=== PATIENT | female | born 1940 | race Caucasian/White ===

== ENCOUNTER 2016-06-13 22:43 | Inpatient (IN) | payer MEDICARE, OTHER ==
[~2016-06-13] VITALS: Ht 144.8 cm; Wt 87.6 kg
[~2016-06-13 22:43] MED LIST: ACET500T68 PO; ALPR1TAB2 PO; AMLO10TA2 PO; ASPI81TA2 PO; CARV6.252 PO; DOCU-27 PO; ESOM20CA PO; FLUT16SP NS; FURO20TA3 PO; LISI40TA PO; MONT10TA6 PO; MONT10TA9 PO; MULT-245 PO; ONDA4TAB10 PO; PANT40TA3 PO; QUET100T PO; QUET25TA5 PO; ROPI0.25 PO; SUCR1ORA2 PO; VALS40TA2 PO
[2016-06-14] VITALS (25 sets, daily range): BP systolic 99–166; BP diastolic 49–90
[2016-06-14] MEDS ORDERED: ACETAMINOPHEN 325 MG TABLET. PO PRN (00:45)
[2016-06-14] MEDS ORDERED: ONDANSETRON PF 4 MG/2 ML VIAL. IV PRN (00:45)
[2016-06-14] MEDS ORDERED: GABA800T2 PO (00:55)
[2016-06-14] MEDS ORDERED: SIMV40TA3 PO (00:55)
[2016-06-14] MEDS ORDERED: ACET-704 PO (00:55)
[2016-06-14 04:20] LABS: BASO % 0 % (0-3); EOS % 0 % (0-3); HEMATOCRIT 34.5 % (36.0-47.0); LYMPH # 0.7 x10^3/uL (1.0-4.8); LYMPH % 3 % (24-48); MEAN CORPUSCULAR HEMOGLOBIN 30 pg (25-35); MEAN CORPUSCULAR HGB CONC 32 g/dL (31-37); MEAN CORPUSCULAR VOLUME 94 fL (79-100); MONO % 1 % (0-9); NEUT % 96 % (31-73); PLATELET COUNT 232 x10^3/uL (140-400); RED BLOOD COUNT 3.67 x10^6/uL (3.50-5.40); RED CELL DISTRIBUTION WIDTH 16.7 % (11.5-14.5); WHITE BLOOD COUNT 22.7 x10^3/uL (4.0-11.0)
[2016-06-14 04:28] LABS: CALCIUM 8.3 mg/dL (8.5-10.1); CREATININE 2.6 mg/dL (0.6-1.0); GFR 17.9; POTASSIUM 4.8 mmol/L (3.5-5.1)
[2016-06-14 06:38] LABS: PLT ESTIMATE ADEQUATE (ADEQUATE)
--- NOTE | 2016-06-14 08:10 | PDOC ---
Infectious Disease Note Vital Sign Vital Signs Vital Signs Date Time Temp Pulse Resp B/P Pulse Ox O2 Delivery O2 Flow Rate FiO2 06/14/16 07:00 98.8 92 20 134/57 92 Nasal Cannula 5.0 98.8 Labs Lab Laboratory Tests Test 06/14/16 02:05 White Blood Count 22.7x10^3/uL (4.0-11.0) Red Blood Count 3.67x10^6/uL (3.50-5.40) Hemoglobin 11.0g/dL (12.0-15.5) Hematocrit 34.5% (36.0-47.0) Mean Corpuscular Volume 94fL (79-100) Mean Corpuscular Hemoglobin 30pg (25-35) Mean Corpuscular Hemoglobin Concent 32g/dL (31-37) Red Cell Distribution Width 16.7% (11.5-14.5) Platelet Count 232x10^3/uL (140-400) Neutrophils (%) (Auto) 96% (31-73) Lymphocytes (%) (Auto) 3% (24-48) Monocytes (%) (Auto) 1% (0-9) Eosinophils (%) (Auto) 0% (0-3) Basophils (%) (Auto) 0% (0-3) Neutrophils # (Auto) 21.7x10^3uL (1.8-7.7) Lymphocytes # (Auto) 0.7x10^3/uL (1.0-4.8) Monocytes # (Auto) 0.3x10^3/uL (0.0-1.1) Eosinophils # (Auto) 0.0x10^3/uL (0.0-0.7) Basophils # (Auto) 0.0x10^3/uL (0.0-0.2) Segmented Neutrophils % 82% (35-66) Band Neutrophils % 12% (0-9) Lymphocytes % 4% (24-48) Monocytes % 2% (0-10) Platelet Estimate Adequate (ADEQUATE) Sodium Level 141mmol/L (136-145) Potassium Level 4.8mmol/L (3.5-5.1) Chloride Level 104mmol/L (98-107) Carbon Dioxide Level 26mmol/L (21-32) Anion Gap 11 (6-14) Blood Urea Nitrogen 34mg/dL (7-20) Creatinine 2.6mg/dL (0.6-1.0) Estimated GFR (Cockcroft-Gault) 17.9 Glucose Level 125mg/dL (70-99) Calcium Level 8.3mg/dL (8.5-10.1) Troponin I Quantitative < 0.017ng/mL (0.000-0.055) Objective Assessment Encephalopathy Leukocytosis Renal insufficiency Aphasia HTN Obesity Plan Plan of Care cont shaji and mackenzie for now MRI head cxr u/a supportive care SOSA ZIMMERMAN MD June 14, 2016 08:10
--- NOTE | 2016-06-14 08:47 | PDOC1 ---
History and Physical Date of Admission Date of Admission DATE: 06/14/16 TIME: 08:46 Identification/Chief Complaint Chief Complaint confusion Problems: Source Source: Chart review, Patient History of Present Illness History of Present Illness patient transferred from [facility]. seen there in the ER for confusion, and was workedup for back pain. She reports no back pain, but was maybe moaning in confusion, and she reports no back pain now, but has some difficulty following commands, and has some confusion, Past Medical History Past Medical History not much history sent Cardiovascular: Other (CHF? Le edema) Pulmonary: COPD Musculoskeletal: low back pain Infectious disease: No pertinent hx Family History Family History: No Significant Social History ALCOHOL: occassional Drugs: None Current Medications Current Medications Current Medications Ceftriaxone Sodium/Sodium Chloride (Rocephin/Iv Sodium Chloride 0.9% 50ml) 50 ml @ 100 mls/hr Q24H IV ; Start 06/14/16 at 21:00 Azithromycin (Zithromax) 250 mg DAILY PO ; Start 06/14/16 at 09:00; Stop 06/18/16 at 08:59 Acetaminophen (Tylenol) 325 mg PRN Q4HRS PRN PO MILD PAIN / TEMP; Start at 00:45 Hydralazine HCl (Apresoline) 10 mg PRN Q4HRS PRN IVP ELEVATED BP, SEE COMMENTS ; Start 06/14/16 at 00:45 Ondansetron HCl (Zofran) 4 mg PRN Q6HRS PRN IV NAUSEA/VOMITING; Start 06/14/16 at 00:45 Active Scripts Active Reported Simvastatin 40 Mg Tablet 1 Tab PO QHS Tylenol With Codeine #3 Tablet (Acetaminophen/Codeine Phosphate) 1 Each Tablet 1 Tab PO PRN Q6HRS PRN Gabapentin 800 Mg Tablet 800 Mg PO HS Requip (Ropinirole Hcl) 0.25 Mg Tablet 0.25 Mg PO HS Carafate (Sucralfate) 1 Gm/10 Ml Oral.susp 10 Ml PO TID Quetiapine Fumarate 100 Mg Tablet 100 Mg PO TID Zofran Odt (Ondansetron) 4 Mg Tab.rapdis 4 Mg PO PRN Q4HRS PRN Acetaminophen 500 Mg Tablet 650 Mg PO PRN Q4HRS PRN Colace (Docusate Sodium) 100 Mg Capsule 1 Cap PO BID Fluticasone Propionate Nasal [place] (Fluticasone Propionate) 16 Gm [place].susp 2 [place] NS BID Montelukast Sodium Tablet (Montelukast Sodium) 10 Mg Tablet 10 Mg PO HS Protonix (Pantoprazole Sodium) 40 Mg Tablet.dr 40 Mg PO DAILY Furosemide 20 Mg Tablet 20 Mg PO DAILY Lisinopril 40 Mg Tablet 40 Mg PO DAILY Carvedilol 6.25 Mg Tablet 6.25 Mg PO BIDWMEALS Amlodipine Besylate 10 Mg Tablet 10 Mg PO DAILY Aspirin 81 Mg Tab.chew 81 Mg PO Multi Vitamin Daily (Multivitamin) 1 Each Tablet 1 Each PO Nexium Capsule (Esomeprazole Magnesium) 20 Mg Capsule.dr 20 Mg PO Diovan (Valsartan) 40 Mg Tablet 40 Mg PO Seroquel (Quetiapine Fumarate) 25 Mg Tablet 25 Mg PO Xanax (Alprazolam) 1 Mg Tablet 0.5 Mg PO TID Allergies Allergies: Coded Allergies: No Known Drug Allergies (Unverified , 11/04/15) ROS Review of System unable to complete, pt confused, slow to respond, some questions just get stares General: YES: Chills, Fatigue HEENT: YES: Heacaches Physical Exam General: Cooperative, mild distress, Other (not oriented 0/3) HEENT: Atraumatic, PERRLA Lungs: Other (diminished, w./ rales, no wheeze) Abdomen: Normal bowel sounds, Soft Rectal Exam: not examined Extremities: No cyanosis, Other (non pitting edema BLE) Neuro: Reflexes 2+, Other (slow speech) Psych/Mental Status: Other (seems confused) Vitals Vitals Vital Signs Date Time Temp Pulse Resp B/P Pulse Ox O2 Delivery O2 Flow Rate FiO2 06/14/16 07:00 98.8 92 20 134/57 92 Nasal Cannula 5.0 98.8 Labs Labs Laboratory Tests Test 06/14/16 02:05 06/14/16 08:00 White Blood Count 22.7x10^3/uL (4.0-11.0) Red Blood Count 3.67x10^6/uL (3.50-5.40) Hemoglobin 11.0g/dL (12.0-15.5) Hematocrit 34.5% (36.0-47.0) Mean Corpuscular Volume 94fL (79-100) Mean Corpuscular Hemoglobin 30pg (25-35) Mean Corpuscular Hemoglobin Concent 32g/dL (31-37) Red Cell Distribution Width 16.7% (11.5-14.5) Platelet Count 232x10^3/uL (140-400) Neutrophils (%) (Auto) 96% (31-73) Lymphocytes (%) (Auto) 3% (24-48) Monocytes (%) (Auto) 1% (0-9) Eosinophils (%) (Auto) 0% (0-3) Basophils (%) (Auto) 0% (0-3) Neutrophils # (Auto) 21.7x10^3uL (1.8-7.7) Lymphocytes # (Auto) 0.7x10^3/uL (1.0-4.8) Monocytes # (Auto) 0.3x10^3/uL (0.0-1.1) Eosinophils # (Auto) 0.0x10^3/uL (0.0-0.7) Basophils # (Auto) 0.0x10^3/uL (0.0-0.2) Segmented Neutrophils % 82% (35-66) Band Neutrophils % 12% (0-9) Lymphocytes % 4% (24-48) Monocytes % 2% (0-10) Platelet Estimate Adequate (ADEQUATE) Sodium Level 141mmol/L (136-145) Potassium Level 4.8mmol/L (3.5-5.1) Chloride Level 104mmol/L (98-107) Carbon Dioxide Level 26mmol/L (21-32) Anion Gap 11 (6-14) Blood Urea Nitrogen 34mg/dL (7-20) Creatinine 2.6mg/dL (0.6-1.0) Estimated GFR (Cockcroft-Gault) 17.9 Glucose Level 125mg/dL (70-99) Calcium Level 8.3mg/dL (8.5-10.1) Troponin I Quantitative < 0.017ng/mL (0.000-0.055) < 0.017ng/mL (0.000-0.055) Laboratory Tests Test 06/14/16 02:05 06/14/16 08:00 White Blood Count 22.7x10^3/uL (4.0-11.0) Red Blood Count 3.67x10^6/uL (3.50-5.40) Hemoglobin 11.0g/dL (12.0-15.5) Hematocrit 34.5% (36.0-47.0) Mean Corpuscular Volume 94fL (79-100) Mean Corpuscular Hemoglobin 30pg (25-35) Mean Corpuscular Hemoglobin Concent 32g/dL (31-37) Red Cell Distribution Width 16.7% (11.5-14.5) Platelet Count 232x10^3/uL (140-400) Neutrophils (%) (Auto) 96% (31-73) Lymphocytes (%) (Auto) 3% (24-48) Monocytes (%) (Auto) 1% (0-9) Eosinophils (%) (Auto) 0% (0-3) Basophils (%) (Auto) 0% (0-3) Neutrophils # (Auto) 21.7x10^3uL (1.8-7.7) Lymphocytes # (Auto) 0.7x10^3/uL (1.0-4.8) Monocytes # (Auto) 0.3x10^3/uL (0.0-1.1) Eosinophils # (Auto) 0.0x10^3/uL (0.0-0.7) Basophils # (Auto) 0.0x10^3/uL (0.0-0.2) Segmented Neutrophils % 82% (35-66) Band Neutrophils % 12% (0-9) Lymphocytes % 4% (24-48) Monocytes % 2% (0-10) Platelet Estimate Adequate (ADEQUATE) Sodium Level 141mmol/L (136-145) Potassium Level 4.8mmol/L (3.5-5.1) Chloride Level 104mmol/L (98-107) Carbon Dioxide Level 26mmol/L (21-32) Anion Gap 11 (6-14) Blood Urea Nitrogen 34mg/dL (7-20) Creatinine 2.6mg/dL (0.6-1.0) Estimated GFR (Cockcroft-Gault) 17.9 Glucose Level 125mg/dL (70-99) Calcium Level 8.3mg/dL (8.5-10.1) Troponin I Quantitative < 0.017ng/mL (0.000-0.055) < 0.017ng/mL (0.000-0.055) VTE Prophylaxis Ordered VTE Prophylaxis Devices: No VTE Pharmacological Prophylaxi: Yes Assessment/Plan Assessment/Plan Sepsis, check UA and CXR here, ] Encephalopathy, acute w/ asterixis, consult Neuro, MRI brain, w/u CVA, NPO until speech, PT and OT acute hypoxic resp failure COPD, dependent at baseline Weakness and debility Acute vasomotor nephropathy on CKD obesity, BMI 40 LE edema, check echo TAYLOR GORDON MD June 14, 2016 08:47
[2016-06-14] MEDS ORDERED: SALIVA STIMULANT AGENT 44ML SPRAY BOTTLE. PO PRN (09:00)
[2016-06-14] MEDS ORDERED: AZITHROMYCIN 250 MG TABLET. PO SCH (09:00)
--- NOTE | 2016-06-14 09:03 | RAD ---
Indication leukocytosis. Protocol study. A single view of the chest was obtained. No prior imaging is available of the chest. Heart size is at the upper limits of normal. There is no gross congestive heart failure. The arch of the aorta is tortuous and may be mildly aneurysmally dilated. There is volume loss at the lung bases right slightly greater than left compatible with scarring or atelectasis. Pneumonia at either lung base is not entirely excluded. Significant pleural fluid is not seen. There is no pneumothorax. IMPRESSION: Heart size at the upper limits of normal. Somewhat tortuous thoracic aorta. Moderate aneurysmal dilatation of the arch is not excluded. Volume loss at the lung bases right greater than left may reflect atelectasis or scar. Pneumonia is not excluded.:
[2016-06-14] MEDS ORDERED: BUDESONIDE 0.5 MG/2 ML NEBU. NEB ONE (09:30)
[2016-06-14] MEDS: AZITHROMYCIN 250 MG in IV NORMAL SALINE 250ML 250 ML IV SCH (09:37)
--- NOTE | 2016-06-14 10:35 | PDOC2 ---
CONSULT Date of Consult Date of Consult DATE: 06/14/16 TIME: 10:34 Reason for Consult Reason for Consult: BARB/ CKD III Referring Physician Referring Physician: Dr Wolff Source Source: Chart review, Patient History of Present Illness Reason for Visit: as dictated Past Medical History Cardiovascular: Other (CHF? Le edema) Pulmonary: COPD Musculoskeletal: low back pain Infectious disease: No pertinent hx Renal/: Chronic renal failure Past Surgical History Past Surgical History: Hysterectomy Family History Family History: No Significant Social History ALCOHOL: occassional Drugs: None Current Medications Current Medications Current Medications Ceftriaxone Sodium/Sodium Chloride (Rocephin/Iv Sodium Chloride 0.9% 50ml) 50 ml @ 100 mls/hr Q24H IV ; Start 06/14/16 at 21:00 Azithromycin (Zithromax) 250 mg DAILY PO ; Start 06/14/16 at 09:00; Stop 06/14/16 at 09:00; Status DC Acetaminophen (Tylenol) 325 mg PRN Q4HRS PRN PO MILD PAIN / TEMP; Start at 00:45 Hydralazine HCl (Apresoline) 10 mg PRN Q4HRS PRN IVP ELEVATED BP, SEE COMMENTS ; Start 06/14/16 at 00:45 Ondansetron HCl (Zofran) 4 mg PRN Q6HRS PRN IV NAUSEA/VOMITING; Start 06/14/16 at 00:45 Saliva Substitute 2 spray 2 spray PRN Q15MIN PRN PO DRY MOUTH Last administered on 06/14/16 09:37; Start 06/14/16 at 09:00 Azithromycin/ Sodium Chloride (Zithromax/Iv Sodium Chloride 0.9% 250ml) 250 ml @ 250 mls/hr Q24H IV Last administered on 06/14/16 09:37; Start 06/14/16 at 10: 00 Albuterol/ Ipratropium (Duoneb) 3 ml Q4HRS W/A NEB ; Start 06/14/16 at 10:00 Budesonide (Pulmicort) 0.5 mg RTBID NEB ; Start 06/14/16 at 20:00 Budesonide (Pulmicort) 0.5 mg 1X ONCE NEB ; Start 06/14/16 at 09:30; Stop at 09:31; Status DC Active Scripts Active Reported Simvastatin 40 Mg Tablet 1 Tab PO QHS Tylenol With Codeine #3 Tablet (Acetaminophen/Codeine Phosphate) 1 Each Tablet 1 Tab PO PRN Q6HRS PRN Gabapentin 800 Mg Tablet 800 Mg PO HS Requip (Ropinirole Hcl) 0.25 Mg Tablet 0.25 Mg PO HS Carafate (Sucralfate) 1 Gm/10 Ml Oral.susp 10 Ml PO TID Quetiapine Fumarate 100 Mg Tablet 100 Mg PO TID Zofran Odt (Ondansetron) 4 Mg Tab.rapdis 4 Mg PO PRN Q4HRS PRN Acetaminophen 500 Mg Tablet 650 Mg PO PRN Q4HRS PRN Colace (Docusate Sodium) 100 Mg Capsule 1 Cap PO BID Fluticasone Propionate Nasal [place] (Fluticasone Propionate) 16 Gm [place].susp 2 [place] NS BID Montelukast Sodium Tablet (Montelukast Sodium) 10 Mg Tablet 10 Mg PO HS Protonix (Pantoprazole Sodium) 40 Mg Tablet.dr 40 Mg PO DAILY Furosemide 20 Mg Tablet 20 Mg PO DAILY Lisinopril 40 Mg Tablet 40 Mg PO DAILY Carvedilol 6.25 Mg Tablet 6.25 Mg PO BIDWMEALS Amlodipine Besylate 10 Mg Tablet 10 Mg PO DAILY Aspirin 81 Mg Tab.chew 81 Mg PO Multi Vitamin Daily (Multivitamin) 1 Each Tablet 1 Each PO Nexium Capsule (Esomeprazole Magnesium) 20 Mg Capsule.dr 20 Mg PO Diovan (Valsartan) 40 Mg Tablet 40 Mg PO Seroquel (Quetiapine Fumarate) 25 Mg Tablet 25 Mg PO Xanax (Alprazolam) 1 Mg Tablet 0.5 Mg PO TID Allergies Allergies: Coded Allergies: No Known Drug Allergies (Unverified , 11/04/15) ROS Review of System unable to get from pt due to underlying encephalopathy Physical Exam Physical Exam General Appearance: Awake relatively Alert Oriented x ? , does not answer Qs, min verbalization In no obvious Distress Eyes: VIsion Unchanged Conjunctiva Normal EN: No EN Drainage Mucous Memb. dry Neck: no JVD no JVP Supple no Thyromegaly CVS: S1 S2 ? Murmur No Gallop No Rub tr Edema Resp: no Rales no Rhonchi no Acc. Muscle use GI: BS +ve NO Bruit Min Tender Non Distended : + CVA tenderness; no Suprapubic Tenderness SKIN: no Rashes Breast Exam deferred Mu.Sk: Adequate passive ROM no Muscle Atrophy does not follow commands Heme: Unable to palpate Obvious LAD no palp Splenomegaly NEURO: unable to assess since she does not follow commands; no asterixis Psych: ? Depressed no Active hallucination Vital Signs Vital Signs Date Time Temp Pulse Resp B/P Pulse Ox O2 Delivery O2 Flow Rate FiO2 06/14/16 10:00 97 18 107/57 92 Nasal Cannula 5.0 06/14/16 07:00 98.8 98.8 Assessment & Plan BARB - ? Pyelonephritis.UO is good for now. watch trend on IVF. Current FLuid and E-lyte status does not necessitate emergent need for Dialysis. Will re- evaluate for Dialysis in am. UA as ordered and will await US Anemia: cehck iron ? Vol depltion - will see if IVF helps with improving AMS also. HypoAlbuminemia - check Pre-Alb Labs Labs Laboratory Tests Test 06/14/16 02:05 06/14/16 08:00 White Blood Count 22.7x10^3/uL (4.0-11.0) Red Blood Count 3.67x10^6/uL (3.50-5.40) Hemoglobin 11.0g/dL (12.0-15.5) Hematocrit 34.5% (36.0-47.0) Mean Corpuscular Volume 94fL (79-100) Mean Corpuscular Hemoglobin 30pg (25-35) Mean Corpuscular Hemoglobin Concent 32g/dL (31-37) Red Cell Distribution Width 16.7% (11.5-14.5) Platelet Count 232x10^3/uL (140-400) Neutrophils (%) (Auto) 96% (31-73) Lymphocytes (%) (Auto) 3% (24-48) Monocytes (%) (Auto) 1% (0-9) Eosinophils (%) (Auto) 0% (0-3) Basophils (%) (Auto) 0% (0-3) Neutrophils # (Auto) 21.7x10^3uL (1.8-7.7) Lymphocytes # (Auto) 0.7x10^3/uL (1.0-4.8) Monocytes # (Auto) 0.3x10^3/uL (0.0-1.1) Eosinophils # (Auto) 0.0x10^3/uL (0.0-0.7) Basophils # (Auto) 0.0x10^3/uL (0.0-0.2) Segmented Neutrophils % 82% (35-66) Band Neutrophils % 12% (0-9) Lymphocytes % 4% (24-48) Monocytes % 2% (0-10) Platelet Estimate Adequate (ADEQUATE) Sodium Level 141mmol/L (136-145) Potassium Level 4.8mmol/L (3.5-5.1) Chloride Level 104mmol/L (98-107) Carbon Dioxide Level 26mmol/L (21-32) Anion Gap 11 (6-14) Blood Urea Nitrogen 34mg/dL (7-20) Creatinine 2.6mg/dL (0.6-1.0) Estimated GFR (Cockcroft-Gault) 17.9 Glucose Level 125mg/dL (70-99) Calcium Level 8.3mg/dL (8.5-10.1) Troponin I Quantitative < 0.017ng/mL (0.000-0.055) < 0.017ng/mL (0.000-0.055) Albumin 2.7g/dL (3.4-5.0) Laboratory Tests Test 06/14/16 02:05 06/14/16 08:00 White Blood Count 22.7x10^3/uL (4.0-11.0) Red Blood Count 3.67x10^6/uL (3.50-5.40) Hemoglobin 11.0g/dL (12.0-15.5) Hematocrit 34.5% (36.0-47.0) Mean Corpuscular Volume 94fL (79-100) Mean Corpuscular Hemoglobin 30pg (25-35) Mean Corpuscular Hemoglobin Concent 32g/dL (31-37) Red Cell Distribution Width 16.7% (11.5-14.5) Platelet Count 232x10^3/uL (140-400) Neutrophils (%) (Auto) 96% (31-73) Lymphocytes (%) (Auto) 3% (24-48) Monocytes (%) (Auto) 1% (0-9) Eosinophils (%) (Auto) 0% (0-3) Basophils (%) (Auto) 0% (0-3) Neutrophils # (Auto) 21.7x10^3uL (1.8-7.7) Lymphocytes # (Auto) 0.7x10^3/uL (1.0-4.8) Monocytes # (Auto) 0.3x10^3/uL (0.0-1.1) Eosinophils # (Auto) 0.0x10^3/uL (0.0-0.7) Basophils # (Auto) 0.0x10^3/uL (0.0-0.2) Segmented Neutrophils % 82% (35-66) Band Neutrophils % 12% (0-9) Lymphocytes % 4% (24-48) Monocytes % 2% (0-10) Platelet Estimate Adequate (ADEQUATE) Sodium Level 141mmol/L (136-145) Potassium Level 4.8mmol/L (3.5-5.1) Chloride Level 104mmol/L (98-107) Carbon Dioxide Level 26mmol/L (21-32) Anion Gap 11 (6-14) Blood Urea Nitrogen 34mg/dL (7-20) Creatinine 2.6mg/dL (0.6-1.0) Estimated GFR (Cockcroft-Gault) 17.9 Glucose Level 125mg/dL (70-99) Calcium Level 8.3mg/dL (8.5-10.1) Troponin I Quantitative < 0.017ng/mL (0.000-0.055) < 0.017ng/mL (0.000-0.055) Albumin 2.7g/dL (3.4-5.0) KOBI ZIMMERMAN MD June 14, 2016 10:35
[2016-06-14] MEDS ORDERED: MAGNESIUM SULFATE 2GM 50 ML IV PRN (10:45)
[2016-06-14 11:02] LABS: HCO3 ABG 24 mmol/L (21-28); PCO2 ABG 50 mmHg (35-46); PO2 ABG 62 mmHg (65-108); SAT O2 ABG 89 % (92-99)
--- NOTE | 2016-06-14 11:12 | PDOC2 ---
NEUROLOGY CONSULT Date of Admission Date of Admission DATE: 06/14/16 TIME: 10:58 Reason for Consult Reason for Consult: Altered mental status, abnormal head CT Referring Physician Referring Physician: Dr. Clinton PCP: Dr. Henry Source Source: Chart review, Patient History of Present Illness History of Present Illness The patient is a 75-year-old right-handed female who presented to the [facility] emergency department with altered mental status. Last known normal was 06/12/16 at 19:45 when she left a normal voicemail message for a friend. No one saw her yesterday and neighbors were concerned, they got in her house and found her unresponsive on her bed in respiratory distress. I discussed the case with Dr. Walton. CT of the head showed probable artifact in the temi and I recommended a brain MRI for this morning, with neurology consultation only if it were abnormal. The brain MRI was not ordered until this morning and the neurology consultation has been placed anyway. The patient has been found to have multiple medical problems including pneumonia. She denies any prior history of stroke, seizure, or head injury. She was complaining of back pain yesterday, but denies it presently. Past Medical History Cardiovascular: HTN Pulmonary: Asthma, COPD CENTRAL NERVOUS SYSTEM: Seizure (Listed in nursing history, but patient denies) GI: GERD, Other ( esophageal stricture) Psych: Anxiety, Depression Musculoskeletal: Other ( fractures) Renal/: Chronic renal insuff Past Surgical History Past Surgical History: Hysterectomy, Other ( esophageal stricture dilatations, right leg) Family History Family History: No pertinent hx Social History Social History Single, no tobacco or alcohol Current Medications Current Medications Current Medications Ceftriaxone Sodium/Sodium Chloride (Rocephin/Iv Sodium Chloride 0.9% 50ml) 50 ml @ 100 mls/hr Q24H IV ; Start 06/14/16 at 21:00 Azithromycin (Zithromax) 250 mg DAILY PO ; Start 06/14/16 at 09:00; Stop 06/14/16 at 09:00; Status DC Acetaminophen (Tylenol) 325 mg PRN Q4HRS PRN PO MILD PAIN / TEMP; Start at 00:45 Hydralazine HCl (Apresoline) 10 mg PRN Q4HRS PRN IVP ELEVATED BP, SEE COMMENTS ; Start 06/14/16 at 00:45 Ondansetron HCl (Zofran) 4 mg PRN Q6HRS PRN IV NAUSEA/VOMITING; Start 06/14/16 at 00:45 Saliva Substitute 2 spray 2 spray PRN Q15MIN PRN PO DRY MOUTH Last administered on 06/14/16 09:37; Start 06/14/16 at 09:00 Azithromycin/ Sodium Chloride (Zithromax/Iv Sodium Chloride 0.9% 250ml) 250 ml @ 250 mls/hr Q24H IV Last administered on 06/14/16 09:37; Start 06/14/16 at 10: 00 Albuterol/ Ipratropium (Duoneb) 3 ml Q4HRS W/A NEB ; Start 06/14/16 at 10:00 Budesonide (Pulmicort) 0.5 mg RTBID NEB ; Start 06/14/16 at 20:00 Budesonide 0.5 mg 0.5 mg 1X ONCE NEB ; Start 06/14/16 at 09:30; Stop 06/14/16 at 09:31; Status DC Magnesium Sulfate/ Dextrose 50 ml @ 25 mls/hr PRN DAILY PRN IV for Mag < 1.7 on am labs; Start 06/14/16 at 10:45 Sodium Chloride (Iv Sodium Chloride 0.9% 1000ml Bag) 1,000 ml @ 75 mls/hr [id number] IV ; Start 06/14/16 at 11:00 Active Scripts Active Reported Simvastatin 40 Mg Tablet 1 Tab PO QHS Tylenol With Codeine #3 Tablet (Acetaminophen/Codeine Phosphate) 1 Each Tablet 1 Tab PO PRN Q6HRS PRN Gabapentin 800 Mg Tablet 800 Mg PO HS Requip (Ropinirole Hcl) 0.25 Mg Tablet 0.25 Mg PO HS Carafate (Sucralfate) 1 Gm/10 Ml Oral.susp 10 Ml PO TID Quetiapine Fumarate 100 Mg Tablet 100 Mg PO TID Zofran Odt (Ondansetron) 4 Mg Tab.rapdis 4 Mg PO PRN Q4HRS PRN Acetaminophen 500 Mg Tablet 650 Mg PO PRN Q4HRS PRN Colace (Docusate Sodium) 100 Mg Capsule 1 Cap PO BID Fluticasone Propionate Nasal [place] (Fluticasone Propionate) 16 Gm [place].susp 2 [place] NS BID Montelukast Sodium Tablet (Montelukast Sodium) 10 Mg Tablet 10 Mg PO HS Protonix (Pantoprazole Sodium) 40 Mg Tablet.dr 40 Mg PO DAILY Furosemide 20 Mg Tablet 20 Mg PO DAILY Lisinopril 40 Mg Tablet 40 Mg PO DAILY Carvedilol 6.25 Mg Tablet 6.25 Mg PO BIDWMEALS Amlodipine Besylate 10 Mg Tablet 10 Mg PO DAILY Aspirin 81 Mg Tab.chew 81 Mg PO Multi Vitamin Daily (Multivitamin) 1 Each Tablet 1 Each PO Nexium Capsule (Esomeprazole Magnesium) 20 Mg Capsule.dr 20 Mg PO Diovan (Valsartan) 40 Mg Tablet 40 Mg PO Seroquel (Quetiapine Fumarate) 25 Mg Tablet 25 Mg PO Xanax (Alprazolam) 1 Mg Tablet 0.5 Mg PO TID Allergies Allergies: Coded Allergies: No Known Drug Allergies (Unverified , 11/04/15) ROS Review of System Negative for fevers, chills, weight loss, shortness of breath, chest pain, indigestion, hematochezia, melena, dysuria. Full 14-point review systems is negative. Physical Exam Physical Examination PHYSICAL EXAMINATION: Vital signs: see above. General appearance is normal and in no acute distress. HEENT: Normocephalic and nontraumatic. Eyes, nose, ears, and throat are unremarkable. Neck is supple. No lymphadenopathy. No bruits are heard over the carotid artery. No crepitus. NEUROLOGICAL EXAMINATION: Mental Status Examination: Alert. She knows that she is in a hospital but does not know its name, or the date. Answers questions and follows commends. Pupils are equal round and reactive to light and accommodation. Funduscopic exam: No papilledema. Extraocular movements are intact. Visual field exam shows no defect on the direct confrontation. No motor or sensory deficits on the facial exam. Uvula in the midline and the soft palate elevated symmetrically. No deviation of the tongue to any direction. Gross hearing is normal. Shoulder shrug normal. Muscle tone is normal. Muscle strength is 5. Deep tendon reflexes are 2+ all around. There are bilateral grasp reflexes. Plantar reflex is with flexion response bilaterally. Vfeqdg-hy-fizu test performance is accurate. Tandem walk test is accurate. Alternative movements are accurate. Romberg test is negative. Gait is normal. Sensory exam shows no deficits. No cerebellar signs are elicited. Vitals VITALS Vital Signs Date Time Temp Pulse Resp B/P Pulse Ox O2 Delivery O2 Flow Rate FiO2 06/14/16 10:00 97 18 107/57 92 Nasal Cannula 5.0 06/14/16 07:00 98.8 98.8 Labs Labs Laboratory Tests Test 06/14/16 02:05 06/14/16 08:00 White Blood Count 22.7x10^3/uL (4.0-11.0) Red Blood Count 3.67x10^6/uL (3.50-5.40) Hemoglobin 11.0g/dL (12.0-15.5) Hematocrit 34.5% (36.0-47.0) Mean Corpuscular Volume 94fL (79-100) Mean Corpuscular Hemoglobin 30pg (25-35) Mean Corpuscular Hemoglobin Concent 32g/dL (31-37) Red Cell Distribution Width 16.7% (11.5-14.5) Platelet Count 232x10^3/uL (140-400) Neutrophils (%) (Auto) 96% (31-73) Lymphocytes (%) (Auto) 3% (24-48) Monocytes (%) (Auto) 1% (0-9) Eosinophils (%) (Auto) 0% (0-3) Basophils (%) (Auto) 0% (0-3) Neutrophils # (Auto) 21.7x10^3uL (1.8-7.7) Lymphocytes # (Auto) 0.7x10^3/uL (1.0-4.8) Monocytes # (Auto) 0.3x10^3/uL (0.0-1.1) Eosinophils # (Auto) 0.0x10^3/uL (0.0-0.7) Basophils # (Auto) 0.0x10^3/uL (0.0-0.2) Segmented Neutrophils % 82% (35-66) Band Neutrophils % 12% (0-9) Lymphocytes % 4% (24-48) Monocytes % 2% (0-10) Platelet Estimate Adequate (ADEQUATE) Sodium Level 141mmol/L (136-145) Potassium Level 4.8mmol/L (3.5-5.1) Chloride Level 104mmol/L (98-107) Carbon Dioxide Level 26mmol/L (21-32) Anion Gap 11 (6-14) Blood Urea Nitrogen 34mg/dL (7-20) Creatinine 2.6mg/dL (0.6-1.0) Estimated GFR (Cockcroft-Gault) 17.9 Glucose Level 125mg/dL (70-99) Calcium Level 8.3mg/dL (8.5-10.1) Troponin I Quantitative < 0.017ng/mL (0.000-0.055) < 0.017ng/mL (0.000-0.055) Albumin 2.7g/dL (3.4-5.0) Laboratory Tests Test 06/14/16 02:05 06/14/16 08:00 White Blood Count 22.7x10^3/uL (4.0-11.0) Red Blood Count 3.67x10^6/uL (3.50-5.40) Hemoglobin 11.0g/dL (12.0-15.5) Hematocrit 34.5% (36.0-47.0) Mean Corpuscular Volume 94fL (79-100) Mean Corpuscular Hemoglobin 30pg (25-35) Mean Corpuscular Hemoglobin Concent 32g/dL (31-37) Red Cell Distribution Width 16.7% (11.5-14.5) Platelet Count 232x10^3/uL (140-400) Neutrophils (%) (Auto) 96% (31-73) Lymphocytes (%) (Auto) 3% (24-48) Monocytes (%) (Auto) 1% (0-9) Eosinophils (%) (Auto) 0% (0-3) Basophils (%) (Auto) 0% (0-3) Neutrophils # (Auto) 21.7x10^3uL (1.8-7.7) Lymphocytes # (Auto) 0.7x10^3/uL (1.0-4.8) Monocytes # (Auto) 0.3x10^3/uL (0.0-1.1) Eosinophils # (Auto) 0.0x10^3/uL (0.0-0.7) Basophils # (Auto) 0.0x10^3/uL (0.0-0.2) Segmented Neutrophils % 82% (35-66) Band Neutrophils % 12% (0-9) Lymphocytes % 4% (24-48) Monocytes % 2% (0-10) Platelet Estimate Adequate (ADEQUATE) Sodium Level 141mmol/L (136-145) Potassium Level 4.8mmol/L (3.5-5.1) Chloride Level 104mmol/L (98-107) Carbon Dioxide Level 26mmol/L (21-32) Anion Gap 11 (6-14) Blood Urea Nitrogen 34mg/dL (7-20) Creatinine 2.6mg/dL (0.6-1.0) Estimated GFR (Cockcroft-Gault) 17.9 Glucose Level 125mg/dL (70-99) Calcium Level 8.3mg/dL (8.5-10.1) Troponin I Quantitative < 0.017ng/mL (0.000-0.055) < 0.017ng/mL (0.000-0.055) Albumin 2.7g/dL (3.4-5.0) Images Images CT head yesterday at [facility]: FINDINGS No acute intracranial hemorrhage is identified. There is some motion degradation. There is again some ill-defined low-density of the supratentorial white matter in a bilateral distribution. Duval-white differentiation of the major vascular territories is grossly preserved. Low-density of the temi is otherwise difficult to characterize by this exam, could be artifactual. Mild 3rd and lateral ventriculomegaly is unchanged. Visualized paranasal sinuses and mastoid air cells are aerated.No acute calvarial abnormality is identified. IMPRESSION 1. No acute intracranial hemorrhage is identified. Mild ill-defined low-density of the temi is otherwise difficult characterize, possibly artifactual although more recent ischemia not excludable on this exam. If there is suspicion for evolving or acute ischemia, followup CT or MRI may be beneficial. Ill-defined low-density of the supratentorial white matter bilaterally is probably due to chronic microvascular ischemic disease Assessment/Plan Assessment/Plan Impression: Metabolic encephalopathy, with sepsis, renal failure on top of chronic kidney disease, pneumonia I find no evidence of a pontine stroke on bedside examination, and suspect the CT finding indeed is artifactual as the radiologist said. Questionable history of seizures Grasp reflexes could imply an underlying dementia Recommendations: Await brain MRI Further recommendations depending on results I will also consider EEG testing if her mental status does not improve with treatment of her multiple medical conditions. Thank you for letting me help with the patient's care. ABDELRAHMAN CAMPOS MD June 14, 2016 11:12
[2016-06-14 11:21] LABS: URIC ACID 8.3 mg/dL (2.6-6.0)
[2016-06-14] MEDS: IPRATRPIUM/ALBUTEROL 0.5/2.5MG 3 ML NEBU. NEB SCH ×4 (12:03→22:00)
--- NOTE | 2016-06-14 12:22 | CONS ---
DATE OF CONSULTATION: ATTENDING PHYSICIAN: Dr. Wolff. REASON FOR CONSULTATION: Encephalopathy. HISTORY OF PRESENT ILLNESS: The patient is a 75-year-old female, who was brought back from [facility], where she presented with confusion and some slurring of speech. She has been worked up for back pain. The patient is normally on home oxygen. I was unable to get any history from the patient as she was definitely disoriented to place and person. Arterial blood gas was obtained, showed a pH of 7.30, pCO2 of 50 and a pO2 of 62 on 5 liters nasal cannula. Her chest x-ray was reviewed. There was some volume loss at the right base consistent with atelectasis or scarring. Consultation requested further evaluation and management. PAST MEDICAL HISTORY: History of low back pain, history of possible COPD and history of chronic respiratory failure. PAST SURGICAL HISTORY: No recent surgeries. ALLERGIES: None. MEDICATIONS: All reviewed as listed in the MRAD. REVIEW OF SYSTEMS: Unable to obtain from the patient. SOCIAL HISTORY: History of tobacco use in the past, details of which are not available. PHYSICAL EXAMINATION: GENERAL: She is confused, but in no obvious respiratory distress. VITAL SIGNS: Blood pressure is 107 systolic, afebrile, pulse ox 95% on 5 liters. HEENT: Sclerae nonicteric. NECK: Supple. LUNGS: Diminished breath sounds. CARDIOVASCULAR: Regular rate and rhythm. ABDOMEN: Soft, obese. EXTREMITIES: With trace pitting edema. LABORATORY DATA: Reviewed. ABGs as discussed in my history of present illness. BUN 34, creatinine 2.6, albumin 2.7. White cell count 22.7, hemoglobin 11.0 and platelets are 232. IMPRESSION: 1. Acute hypercapnic respiratory failure, etiology is not so obvious. Could be related to recent stroke versus be effect of pain medications. This is acute respiratory acidosis as her bicarbonate is normal and may be related to narcotics/ benzo's. She will benefit from BiPAP. 2. Cannot exclude sepsis. She has leukocytosis. X-ray shows only minimal volume loss of the right lower lobe. She does have renal failure. Possibility of sepsis cannot be ruled out. 3. Acute renal failure. Renal is consulted. 4. Leukocytosis. 5. Possible cerebrovascular accident. RECOMMENDATIONS: 1. We will place the patient on BiPAP. 2. Follow up ABGs post-bipap. 3. Follow MRI of the head results. 4. Empiric antibiotics as initiated. 5. Follow white cell count. 6. Follow ABGs. 7. Nebulizer treatments. 8. Discussed with RN and RT. Critical care time 37 minutes. BRYNN GONZALES MD DR: DIMA/dali JOB#: [id number] / [id number] DEBBIE
--- NOTE | 2016-06-14 12:27 | RAD ---
PROCEDURE MRI brain without contrast. HISTORY Severe confusion and encephalopathy. TECHNIQUE Sagittal T1, axial T1, axial T2, axial FLAIR, axial T2 gradient, coronal T2, and diffusion imaging with ADC map were performed. COMPARISON CT head from 1 day earlier. FINDINGS There is symmetric prominence of the ventricles and sulci. A few scattered FLAIR hyperintensities in the supratentorial white matter are nonspecific but most suggestive of minimal small vessel ischemic disease. There is no acute intracranial hemorrhage or extra-axial fluid collection. There is no mass effect or midline shift. There is no restricted diffusion to suggest an acute infarct. 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 Cervicomedullary junction is unremarkable. Pituitary and suprasellar region are unremarkable. Intracranial flow voids are preserved. Orbital contents are unremarkable. Area of concern on the temi was likely artifactual on the prior CT, no restricted diffusion or signal abnormality at this site on today's exam. IMPRESSION 1. Negative for acute infarct. 2. Brain parenchymal volume loss and minimal probable small-vessel ischemic disease. Electronically signed by: Bay Mendoza MD (June 14, 2016 12:25:15)
--- NOTE | 2016-06-14 12:38 | RAD ---
Indication acute renal failure superimposed on chronic renal disease. Grayscale imaging targeted to the kidneys was performed. The right kidney measures 9.8 x 5.1 x 4.4 cm. No hydronephrosis or solid mass is seen. There is a 2.5 cm hypoechoic mass associated with the right kidney compatible with a cyst. The left kidney measures 9.2 x 4.8 x 4.3 cm. No hydronephrosis or mass is seen. The patient has a Castano catheter in the urinary bladder. The bladder, as result, is collapsed and poorly evaluated with ultrasound. IMPRESSION: Right renal cyst
[2016-06-14] MEDS: IV NORMAL SALINE 1000ML BAG 1,000 ML IV SCH (12:51)
[2016-06-14 13:39] LABS: BILIRUBIN,URINE NEGATIVE (NEG); GLUCOSE,URINE NEGATIVE (NEG); NITRITE,URINE NEGATIVE (NEG); PH,URINE 5.5; PROTEIN,URINE 30 mg/dL (NEG-TRACE); UROBILINOGEN,URINE 0.2 mg/dL (0.2 mg/dL)
[2016-06-14 13:50] LABS: BACTERIA,URINE 0 /HPF (0-FEW)
--- NOTE | 2016-06-14 14:15 | CARD ---
APPROVED REPORT EXAM: Two-dimensional and M-mode echocardiogram with Doppler and color Doppler. Other Information Quality : Fair Rhythm : NSR INDICATION Dyspnea Peripheral Edema 2D DIMENSIONS RVDd2.3 (2.9-3.5cm)Left Atrium(2D)2.7 (1.6-4.0cm) IVSd0.9 (0.7-1.1cm)Aortic Root(2D)2.6 (2.0-3.7cm) LVDd3.8 (3.9-5.9cm)LVOT Diameter2.2 (1.8-2.4cm) PWd0.9 (0.7-1.1cm)LVDs2.6 (2.5-4.0cm) FS (%) 31.1 %SV37.5 ml LVEF(%)59.6 (>50%) Aortic Valve AoV Peak Gm.175.3cm/sAoV VTI32.5cm AO Peak GR.12.3mmHgLVOT VTI 24.27cm AO Mean GR.7mmHg Mitral Valve MV E Izwexqey289.3cm/sMV E Peak Gr.6mmHg MV DECEL [id number] A Ssrwzkpv04.1cm/s MV E Mean Gr.3mmHgMV DGL88or E/A Ratio1.3MV A Cvtbtgfp782is MVA (PHT)3.67cm2 TDI Lateral E' P. V10.82cm/sMedial E' P. V11.04cm/s E/Lateral E'10.4E/Medial E'10.2 Tricuspid Valve TR P. Xlemruuo825oz/sRAP MOPDGAHH8omAk TR Peak Gr.08nqMrQSHK06mvWt LEFT VENTRICLE The left ventricle is normal size. There is normal left ventricular wall thickness. Left ventricle sy stolic function is normal. The Ejection Fraction is 55-60%. There is normal LV segmental wall motion. The left ventricular diastolic function and filling is normal for age. RIGHT VENTRICLE The right ventricle is normal size. The right ventricular systolic function is normal. ATRIA The left atrium size is normal. The right atrium size is normal. The interatrial septum is intact wit h no evidence for an atrial septal defect or patent foramen ovale as noted on 2-D or Doppler imaging. AORTIC VALVE The aortic valve is mildly calcified. Doppler and Color Flow revealed no significant aortic regurgita tion. There is no significant aortic valvular stenosis. MITRAL VALVE The mitral valve is normal in structure and function. There is no mitral valve stenosis. Doppler and Color Flow revealed trace mitral valve regurgitation. TRICUSPID VALVE The tricuspid valve is not well visualized. Doppler and Color Flow revealed trace to mild tricuspid r egurgitation. The PA pressure was estimated at 28 mmHg. There is no tricuspid valve stenosis. PULMONIC VALVE The pulmonic valve is not well visualized. Doppler and Color Flow revealed no pulmonic valvular regur gitation. There is no pulmonic valvular stenosis. GREAT VESSELS The aortic root is normal in size. Pulmonary veins not recorded. The IVC is normal in size and collap ses >50% with inspiration. PERICARDIAL EFFUSION There is no evidence of significant pericardial effusion. Critical Notification Critical Value: No <Conclusion> The left ventricle is normal size. Left ventricle systolic function is normal. The Ejection Fraction is 55-60%. There is no significant aortic valvular stenosis. Doppler and Color Flow revealed no significant aortic regurgitation. Doppler and Color Flow revealed trace mitral valve regurgitation. Doppler and Color Flow revealed trace to mild tricuspid regurgitation. The PA pressure was estimated at 28 mmHg.
[2016-06-14 15:00] LABS: ALBUMIN 2.8 g/dL (3.4-5.0); DIRECT BILIRUBIN 0.1 mg/dL (0.0-0.2); TOTAL BILIRUBIN 0.4 mg/dL (0.2-1.0); TOTAL PROTEIN 7.9 g/dL (6.4-8.2)
--- NOTE | 2016-06-14 15:05 | RAD ---
Bilateral lower extremity venous ultrasound, 06/14/2016: History: Bilateral leg edema Duplex evaluation of the deep veins in the lower extremities was performed including grayscale, color-flow and spectral Doppler analysis. The femoral and popliteal veins demonstrate normal compressibility and normal responses to distal augmentation maneuvers. Color imaging of those vessels shows no evidence of intraluminal clot. The visualized deep veins in both calves are patent. IMPRESSION: There is no sonographic evidence of deep vein thrombosis in either lower extremity.
[2016-06-14] MEDS ORDERED: PHEN-373 PO (15:07)
[2016-06-14] MEDS ORDERED: METO50TA2 PO (15:07)
[2016-06-14] MEDS ORDERED: PROAIR HFA8.5 GM INH (15:07)
[2016-06-14] MEDS ORDERED: AMLO5TAB4 PO (15:07)
[2016-06-14] MEDS ORDERED: SCOP1PAT TP (15:08)
[2016-06-14 15:33] LABS: HCO3 ABG 22 mmol/L (21-28); PCO2 ABG 39 mmHg (35-46); PH ABG 7.36 (7.35-7.45); PO2 ABG 59 mmHg (65-108); SAT O2 ABG 89 % (92-99)
[2016-06-14] MEDS: BUDESONIDE 0.5 MG/2 ML NEBU. NEB SCH (20:20)
--- NOTE | 2016-06-14 22:47 | CONS ---
DATE OF CONSULTATION: 06/14/2016 REQUESTING PHYSICIAN: Dr. Tenorio. REASON FOR CONSULTATION: Leukocytosis and encephalopathy. HISTORY OF PRESENT ILLNESS: This is a 75-year-old female with history of multiple medical problems and obesity who lives by herself at [place]. Evidently she was found down by a neighbor in her house. ____ evidently her riveter pneumatic came out and she did not open the door, hence the neighbors then went in and was found and called the ambulance. The patient was then transferred to the [facility] and then to here. The patient had undergone some workup at [facility]. The patient is awake. The patient's vitals are stable, but patient is not able to communicate properly. The patient had a CAT scan of the head done which showed there was no hemorrhage, but there was ill-defined density in the temi, it is not clear whether it was artifactual or old stroke. The patient also had a CT scan of the pelvis done which was unremarkable other than spondylolisthesis and old pelvic fracture. The patient had a blood work done, which showed white count to be high. Lactic acid was normal. Creatinine was 2.9. White count was 26,000. The patient is started on Rocephin and azithromycin and sent her here. I did not find any chest x-ray or UA. The patient is awake. The patient is able to communicate, but not able to provide any information. She was able to say she lives in [place] and her doctor is Carl, but she was not able to say when was last time she was seen by Dr. Hnery or what she is doing here or what happened, i.e., how long she is sick or what happened that brought her in here. She is not even able to provide any information to if she has any pain or any nausea, vomiting, diarrhea. PAST MEDICAL HISTORY: Positive for hypertension, gastroesophageal reflux disease, asthma, peptic ulcer disease, chronic renal insufficiency, hyperlipidemia, obesity. PAST SURGICAL HISTORY: The patient has had ankle fracture in the past, hysterectomy and esophageal dilatation done. SOCIAL HISTORY: Negative for smoking, alcohol, illicit drug use. The patient lives alone at [place] in her home. ALLERGIES: No known drug allergies. CURRENT MEDICATIONS: Reviewed. REVIEW OF SYSTEMS: As mentioned in HPI. According to nursing, there is no nausea, vomiting, diarrhea noted. CURRENT MEDICATIONS: Reviewed. The patient is started on Rocephin and azithromycin. PHYSICAL EXAMINATION: GENERAL: Awake female, not in distress. VITAL SIGNS: Stable with temperature 98.8, pulse 92, respirations 20, blood pressure 134/57. HEENT: Both pupils are round and reacting. No conjunctival lesion. No lesion in the mouth. NECK: Supple, no JVP, no lymphadenopathy. LUNGS: Clear. HEART: S1, S2 regular. ABDOMEN: Benign. EXTREMITIES: No edema, cyanosis. SKIN: Unremarkable. NEUROLOGIC: The patient does not completely follow the command, is able to answer very few questions and she keeps repeating things, is not able to really provide the information. Laboratory data and CT as I mentioned in the HPI. LABORATORY DATA: Here white count is 22,000 and creatinine is 2.6. Liver functions are normal. Her MRSA is negative. IMPRESSION: 1. Encephalopathy and with aphasia, may have been related to a new stroke. 2. Found down. 3. Leukocytosis, most likely reactive. 4. Renal insufficiency. 5. Hypertension. 6. Obesity. PLAN: Recommend I would continue Rocephin and azithromycin for the time being. We will get MRI of the head. Chest x-ray, UA, supportive care and PT, OT, and we will further scale down as there is no other evidence for infection. Thank you very much, Dr. Wolff for giving me the opportunity to participate in this patient's care. SOSA ZIMMERMAN MD DR: RUFINO/dali JOB#: [id number] / [id number] DEBBIE
--- NOTE | 2016-06-14 23:51 | CONS ---
DATE OF CONSULTATION: PRIMARY PHYSICIAN: Dr. Clinton/Dr. Wolff. REASON FOR CONSULTATION: Elevated creatinine. HISTORY OF PRESENT ILLNESS: This is a 75-year-old female who apparently did not respond to the front door yesterday and her neighbors went to check on her and found her in bed too weak and confused to get up and follow commands. She was taken to [facility] and then transferred here for further evaluation and management. Her baseline creatinine from previous runs about 1.4. She is not aware of CKD. She is a poor historian currently and is unable to verbalize much. She cannot even provide review of systems. In this setting, she was admitted to ICU bed 5 and we were asked to see her for a creatinine that is up to 2.6 currently. Urine output has been good, so far. Hemodynamically, she has done okay with only one episode of hypotension as documented. HOME MEDICATIONS: Do include Lasix was reviewed. FAMILY HISTORY: Unable to obtain from the patient as documented, has no significant history. SOCIAL HISTORY: Occasional alcohol use. Apparently lives at home by herself. Smoking history is unable to be obtained from the patient. Besides past medical history as documented in my chart is significant for seizure disorder in the past, coronary artery disease, hypertension, COPD, asthma, GERD, hysterectomy, "renal disease," presumed CKD stage III, right leg orthopedic surgery for fracture, depression, anxiety. KOBI ZIMMERMAN MD DR: TOÑA/dali JOB#: [id number] / [id number]
[2016-06-15] VITALS (12 sets, daily range): BP systolic 107–194; BP diastolic 42–99
[2016-06-15] MEDS: IV NORMAL SALINE 1000ML BAG 1,000 ML IV SCH ×2 (02:53→13:23)
[2016-06-15 03:05] LABS: BASO % 0 % (0-3); EOS % 0 % (0-3); HEMATOCRIT 30.6 % (36.0-47.0); HEMOGLOBIN 9.9 g/dL (12.0-15.5); LYMPH # 0.8 x10^3/uL (1.0-4.8); LYMPH % 4 % (24-48); MEAN CORPUSCULAR HEMOGLOBIN 30 pg (25-35); MEAN CORPUSCULAR HGB CONC 32 g/dL (31-37); MEAN CORPUSCULAR VOLUME 91 fL (79-100); MONO % 3 % (0-9); NEUT % 93 % (31-73); PLATELET COUNT 221 x10^3/uL (140-400); RED BLOOD COUNT 3.35 x10^6/uL (3.50-5.40); RED CELL DISTRIBUTION WIDTH 16.4 % (11.5-14.5); WHITE BLOOD COUNT 18.7 x10^3/uL (4.0-11.0)
[2016-06-15 03:21] LABS: ALBUMIN 2.7 g/dL (3.4-5.0); ALBUMIN/GLOBULIN RATIO 0.6 (1.0-1.7); CALCIUM 8.6 mg/dL (8.5-10.1); CREATININE 1.8 mg/dL (0.6-1.0); GFR 27.4; MAGNESIUM 2.1 mg/dL (1.8-2.4); PHOSPHORUS 2.5 mg/dL (2.6-4.7); TOTAL BILIRUBIN 0.3 mg/dL (0.2-1.0); TOTAL PROTEIN 7.6 g/dL (6.4-8.2)
[2016-06-15] MEDS: hydrALAZINE 20 MG/ML VIAL. IVP PRN ×2 (05:30→10:27)
[2016-06-15] MEDS ORDERED: HALOPERIDOL LACTATE 5 MG/ML VIAL. IVP ONE (06:15)
--- NOTE | 2016-06-15 06:57 | ACF ---
Admission Forms Criteria RESPIRATORY FAILURE [facility] Clinical Indications for Admission to Inpatient Care (Place 'X' for any and all applicable criteria): Hospital admission is needed for appropriate care of the patient because of acute respiratory failure or insufficiency as indicated by ANY ONE of the following(1)(2)(3)(4)(5)(6)(7)(8): [ ]I. Mechanical ventilation needed (acute invasive or noninvasive) [X]II. Severe ventilation deficit as indicated by ANY ONE of the following (9) [X]a) Respiratory acidosis (pH less than 7.32 and partial pressure of carbon dioxide greater than 40 mm Hg (5.3 kPa)) [ ]b) Partial pressure of carbon dioxide greater than 44 mm Hg (5.9 kPa ) (new) [ ]c) Airflow measurements less than 25% of predicted (eg, peak expiratory flow rate less than 100 L/minute) [ ]d) Forced vital capacity less than 15 mL/kg of ideal body weight, or 50% decrease in vital capacity from baseline [ ]III. Noncardiac pulmonary edema not resolving with rapid emergency treatment (8) [ ]IV. Severe respiratory distress as indicated by ANY ONE of the following: [ ]a) Severe tachypnea (respiratory rate greater than 30, greater than 45 for 6-month-old, greater than 60 for ) [ ]b) Severe hypoxemia (partial pressure of oxygen less than 50 mm Hg ( 6.7 kPa) on greater than 50% oxygen or partial pressure of oxygen to FIO2 ratio less than 200) [ ]c) Mental status deterioration from respiratory disease [ ]V. Airway obstruction or inadequate protection [A](10)(11) The original [employer] content created by [employer] has been revised. The portions of the content which have been revised are identified through the use of italic text or in bold, and [employer] has neither reviewed nor approved the modified material. All other unmodified content is copyright [employer]. Please see references footnoted in the original [employer] edition 2016 Admission Criteria Met?: Yes OSIEL FOSTER June 15, 2016 06:57
--- NOTE | 2016-06-15 07:51 | PDOC ---
Infectious Disease Note Subjective Subjective pt is awake, still not able to communicate properly ROS ROS no n/v/d/pain Vital Sign Vital Signs Vital Signs Date Time Temp Pulse Resp B/P (MAP) Pulse Ox O2 Delivery O2 Flow Rate FiO2 06/15/16 07:00 98.5 96 14 176/94 (121) 92 Nasal Cannula 2.0 98.5 Physical Exam PHYSICAL EXAM GENERAL: NAD, Alert HEENT: PERRL, OC/OP NECK: Supple, no JVD, no LN LUNGS: Clear HEART: S1S2, no gallop, no murmur ABD: Soft, NT, no organomegaly, no rebound EXT: No edema, no cyanosis NEPHROLOGY NURSE: Alert, not oriented, moves all extremities SKIN: No rash IV: ok Labs Lab Laboratory Tests Test 06/14/16 08:00 06/14/16 08:30 06/14/16 10:45 06/14/16 12:00 Uric Acid 8.3 mg/dL (2.6-6.0) Total Bilirubin 0.4 mg/dL (0.2-1.0) Direct Bilirubin 0.1 mg/dL (0.0-0.2) Aspartate Amino Transf (AST/SGOT) 33 U/L (15-37) Alanine Aminotransferase (ALT/SGPT) 21 U/L (14-59) Alkaline Phosphatase 84 U/L (46-116) Creatine Kinase 665 U/L (26-192) Troponin I Quantitative < 0.017 ng/mL (0.000-0.055) Total Protein 7.9 g/dL (6.4-8.2) Albumin 2.8 g/dL (3.4-5.0) Urine Random Sodium 72 mmol/L (Not Estab.) O2 Saturation 89 % (92-99) Arterial Blood pH 7.30 (7.35-7.45) Arterial Blood pCO2 at Patient Temp 50 mmHg (35-46) Arterial Blood pO2 at Patient Temp 62 mmHg (65-108) Arterial Blood HCO3 24 mmol/L (21-28) Arterial Blood Base Excess -3 mmol/L (-3-3) FiO2 5 lpm nc Urine Collection Type Unknown Urine Color Yellow Urine Clarity Clear Urine pH 5.5 Urine Specific [place] 1.015 Urine Protein 30 mg/dL (NEG-TRACE) Urine Glucose (UA) Negative mg/dL (NEG) Urine Ketones (Stick) Negative mg/dL (NEG) Urine Blood Small (NEG) Urine Nitrite Negative (NEG) Urine Bilirubin Negative (NEG) Urine Urobilinogen Dipstick 0.2 mg/dL (0.2 mg/dL) Urine Leukocyte Esterase Small (NEG) Urine RBC 6-10 /HPF (0-2) Urine WBC 5-10 /HPF (0-4) Urine Bacteria 0 /HPF (0-FEW) Urine Hyaline Casts Few /HPF Urine Granular Casts Occasional /HPF Urine Mucus Mod /LPF Test 06/14/16 15:30 06/15/16 02:40 O2 Saturation 89 % (92-99) Arterial Blood pH 7.36 (7.35-7.45) Arterial Blood pCO2 at Patient Temp 39 mmHg (35-46) Arterial Blood pO2 at Patient Temp 59 mmHg (65-108) Arterial Blood HCO3 22 mmol/L (21-28) Arterial Blood Base Excess -3 mmol/L (-3-3) FiO2 2 lpm nc White Blood Count 18.7 x10^3/uL (4.0-11.0) Red Blood Count 3.35 x10^6/uL (3.50-5.40) Hemoglobin 9.9 g/dL (12.0-15.5) Hematocrit 30.6 % (36.0-47.0) Mean Corpuscular Volume 91 fL (79-100) Mean Corpuscular Hemoglobin 30 pg (25-35) Mean Corpuscular Hemoglobin Concent 32 g/dL (31-37) Red Cell Distribution Width 16.4 % (11.5-14.5) Platelet Count 221 x10^3/uL (140-400) Neutrophils (%) (Auto) 93 % (31-73) Lymphocytes (%) (Auto) 4 % (24-48) Monocytes (%) (Auto) 3 % (0-9) Eosinophils (%) (Auto) 0 % (0-3) Basophils (%) (Auto) 0 % (0-3) Neutrophils # (Auto) 17.3 x10^3uL (1.8-7.7) Lymphocytes # (Auto) 0.8 x10^3/uL (1.0-4.8) Monocytes # (Auto) 0.6 x10^3/uL (0.0-1.1) Eosinophils # (Auto) 0.0 x10^3/uL (0.0-0.7) Basophils # (Auto) 0.0 x10^3/uL (0.0-0.2) Sodium Level 143 mmol/L (136-145) Potassium Level 4.0 mmol/L (3.5-5.1) Chloride Level 106 mmol/L (98-107) Carbon Dioxide Level 27 mmol/L (21-32) Anion Gap 10 (6-14) Blood Urea Nitrogen 43 mg/dL (7-20) Creatinine 1.8 mg/dL (0.6-1.0) Estimated GFR (Cockcroft-Gault) 27.4 BUN/Creatinine Ratio 24 (6-20) Glucose Level 157 mg/dL (70-99) Calcium Level 8.6 mg/dL (8.5-10.1) Phosphorus Level 2.5 mg/dL (2.6-4.7) Magnesium Level 2.1 mg/dL (1.8-2.4) Total Bilirubin 0.3 mg/dL (0.2-1.0) Aspartate Amino Transf (AST/SGOT) 20 U/L (15-37) Alanine Aminotransferase (ALT/SGPT) 20 U/L (14-59) Alkaline Phosphatase 80 U/L (46-116) Total Protein 7.6 g/dL (6.4-8.2) Albumin 2.7 g/dL (3.4-5.0) Albumin/Globulin Ratio 0.6 (1.0-1.7) Objective Assessment Encephalopathy Leukocytosis Renal insufficiency Aphasia HTN Obesity Plan Plan of Care cont rocephine and azithro supportive care SOSA ZIMMERMAN MD June 15, 2016 07:51
[2016-06-15] MEDS: BUDESONIDE 0.5 MG/2 ML NEBU. NEB SCH ×2 (07:55→21:08)
[2016-06-15] MEDS: IPRATRPIUM/ALBUTEROL 0.5/2.5MG 3 ML NEBU. NEB SCH ×5 (07:55→22:00)
[2016-06-15 08:35] LABS: HCO3 ABG 23 mmol/L (21-28); PCO2 ABG 34 mmHg (35-46); PH ABG 7.46 (7.35-7.45); PO2 ABG 67 mmHg (65-108); SAT O2 ABG 93 % (92-99)
[2016-06-15 08:39] LABS: FIO2 ABG 28
[2016-06-15] MEDS ORDERED: METOPROLOL TART IMMED RELEASE 25 MG TABLET. PO SCH (09:15)
[2016-06-15] MEDS ORDERED: ONDANSETRON ODT 4 MG TAB.RAPDIS. PO PRN (09:15)
[2016-06-15] MEDS ORDERED: ACETAMINOPHEN 500 MG TABLET PO PRN (09:15)
--- NOTE | 2016-06-15 09:19 | PDOC ---
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 Weakness and debility Acute vasomotor nephropathy on CKD obesity, BMI 40 htn History of Present Illness History of Present Illness confused, not able to sleep breathing better, but not following directions well Vitals Vitals Vital Signs Date Time Temp Pulse Resp B/P (MAP) Pulse Ox O2 Delivery O2 Flow Rate FiO2 06/15/16 08:00 102 16 171/84 (113) 95 Nasal Cannula 2.0 06/15/16 07:00 98.5 98.5 Physical Exam General: Cooperative, mild distress, Other (not oriented 0/3) Heart: Regular rate, No murmurs Lungs: Clear Abdomen: Normal bowel sounds, Soft Extremities: No cyanosis, Other (non pitting edema BLE) Skin: No rashes Labs LABS Laboratory Tests Test 06/14/16 10:45 06/14/16 12:00 06/14/16 15:30 06/15/16 02:40 O2 Saturation 89 % (92-99) 89 % (92-99) Arterial Blood pH 7.30 (7.35-7.45) 7.36 (7.35-7.45) Arterial Blood pCO2 at Patient Temp 50 mmHg (35-46) 39 mmHg (35-46) Arterial Blood pO2 at Patient Temp 62 mmHg (65-108) 59 mmHg (65-108) Arterial Blood HCO3 24 mmol/L (21-28) 22 mmol/L (21-28) Arterial Blood Base Excess -3 mmol/L (-3-3) -3 mmol/L (-3-3) FiO2 5 lpm nc 2 lpm nc Urine Collection Type Unknown Urine Color Yellow Urine Clarity Clear Urine pH 5.5 Urine Specific [place] 1.015 Urine Protein 30 mg/dL (NEG-TRACE) Urine Glucose (UA) Negative mg/dL (NEG) Urine Ketones (Stick) Negative mg/dL (NEG) Urine Blood Small (NEG) Urine Nitrite Negative (NEG) Urine Bilirubin Negative (NEG) Urine Urobilinogen Dipstick 0.2 mg/dL (0.2 mg/dL) Urine Leukocyte Esterase Small (NEG) Urine RBC 6-10 /HPF (0-2) Urine WBC 5-10 /HPF (0-4) Urine Bacteria 0 /HPF (0-FEW) Urine Hyaline Casts Few /HPF Urine Granular Casts Occasional /HPF Urine Mucus Mod /LPF White Blood Count 18.7 x10^3/uL (4.0-11.0) Red Blood Count 3.35 x10^6/uL (3.50-5.40) Hemoglobin 9.9 g/dL (12.0-15.5) Hematocrit 30.6 % (36.0-47.0) Mean Corpuscular Volume 91 fL (79-100) Mean Corpuscular Hemoglobin 30 pg (25-35) Mean Corpuscular Hemoglobin Concent 32 g/dL (31-37) Red Cell Distribution Width 16.4 % (11.5-14.5) Platelet Count 221 x10^3/uL (140-400) Neutrophils (%) (Auto) 93 % (31-73) Lymphocytes (%) (Auto) 4 % (24-48) Monocytes (%) (Auto) 3 % (0-9) Eosinophils (%) (Auto) 0 % (0-3) Basophils (%) (Auto) 0 % (0-3) Neutrophils # (Auto) 17.3 x10^3uL (1.8-7.7) Lymphocytes # (Auto) 0.8 x10^3/uL (1.0-4.8) Monocytes # (Auto) 0.6 x10^3/uL (0.0-1.1) Eosinophils # (Auto) 0.0 x10^3/uL (0.0-0.7) Basophils # (Auto) 0.0 x10^3/uL (0.0-0.2) Sodium Level 143 mmol/L (136-145) Potassium Level 4.0 mmol/L (3.5-5.1) Chloride Level 106 mmol/L (98-107) Carbon Dioxide Level 27 mmol/L (21-32) Anion Gap 10 (6-14) Blood Urea Nitrogen 43 mg/dL (7-20) Creatinine 1.8 mg/dL (0.6-1.0) Estimated GFR (Cockcroft-Gault) 27.4 BUN/Creatinine Ratio 24 (6-20) Glucose Level 157 mg/dL (70-99) Calcium Level 8.6 mg/dL (8.5-10.1) Phosphorus Level 2.5 mg/dL (2.6-4.7) Magnesium Level 2.1 mg/dL (1.8-2.4) Total Bilirubin 0.3 mg/dL (0.2-1.0) Aspartate Amino Transf (AST/SGOT) 20 U/L (15-37) Alanine Aminotransferase (ALT/SGPT) 20 U/L (14-59) Alkaline Phosphatase 80 U/L (46-116) Total Protein 7.6 g/dL (6.4-8.2) Albumin 2.7 g/dL (3.4-5.0) Albumin/Globulin Ratio 0.6 (1.0-1.7) Test 06/15/16 08:23 O2 Saturation 93 % (92-99) Arterial Blood pH 7.46 (7.35-7.45) Arterial Blood pCO2 at Patient Temp 34 mmHg (35-46) Arterial Blood pO2 at Patient Temp 67 mmHg (65-108) Arterial Blood HCO3 23 mmol/L (21-28) Arterial Blood Base Excess 0 mmol/L (-3-3) FiO2 28 Review of Systems Review of Systems confused, agitated appearing Assessment and Plan Assessmemt and Plan restart home meds, seroquel, hold Herman-i metoprolol for BP until renal fxn improved Problems: Comment Review of Relevant I have reviewed the following items darline (where applicable) has been applied. Labs Laboratory Tests Test 06/14/16 00:40 06/14/16 02:05 06/14/16 08:00 06/14/16 08:30 Nasal Screen MRSA (PCR) Negative (Negative) White Blood Count 22.7 x10^3/uL (4.0-11.0) Red Blood Count 3.67 x10^6/uL (3.50-5.40) Hemoglobin 11.0 g/dL (12.0-15.5) Hematocrit 34.5 % (36.0-47.0) Mean Corpuscular Volume 94 fL (79-100) Mean Corpuscular Hemoglobin 30 pg (25-35) Mean Corpuscular Hemoglobin Concent 32 g/dL (31-37) Red Cell Distribution Width 16.7 % (11.5-14.5) Platelet Count 232 x10^3/uL (140-400) Neutrophils (%) (Auto) 96 % (31-73) Lymphocytes (%) (Auto) 3 % (24-48) Monocytes (%) (Auto) 1 % (0-9) Eosinophils (%) (Auto) 0 % (0-3) Basophils (%) (Auto) 0 % (0-3) Neutrophils # (Auto) 21.7 x10^3uL (1.8-7.7) Lymphocytes # (Auto) 0.7 x10^3/uL (1.0-4.8) Monocytes # (Auto) 0.3 x10^3/uL (0.0-1.1) Eosinophils # (Auto) 0.0 x10^3/uL (0.0-0.7) Basophils # (Auto) 0.0 x10^3/uL (0.0-0.2) Segmented Neutrophils % 82 % (35-66) Band Neutrophils % 12 % (0-9) Lymphocytes % 4 % (24-48) Monocytes % 2 % (0-10) Platelet Estimate Adequate (ADEQUATE) Sodium Level 141 mmol/L (136-145) Potassium Level 4.8 mmol/L (3.5-5.1) Chloride Level 104 mmol/L (98-107) Carbon Dioxide Level 26 mmol/L (21-32) Anion Gap 11 (6-14) Blood Urea Nitrogen 34 mg/dL (7-20) Creatinine 2.6 mg/dL (0.6-1.0) Estimated GFR (Cockcroft-Gault) 17.9 Glucose Level 125 mg/dL (70-99) Calcium Level 8.3 mg/dL (8.5-10.1) Troponin I Quantitative < 0.017 ng/mL (0.000-0.055) < 0.017 ng/mL (0.000-0.055) Prealbumin 21 mg/dL (9-32) Uric Acid 8.3 mg/dL (2.6-6.0) Total Bilirubin 0.4 mg/dL (0.2-1.0) Direct Bilirubin 0.1 mg/dL (0.0-0.2) Aspartate Amino Transf (AST/SGOT) 33 U/L (15-37) Alanine Aminotransferase (ALT/SGPT) 21 U/L (14-59) Alkaline Phosphatase 84 U/L (46-116) Creatine Kinase 665 U/L (26-192) Total Protein 7.9 g/dL (6.4-8.2) Albumin 2.8 g/dL (3.4-5.0) Urine Random Sodium 72 mmol/L (Not Estab.) Test 06/14/16 10:45 06/14/16 12:00 06/14/16 15:30 06/15/16 02:40 O2 Saturation 89 % (92-99) 89 % (92-99) Arterial Blood pH 7.30 (7.35-7.45) 7.36 (7.35-7.45) Arterial Blood pCO2 at Patient Temp 50 mmHg (35-46) 39 mmHg (35-46) Arterial Blood pO2 at Patient Temp 62 mmHg (65-108) 59 mmHg (65-108) Arterial Blood HCO3 24 mmol/L (21-28) 22 mmol/L (21-28) Arterial Blood Base Excess -3 mmol/L (-3-3) -3 mmol/L (-3-3) FiO2 5 lpm nc 2 lpm nc Urine Collection Type Unknown Urine Color Yellow Urine Clarity Clear Urine pH 5.5 Urine Specific [place] 1.015 Urine Protein 30 mg/dL (NEG-TRACE) Urine Glucose (UA) Negative mg/dL (NEG) Urine Ketones (Stick) Negative mg/dL (NEG) Urine Blood Small (NEG) Urine Nitrite Negative (NEG) Urine Bilirubin Negative (NEG) Urine Urobilinogen Dipstick 0.2 mg/dL (0.2 mg/dL) Urine Leukocyte Esterase Small (NEG) Urine RBC 6-10 /HPF (0-2) Urine WBC 5-10 /HPF (0-4) Urine Bacteria 0 /HPF (0-FEW) Urine Hyaline Casts Few /HPF Urine Granular Casts Occasional /HPF Urine Mucus Mod /LPF White Blood Count 18.7 x10^3/uL (4.0-11.0) Red Blood Count 3.35 x10^6/uL (3.50-5.40) Hemoglobin 9.9 g/dL (12.0-15.5) Hematocrit 30.6 % (36.0-47.0) Mean Corpuscular Volume 91 fL (79-100) Mean Corpuscular Hemoglobin 30 pg (25-35) Mean Corpuscular Hemoglobin Concent 32 g/dL (31-37) Red Cell Distribution Width 16.4 % (11.5-14.5) Platelet Count 221 x10^3/uL (140-400) Neutrophils (%) (Auto) 93 % (31-73) Lymphocytes (%) (Auto) 4 % (24-48) Monocytes (%) (Auto) 3 % (0-9) Eosinophils (%) (Auto) 0 % (0-3) Basophils (%) (Auto) 0 % (0-3) Neutrophils # (Auto) 17.3 x10^3uL (1.8-7.7) Lymphocytes # (Auto) 0.8 x10^3/uL (1.0-4.8) Monocytes # (Auto) 0.6 x10^3/uL (0.0-1.1) Eosinophils # (Auto) 0.0 x10^3/uL (0.0-0.7) Basophils # (Auto) 0.0 x10^3/uL (0.0-0.2) Sodium Level 143 mmol/L (136-145) Potassium Level 4.0 mmol/L (3.5-5.1) Chloride Level 106 mmol/L (98-107) Carbon Dioxide Level 27 mmol/L (21-32) Anion Gap 10 (6-14) Blood Urea Nitrogen 43 mg/dL (7-20) Creatinine 1.8 mg/dL (0.6-1.0) Estimated GFR (Cockcroft-Gault) 27.4 BUN/Creatinine Ratio 24 (6-20) Glucose Level 157 mg/dL (70-99) Calcium Level 8.6 mg/dL (8.5-10.1) Phosphorus Level 2.5 mg/dL (2.6-4.7) Magnesium Level 2.1 mg/dL (1.8-2.4) Total Bilirubin 0.3 mg/dL (0.2-1.0) Aspartate Amino Transf (AST/SGOT) 20 U/L (15-37) Alanine Aminotransferase (ALT/SGPT) 20 U/L (14-59) Alkaline Phosphatase 80 U/L (46-116) Total Protein 7.6 g/dL (6.4-8.2) Albumin 2.7 g/dL (3.4-5.0) Albumin/Globulin Ratio 0.6 (1.0-1.7) Test 06/15/16 08:23 O2 Saturation 93 % (92-99) Arterial Blood pH 7.46 (7.35-7.45) Arterial Blood pCO2 at Patient Temp 34 mmHg (35-46) Arterial Blood pO2 at Patient Temp 67 mmHg (65-108) Arterial Blood HCO3 23 mmol/L (21-28) Arterial Blood Base Excess 0 mmol/L (-3-3) FiO2 28 Laboratory Tests Test 06/14/16 10:45 06/14/16 12:00 06/14/16 15:30 06/15/16 02:40 O2 Saturation 89 % (92-99) 89 % (92-99) Arterial Blood pH 7.30 (7.35-7.45) 7.36 (7.35-7.45) Arterial Blood pCO2 at Patient Temp 50 mmHg (35-46) 39 mmHg (35-46) Arterial Blood pO2 at Patient Temp 62 mmHg (65-108) 59 mmHg (65-108) Arterial Blood HCO3 24 mmol/L (21-28) 22 mmol/L (21-28) Arterial Blood Base Excess -3 mmol/L (-3-3) -3 mmol/L (-3-3) FiO2 5 lpm nc 2 lpm nc Urine Collection Type Unknown Urine Color Yellow Urine Clarity Clear Urine pH 5.5 Urine Specific [place] 1.015 Urine Protein 30 mg/dL (NEG-TRACE) Urine Glucose (UA) Negative mg/dL (NEG) Urine Ketones (Stick) Negative mg/dL (NEG) Urine Blood Small (NEG) Urine Nitrite Negative (NEG) Urine Bilirubin Negative (NEG) Urine Urobilinogen Dipstick 0.2 mg/dL (0.2 mg/dL) Urine Leukocyte Esterase Small (NEG) Urine RBC 6-10 /HPF (0-2) Urine WBC 5-10 /HPF (0-4) Urine Bacteria 0 /HPF (0-FEW) Urine Hyaline Casts Few /HPF Urine Granular Casts Occasional /HPF Urine Mucus Mod /LPF White Blood Count 18.7 x10^3/uL (4.0-11.0) Red Blood Count 3.35 x10^6/uL (3.50-5.40) Hemoglobin 9.9 g/dL (12.0-15.5) Hematocrit 30.6 % (36.0-47.0) Mean Corpuscular Volume 91 fL (79-100) Mean Corpuscular Hemoglobin 30 pg (25-35) Mean Corpuscular Hemoglobin Concent 32 g/dL (31-37) Red Cell Distribution Width 16.4 % (11.5-14.5) Platelet Count 221 x10^3/uL (140-400) Neutrophils (%) (Auto) 93 % (31-73) Lymphocytes (%) (Auto) 4 % (24-48) Monocytes (%) (Auto) 3 % (0-9) Eosinophils (%) (Auto) 0 % (0-3) Basophils (%) (Auto) 0 % (0-3) Neutrophils # (Auto) 17.3 x10^3uL (1.8-7.7) Lymphocytes # (Auto) 0.8 x10^3/uL (1.0-4.8) Monocytes # (Auto) 0.6 x10^3/uL (0.0-1.1) Eosinophils # (Auto) 0.0 x10^3/uL (0.0-0.7) Basophils # (Auto) 0.0 x10^3/uL (0.0-0.2) Sodium Level 143 mmol/L (136-145) Potassium Level 4.0 mmol/L (3.5-5.1) Chloride Level 106 mmol/L (98-107) Carbon Dioxide Level 27 mmol/L (21-32) Anion Gap 10 (6-14) Blood Urea Nitrogen 43 mg/dL (7-20) Creatinine 1.8 mg/dL (0.6-1.0) Estimated GFR (Cockcroft-Gault) 27.4 BUN/Creatinine Ratio 24 (6-20) Glucose Level 157 mg/dL (70-99) Calcium Level 8.6 mg/dL (8.5-10.1) Phosphorus Level 2.5 mg/dL (2.6-4.7) Magnesium Level 2.1 mg/dL (1.8-2.4) Total Bilirubin 0.3 mg/dL (0.2-1.0) Aspartate Amino Transf (AST/SGOT) 20 U/L (15-37) Alanine Aminotransferase (ALT/SGPT) 20 U/L (14-59) Alkaline Phosphatase 80 U/L (46-116) Total Protein 7.6 g/dL (6.4-8.2) Albumin 2.7 g/dL (3.4-5.0) Albumin/Globulin Ratio 0.6 (1.0-1.7) Test 06/15/16 08:23 O2 Saturation 93 % (92-99) Arterial Blood pH 7.46 (7.35-7.45) Arterial Blood pCO2 at Patient Temp 34 mmHg (35-46) Arterial Blood pO2 at Patient Temp 67 mmHg (65-108) Arterial Blood HCO3 23 mmol/L (21-28) Arterial Blood Base Excess 0 mmol/L (-3-3) FiO2 28 Medications Current Medications Ceftriaxone Sodium 1 gm/ Sodium Chloride 50 ml @ 100 mls/hr Q24H IV Last administered on 06/14/16 22:04; Start 06/14/16 at 21:00 Azithromycin (Zithromax) 250 mg DAILY PO ; Start 06/14/16 at 09:00; Stop 06/14/16 at 09:00; Status DC Acetaminophen (Tylenol) 325 mg PRN Q4HRS PRN PO MILD PAIN / TEMP; Start at 00:45 Hydralazine HCl (Apresoline) 10 mg PRN Q4HRS PRN IVP ELEVATED BP, SEE COMMENTS ; Start 06/14/16 at 00:45 Ondansetron HCl (Zofran) 4 mg PRN Q6HRS PRN IV NAUSEA/VOMITING; Start 06/14/16 at 00:45 Saliva Substitute (Biotene Moisturizing Mouth) 2 spray PRN Q15MIN PRN PO DRY MOUTH Last administered on 06/14/16 09:37; Start 06/14/16 at 09:00 Azithromycin 250 mg/Sodium Chloride 250 ml @ 250 mls/hr Q24H IV Last administered on 06/14/16 09:37; Start 06/14/16 at 10:00 Albuterol/ Ipratropium (Duoneb) 3 ml Q4HRS W/A NEB Last administered on 07:55; Start 06/14/16 at 10:00 Budesonide (Pulmicort) 0.5 mg RTBID NEB Last administered on 06/15/16 07:55; Start 06/14/16 at 20:00 Budesonide (Pulmicort) 0.5 mg 1X ONCE NEB Last administered on 5/3/17at 12:03 ; Start 06/14/16 at 09:30; Stop 06/14/16 at 09:31; Status DC Magnesium Sulfate/ Dextrose 50 ml @ 25 mls/hr PRN DAILY PRN IV for Mag < 1.7 on am labs; Start 06/14/16 at 10:45 Sodium Chloride 1,000 ml @ 75 mls/hr [id number] IV Last administered on 06/15/16t 02:53; Start 06/14/16 at 11:00 Haloperidol Lactate (Haldol) 2 mg 1X ONCE IVP Last administered on 06/15/16t 06 :15; Start 06/15/16 at 06:15; Stop 06/15/16 at 06:16; Status DC Lorazepam (Ativan) 0.5 mg PRN Q8HRS PRN IV ANXIETY; Start 06/15/16 at 06:15 Lorazepam (Ativan) 2 mg STK-MED ONCE .ROUTE ; Start 06/15/16 at 06:24; Stop at 06:52; Status DC Lorazepam (Ativan) 2 mg STK-MED ONCE .ROUTE ; Start 06/15/16 at 06:30; Stop at 08:07; Status DC Active Scripts Active Reported Transderm-Scop (Scopolamine) 1 Each Patch.td72 1 Patch TP Q3DAYS Norvasc (Amlodipine Besylate) 5 Mg Tablet 5 Mg PO DAILY Metoprolol Tartrate 50 Mg Tablet 50 Mg PO BID Proair Hfa Inhaler (Albuterol Sulfate) 8.5 Gm Hfa.aer.ad 2 Puff INH QID Phenazopyridine Hcl 200 Mg Tablet 1 Tab PO TID Simvastatin 40 Mg Tablet 1 Tab PO QHS Tylenol With Codeine #3 Tablet (Acetaminophen/Codeine Phosphate) 1 Each Tablet 1 Tab PO PRN Q6HRS PRN Gabapentin 800 Mg Tablet 800 Mg PO HS Carafate (Sucralfate) 1 Gm/10 Ml Oral.susp 10 Ml PO QIDACHS Quetiapine Fumarate 100 Mg Tablet 100 Mg PO TID Zofran Odt (Ondansetron) 4 Mg Tab.rapdis 4 Mg PO PRN Q4HRS PRN Acetaminophen 500 Mg Tablet 650 Mg PO PRN Q4HRS PRN Fluticasone Propionate Nasal [place] (Fluticasone Propionate) 16 Gm [place].susp 2 [place] NS BID Montelukast Sodium Tablet (Montelukast Sodium) 10 Mg Tablet 10 Mg PO HS Furosemide 20 Mg Tablet 40 Mg PO DAILY Multi Vitamin Daily (Multivitamin) 1 Each Tablet 1 Each PO Nexium Capsule (Esomeprazole Magnesium) 20 Mg Capsule.dr 40 Mg PO DAILY Diovan (Valsartan) 40 Mg Tablet 160 Mg PO DAILY Xanax (Alprazolam) 1 Mg Tablet 0.5 Mg PO TID Vitals/I & O Vital Sign - Last 24 Hours 06/14/16 06/14/16 06/14/16 06/14/16 10:00 11:00 12:00 12:00 Pulse 97 96 90 Resp 18 18 18 B/P (MAP) 107/57 (74) 161/61 (94) 166/71 (102) Pulse Ox 92 91 93 O2 Delivery Nasal Cannula Nasal Cannula Nasal Cannula Nasal Cannula O2 Flow Rate 5.0 5.0 5.0 5.0 06/14/16 06/14/16 06/14/16 06/14/16 12:17 13:00 13:11 13:15 Temp 99.2 99.2 Pulse 99 Resp 18 B/P (MAP) 163/69 (100) Pulse Ox 92 92 91 O2 Delivery Nasal Cannula Nasal Cannula Venturi Mask Nasal Cannula O2 Flow Rate 5.0 5.0 9.0 3.0 06/14/16 06/14/16 06/14/16 06/14/16 14:00 15:00 15:35 15:47 Temp 98.8 98.8 Pulse 94 94 Resp 18 18 B/P (MAP) 137/71 (93) 162/68 (99) Pulse Ox 92 90 90 89 O2 Delivery Nasal Cannula Nasal Cannula Nasal Cannula Nasal Cannula O2 Flow Rate 3.0 2.0 2.0 2.0 06/14/16 06/14/16 06/14/16 06/14/16 16:00 16:00 17:00 18:00 Pulse 90 94 90 Resp 15 15 20 B/P (MAP) 131/58 (82) 137/58 (84) 149/72 (97) Pulse Ox 90 90 90 O2 Delivery Nasal Cannula Nasal Cannula Nasal Cannula Nasal Cannula O2 Flow Rate 2.0 2.0 2.0 2.0 06/14/16 06/14/16 06/14/16 06/14/16 19:00 19:30 20:07 20:26 Temp 99.1 99.1 Pulse 84 83 Resp 19 18 B/P (MAP) 145/65 (91) 151/90 (110) Pulse Ox 91 93 92 O2 Delivery Nasal Cannula Nasal Cannula Nasal Cannula Nasal Cannula O2 Flow Rate 5.0 5.0 5.0 2.0 06/14/16 06/14/16 06/14/16 06/14/16 21:00 22:00 23:00 23:56 Pulse 92 95 95 Resp 14 13 25 B/P (MAP) 148/63 (91) 152/66 (94) 159/66 (97) Pulse Ox 91 93 93 O2 Delivery Nasal Cannula Nasal Cannula Nasal Cannula Nasal Cannula O2 Flow Rate 2.0 2.0 2.0 2.0 06/14/16 06/15/16 06/15/16 06/15/16 23:59 01:00 02:00 03:00 Temp 98.6 98.6 Pulse 96 99 93 94 Resp 25 22 17 15 B/P (MAP) 152/66 (94) 160/79 (106) 152/77 (102) 165/81 (109) Pulse Ox 90 93 91 91 O2 Delivery Nasal Cannula Nasal Cannula Nasal Cannula Nasal Cannula O2 Flow Rate 2.0 2.0 2.0 2.0 06/15/16 06/15/16 06/15/16 06/15/16 03:21 07:00 07:46 07:56 Temp 98.5 98.5 Pulse 96 Resp 14 B/P (MAP) 176/94 (121) Pulse Ox 92 96 O2 Delivery Nasal Cannula Nasal Cannula Nasal Cannula Nasal Cannula O2 Flow Rate 2.0 2.0 2.0 2.0 06/15/16 08:00 Pulse 102 Resp 16 B/P (MAP) 171/84 (113) Pulse Ox 95 O2 Delivery Nasal Cannula O2 Flow Rate 2.0 Intake and Output 06/14/16 06/14/16 06/15/16 14:59 22:59 06:59 Intake Total 250 ml 933 ml Output Total 520 ml 335 ml 325 ml Balance -270 ml 598 ml -325 ml TAYLOR GORDON MD June 15, 2016 09:18
--- NOTE | 2016-06-15 09:22 | PDOC ---
SUBJECTIVE ROS BARB appears more alert today and more verbal but still not fully oriented yet CVS: no Orthopnea, no CP RESP: no SOB, no PRINGLE GI: no Nausea, no Vomiting : no Dysuria, no Urgency OBJECTIVE Vital Signs Vital Signs Date Time Temp Pulse Resp B/P (MAP) Pulse Ox O2 Delivery O2 Flow Rate FiO2 06/15/16 09:00 108 16 194/99 (130) 95 Nasal Cannula 2.0 06/15/16 07:00 98.5 98.5 I & 0 Intake and Output 06/15/16 06:59 Intake Total 1183 ml Output Total 1180 ml Balance 3 ml Intake Oral 30 ml IV Total 1153 ml Output Urine Total 1180 ml PHYSICAL EXAM Physical Exam General Appearance: Awake, more Alert Oriented x ? , In no obvious Distress Eyes: VIsion Unchanged Conjunctiva Normal EN: No EN Drainage Mucous Memb. moist Neck: no JVD no JVP Supple no Thyromegaly CVS: S1 S2 ? Murmur No Gallop No Rub tr Edema Resp: no Rales no Rhonchi no Acc. Muscle use GI: BS +ve NO Bruit Min Tender Non Distended : + CVA tenderness; no Suprapubic Tenderness Assessment & Plan BARB - UO is good for now, responded to IVF. watch trend on ct IVF. Current FLuid and E-lyte status does not necessitate emergent need for Dialysis. Will re-evaluate for Dialysis in am. UA appears rel benign. ^ed Uric Acid suggests some Vol depeltion too Anemia: cehck iron ? Vol depltion - IVF helping for now HTN - d/w Dr mccoy OK to hold ARB for now. Hypoalbuminemia - no significant proteinuria noted; will check ratio for completion. Pre-Alb WNL COMMENT/RELEVANT DATA Meds Current Medications Medications (Trade) Dose Ordered Sig/Henry Start Time Stop Time Status Last Admin Dose Admin Acetaminophen (Tylenol) 650 mg PRN Q4HRS PRN 06/15/16 09:15 UNV Albuterol/ Ipratropium (Duoneb) 3 ml Q4HRS W/A 06/14/16 10:00 06/15/16 07:55 3 ML Alprazolam (Xanax) 0.5 mg TID 06/15/16 14:00 UNV Amlodipine Besylate (Norvasc) 5 mg DAILY 06/16/16 09:00 UNV Azithromycin (Zithromax) 250 mg DAILY 06/14/16 09:00 06/14/16 09:00 DC Azithromycin 250 mg/Sodium Chloride 250 ml @ 250 mls/hr Q24H 06/14/16 10:00 06/14/16 09:37 250 MLS/HR Budesonide (Pulmicort) 0.5 mg 1X ONCE 06/14/16 09:30 06/14/16 09:31 DC 06/14/16 12:03 0.5 MG Ceftriaxone Sodium 1 gm/ Sodium Chloride 50 ml @ 100 mls/hr Q24H 06/14/16 21:00 06/14/16 22:04 100 MLS/HR Fluticasone Propionate (Flonase) 2 spray BID 06/15/16 21:00 UNV Furosemide (Lasix) 40 mg DAILY 06/16/16 09:00 UNV Haloperidol Lactate (Haldol) 2 mg 1X ONCE 06/15/16 06:15 06/15/16 06:16 DC 06/15/16 06:15 2 MG Hydralazine HCl (Apresoline) 10 mg PRN Q4HRS PRN 06/14/16 00:45 Lorazepam (Ativan) 2 mg STK-MED ONCE 06/15/16 06:30 06/15/16 08:07 DC Magnesium Sulfate/ Dextrose 50 ml @ 25 mls/hr PRN DAILY PRN 06/14/16 10:45 Metoprolol Tartrate (Lopressor) 25 mg BID 06/15/16 09:15 UNV Montelukast Sodium (Singulair) 10 mg HS 06/15/16 21:00 UNV Non-Formulary Medication 800 mg HS 06/15/16 21:00 UNV Ondansetron HCl (Zofran Odt) 4 mg PRN Q4HRS PRN 06/15/16 09:15 UNV Ondansetron HCl (Zofran) 4 mg PRN Q6HRS PRN 06/14/16 00:45 Phenazopyridine HCl (Pyridium) 200 mg TID 06/15/16 14:00 UNV Quetiapine Fumarate (SEROquel) 100 mg TID 06/15/16 14:00 UNV Saliva Substitute (Biotene Moisturizing Mouth) 2 spray PRN Q15MIN PRN 06/14/16 09:00 06/14/16 09:37 2 SPRAY Scopolamine (Transderm-Scop) 1 patch Q3DAYS 06/18/16 09:00 UNV Sodium Chloride 1,000 ml @ 75 mls/hr [id number] 06/14/16 11:00 06/15/16 02:53 75 MLS/HR Sucralfate (Carafate) 1 gm QIDACHS 06/15/16 11:30 UNV Lab Laboratory Tests Test 06/14/16 10:45 06/14/16 12:00 06/14/16 15:30 06/15/16 02:40 O2 Saturation 89 % (92-99) 89 % (92-99) Arterial Blood pH 7.30 (7.35-7.45) 7.36 (7.35-7.45) Arterial Blood pCO2 at Patient Temp 50 mmHg (35-46) 39 mmHg (35-46) Arterial Blood pO2 at Patient Temp 62 mmHg (65-108) 59 mmHg (65-108) Arterial Blood HCO3 24 mmol/L (21-28) 22 mmol/L (21-28) Arterial Blood Base Excess -3 mmol/L (-3-3) -3 mmol/L (-3-3) FiO2 5 lpm nc 2 lpm nc Urine Collection Type Unknown Urine Color Yellow Urine Clarity Clear Urine pH 5.5 Urine Specific [place] 1.015 Urine Protein 30 mg/dL (NEG-TRACE) Urine Glucose (UA) Negative mg/dL (NEG) Urine Ketones (Stick) Negative mg/dL (NEG) Urine Blood Small (NEG) Urine Nitrite Negative (NEG) Urine Bilirubin Negative (NEG) Urine Urobilinogen Dipstick 0.2 mg/dL (0.2 mg/dL) Urine Leukocyte Esterase Small (NEG) Urine RBC 6-10 /HPF (0-2) Urine WBC 5-10 /HPF (0-4) Urine Bacteria 0 /HPF (0-FEW) Urine Hyaline Casts Few /HPF Urine Granular Casts Occasional /HPF Urine Mucus Mod /LPF White Blood Count 18.7 x10^3/uL (4.0-11.0) Red Blood Count 3.35 x10^6/uL (3.50-5.40) Hemoglobin 9.9 g/dL (12.0-15.5) Hematocrit 30.6 % (36.0-47.0) Mean Corpuscular Volume 91 fL (79-100) Mean Corpuscular Hemoglobin 30 pg (25-35) Mean Corpuscular Hemoglobin Concent 32 g/dL (31-37) Red Cell Distribution Width 16.4 % (11.5-14.5) Platelet Count 221 x10^3/uL (140-400) Neutrophils (%) (Auto) 93 % (31-73) Lymphocytes (%) (Auto) 4 % (24-48) Monocytes (%) (Auto) 3 % (0-9) Eosinophils (%) (Auto) 0 % (0-3) Basophils (%) (Auto) 0 % (0-3) Neutrophils # (Auto) 17.3 x10^3uL (1.8-7.7) Lymphocytes # (Auto) 0.8 x10^3/uL (1.0-4.8) Monocytes # (Auto) 0.6 x10^3/uL (0.0-1.1) Eosinophils # (Auto) 0.0 x10^3/uL (0.0-0.7) Basophils # (Auto) 0.0 x10^3/uL (0.0-0.2) Sodium Level 143 mmol/L (136-145) Potassium Level 4.0 mmol/L (3.5-5.1) Chloride Level 106 mmol/L (98-107) Carbon Dioxide Level 27 mmol/L (21-32) Anion Gap 10 (6-14) Blood Urea Nitrogen 43 mg/dL (7-20) Creatinine 1.8 mg/dL (0.6-1.0) Estimated GFR (Cockcroft-Gault) 27.4 BUN/Creatinine Ratio 24 (6-20) Glucose Level 157 mg/dL (70-99) Calcium Level 8.6 mg/dL (8.5-10.1) Phosphorus Level 2.5 mg/dL (2.6-4.7) Magnesium Level 2.1 mg/dL (1.8-2.4) Total Bilirubin 0.3 mg/dL (0.2-1.0) Aspartate Amino Transf (AST/SGOT) 20 U/L (15-37) Alanine Aminotransferase (ALT/SGPT) 20 U/L (14-59) Alkaline Phosphatase 80 U/L (46-116) Total Protein 7.6 g/dL (6.4-8.2) Albumin 2.7 g/dL (3.4-5.0) Albumin/Globulin Ratio 0.6 (1.0-1.7) Test 06/15/16 08:23 O2 Saturation 93 % (92-99) Arterial Blood pH 7.46 (7.35-7.45) Arterial Blood pCO2 at Patient Temp 34 mmHg (35-46) Arterial Blood pO2 at Patient Temp 67 mmHg (65-108) Arterial Blood HCO3 23 mmol/L (21-28) Arterial Blood Base Excess 0 mmol/L (-3-3) FiO2 28 Other The right kidney measures 9.8 x 5.1 x 4.4 cm. No hydronephrosis or solid mass is seen. There is a 2.5 cm hypoechoic mass associated with the right kidney compatible with a cyst. The left kidney measures 9.2 x 4.8 x 4.3 cm. No hydronephrosis or mass is seen. The patient has a Castano catheter in the urinary bladder. The bladder, as result, is collapsed and poorly evaluated with ultrasound. IMPRESSION: Right renal cyst KOBI ZIMMERMAN MD June 15, 2016 09:22
[2016-06-15] MEDS: SCOPOLAMINE 1.5MG PATCH. TD SCH (10:30)
[2016-06-15] MEDS: FUROSEMIDE 20 MG TABLET PO SCH (10:32)
[2016-06-15] MEDS: QUEtiapine 100 MG TABLET. PO SCH ×3 (10:32→20:56)
[2016-06-15] MEDS: amLODIPine BESYLATE 5 MG TABLET PO SCH (10:32)
[2016-06-15] MEDS: METOPROLOL TART IMMED RELEASE 50 MG TABLET. PO SCH ×2 (10:33→20:56)
[2016-06-15] MEDS: ALPRAZolam 1 MG TABLET PO SCH ×3 (10:33→20:56)
[2016-06-15] MEDS: SUCRALFATE 1 GM/10 ML ORAL.SUSP. PO SCH ×3 (10:34→20:56)
[2016-06-15] MEDS: AZITHROMYCIN 250 MG in IV NORMAL SALINE 250ML 250 ML IV SCH (10:34)
[2016-06-15] MEDS ORDERED: VANCOMYCIN 1 GM in IV NORMAL SALINE 250ML 250 ML IV ONE (10:45)
[2016-06-15] MEDS: PANTOPRAZOLE 40 MG TABLET.DR. PO SCH (10:46)
[2016-06-15] MEDS: FLUTICASONE 50MCG/NASAL SPRAY 16GM BOTTLE. NS SCH ×2 (10:46→20:55)
[2016-06-15] MEDS: PHENAZOPYRIDINE 200 MG TABLET. PO SCH ×3 (10:46→20:56)
--- NOTE | 2016-06-15 11:48 | PDOC ---
PULMONARY PROGRESS NOTES Subjective MS slowly improving Vitals Vital Signs Date Time Temp Pulse Resp B/P (MAP) Pulse Ox O2 Delivery O2 Flow Rate FiO2 06/15/16 11:36 96 Nasal Cannula 2.0 06/15/16 11:00 100 16 133/88 (103) 06/15/16 07:00 98.5 98.5 General: Alert, No acute distress Lungs: Clear Cardiovascular: S1 Abdomen: Soft Neuro Exam: Alert Extremities: No Edema Skin: Warm Labs Laboratory Tests Test 06/14/16 00:40 06/14/16 02:05 06/14/16 08:00 06/14/16 08:30 Nasal Screen MRSA (PCR) Negative (Negative) White Blood Count 22.7 x10^3/uL (4.0-11.0) Red Blood Count 3.67 x10^6/uL (3.50-5.40) Hemoglobin 11.0 g/dL (12.0-15.5) Hematocrit 34.5 % (36.0-47.0) Mean Corpuscular Volume 94 fL (79-100) Mean Corpuscular Hemoglobin 30 pg (25-35) Mean Corpuscular Hemoglobin Concent 32 g/dL (31-37) Red Cell Distribution Width 16.7 % (11.5-14.5) Platelet Count 232 x10^3/uL (140-400) Neutrophils (%) (Auto) 96 % (31-73) Lymphocytes (%) (Auto) 3 % (24-48) Monocytes (%) (Auto) 1 % (0-9) Eosinophils (%) (Auto) 0 % (0-3) Basophils (%) (Auto) 0 % (0-3) Neutrophils # (Auto) 21.7 x10^3uL (1.8-7.7) Lymphocytes # (Auto) 0.7 x10^3/uL (1.0-4.8) Monocytes # (Auto) 0.3 x10^3/uL (0.0-1.1) Eosinophils # (Auto) 0.0 x10^3/uL (0.0-0.7) Basophils # (Auto) 0.0 x10^3/uL (0.0-0.2) Segmented Neutrophils % 82 % (35-66) Band Neutrophils % 12 % (0-9) Lymphocytes % 4 % (24-48) Monocytes % 2 % (0-10) Platelet Estimate Adequate (ADEQUATE) Sodium Level 141 mmol/L (136-145) Potassium Level 4.8 mmol/L (3.5-5.1) Chloride Level 104 mmol/L (98-107) Carbon Dioxide Level 26 mmol/L (21-32) Anion Gap 11 (6-14) Blood Urea Nitrogen 34 mg/dL (7-20) Creatinine 2.6 mg/dL (0.6-1.0) Estimated GFR (Cockcroft-Gault) 17.9 Glucose Level 125 mg/dL (70-99) Calcium Level 8.3 mg/dL (8.5-10.1) Troponin I Quantitative < 0.017 ng/mL (0.000-0.055) < 0.017 ng/mL (0.000-0.055) Prealbumin 21 mg/dL (9-32) Uric Acid 8.3 mg/dL (2.6-6.0) Total Bilirubin 0.4 mg/dL (0.2-1.0) Direct Bilirubin 0.1 mg/dL (0.0-0.2) Aspartate Amino Transf (AST/SGOT) 33 U/L (15-37) Alanine Aminotransferase (ALT/SGPT) 21 U/L (14-59) Alkaline Phosphatase 84 U/L (46-116) Creatine Kinase 665 U/L (26-192) Total Protein 7.9 g/dL (6.4-8.2) Albumin 2.8 g/dL (3.4-5.0) Urine Random Sodium 72 mmol/L (Not Estab.) Test 06/14/16 10:45 06/14/16 12:00 06/14/16 15:30 06/15/16 02:40 O2 Saturation 89 % (92-99) 89 % (92-99) Arterial Blood pH 7.30 (7.35-7.45) 7.36 (7.35-7.45) Arterial Blood pCO2 at Patient Temp 50 mmHg (35-46) 39 mmHg (35-46) Arterial Blood pO2 at Patient Temp 62 mmHg (65-108) 59 mmHg (65-108) Arterial Blood HCO3 24 mmol/L (21-28) 22 mmol/L (21-28) Arterial Blood Base Excess -3 mmol/L (-3-3) -3 mmol/L (-3-3) FiO2 5 lpm nc 2 lpm nc Urine Collection Type Unknown Urine Color Yellow Urine Clarity Clear Urine pH 5.5 Urine Specific [place] 1.015 Urine Protein 30 mg/dL (NEG-TRACE) Urine Glucose (UA) Negative mg/dL (NEG) Urine Ketones (Stick) Negative mg/dL (NEG) Urine Blood Small (NEG) Urine Nitrite Negative (NEG) Urine Bilirubin Negative (NEG) Urine Urobilinogen Dipstick 0.2 mg/dL (0.2 mg/dL) Urine Leukocyte Esterase Small (NEG) Urine RBC 6-10 /HPF (0-2) Urine WBC 5-10 /HPF (0-4) Urine Bacteria 0 /HPF (0-FEW) Urine Hyaline Casts Few /HPF Urine Granular Casts Occasional /HPF Urine Mucus Mod /LPF White Blood Count 18.7 x10^3/uL (4.0-11.0) Red Blood Count 3.35 x10^6/uL (3.50-5.40) Hemoglobin 9.9 g/dL (12.0-15.5) Hematocrit 30.6 % (36.0-47.0) Mean Corpuscular Volume 91 fL (79-100) Mean Corpuscular Hemoglobin 30 pg (25-35) Mean Corpuscular Hemoglobin Concent 32 g/dL (31-37) Red Cell Distribution Width 16.4 % (11.5-14.5) Platelet Count 221 x10^3/uL (140-400) Neutrophils (%) (Auto) 93 % (31-73) Lymphocytes (%) (Auto) 4 % (24-48) Monocytes (%) (Auto) 3 % (0-9) Eosinophils (%) (Auto) 0 % (0-3) Basophils (%) (Auto) 0 % (0-3) Neutrophils # (Auto) 17.3 x10^3uL (1.8-7.7) Lymphocytes # (Auto) 0.8 x10^3/uL (1.0-4.8) Monocytes # (Auto) 0.6 x10^3/uL (0.0-1.1) Eosinophils # (Auto) 0.0 x10^3/uL (0.0-0.7) Basophils # (Auto) 0.0 x10^3/uL (0.0-0.2) Sodium Level 143 mmol/L (136-145) Potassium Level 4.0 mmol/L (3.5-5.1) Chloride Level 106 mmol/L (98-107) Carbon Dioxide Level 27 mmol/L (21-32) Anion Gap 10 (6-14) Blood Urea Nitrogen 43 mg/dL (7-20) Creatinine 1.8 mg/dL (0.6-1.0) Estimated GFR (Cockcroft-Gault) 27.4 BUN/Creatinine Ratio 24 (6-20) Glucose Level 157 mg/dL (70-99) Calcium Level 8.6 mg/dL (8.5-10.1) Phosphorus Level 2.5 mg/dL (2.6-4.7) Magnesium Level 2.1 mg/dL (1.8-2.4) Total Bilirubin 0.3 mg/dL (0.2-1.0) Aspartate Amino Transf (AST/SGOT) 20 U/L (15-37) Alanine Aminotransferase (ALT/SGPT) 20 U/L (14-59) Alkaline Phosphatase 80 U/L (46-116) Total Protein 7.6 g/dL (6.4-8.2) Albumin 2.7 g/dL (3.4-5.0) Albumin/Globulin Ratio 0.6 (1.0-1.7) Test 06/15/16 08:23 O2 Saturation 93 % (92-99) Arterial Blood pH 7.46 (7.35-7.45) Arterial Blood pCO2 at Patient Temp 34 mmHg (35-46) Arterial Blood pO2 at Patient Temp 67 mmHg (65-108) Arterial Blood HCO3 23 mmol/L (21-28) Arterial Blood Base Excess 0 mmol/L (-3-3) FiO2 28 Laboratory Tests Test 06/14/16 12:00 06/14/16 15:30 06/15/16 02:40 06/15/16 08:23 Urine Collection Type Unknown Urine Color Yellow Urine Clarity Clear Urine pH 5.5 Urine Specific [place] 1.015 Urine Protein 30 mg/dL (NEG-TRACE) Urine Glucose (UA) Negative mg/dL (NEG) Urine Ketones (Stick) Negative mg/dL (NEG) Urine Blood Small (NEG) Urine Nitrite Negative (NEG) Urine Bilirubin Negative (NEG) Urine Urobilinogen Dipstick 0.2 mg/dL (0.2 mg/dL) Urine Leukocyte Esterase Small (NEG) Urine RBC 6-10 /HPF (0-2) Urine WBC 5-10 /HPF (0-4) Urine Bacteria 0 /HPF (0-FEW) Urine Hyaline Casts Few /HPF Urine Granular Casts Occasional /HPF Urine Mucus Mod /LPF O2 Saturation 89 % (92-99) 93 % (92-99) Arterial Blood pH 7.36 (7.35-7.45) 7.46 (7.35-7.45) Arterial Blood pCO2 at Patient Temp 39 mmHg (35-46) 34 mmHg (35-46) Arterial Blood pO2 at Patient Temp 59 mmHg (65-108) 67 mmHg (65-108) Arterial Blood HCO3 22 mmol/L (21-28) 23 mmol/L (21-28) Arterial Blood Base Excess -3 mmol/L (-3-3) 0 mmol/L (-3-3) FiO2 2 lpm nc 28 White Blood Count 18.7 x10^3/uL (4.0-11.0) Red Blood Count 3.35 x10^6/uL (3.50-5.40) Hemoglobin 9.9 g/dL (12.0-15.5) Hematocrit 30.6 % (36.0-47.0) Mean Corpuscular Volume 91 fL (79-100) Mean Corpuscular Hemoglobin 30 pg (25-35) Mean Corpuscular Hemoglobin Concent 32 g/dL (31-37) Red Cell Distribution Width 16.4 % (11.5-14.5) Platelet Count 221 x10^3/uL (140-400) Neutrophils (%) (Auto) 93 % (31-73) Lymphocytes (%) (Auto) 4 % (24-48) Monocytes (%) (Auto) 3 % (0-9) Eosinophils (%) (Auto) 0 % (0-3) Basophils (%) (Auto) 0 % (0-3) Neutrophils # (Auto) 17.3 x10^3uL (1.8-7.7) Lymphocytes # (Auto) 0.8 x10^3/uL (1.0-4.8) Monocytes # (Auto) 0.6 x10^3/uL (0.0-1.1) Eosinophils # (Auto) 0.0 x10^3/uL (0.0-0.7) Basophils # (Auto) 0.0 x10^3/uL (0.0-0.2) Sodium Level 143 mmol/L (136-145) Potassium Level 4.0 mmol/L (3.5-5.1) Chloride Level 106 mmol/L (98-107) Carbon Dioxide Level 27 mmol/L (21-32) Anion Gap 10 (6-14) Blood Urea Nitrogen 43 mg/dL (7-20) Creatinine 1.8 mg/dL (0.6-1.0) Estimated GFR (Cockcroft-Gault) 27.4 BUN/Creatinine Ratio 24 (6-20) Glucose Level 157 mg/dL (70-99) Calcium Level 8.6 mg/dL (8.5-10.1) Phosphorus Level 2.5 mg/dL (2.6-4.7) Magnesium Level 2.1 mg/dL (1.8-2.4) Total Bilirubin 0.3 mg/dL (0.2-1.0) Aspartate Amino Transf (AST/SGOT) 20 U/L (15-37) Alanine Aminotransferase (ALT/SGPT) 20 U/L (14-59) Alkaline Phosphatase 80 U/L (46-116) Total Protein 7.6 g/dL (6.4-8.2) Albumin 2.7 g/dL (3.4-5.0) Albumin/Globulin Ratio 0.6 (1.0-1.7) Medications Active Scripts Medications Dose Route/Sig Max Daily Dose Days Date Category Transderm-Scop (Scopolamine) 1 Each Patch.td72 1 Patch TP Q3DAYS 06/14/16 Reported Norvasc (Amlodipine Besylate) 5 Mg Tablet 5 Mg PO DAILY 06/14/16 Reported Metoprolol Tartrate 50 Mg Tablet 50 Mg PO BID 06/14/16 Reported Proair Hfa Inhaler (Albuterol Sulfate) 8.5 Gm Hfa.aer.ad 2 Puff INH QID 06/14/16 Reported Phenazopyridine Hcl 200 Mg Tablet 1 Tab PO TID 06/14/16 Reported Simvastatin 40 Mg Tablet 1 Tab PO QHS 06/14/16 Reported Tylenol With Codeine #3 Tablet (Acetaminophen/Codeine Phosphate) 1 Each Tablet 1 Tab PO PRN Q6HRS PRN 06/14/16 Reported Gabapentin 800 Mg Tablet 800 Mg PO HS 06/14/16 Reported Carafate (Sucralfate) 1 Gm/10 Ml Oral.susp 10 Ml PO QIDACHS 11/04/15 Reported Quetiapine Fumarate 100 Mg Tablet 100 Mg PO TID 11/04/15 Reported Zofran Odt (Ondansetron) 4 Mg Tab.rapdis 4 Mg PO PRN Q4HRS PRN 11/04/15 Reported Acetaminophen 500 Mg Tablet 650 Mg PO PRN Q4HRS PRN 11/04/15 Reported Fluticasone Propionate Nasal [place] (Fluticasone Propionate) 16 Gm [place].susp 2 [place] NS BID 11/04/15 Reported Montelukast Sodium Tablet (Montelukast Sodium) 10 Mg Tablet 10 Mg PO HS 11/04/15 Reported Furosemide 20 Mg Tablet 40 Mg PO DAILY 11/04/15 Reported Multi Vitamin Daily (Multivitamin) 1 Each Tablet 1 Each PO 05/27/13 Reported Nexium Capsule (Esomeprazole Magnesium) 20 Mg Capsule.dr 40 Mg PO DAILY 05/27/13 Reported Diovan (Valsartan) 40 Mg Tablet 160 Mg PO DAILY 05/27/13 Reported Xanax (Alprazolam) 1 Mg Tablet 0.5 Mg PO TID 05/27/13 Reported Impression . 1. Acute hypercapnic respiratory failure due to toxic encephalopathy(narcotic/ benzo) and possible sepsis 2. Cannot exclude sepsis. She has leukocytosis. X-ray shows only minimal volume loss of the right lower lobe. 3. Acute renal failure. Renal is consulted. 4. Leukocytosis. 5. No cerebrovascular accident. Plan . 1. Refused BiPAP./ ABG compensated now 2. nasal canula. 3. Follow neuro rec 4. Empiric antibiotics as initiated. 5. Follow white cell count. 6. Follow ABGs as needed 7. Nebulizer treatments. 8. Discussed with RN and RT. BRYNN GONZALES MD June 15, 2016 11:48
[2016-06-15] MEDS: ALBUTEROL SULFATE 2.5 MG/3 ML NEBU. NEB SCH ×3 (12:00→20:00)
[2016-06-15] MEDS ORDERED: NON FORMULARY ITEM (Albuterol Sulfate (Proair Hfa Inhaler) 2 PUFF) INH SCH (13:00)
--- NOTE | 2016-06-15 14:57 | PDOC ---
PROGRESS NOTES Assessment Metabolic encephalopathy, with sepsis, renal failure on top of chronic kidney disease, pneumonia No evidence of a pontine stroke on bedside examination or MRI. History of possible seizures, was seeing Dr. Gonzalez Grasp reflexes could imply an underlying dementia Neighbor and DPOA/cousin state patient frequently overmedicates herself with sedatives, narcotics, and wine, sleeps a lot Plan EEG Obtain records from Dr. Gonzalez Treat medical diseases Subjective feels like she has to urinate, repeatedly told she has Cast[place] in Objective Vital Signs Date Time Temp Pulse Resp B/P (MAP) Pulse Ox O2 Delivery O2 Flow Rate FiO2 06/15/16 11:36 96 Nasal Cannula 2.0 06/15/16 11:00 100 16 133/88 (103) 06/15/16 07:00 98.5 98.5 Intake and Output 06/15/16 07:00 Intake Total 1183 ml Output Total 1165 ml Balance 18 ml Intake Oral 30 ml IV Total 1153 ml Output Urine Total 1165 ml PHYSICAL EXAM Alert. Oriented only to person. PERRL. EOMI. CN: no focal findings. Muscle tone: normal. Muscle strength: 4/5 DTR: 1+, bilateral grasp reflexes Plantar reflex: flexor Gait: not examined in bed. Sensory exam: no abnormal findings. No cerebellar signs elicited. Review of Relevant I have reviewed the following items darline (where applicable) has been applied. Labs Laboratory Tests Test 06/14/16 00:40 06/14/16 02:05 06/14/16 08:00 06/14/16 08:30 Nasal Screen MRSA (PCR) Negative (Negative) White Blood Count 22.7 x10^3/uL (4.0-11.0) Red Blood Count 3.67 x10^6/uL (3.50-5.40) Hemoglobin 11.0 g/dL (12.0-15.5) Hematocrit 34.5 % (36.0-47.0) Mean Corpuscular Volume 94 fL (79-100) Mean Corpuscular Hemoglobin 30 pg (25-35) Mean Corpuscular Hemoglobin Concent 32 g/dL (31-37) Red Cell Distribution Width 16.7 % (11.5-14.5) Platelet Count 232 x10^3/uL (140-400) Neutrophils (%) (Auto) 96 % (31-73) Lymphocytes (%) (Auto) 3 % (24-48) Monocytes (%) (Auto) 1 % (0-9) Eosinophils (%) (Auto) 0 % (0-3) Basophils (%) (Auto) 0 % (0-3) Neutrophils # (Auto) 21.7 x10^3uL (1.8-7.7) Lymphocytes # (Auto) 0.7 x10^3/uL (1.0-4.8) Monocytes # (Auto) 0.3 x10^3/uL (0.0-1.1) Eosinophils # (Auto) 0.0 x10^3/uL (0.0-0.7) Basophils # (Auto) 0.0 x10^3/uL (0.0-0.2) Segmented Neutrophils % 82 % (35-66) Band Neutrophils % 12 % (0-9) Lymphocytes % 4 % (24-48) Monocytes % 2 % (0-10) Platelet Estimate Adequate (ADEQUATE) Sodium Level 141 mmol/L (136-145) Potassium Level 4.8 mmol/L (3.5-5.1) Chloride Level 104 mmol/L (98-107) Carbon Dioxide Level 26 mmol/L (21-32) Anion Gap 11 (6-14) Blood Urea Nitrogen 34 mg/dL (7-20) Creatinine 2.6 mg/dL (0.6-1.0) Estimated GFR (Cockcroft-Gault) 17.9 Glucose Level 125 mg/dL (70-99) Calcium Level 8.3 mg/dL (8.5-10.1) Troponin I Quantitative < 0.017 ng/mL (0.000-0.055) < 0.017 ng/mL (0.000-0.055) Prealbumin 21 mg/dL (9-32) Uric Acid 8.3 mg/dL (2.6-6.0) Total Bilirubin 0.4 mg/dL (0.2-1.0) Direct Bilirubin 0.1 mg/dL (0.0-0.2) Aspartate Amino Transf (AST/SGOT) 33 U/L (15-37) Alanine Aminotransferase (ALT/SGPT) 21 U/L (14-59) Alkaline Phosphatase 84 U/L (46-116) Creatine Kinase 665 U/L (26-192) Total Protein 7.9 g/dL (6.4-8.2) Albumin 2.8 g/dL (3.4-5.0) Urine Random Sodium 72 mmol/L (Not Estab.) Test 06/14/16 10:45 06/14/16 12:00 06/14/16 15:30 06/15/16 02:40 O2 Saturation 89 % (92-99) 89 % (92-99) Arterial Blood pH 7.30 (7.35-7.45) 7.36 (7.35-7.45) Arterial Blood pCO2 at Patient Temp 50 mmHg (35-46) 39 mmHg (35-46) Arterial Blood pO2 at Patient Temp 62 mmHg (65-108) 59 mmHg (65-108) Arterial Blood HCO3 24 mmol/L (21-28) 22 mmol/L (21-28) Arterial Blood Base Excess -3 mmol/L (-3-3) -3 mmol/L (-3-3) FiO2 5 lpm nc 2 lpm nc Urine Collection Type Unknown Urine Color Yellow Urine Clarity Clear Urine pH 5.5 Urine Specific Mcclure 1.015 Urine Protein 30 mg/dL (NEG-TRACE) Urine Glucose (UA) Negative mg/dL (NEG) Urine Ketones (Stick) Negative mg/dL (NEG) Urine Blood Small (NEG) Urine Nitrite Negative (NEG) Urine Bilirubin Negative (NEG) Urine Urobilinogen Dipstick 0.2 mg/dL (0.2 mg/dL) Urine Leukocyte Esterase Small (NEG) Urine RBC 6-10 /HPF (0-2) Urine WBC 5-10 /HPF (0-4) Urine Bacteria 0 /HPF (0-FEW) Urine Hyaline Casts Few /HPF Urine Granular Casts Occasional /HPF Urine Mucus Mod /LPF White Blood Count 18.7 x10^3/uL (4.0-11.0) Red Blood Count 3.35 x10^6/uL (3.50-5.40) Hemoglobin 9.9 g/dL (12.0-15.5) Hematocrit 30.6 % (36.0-47.0) Mean Corpuscular Volume 91 fL (79-100) Mean Corpuscular Hemoglobin 30 pg (25-35) Mean Corpuscular Hemoglobin Concent 32 g/dL (31-37) Red Cell Distribution Width 16.4 % (11.5-14.5) Platelet Count 221 x10^3/uL (140-400) Neutrophils (%) (Auto) 93 % (31-73) Lymphocytes (%) (Auto) 4 % (24-48) Monocytes (%) (Auto) 3 % (0-9) Eosinophils (%) (Auto) 0 % (0-3) Basophils (%) (Auto) 0 % (0-3) Neutrophils # (Auto) 17.3 x10^3uL (1.8-7.7) Lymphocytes # (Auto) 0.8 x10^3/uL (1.0-4.8) Monocytes # (Auto) 0.6 x10^3/uL (0.0-1.1) Eosinophils # (Auto) 0.0 x10^3/uL (0.0-0.7) Basophils # (Auto) 0.0 x10^3/uL (0.0-0.2) Sodium Level 143 mmol/L (136-145) Potassium Level 4.0 mmol/L (3.5-5.1) Chloride Level 106 mmol/L (98-107) Carbon Dioxide Level 27 mmol/L (21-32) Anion Gap 10 (6-14) Blood Urea Nitrogen 43 mg/dL (7-20) Creatinine 1.8 mg/dL (0.6-1.0) Estimated GFR (Cockcroft-Gault) 27.4 BUN/Creatinine Ratio 24 (6-20) Glucose Level 157 mg/dL (70-99) Calcium Level 8.6 mg/dL (8.5-10.1) Phosphorus Level 2.5 mg/dL (2.6-4.7) Magnesium Level 2.1 mg/dL (1.8-2.4) Total Bilirubin 0.3 mg/dL (0.2-1.0) Aspartate Amino Transf (AST/SGOT) 20 U/L (15-37) Alanine Aminotransferase (ALT/SGPT) 20 U/L (14-59) Alkaline Phosphatase 80 U/L (46-116) Total Protein 7.6 g/dL (6.4-8.2) Albumin 2.7 g/dL (3.4-5.0) Albumin/Globulin Ratio 0.6 (1.0-1.7) Test 06/15/16 08:23 O2 Saturation 93 % (92-99) Arterial Blood pH 7.46 (7.35-7.45) Arterial Blood pCO2 at Patient Temp 34 mmHg (35-46) Arterial Blood pO2 at Patient Temp 67 mmHg (65-108) Arterial Blood HCO3 23 mmol/L (21-28) Arterial Blood Base Excess 0 mmol/L (-3-3) FiO2 28 Laboratory Tests Test 06/14/16 15:30 06/15/16 02:40 06/15/16 08:23 O2 Saturation 89 % (92-99) 93 % (92-99) Arterial Blood pH 7.36 (7.35-7.45) 7.46 (7.35-7.45) Arterial Blood pCO2 at Patient Temp 39 mmHg (35-46) 34 mmHg (35-46) Arterial Blood pO2 at Patient Temp 59 mmHg (65-108) 67 mmHg (65-108) Arterial Blood HCO3 22 mmol/L (21-28) 23 mmol/L (21-28) Arterial Blood Base Excess -3 mmol/L (-3-3) 0 mmol/L (-3-3) FiO2 2 lpm nc 28 White Blood Count 18.7 x10^3/uL (4.0-11.0) Red Blood Count 3.35 x10^6/uL (3.50-5.40) Hemoglobin 9.9 g/dL (12.0-15.5) Hematocrit 30.6 % (36.0-47.0) Mean Corpuscular Volume 91 fL (79-100) Mean Corpuscular Hemoglobin 30 pg (25-35) Mean Corpuscular Hemoglobin Concent 32 g/dL (31-37) Red Cell Distribution Width 16.4 % (11.5-14.5) Platelet Count 221 x10^3/uL (140-400) Neutrophils (%) (Auto) 93 % (31-73) Lymphocytes (%) (Auto) 4 % (24-48) Monocytes (%) (Auto) 3 % (0-9) Eosinophils (%) (Auto) 0 % (0-3) Basophils (%) (Auto) 0 % (0-3) Neutrophils # (Auto) 17.3 x10^3uL (1.8-7.7) Lymphocytes # (Auto) 0.8 x10^3/uL (1.0-4.8) Monocytes # (Auto) 0.6 x10^3/uL (0.0-1.1) Eosinophils # (Auto) 0.0 x10^3/uL (0.0-0.7) Basophils # (Auto) 0.0 x10^3/uL (0.0-0.2) Sodium Level 143 mmol/L (136-145) Potassium Level 4.0 mmol/L (3.5-5.1) Chloride Level 106 mmol/L (98-107) Carbon Dioxide Level 27 mmol/L (21-32) Anion Gap 10 (6-14) Blood Urea Nitrogen 43 mg/dL (7-20) Creatinine 1.8 mg/dL (0.6-1.0) Estimated GFR (Cockcroft-Gault) 27.4 BUN/Creatinine Ratio 24 (6-20) Glucose Level 157 mg/dL (70-99) Calcium Level 8.6 mg/dL (8.5-10.1) Phosphorus Level 2.5 mg/dL (2.6-4.7) Magnesium Level 2.1 mg/dL (1.8-2.4) Total Bilirubin 0.3 mg/dL (0.2-1.0) Aspartate Amino Transf (AST/SGOT) 20 U/L (15-37) Alanine Aminotransferase (ALT/SGPT) 20 U/L (14-59) Alkaline Phosphatase 80 U/L (46-116) Total Protein 7.6 g/dL (6.4-8.2) Albumin 2.7 g/dL (3.4-5.0) Albumin/Globulin Ratio 0.6 (1.0-1.7) Microbiology 06/14/16 Urine Culture - Preliminary, Resulted 06/14/16 Urine Culture Result 1 (RAKAN) - Preliminary, Resulted Medications Current Medications Ceftriaxone Sodium 1 gm/ Sodium Chloride 50 ml @ 100 mls/hr Q24H IV Last administered on 06/14/16t 22:04; Start 06/14/16 at 21:00 Azithromycin (Zithromax) 250 mg DAILY PO ; Start 06/14/16 at 09:00; Stop 06/14/16 at 09:00; Status DC Acetaminophen (Tylenol) 325 mg PRN Q4HRS PRN PO MILD PAIN / TEMP; Start at 00:45 Hydralazine HCl (Apresoline) 10 mg PRN Q4HRS PRN IVP ELEVATED BP, SEE COMMENTS Last administered on 06/15/16 05:30; Start 06/14/16 at 00:45 Ondansetron HCl (Zofran) 4 mg PRN Q6HRS PRN IV NAUSEA/VOMITING; Start 06/14/16 at 00:45 Saliva Substitute (Biotene Moisturizing Mouth) 2 spray PRN Q15MIN PRN PO DRY MOUTH Last administered on 06/14/16 09:37; Start 06/14/16 at 09:00 Azithromycin 250 mg/Sodium Chloride 250 ml @ 250 mls/hr Q24H IV Last administered on 06/15/16 10:34; Start 06/14/16 at 10:00 Albuterol/ Ipratropium (Duoneb) 3 ml Q4HRS W/A NEB Last administered on 11:34; Start 06/14/16 at 10:00 Budesonide (Pulmicort) 0.5 mg RTBID NEB Last administered on 06/15/16 07:55; Start 06/14/16 at 20:00 Budesonide (Pulmicort) 0.5 mg 1X ONCE NEB Last administered on 06/14/16 12:03 ; Start 06/14/16 at 09:30; Stop 06/14/16 at 09:31; Status DC Magnesium Sulfate/ Dextrose 50 ml @ 25 mls/hr PRN DAILY PRN IV for Mag < 1.7 on am labs; Start 06/14/16 at 10:45 Sodium Chloride 1,000 ml @ 75 mls/hr [id number] IV Last administered on 06/15/16 13:23; Start 06/14/16 at 11:00 Haloperidol Lactate (Haldol) 2 mg 1X ONCE IVP Last administered on 06/15/16 06 :15; Start 06/15/16 at 06:15; Stop 06/15/16 at 06:16; Status DC Lorazepam (Ativan) 0.5 mg PRN Q8HRS PRN IV ANXIETY Last administered on 14:51; Start 06/15/16 at 06:15 Lorazepam (Ativan) 2 mg STK-MED ONCE .ROUTE ; Start 06/15/16 at 06:24; Stop at 06:52; Status DC Lorazepam (Ativan) 2 mg STK-MED ONCE .ROUTE ; Start 06/15/16 at 06:30; Stop at 08:07; Status DC Acetaminophen (Tylenol) 650 mg PRN Q4HRS PRN PO PAIN; Start 06/15/16 at 09:15 Alprazolam (Xanax) 0.5 mg TID PO Last administered on 06/15/16 14:50; Start 06/15/16 at 10:00 Amlodipine Besylate (Norvasc) 5 mg DAILY PO Last administered on 06/15/16 10:32 ; Start 06/15/16 at 10:00 Fluticasone Propionate (Flonase) 1 spray BID NS Last administered on 06/15/16 10:46; Start 06/15/16 at 10:00 Furosemide (Lasix) 40 mg DAILY PO Last administered on 06/15/16 10:32; Start at 10:00 Metoprolol Tartrate (Lopressor) 50 mg BID PO Last administered on 06/15/16 10: 33; Start 06/15/16 at 10:00 Montelukast Sodium (Singulair) 10 mg HS PO ; Start 06/15/16 at 21:00 Ondansetron HCl (Zofran Odt) 4 mg PRN Q4HRS PRN PO NAUSEA/VOMITING; Start at 09:15 Phenazopyridine HCl (Pyridium) 200 mg TID PO Last administered on 06/15/16 14: 51; Start 06/15/16 at 10:00 Quetiapine Fumarate (SEROquel) 100 mg TID PO Last administered on 06/15/16 14: 51; Start 06/15/16 at 10:00 Scopolamine (Transderm-Scop) 1 patch Q3DAYS TD Last administered on 06/15/16 10 :30; Start 06/15/16 at 11:00 Sucralfate (Carafate) 1 gm QIDACHS PO Last administered on 06/15/16 14:51; Start 06/15/16 at 11:30 Non-Formulary Medication 2 puff QID INH ; Start 06/15/16 at 13:00; Stop 06/15/16 at 13:00; Status DC Pantoprazole Sodium (Protonix) 40 mg DAILYAC PO Last administered on 06/15/16 10:46; Start 06/15/16 at 11:30 Gabapentin (Neurontin) 800 mg QHS PO ; Start 06/15/16 at 21:00 Metoprolol Tartrate (Lopressor) 25 mg BID PO ; Start 06/15/16 at 09:15; Stop 06/15 at 12:33; Status DC Albuterol Sulfate (Ventolin Neb Soln) 2.5 mg RTQID NEB ; Start 06/15/16 at 12:00 Vancomycin HCl 1 gm/Sodium Chloride 250 ml @ 250 mls/hr 1X ONCE IV Last administered on 06/15/16 10:45; Start 06/15/16 at 10:45; Stop 06/15/16 at 11:44; Status DC Active Scripts Active Reported Transderm-Scop (Scopolamine) 1 Each Patch.td72 1 Patch TP Q3DAYS Norvasc (Amlodipine Besylate) 5 Mg Tablet 5 Mg PO DAILY Metoprolol Tartrate 50 Mg Tablet 50 Mg PO BID Proair Hfa Inhaler (Albuterol Sulfate) 8.5 Gm Hfa.aer.ad 2 Puff INH QID Phenazopyridine Hcl 200 Mg Tablet 1 Tab PO TID Simvastatin 40 Mg Tablet 1 Tab PO QHS Tylenol With Codeine #3 Tablet (Acetaminophen/Codeine Phosphate) 1 Each Tablet 1 Tab PO PRN Q6HRS PRN Gabapentin 800 Mg Tablet 800 Mg PO HS Carafate (Sucralfate) 1 Gm/10 Ml Oral.susp 10 Ml PO QIDACHS Quetiapine Fumarate 100 Mg Tablet 100 Mg PO TID Zofran Odt (Ondansetron) 4 Mg Tab.rapdis 4 Mg PO PRN Q4HRS PRN Acetaminophen 500 Mg Tablet 650 Mg PO PRN Q4HRS PRN Fluticasone Propionate Nasal [place] (Fluticasone Propionate) 16 Gm [place].susp 2 [place] NS BID Montelukast Sodium Tablet (Montelukast Sodium) 10 Mg Tablet 10 Mg PO HS Furosemide 20 Mg Tablet 40 Mg PO DAILY Multi Vitamin Daily (Multivitamin) 1 Each Tablet 1 Each PO Nexium Capsule (Esomeprazole Magnesium) 20 Mg Capsule.dr 40 Mg PO DAILY Diovan (Valsartan) 40 Mg Tablet 160 Mg PO DAILY Xanax (Alprazolam) 1 Mg Tablet 0.5 Mg PO TID Vitals/I & O Vital Sign - Last 24 Hours 06/14/16 06/14/16 06/14/16 06/14/16 15:00 15:35 15:47 16:00 Temp 98.8 98.8 Pulse 94 Resp 18 B/P (MAP) 162/68 (99) Pulse Ox 90 90 89 O2 Delivery Nasal Cannula Nasal Cannula Nasal Cannula Nasal Cannula O2 Flow Rate 2.0 2.0 2.0 2.0 06/14/16 06/14/16 06/14/16 06/14/16 16:00 17:00 18:00 19:00 Temp 99.1 99.1 Pulse 90 94 90 84 Resp 15 15 20 19 B/P (MAP) 131/58 (82) 137/58 (84) 149/72 (97) 145/65 (91) Pulse Ox 90 90 90 91 O2 Delivery Nasal Cannula Nasal Cannula Nasal Cannula Nasal Cannula O2 Flow Rate 2.0 2.0 2.0 5.0 06/14/16 06/14/16 06/14/16 06/14/16 19:30 20:07 20:26 21:00 Pulse 83 92 Resp 18 14 B/P (MAP) 151/90 (110) 148/63 (91) Pulse Ox 93 92 91 O2 Delivery Nasal Cannula Nasal Cannula Nasal Cannula Nasal Cannula O2 Flow Rate 5.0 5.0 2.0 2.0 06/14/16 06/14/16 06/14/16 06/14/16 22:00 23:00 23:56 23:59 Temp 98.6 98.6 Pulse 95 95 96 Resp 13 25 25 B/P (MAP) 152/66 (94) 159/66 (97) 152/66 (94) Pulse Ox 93 93 90 O2 Delivery Nasal Cannula Nasal Cannula Nasal Cannula Nasal Cannula O2 Flow Rate 2.0 2.0 2.0 2.0 06/15/16 06/15/16 06/15/16 06/15/16 01:00 02:00 03:00 03:21 Pulse 99 93 94 Resp 22 17 15 B/P (MAP) 160/79 (106) 152/77 (102) 165/81 (109) Pulse Ox 93 91 91 O2 Delivery Nasal Cannula Nasal Cannula Nasal Cannula Nasal Cannula O2 Flow Rate 2.0 2.0 2.0 2.0 06/15/16 06/15/16 06/15/16 06/15/16 05:30 07:00 07:46 07:56 Temp 98.5 98.5 Pulse 94 96 Resp 14 B/P (MAP) 176/94 (121) Pulse Ox 92 96 O2 Delivery Nasal Cannula Nasal Cannula Nasal Cannula O2 Flow Rate 2.0 2.0 2.0 06/15/16 06/15/16 06/15/16 06/15/16 08:00 09:00 10:00 10:27 Pulse 102 108 103 108 Resp 16 16 16 B/P (MAP) 171/84 (113) 194/99 (130) 190/91 (124) 194/99 Pulse Ox 95 95 95 O2 Delivery Nasal Cannula Nasal Cannula Nasal Cannula O2 Flow Rate 2.0 2.0 2.0 06/15/16 06/15/16 06/15/16 06/15/16 10:32 10:33 11:00 11:36 Pulse 108 108 100 Resp 16 B/P (MAP) 194/99 194/99 133/88 (103) Pulse Ox 93 96 O2 Delivery Nasal Cannula Nasal Cannula O2 Flow Rate 2.0 2.0 Intake and Output 06/14/16 06/14/16 06/15/16 15:00 23:00 07:00 Intake Total 250 ml 933 ml Output Total 445 ml 385 ml 335 ml Balance -195 ml 548 ml -335 ml Images Brain MRI: FINDINGS There is symmetric prominence of the ventricles and sulci. A few scattered FLAIR hyperintensities in the supratentorial white matter are nonspecific but most suggestive of minimal small vessel ischemic disease. There is no acute intracranial hemorrhage or extra-axial fluid collection. There is no mass effect or midline shift. There is no restricted diffusion to suggest an acute infarct. 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 Cervicomedullary junction is unremarkable. Pituitary and suprasellar region are unremarkable. Intracranial flow voids are preserved. Orbital contents are unremarkable. Area of concern on the temi was likely artifactual on the prior CT, no restricted diffusion or signal abnormality at this site on today's exam. IMPRESSION 1. Negative for acute infarct. 2. Brain parenchymal volume loss and minimal probable small-vessel ischemic disease. ABDELRAHMAN CAMPOS MD June 15, 2016 14:57
[2016-06-15] MEDS: MONTELUKAST SODIUM 10 MG TABLET. PO SCH (20:56)
[2016-06-15] MEDS: GABAPENTIN 400 MG CAPSULE. PO SCH (20:56)
[2016-06-16 03:10] VITALS: BP 107/42
[2016-06-16 04:09] LABS: ALBUMIN 2.3 g/dL (3.4-5.0); CALCIUM 7.8 mg/dL (8.5-10.1); CREATININE 1.5 mg/dL (0.6-1.0); GFR 33.8; PHOSPHORUS 2.7 mg/dL (2.6-4.7); POTASSIUM 3.4 mmol/L (3.5-5.1)
[2016-06-16 04:34] VITALS: BP 101/58
[2016-06-16] MEDS: IPRATRPIUM/ALBUTEROL 0.5/2.5MG 3 ML NEBU. NEB SCH ×5 (06:00→20:24)
[2016-06-16] MEDS: IV NORMAL SALINE 1000ML BAG 1,000 ML IV SCH (06:15)
[2016-06-16] MEDS: ALBUTEROL SULFATE 2.5 MG/3 ML NEBU. NEB SCH ×4 (06:57→20:21)
[2016-06-16] MEDS: BUDESONIDE 0.5 MG/2 ML NEBU. NEB SCH ×2 (06:57→20:21)
[2016-06-16 07:10] VITALS: BP 146/56
[2016-06-16] MEDS: PANTOPRAZOLE 40 MG TABLET.DR. PO SCH (07:30)
[2016-06-16] MEDS: SUCRALFATE 1 GM/10 ML ORAL.SUSP. PO SCH ×4 (08:34→20:03)
[2016-06-16] MEDS: QUEtiapine 100 MG TABLET. PO SCH ×3 (08:45→20:04)
[2016-06-16] MEDS: PHENAZOPYRIDINE 200 MG TABLET. PO SCH ×3 (08:45→20:03)
[2016-06-16] MEDS: ALPRAZolam 1 MG TABLET PO SCH ×3 (08:45→20:05)
[2016-06-16] MEDS: METOPROLOL TART IMMED RELEASE 50 MG TABLET. PO SCH ×2 (08:47→20:04)
[2016-06-16] MEDS: FUROSEMIDE 20 MG TABLET PO SCH (08:47)
[2016-06-16] MEDS: amLODIPine BESYLATE 5 MG TABLET PO SCH (08:48)
--- NOTE | 2016-06-16 09:48 | PDOC ---
Infectious Disease Note Subjective Subjective pt is awake, still not able to communicate properly ROS ROS GEN: Denies fevers, chills, sweats HEENT: Denies blurred vision, sore throat CV: Denies chest pain RESP: Denies shortness of air, cough GI: Denies n/v/d NEURO: Denies confusion, dizziness MSK: Denies weakness, joint pain/swelling Vital Sign Vital Signs Vital Signs Date Time Temp Pulse Resp B/P (MAP) Pulse Ox O2 Delivery O2 Flow Rate FiO2 06/16/16 08:48 69 146/56 06/16/16 07:10 97.7 16 91 Nasal Cannula 2.0 97.7 Physical Exam PHYSICAL EXAM GENERAL: NAD, Alert HEENT: PERRL, OC/OP NECK: Supple, no JVD, no LN LUNGS: Clear HEART: S1S2, no gallop, no murmur ABD: Soft, NT, no organomegaly, no rebound EXT: No edema, no cyanosis [employer] ANALYST: Alert, oriented x 3, no focal neurologic deficit SKIN: No rash IV: ok Labs Lab Laboratory Tests Test 06/16/16 02:45 Sodium Level 146 mmol/L (136-145) Potassium Level 3.4 mmol/L (3.5-5.1) Chloride Level 110 mmol/L (98-107) Carbon Dioxide Level 28 mmol/L (21-32) Anion Gap 8 (6-14) Blood Urea Nitrogen 39 mg/dL (7-20) Creatinine 1.5 mg/dL (0.6-1.0) Estimated GFR (Cockcroft-Gault) 33.8 Glucose Level 103 mg/dL (70-99) Calcium Level 7.8 mg/dL (8.5-10.1) Phosphorus Level 2.7 mg/dL (2.6-4.7) Magnesium Level 1.7 mg/dL (1.8-2.4) Albumin 2.3 g/dL (3.4-5.0) Objective Assessment Encephalopathy Leukocytosis Renal insufficiency Aphasia HTN Obesity BC 1/2 G + cocci at [place] Plan Plan of Care cont rocephine and azithro , vanc x 1 supportive care d/w lab, id still pending SOSA ZIMMERMAN MD June 16, 2016 09:48
--- NOTE | 2016-06-16 10:52 | PDOC ---
SUBJECTIVE ROS Yanci and elyte ABN unable to stay awake enough to answer Qs - but more verbal today OBJECTIVE Vital Signs Vital Signs Date Time Temp Pulse Resp B/P (MAP) Pulse Ox O2 Delivery O2 Flow Rate FiO2 06/16/16 08:48 69 146/56 06/16/16 07:10 97.7 16 91 Nasal Cannula 2.0 97.7 I & 0 Intake and Output 06/16/16 07:00 Intake Total 2070 ml Output Total 2325 ml Balance -255 ml Intake Oral 610 ml IV Total 1460 ml Output Urine Total 2325 ml PHYSICAL EXAM Physical Exam General Appearance: Awake, more Alert Oriented x ? , In no obvious Distress Eyes: VIsion Unchanged Conjunctiva Normal EN: No EN Drainage Mucous Memb. dryish today Neck: no JVD no JVP Supple no Thyromegaly CVS: S1 S2 ? Murmur No Gallop No Rub tr Edema Resp: no Rales no Rhonchi no Acc. Muscle use GI: BS +ve NO Bruit Min Tender Non Distended : + CVA tenderness; no Suprapubic Tenderness Assessment & Plan YANCI - UO is good for now, creat is trending down Anemia: cehcking iron ? Vol depltion - IVF helping for now HTN - watch off of PO BP meds, IV BP meds prn Hypoalbuminemia - no significant proteinuria noted; PPN for now ^Na -PPN Low K -replace as ordered - PPN, hold lasix COMMENT/RELEVANT DATA Meds Current Medications Medications (Trade) Dose Ordered Sig/Henry Start Time Stop Time Status Last Admin Dose Admin Acetaminophen (Tylenol) 650 mg PRN Q4HRS PRN 06/15/16 09:15 Albuterol Sulfate (Ventolin Neb Soln) 2.5 mg RTQID 06/15/16 12:00 06/16/16 06:57 2.5 MG Albuterol/ Ipratropium (Duoneb) 3 ml Q4HRS W/A 06/14/16 10:00 06/15/16 21:06 3 ML Alprazolam (Xanax) 0.5 mg TID 06/15/16 10:00 06/16/16 08:45 0.5 MG Amlodipine Besylate (Norvasc) 5 mg DAILY 06/15/16 10:00 06/16/16 08:48 5 MG Azithromycin (Zithromax) 250 mg DAILY 06/14/16 09:00 06/14/16 09:00 DC Azithromycin 250 mg/Sodium Chloride 250 ml @ 250 mls/hr Q24H 06/14/16 10:00 06/15/16 10:34 250 MLS/HR Budesonide (Pulmicort) 0.5 mg 1X ONCE 06/14/16 09:30 06/14/16 09:31 DC 06/14/16 12:03 0.5 MG Ceftriaxone Sodium 1 gm/ Sodium Chloride 50 ml @ 100 mls/hr Q24H 06/14/16 21:00 06/15/16 20:55 100 MLS/HR Fluticasone Propionate (Flonase) 1 spray BID 06/15/16 10:00 06/15/16 20:55 1 SPRAY Furosemide (Lasix) 40 mg DAILY 06/15/16 10:00 06/16/16 08:47 40 MG Gabapentin (Neurontin) 800 mg QHS 06/15/16 21:00 06/15/16 20:56 800 MG Haloperidol Lactate (Haldol) 2 mg 1X ONCE 06/15/16 06:15 06/15/16 06:16 DC 06/15/16 06:15 2 MG Hydralazine HCl (Apresoline) 10 mg PRN Q4HRS PRN 06/14/16 00:45 06/15/16 05:30 10 MG Lorazepam (Ativan) 2 mg STK-MED ONCE 06/15/16 06:30 06/15/16 08:07 DC Magnesium Sulfate/ Dextrose 50 ml @ 25 mls/hr PRN DAILY PRN 06/14/16 10:45 Metoprolol Tartrate (Lopressor) 25 mg BID 06/15/16 09:15 06/15/16 12:33 DC Montelukast Sodium (Singulair) 10 mg HS 06/15/16 21:00 06/15/16 20:56 10 MG Non-Formulary Medication 2 puff QID 06/15/16 13:00 06/15/16 13:00 DC Ondansetron HCl (Zofran Odt) 4 mg PRN Q4HRS PRN 06/15/16 09:15 Ondansetron HCl (Zofran) 4 mg PRN Q6HRS PRN 06/14/16 00:45 Pantoprazole Sodium (Protonix) 40 mg DAILYAC 06/15/16 11:30 06/16/16 07:30 40 MG Phenazopyridine HCl (Pyridium) 200 mg TID 06/15/16 10:00 06/16/16 08:45 200 MG Quetiapine Fumarate (SEROquel) 100 mg TID 06/15/16 10:00 06/16/16 08:45 100 MG Saliva Substitute (Biotene Moisturizing Mouth) 2 spray PRN Q15MIN PRN 06/14/16 09:00 06/14/16 09:37 2 SPRAY Scopolamine (Transderm-Scop) 1 patch Q3DAYS 06/15/16 11:00 06/15/16 10:30 1 PATCH Sodium Chloride 1,000 ml @ 75 mls/hr [id number] 06/14/16 11:00 06/16/16 06:15 75 MLS/HR Sucralfate (Carafate) 1 gm QIDACHS 06/15/16 11:30 06/16/16 08:34 1 GM Vancomycin HCl 1 gm/Sodium Chloride 250 ml @ 250 mls/hr 1X ONCE 06/15/16 10:45 06/15/16 11:44 DC 06/15/16 10:45 250 MLS/HR Lab Laboratory Tests Test 06/16/16 02:45 Sodium Level 146 mmol/L (136-145) Potassium Level 3.4 mmol/L (3.5-5.1) Chloride Level 110 mmol/L (98-107) Carbon Dioxide Level 28 mmol/L (21-32) Anion Gap 8 (6-14) Blood Urea Nitrogen 39 mg/dL (7-20) Creatinine 1.5 mg/dL (0.6-1.0) Estimated GFR (Cockcroft-Gault) 33.8 Glucose Level 103 mg/dL (70-99) Calcium Level 7.8 mg/dL (8.5-10.1) Phosphorus Level 2.7 mg/dL (2.6-4.7) Magnesium Level 1.7 mg/dL (1.8-2.4) Albumin 2.3 g/dL (3.4-5.0) KOBI ZIMMERMAN MD June 16, 2016 10:52
[2016-06-16] MEDS ORDERED: POTASSIUM CHLORIDE 20MEQ 50 ML IV SCH (11:00)
[2016-06-16] MEDS ORDERED: MAGNESIUM SULFATE 1GM 100 ML IV ONE (11:00)
[2016-06-16 11:14] LABS: % SAT IRON 18 % (15-34); IRON,SERUM 42 ug/dL (50-170)
--- NOTE | 2016-06-16 11:30 | PDOC ---
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 Vitals Vitals Vital Signs Date Time Temp Pulse Resp B/P (MAP) Pulse Ox O2 Delivery O2 Flow Rate FiO2 06/16/16 08:48 69 146/56 06/16/16 07:10 97.7 16 91 Nasal Cannula 2.0 97.7 Physical Exam General: Cooperative, mild distress, Other (not oriented 0/3) Heart: Regular rate, No murmurs Lungs: Clear Abdomen: Normal bowel sounds, Soft Extremities: No cyanosis, Other (non pitting edema BLE) Skin: No rashes Labs LABS Laboratory Tests Test 06/16/16 02:45 Reticulocyte Count (auto) 1.2 % (0.5-2.5) Sodium Level 146 mmol/L (136-145) Potassium Level 3.4 mmol/L (3.5-5.1) Chloride Level 110 mmol/L (98-107) Carbon Dioxide Level 28 mmol/L (21-32) Anion Gap 8 (6-14) Blood Urea Nitrogen 39 mg/dL (7-20) Creatinine 1.5 mg/dL (0.6-1.0) Estimated GFR (Cockcroft-Gault) 33.8 Glucose Level 103 mg/dL (70-99) Calcium Level 7.8 mg/dL (8.5-10.1) Phosphorus Level 2.7 mg/dL (2.6-4.7) Magnesium Level 1.7 mg/dL (1.8-2.4) Iron Level 42 ug/dL (50-170) Total Iron Binding Capacity 228 ug/dL (250-450) Iron Saturation 18 % (15-34) Albumin 2.3 g/dL (3.4-5.0) Review of Systems Review of Systems confused Comment Review of Relevant I have reviewed the following items darline (where applicable) has been applied. Labs Laboratory Tests Test 06/14/16 12:00 06/14/16 15:30 06/15/16 02:40 06/15/16 08:23 Urine Collection Type Unknown Urine Color Yellow Urine Clarity Clear Urine pH 5.5 Urine Specific [place] 1.015 Urine Protein 30 mg/dL (NEG-TRACE) Urine Glucose (UA) Negative mg/dL (NEG) Urine Ketones (Stick) Negative mg/dL (NEG) Urine Blood Small (NEG) Urine Nitrite Negative (NEG) Urine Bilirubin Negative (NEG) Urine Urobilinogen Dipstick 0.2 mg/dL (0.2 mg/dL) Urine Leukocyte Esterase Small (NEG) Urine RBC 6-10 /HPF (0-2) Urine WBC 5-10 /HPF (0-4) Urine Bacteria 0 /HPF (0-FEW) Urine Hyaline Casts Few /HPF Urine Granular Casts Occasional /HPF Urine Mucus Mod /LPF O2 Saturation 89 % (92-99) 93 % (92-99) Arterial Blood pH 7.36 (7.35-7.45) 7.46 (7.35-7.45) Arterial Blood pCO2 at Patient Temp 39 mmHg (35-46) 34 mmHg (35-46) Arterial Blood pO2 at Patient Temp 59 mmHg (65-108) 67 mmHg (65-108) Arterial Blood HCO3 22 mmol/L (21-28) 23 mmol/L (21-28) Arterial Blood Base Excess -3 mmol/L (-3-3) 0 mmol/L (-3-3) FiO2 2 lpm nc 28 White Blood Count 18.7 x10^3/uL (4.0-11.0) Red Blood Count 3.35 x10^6/uL (3.50-5.40) Hemoglobin 9.9 g/dL (12.0-15.5) Hematocrit 30.6 % (36.0-47.0) Mean Corpuscular Volume 91 fL (79-100) Mean Corpuscular Hemoglobin 30 pg (25-35) Mean Corpuscular Hemoglobin Concent 32 g/dL (31-37) Red Cell Distribution Width 16.4 % (11.5-14.5) Platelet Count 221 x10^3/uL (140-400) Neutrophils (%) (Auto) 93 % (31-73) Lymphocytes (%) (Auto) 4 % (24-48) Monocytes (%) (Auto) 3 % (0-9) Eosinophils (%) (Auto) 0 % (0-3) Basophils (%) (Auto) 0 % (0-3) Neutrophils # (Auto) 17.3 x10^3uL (1.8-7.7) Lymphocytes # (Auto) 0.8 x10^3/uL (1.0-4.8) Monocytes # (Auto) 0.6 x10^3/uL (0.0-1.1) Eosinophils # (Auto) 0.0 x10^3/uL (0.0-0.7) Basophils # (Auto) 0.0 x10^3/uL (0.0-0.2) Sodium Level 143 mmol/L (136-145) Potassium Level 4.0 mmol/L (3.5-5.1) Chloride Level 106 mmol/L (98-107) Carbon Dioxide Level 27 mmol/L (21-32) Anion Gap 10 (6-14) Blood Urea Nitrogen 43 mg/dL (7-20) Creatinine 1.8 mg/dL (0.6-1.0) Estimated GFR (Cockcroft-Gault) 27.4 BUN/Creatinine Ratio 24 (6-20) Glucose Level 157 mg/dL (70-99) Calcium Level 8.6 mg/dL (8.5-10.1) Phosphorus Level 2.5 mg/dL (2.6-4.7) Magnesium Level 2.1 mg/dL (1.8-2.4) Total Bilirubin 0.3 mg/dL (0.2-1.0) Aspartate Amino Transf (AST/SGOT) 20 U/L (15-37) Alanine Aminotransferase (ALT/SGPT) 20 U/L (14-59) Alkaline Phosphatase 80 U/L (46-116) Total Protein 7.6 g/dL (6.4-8.2) Albumin 2.7 g/dL (3.4-5.0) Albumin/Globulin Ratio 0.6 (1.0-1.7) Test 06/16/16 02:45 Reticulocyte Count (auto) 1.2 % (0.5-2.5) Sodium Level 146 mmol/L (136-145) Potassium Level 3.4 mmol/L (3.5-5.1) Chloride Level 110 mmol/L (98-107) Carbon Dioxide Level 28 mmol/L (21-32) Anion Gap 8 (6-14) Blood Urea Nitrogen 39 mg/dL (7-20) Creatinine 1.5 mg/dL (0.6-1.0) Estimated GFR (Cockcroft-Gault) 33.8 Glucose Level 103 mg/dL (70-99) Calcium Level 7.8 mg/dL (8.5-10.1) Phosphorus Level 2.7 mg/dL (2.6-4.7) Magnesium Level 1.7 mg/dL (1.8-2.4) Iron Level 42 ug/dL (50-170) Total Iron Binding Capacity 228 ug/dL (250-450) Iron Saturation 18 % (15-34) Albumin 2.3 g/dL (3.4-5.0) Laboratory Tests Test 06/16/16 02:45 Reticulocyte Count (auto) 1.2 % (0.5-2.5) Sodium Level 146 mmol/L (136-145) Potassium Level 3.4 mmol/L (3.5-5.1) Chloride Level 110 mmol/L (98-107) Carbon Dioxide Level 28 mmol/L (21-32) Anion Gap 8 (6-14) Blood Urea Nitrogen 39 mg/dL (7-20) Creatinine 1.5 mg/dL (0.6-1.0) Estimated GFR (Cockcroft-Gault) 33.8 Glucose Level 103 mg/dL (70-99) Calcium Level 7.8 mg/dL (8.5-10.1) Phosphorus Level 2.7 mg/dL (2.6-4.7) Magnesium Level 1.7 mg/dL (1.8-2.4) Iron Level 42 ug/dL (50-170) Total Iron Binding Capacity 228 ug/dL (250-450) Iron Saturation 18 % (15-34) Albumin 2.3 g/dL (3.4-5.0) Microbiology 06/14/16 Urine Culture - Preliminary, Resulted 06/14/16 Urine Culture Result 1 (RAKAN) - Preliminary, Resulted Medications Current Medications Ceftriaxone Sodium 1 gm/ Sodium Chloride 50 ml @ 100 mls/hr Q24H IV Last administered on 06/15/16 20:55; Start 06/14/16 at 21:00 Azithromycin (Zithromax) 250 mg DAILY PO ; Start 06/14/16 at 09:00; Stop 06/14/16 at 09:00; Status DC Acetaminophen (Tylenol) 325 mg PRN Q4HRS PRN PO MILD PAIN / TEMP; Start at 00:45 Hydralazine HCl (Apresoline) 10 mg PRN Q4HRS PRN IVP ELEVATED BP, SEE COMMENTS Last administered on 06/15/16 05:30; Start 06/14/16 at 00:45 Ondansetron HCl (Zofran) 4 mg PRN Q6HRS PRN IV NAUSEA/VOMITING; Start 06/14/16 at 00:45 Saliva Substitute (Biotene Moisturizing Mouth) 2 spray PRN Q15MIN PRN PO DRY MOUTH Last administered on 06/14/16 09:37; Start 06/14/16 at 09:00 Azithromycin 250 mg/Sodium Chloride 250 ml @ 250 mls/hr Q24H IV Last administered on 06/15/16 10:34; Start 06/14/16 at 10:00 Albuterol/ Ipratropium (Duoneb) 3 ml Q4HRS W/A NEB Last administered on 21:06; Start 06/14/16 at 10:00 Budesonide (Pulmicort) 0.5 mg RTBID NEB Last administered on 06/16/16 06:57; Start 06/14/16 at 20:00 Budesonide (Pulmicort) 0.5 mg 1X ONCE NEB Last administered on 06/14/16 12:03 ; Start 06/14/16 at 09:30; Stop 06/14/16 at 09:31; Status DC Magnesium Sulfate/ Dextrose 50 ml @ 25 mls/hr PRN DAILY PRN IV for Mag < 1.7 on am labs; Start 06/14/16 at 10:45 Sodium Chloride 1,000 ml @ 75 mls/hr [id number] IV Last administered on 06/16/16 06:15; Start 06/14/16 at 11:00; Stop 06/16/16 at 10:48; Status DC Haloperidol Lactate (Haldol) 2 mg 1X ONCE IVP Last administered on 06/15/16 06 :15; Start 06/15/16 at 06:15; Stop 06/15/16 at 06:16; Status DC Lorazepam (Ativan) 0.5 mg PRN Q8HRS PRN IV ANXIETY Last administered on 01:50; Start 06/15/16 at 06:15 Lorazepam (Ativan) 2 mg STK-MED ONCE .ROUTE ; Start 06/15/16 at 06:24; Stop at 06:52; Status DC Lorazepam (Ativan) 2 mg STK-MED ONCE .ROUTE ; Start 06/15/16 at 06:30; Stop at 08:07; Status DC Acetaminophen (Tylenol) 650 mg PRN Q4HRS PRN PO PAIN; Start 06/15/16 at 09:15 Alprazolam (Xanax) 0.5 mg TID PO Last administered on 06/16/16 08:45; Start 06/15/16 at 10:00 Amlodipine Besylate (Norvasc) 5 mg DAILY PO Last administered on 06/16/16 08:48 ; Start 06/15/16 at 10:00 Fluticasone Propionate (Flonase) 1 spray BID NS Last administered on 06/15/16 20:55; Start 06/15/16 at 10:00 Furosemide (Lasix) 40 mg DAILY PO Last administered on 06/16/16 08:47; Start at 10:00; Stop 06/16/16 at 10:48; Status DC Metoprolol Tartrate (Lopressor) 50 mg BID PO Last administered on 06/16/16 08: 47; Start 06/15/16 at 10:00 Montelukast Sodium (Singulair) 10 mg HS PO Last administered on 06/15/16 20:56 ; Start 06/15/16 at 21:00 Ondansetron HCl (Zofran Odt) 4 mg PRN Q4HRS PRN PO NAUSEA/VOMITING; Start at 09:15 Phenazopyridine HCl (Pyridium) 200 mg TID PO Last administered on 06/16/16 08: 45; Start 06/15/16 at 10:00 Quetiapine Fumarate (SEROquel) 100 mg TID PO Last administered on 06/16/16 08: 45; Start 06/15/16 at 10:00 Scopolamine (Transderm-Scop) 1 patch Q3DAYS TD Last administered on 06/15/16 10 :30; Start 06/15/16 at 11:00 Sucralfate (Carafate) 1 gm QIDACHS PO Last administered on 06/16/16 08:34; Start 06/15/16 at 11:30 Non-Formulary Medication 2 puff QID INH ; Start 06/15/16 at 13:00; Stop 06/15/16 at 13:00; Status DC Pantoprazole Sodium (Protonix) 40 mg DAILYAC PO Last administered on 06/16/16 07:30; Start 06/15/16 at 11:30 Gabapentin (Neurontin) 800 mg QHS PO Last administered on 06/15/16 20:56; Start 06/15/16 at 21:00 Metoprolol Tartrate (Lopressor) 25 mg BID PO ; Start 06/15/16 at 09:15; Stop 06/15 at 12:33; Status DC Albuterol Sulfate (Ventolin Neb Soln) 2.5 mg RTQID NEB Last administered on 06/16 06:57; Start 06/15/16 at 12:00 Vancomycin HCl 1 gm/Sodium Chloride 250 ml @ 250 mls/hr 1X ONCE IV Last administered on 06/15/16 10:45; Start 06/15/16 at 10:45; Stop 06/15/16 at 11:44; Status DC Magnesium Sulfate/ Dextrose 100 ml @ 100 mls/hr 1X ONCE IV ; Start 06/16/16 at 11:00; Stop 06/16/16 at 11:59 Potassium Chloride 50 ml @ 50 mls/hr Q1H IV ; Start 06/16/16 at 11:00; Stop at 14:59; Status UNV Potassium Chloride 100 ml @ 100 mls/hr Q1H IV ; Start 06/16/16 at 11:30; Stop at 15:29 Active Scripts Active Reported Transderm-Scop (Scopolamine) 1 Each Patch.td72 1 Patch TP Q3DAYS Norvasc (Amlodipine Besylate) 5 Mg Tablet 5 Mg PO DAILY Metoprolol Tartrate 50 Mg Tablet 50 Mg PO BID Proair Hfa Inhaler (Albuterol Sulfate) 8.5 Gm Hfa.aer.ad 2 Puff INH QID Phenazopyridine Hcl 200 Mg Tablet 1 Tab PO TID Simvastatin 40 Mg Tablet 1 Tab PO QHS Tylenol With Codeine #3 Tablet (Acetaminophen/Codeine Phosphate) 1 Each Tablet 1 Tab PO PRN Q6HRS PRN Gabapentin 800 Mg Tablet 800 Mg PO HS Carafate (Sucralfate) 1 Gm/10 Ml Oral.susp 10 Ml PO QIDACHS Quetiapine Fumarate 100 Mg Tablet 100 Mg PO TID Zofran Odt (Ondansetron) 4 Mg Tab.rapdis 4 Mg PO PRN Q4HRS PRN Acetaminophen 500 Mg Tablet 650 Mg PO PRN Q4HRS PRN Fluticasone Propionate Nasal [place] (Fluticasone Propionate) 16 Gm [place].susp 2 [place] NS BID Montelukast Sodium Tablet (Montelukast Sodium) 10 Mg Tablet 10 Mg PO HS Furosemide 20 Mg Tablet 40 Mg PO DAILY Multi Vitamin Daily (Multivitamin) 1 Each Tablet 1 Each PO Nexium Capsule (Esomeprazole Magnesium) 20 Mg Capsule.dr 40 Mg PO DAILY Diovan (Valsartan) 40 Mg Tablet 160 Mg PO DAILY Xanax (Alprazolam) 1 Mg Tablet 0.5 Mg PO TID Vitals/I & O Vital Sign - Last 24 Hours 06/15/16 06/15/16 06/15/16 06/15/16 11:36 15:00 15:22 18:37 Temp 98.8 97.9 98.8 97.9 Pulse 68 84 Resp 16 15 B/P (MAP) 128/64 (85) 154/79 (104) Pulse Ox 96 95 97 94 O2 Delivery Nasal Cannula Nasal Cannula Nasal Cannula Nasal Cannula O2 Flow Rate 2.0 2.0 2.0 2.0 06/15/16 06/15/16 06/15/16 06/15/16 19:10 20:00 20:56 21:09 Temp 98.6 98.6 Pulse 87 87 Resp 20 B/P (MAP) 146/65 (92) 146/65 Pulse Ox 92 O2 Delivery Nasal Cannula Nasal Cannula Nasal Cannula O2 Flow Rate 2.0 2.0 2.0 06/15/16 06/16/16 06/16/16 06/16/16 23:10 03:10 04:34 06:57 Temp 97.7 97.7 97.7 97.7 Pulse 73 73 Resp 20 20 B/P (MAP) 107/42 (63) 107/42 (63) 101/58 (72) Pulse Ox 93 93 89 O2 Delivery Nasal Cannula Nasal Cannula Nasal Cannula O2 Flow Rate 2.0 2.0 2.0 06/16/16 06/16/16 06/16/16 07:10 08:47 08:48 Temp 97.7 97.7 Pulse 69 69 69 Resp 16 B/P (MAP) 146/56 (86) 146/69 146/56 Pulse Ox 91 O2 Delivery Nasal Cannula O2 Flow Rate 2.0 Intake and Output 06/15/16 06/15/16 06/16/16 15:00 23:00 07:00 Intake Total 890 ml 1080 ml 100 ml Output Total 1275 ml 350 ml 700 ml Balance -385 ml 730 ml -600 ml DIANA ESPAÑA MD June 16, 2016 11:30
--- NOTE | 2016-06-16 12:28 | PDOC ---
PROGRESS NOTES Assessment Metabolic encephalopathy, with sepsis, renal failure on top of chronic kidney disease, pneumonia No evidence of a pontine stroke on bedside examination or MRI. History of possible seizures, was seeing Dr. Gonzalez Grasp reflexes could imply an underlying dementia Neighbor and DPOA/cousin state patient frequently overmedicates herself with sedatives, narcotics, and wine, sleeps a lot Plan Await EEG Recheck on records from Dr. Gonzalez Treat medical diseases Subjective no complaints Objective Vital Signs Date Time Temp Pulse Resp B/P (MAP) Pulse Ox O2 Delivery O2 Flow Rate FiO2 06/16/16 08:48 69 146/56 06/16/16 07:10 97.7 16 91 Nasal Cannula 2.0 97.7 Intake and Output 06/16/16 07:00 Intake Total 2070 ml Output Total 2325 ml Balance -255 ml Intake Oral 610 ml IV Total 1460 ml Output Urine Total 2325 ml PHYSICAL EXAM Sleepy. Oriented only to person. PERRL. EOMI. CN: no focal findings. Muscle tone: normal. Muscle strength: 4/5 DTR: 1+, bilateral grasp reflexes Plantar reflex: flexor Gait: not examined in bed. Sensory exam: no abnormal findings. No cerebellar signs elicited. Review of Relevant I have reviewed the following items darline (where applicable) has been applied. Labs Laboratory Tests Test 06/14/16 15:30 06/15/16 02:40 06/15/16 08:23 06/16/16 02:45 O2 Saturation 89 % (92-99) 93 % (92-99) Arterial Blood pH 7.36 (7.35-7.45) 7.46 (7.35-7.45) Arterial Blood pCO2 at Patient Temp 39 mmHg (35-46) 34 mmHg (35-46) Arterial Blood pO2 at Patient Temp 59 mmHg (65-108) 67 mmHg (65-108) Arterial Blood HCO3 22 mmol/L (21-28) 23 mmol/L (21-28) Arterial Blood Base Excess -3 mmol/L (-3-3) 0 mmol/L (-3-3) FiO2 2 lpm nc 28 White Blood Count 18.7 x10^3/uL (4.0-11.0) Red Blood Count 3.35 x10^6/uL (3.50-5.40) Hemoglobin 9.9 g/dL (12.0-15.5) Hematocrit 30.6 % (36.0-47.0) Mean Corpuscular Volume 91 fL (79-100) Mean Corpuscular Hemoglobin 30 pg (25-35) Mean Corpuscular Hemoglobin Concent 32 g/dL (31-37) Red Cell Distribution Width 16.4 % (11.5-14.5) Platelet Count 221 x10^3/uL (140-400) Neutrophils (%) (Auto) 93 % (31-73) Lymphocytes (%) (Auto) 4 % (24-48) Monocytes (%) (Auto) 3 % (0-9) Eosinophils (%) (Auto) 0 % (0-3) Basophils (%) (Auto) 0 % (0-3) Neutrophils # (Auto) 17.3 x10^3uL (1.8-7.7) Lymphocytes # (Auto) 0.8 x10^3/uL (1.0-4.8) Monocytes # (Auto) 0.6 x10^3/uL (0.0-1.1) Eosinophils # (Auto) 0.0 x10^3/uL (0.0-0.7) Basophils # (Auto) 0.0 x10^3/uL (0.0-0.2) Sodium Level 143 mmol/L (136-145) 146 mmol/L (136-145) Potassium Level 4.0 mmol/L (3.5-5.1) 3.4 mmol/L (3.5-5.1) Chloride Level 106 mmol/L (98-107) 110 mmol/L (98-107) Carbon Dioxide Level 27 mmol/L (21-32) 28 mmol/L (21-32) Anion Gap 10 (6-14) 8 (6-14) Blood Urea Nitrogen 43 mg/dL (7-20) 39 mg/dL (7-20) Creatinine 1.8 mg/dL (0.6-1.0) 1.5 mg/dL (0.6-1.0) Estimated GFR (Cockcroft-Gault) 27.4 33.8 BUN/Creatinine Ratio 24 (6-20) Glucose Level 157 mg/dL (70-99) 103 mg/dL (70-99) Calcium Level 8.6 mg/dL (8.5-10.1) 7.8 mg/dL (8.5-10.1) Phosphorus Level 2.5 mg/dL (2.6-4.7) 2.7 mg/dL (2.6-4.7) Magnesium Level 2.1 mg/dL (1.8-2.4) 1.7 mg/dL (1.8-2.4) Total Bilirubin 0.3 mg/dL (0.2-1.0) Aspartate Amino Transf (AST/SGOT) 20 U/L (15-37) Alanine Aminotransferase (ALT/SGPT) 20 U/L (14-59) Alkaline Phosphatase 80 U/L (46-116) Total Protein 7.6 g/dL (6.4-8.2) Albumin 2.7 g/dL (3.4-5.0) 2.3 g/dL (3.4-5.0) Albumin/Globulin Ratio 0.6 (1.0-1.7) Reticulocyte Count (auto) 1.2 % (0.5-2.5) Iron Level 42 ug/dL (50-170) Total Iron Binding Capacity 228 ug/dL (250-450) Iron Saturation 18 % (15-34) Ferritin 50 ng/mL (8-252) Laboratory Tests Test 06/16/16 02:45 Reticulocyte Count (auto) 1.2 % (0.5-2.5) Sodium Level 146 mmol/L (136-145) Potassium Level 3.4 mmol/L (3.5-5.1) Chloride Level 110 mmol/L (98-107) Carbon Dioxide Level 28 mmol/L (21-32) Anion Gap 8 (6-14) Blood Urea Nitrogen 39 mg/dL (7-20) Creatinine 1.5 mg/dL (0.6-1.0) Estimated GFR (Cockcroft-Gault) 33.8 Glucose Level 103 mg/dL (70-99) Calcium Level 7.8 mg/dL (8.5-10.1) Phosphorus Level 2.7 mg/dL (2.6-4.7) Magnesium Level 1.7 mg/dL (1.8-2.4) Iron Level 42 ug/dL (50-170) Total Iron Binding Capacity 228 ug/dL (250-450) Iron Saturation 18 % (15-34) Ferritin 50 ng/mL (8-252) Albumin 2.3 g/dL (3.4-5.0) Microbiology 06/14/16 Urine Culture - Preliminary, Resulted 06/14/16 Urine Culture Result 1 (RAKAN) - Preliminary, Resulted Medications Current Medications Ceftriaxone Sodium 1 gm/ Sodium Chloride 50 ml @ 100 mls/hr Q24H IV Last administered on 06/15/16 20:55; Start 06/14/16 at 21:00 Azithromycin (Zithromax) 250 mg DAILY PO ; Start 06/14/16 at 09:00; Stop 06/14/16 at 09:00; Status DC Acetaminophen (Tylenol) 325 mg PRN Q4HRS PRN PO MILD PAIN / TEMP; Start at 00:45 Hydralazine HCl (Apresoline) 10 mg PRN Q4HRS PRN IVP ELEVATED BP, SEE COMMENTS Last administered on 06/15/16 05:30; Start 06/14/16 at 00:45 Ondansetron HCl (Zofran) 4 mg PRN Q6HRS PRN IV NAUSEA/VOMITING; Start 06/14/16 at 00:45 Saliva Substitute (Biotene Moisturizing Mouth) 2 spray PRN Q15MIN PRN PO DRY MOUTH Last administered on 06/14/16 09:37; Start 06/14/16 at 09:00 Azithromycin 250 mg/Sodium Chloride 250 ml @ 250 mls/hr Q24H IV Last administered on 06/15/16 10:34; Start 06/14/16 at 10:00 Albuterol/ Ipratropium (Duoneb) 3 ml Q4HRS W/A NEB Last administered on 21:06; Start 06/14/16 at 10:00 Budesonide (Pulmicort) 0.5 mg RTBID NEB Last administered on 06/16/16 06:57; Start 06/14/16 at 20:00 Budesonide (Pulmicort) 0.5 mg 1X ONCE NEB Last administered on 06/14/16 12:03 ; Start 06/14/16 at 09:30; Stop 06/14/16 at 09:31; Status DC Magnesium Sulfate/ Dextrose 50 ml @ 25 mls/hr PRN DAILY PRN IV for Mag < 1.7 on am labs; Start 06/14/16 at 10:45 Sodium Chloride 1,000 ml @ 75 mls/hr [id number] IV Last administered on 06/16/16 06:15; Start 06/14/16 at 11:00; Stop 06/16/16 at 10:48; Status DC Haloperidol Lactate (Haldol) 2 mg 1X ONCE IVP Last administered on 06/15/16 06 :15; Start 06/15/16 at 06:15; Stop 06/15/16 at 06:16; Status DC Lorazepam (Ativan) 0.5 mg PRN Q8HRS PRN IV ANXIETY Last administered on 01:50; Start 06/15/16 at 06:15 Lorazepam (Ativan) 2 mg STK-MED ONCE .ROUTE ; Start 06/15/16 at 06:24; Stop at 06:52; Status DC Lorazepam (Ativan) 2 mg STK-MED ONCE .ROUTE ; Start 06/15/16 at 06:30; Stop at 08:07; Status DC Acetaminophen (Tylenol) 650 mg PRN Q4HRS PRN PO PAIN; Start 06/15/16 at 09:15 Alprazolam (Xanax) 0.5 mg TID PO Last administered on 06/16/16 08:45; Start 06/15/16 at 10:00 Amlodipine Besylate (Norvasc) 5 mg DAILY PO Last administered on 06/16/16 08:48 ; Start 06/15/16 at 10:00 Fluticasone Propionate (Flonase) 1 spray BID NS Last administered on 06/15/16 20:55; Start 06/15/16 at 10:00 Furosemide (Lasix) 40 mg DAILY PO Last administered on 06/16/16 08:47; Start at 10:00; Stop 06/16/16 at 10:48; Status DC Metoprolol Tartrate (Lopressor) 50 mg BID PO Last administered on 06/16/16 08: 47; Start 06/15/16 at 10:00 Montelukast Sodium (Singulair) 10 mg HS PO Last administered on 06/15/16 20:56 ; Start 06/15/16 at 21:00 Ondansetron HCl (Zofran Odt) 4 mg PRN Q4HRS PRN PO NAUSEA/VOMITING; Start at 09:15 Phenazopyridine HCl (Pyridium) 200 mg TID PO Last administered on 06/16/16 08: 45; Start 06/15/16 at 10:00 Quetiapine Fumarate (SEROquel) 100 mg TID PO Last administered on 06/16/16 08: 45; Start 06/15/16 at 10:00 Scopolamine (Transderm-Scop) 1 patch Q3DAYS TD Last administered on 06/15/16 10 :30; Start 06/15/16 at 11:00 Sucralfate (Carafate) 1 gm QIDACHS PO Last administered on 06/16/16 08:34; Start 06/15/16 at 11:30 Non-Formulary Medication 2 puff QID INH ; Start 06/15/16 at 13:00; Stop 06/15/16 at 13:00; Status DC Pantoprazole Sodium (Protonix) 40 mg DAILYAC PO Last administered on 06/16/16 07:30; Start 06/15/16 at 11:30 Gabapentin (Neurontin) 800 mg QHS PO Last administered on 06/15/16 20:56; Start 06/15/16 at 21:00 Metoprolol Tartrate (Lopressor) 25 mg BID PO ; Start 06/15/16 at 09:15; Stop 06/15 at 12:33; Status DC Albuterol Sulfate (Ventolin Neb Soln) 2.5 mg RTQID NEB Last administered on 06/16 06:57; Start 06/15/16 at 12:00 Vancomycin HCl 1 gm/Sodium Chloride 250 ml @ 250 mls/hr 1X ONCE IV Last administered on 06/15/16 10:45; Start 06/15/16 at 10:45; Stop 06/15/16 at 11:44; Status DC Amino Acids/ Glycerin/ Electrolytes 1,000 ml @ 80 mls/hr [id number] IV ; Start 06/16/16 at 11:00 Magnesium Sulfate/ Dextrose 100 ml @ 100 mls/hr 1X ONCE IV ; Start 06/16/16 at 11:00; Stop 06/16/16 at 11:59; Status DC Potassium Chloride 50 ml @ 50 mls/hr Q1H IV ; Start 06/16/16 at 11:00; Stop at 14:59; Status UNV Potassium Chloride 100 ml @ 100 mls/hr Q1H IV ; Start 06/16/16 at 11:30; Stop at 15:29 Active Scripts Active Reported Transderm-Scop (Scopolamine) 1 Each Patch.td72 1 Patch TP Q3DAYS Norvasc (Amlodipine Besylate) 5 Mg Tablet 5 Mg PO DAILY Metoprolol Tartrate 50 Mg Tablet 50 Mg PO BID Proair Hfa Inhaler (Albuterol Sulfate) 8.5 Gm Hfa.aer.ad 2 Puff INH QID Phenazopyridine Hcl 200 Mg Tablet 1 Tab PO TID Simvastatin 40 Mg Tablet 1 Tab PO QHS Tylenol With Codeine #3 Tablet (Acetaminophen/Codeine Phosphate) 1 Each Tablet 1 Tab PO PRN Q6HRS PRN Gabapentin 800 Mg Tablet 800 Mg PO HS Carafate (Sucralfate) 1 Gm/10 Ml Oral.susp 10 Ml PO QIDACHS Quetiapine Fumarate 100 Mg Tablet 100 Mg PO TID Zofran Odt (Ondansetron) 4 Mg Tab.rapdis 4 Mg PO PRN Q4HRS PRN Acetaminophen 500 Mg Tablet 650 Mg PO PRN Q4HRS PRN Fluticasone Propionate Nasal [place] (Fluticasone Propionate) 16 Gm [place].susp 2 [place] NS BID Montelukast Sodium Tablet (Montelukast Sodium) 10 Mg Tablet 10 Mg PO HS Furosemide 20 Mg Tablet 40 Mg PO DAILY Multi Vitamin Daily (Multivitamin) 1 Each Tablet 1 Each PO Nexium Capsule (Esomeprazole Magnesium) 20 Mg Capsule.dr 40 Mg PO DAILY Diovan (Valsartan) 40 Mg Tablet 160 Mg PO DAILY Xanax (Alprazolam) 1 Mg Tablet 0.5 Mg PO TID Vitals/I & O Vital Sign - Last 24 Hours 06/15/16 06/15/16 06/15/16 06/15/16 15:00 15:22 18:37 19:10 Temp 98.8 97.9 98.6 98.8 97.9 98.6 Pulse 68 84 87 Resp 16 15 20 B/P (MAP) 128/64 (85) 154/79 (104) 146/65 (92) Pulse Ox 95 97 94 92 O2 Delivery Nasal Cannula Nasal Cannula Nasal Cannula Nasal Cannula O2 Flow Rate 2.0 2.0 2.0 2.0 06/15/16 06/15/16 06/15/16 06/15/16 20:00 20:56 21:09 23:10 Temp 97.7 97.7 Pulse 87 73 Resp 20 B/P (MAP) 146/65 107/42 (63) Pulse Ox 93 O2 Delivery Nasal Cannula Nasal Cannula Nasal Cannula O2 Flow Rate 2.0 2.0 2.0 06/16/16 06/16/16 06/16/16 06/16/16 03:10 04:34 06:57 07:10 Temp 97.7 97.7 97.7 97.7 Pulse 73 69 Resp 20 16 B/P (MAP) 107/42 (63) 101/58 (72) 146/56 (86) Pulse Ox 93 89 91 O2 Delivery Nasal Cannula Nasal Cannula Nasal Cannula O2 Flow Rate 2.0 2.0 2.0 06/16/16 06/16/16 08:47 08:48 Pulse 69 69 B/P (MAP) 146/69 146/56 Intake and Output 06/15/16 06/15/16 06/16/16 15:00 23:00 07:00 Intake Total 890 ml 1080 ml 100 ml Output Total 1275 ml 350 ml 700 ml Balance -385 ml 730 ml -600 ml ABDELRAHMAN CAMPOS MD June 16, 2016 12:28
[2016-06-16] MEDS: AMINO AC 3%/ELECTROLYTE/GLYCER 1,000 ML IV SCH ×2 (12:35→23:30)
[2016-06-16] MEDS: POTASSIUM CHLORIDE 10MEQ 100 ML IV SCH ×4 (13:30→20:03)
--- NOTE | 2016-06-16 14:04 | PDOC ---
PULMONARY PROGRESS NOTES Subjective MS slowly improving, answered most of my Qs. sob, cough, better, no cough Vitals Vital Signs Date Time Temp Pulse Resp B/P (MAP) Pulse Ox O2 Delivery O2 Flow Rate FiO2 06/16/16 08:48 69 146/56 06/16/16 07:10 97.7 16 91 Nasal Cannula 2.0 97.7 General: Alert, No acute distress Lungs: Clear Cardiovascular: S1 Abdomen: Soft Neuro Exam: Alert Extremities: No Edema Skin: Warm Labs Laboratory Tests Test 06/14/16 15:30 06/15/16 02:40 06/15/16 08:23 06/16/16 02:45 O2 Saturation 89 % (92-99) 93 % (92-99) Arterial Blood pH 7.36 (7.35-7.45) 7.46 (7.35-7.45) Arterial Blood pCO2 at Patient Temp 39 mmHg (35-46) 34 mmHg (35-46) Arterial Blood pO2 at Patient Temp 59 mmHg (65-108) 67 mmHg (65-108) Arterial Blood HCO3 22 mmol/L (21-28) 23 mmol/L (21-28) Arterial Blood Base Excess -3 mmol/L (-3-3) 0 mmol/L (-3-3) FiO2 2 lpm nc 28 White Blood Count 18.7 x10^3/uL (4.0-11.0) Red Blood Count 3.35 x10^6/uL (3.50-5.40) Hemoglobin 9.9 g/dL (12.0-15.5) Hematocrit 30.6 % (36.0-47.0) Mean Corpuscular Volume 91 fL (79-100) Mean Corpuscular Hemoglobin 30 pg (25-35) Mean Corpuscular Hemoglobin Concent 32 g/dL (31-37) Red Cell Distribution Width 16.4 % (11.5-14.5) Platelet Count 221 x10^3/uL (140-400) Neutrophils (%) (Auto) 93 % (31-73) Lymphocytes (%) (Auto) 4 % (24-48) Monocytes (%) (Auto) 3 % (0-9) Eosinophils (%) (Auto) 0 % (0-3) Basophils (%) (Auto) 0 % (0-3) Neutrophils # (Auto) 17.3 x10^3uL (1.8-7.7) Lymphocytes # (Auto) 0.8 x10^3/uL (1.0-4.8) Monocytes # (Auto) 0.6 x10^3/uL (0.0-1.1) Eosinophils # (Auto) 0.0 x10^3/uL (0.0-0.7) Basophils # (Auto) 0.0 x10^3/uL (0.0-0.2) Sodium Level 143 mmol/L (136-145) 146 mmol/L (136-145) Potassium Level 4.0 mmol/L (3.5-5.1) 3.4 mmol/L (3.5-5.1) Chloride Level 106 mmol/L (98-107) 110 mmol/L (98-107) Carbon Dioxide Level 27 mmol/L (21-32) 28 mmol/L (21-32) Anion Gap 10 (6-14) 8 (6-14) Blood Urea Nitrogen 43 mg/dL (7-20) 39 mg/dL (7-20) Creatinine 1.8 mg/dL (0.6-1.0) 1.5 mg/dL (0.6-1.0) Estimated GFR (Cockcroft-Gault) 27.4 33.8 BUN/Creatinine Ratio 24 (6-20) Glucose Level 157 mg/dL (70-99) 103 mg/dL (70-99) Calcium Level 8.6 mg/dL (8.5-10.1) 7.8 mg/dL (8.5-10.1) Phosphorus Level 2.5 mg/dL (2.6-4.7) 2.7 mg/dL (2.6-4.7) Magnesium Level 2.1 mg/dL (1.8-2.4) 1.7 mg/dL (1.8-2.4) Total Bilirubin 0.3 mg/dL (0.2-1.0) Aspartate Amino Transf (AST/SGOT) 20 U/L (15-37) Alanine Aminotransferase (ALT/SGPT) 20 U/L (14-59) Alkaline Phosphatase 80 U/L (46-116) Total Protein 7.6 g/dL (6.4-8.2) Albumin 2.7 g/dL (3.4-5.0) 2.3 g/dL (3.4-5.0) Albumin/Globulin Ratio 0.6 (1.0-1.7) Reticulocyte Count (auto) 1.2 % (0.5-2.5) Iron Level 42 ug/dL (50-170) Total Iron Binding Capacity 228 ug/dL (250-450) Iron Saturation 18 % (15-34) Ferritin 50 ng/mL (8-252) Laboratory Tests Test 06/16/16 02:45 Reticulocyte Count (auto) 1.2 % (0.5-2.5) Sodium Level 146 mmol/L (136-145) Potassium Level 3.4 mmol/L (3.5-5.1) Chloride Level 110 mmol/L (98-107) Carbon Dioxide Level 28 mmol/L (21-32) Anion Gap 8 (6-14) Blood Urea Nitrogen 39 mg/dL (7-20) Creatinine 1.5 mg/dL (0.6-1.0) Estimated GFR (Cockcroft-Gault) 33.8 Glucose Level 103 mg/dL (70-99) Calcium Level 7.8 mg/dL (8.5-10.1) Phosphorus Level 2.7 mg/dL (2.6-4.7) Magnesium Level 1.7 mg/dL (1.8-2.4) Iron Level 42 ug/dL (50-170) Total Iron Binding Capacity 228 ug/dL (250-450) Iron Saturation 18 % (15-34) Ferritin 50 ng/mL (8-252) Albumin 2.3 g/dL (3.4-5.0) Medications Active Scripts Medications Dose Route/Sig Max Daily Dose Days Date Category Transderm-Scop (Scopolamine) 1 Each Patch.td72 1 Patch TP Q3DAYS 06/14/16 Reported Norvasc (Amlodipine Besylate) 5 Mg Tablet 5 Mg PO DAILY 06/14/16 Reported Metoprolol Tartrate 50 Mg Tablet 50 Mg PO BID 06/14/16 Reported Proair Hfa Inhaler (Albuterol Sulfate) 8.5 Gm Hfa.aer.ad 2 Puff INH QID 06/14/16 Reported Phenazopyridine Hcl 200 Mg Tablet 1 Tab PO TID 06/14/16 Reported Simvastatin 40 Mg Tablet 1 Tab PO QHS 06/14/16 Reported Tylenol With Codeine #3 Tablet (Acetaminophen/Codeine Phosphate) 1 Each Tablet 1 Tab PO PRN Q6HRS PRN 06/14/16 Reported Gabapentin 800 Mg Tablet 800 Mg PO HS 06/14/16 Reported Carafate (Sucralfate) 1 Gm/10 Ml Oral.susp 10 Ml PO QIDACHS 11/04/15 Reported Quetiapine Fumarate 100 Mg Tablet 100 Mg PO TID 11/04/15 Reported Zofran Odt (Ondansetron) 4 Mg Tab.rapdis 4 Mg PO PRN Q4HRS PRN 11/04/15 Reported Acetaminophen 500 Mg Tablet 650 Mg PO PRN Q4HRS PRN 11/04/15 Reported Fluticasone Propionate Nasal [place] (Fluticasone Propionate) 16 Gm [place].susp 2 [place] NS BID 11/04/15 Reported Montelukast Sodium Tablet (Montelukast Sodium) 10 Mg Tablet 10 Mg PO HS 11/04/15 Reported Furosemide 20 Mg Tablet 40 Mg PO DAILY 11/04/15 Reported Multi Vitamin Daily (Multivitamin) 1 Each Tablet 1 Each PO 05/27/13 Reported Nexium Capsule (Esomeprazole Magnesium) 20 Mg Capsule.dr 40 Mg PO DAILY 05/27/13 Reported Diovan (Valsartan) 40 Mg Tablet 160 Mg PO DAILY 05/27/13 Reported Xanax (Alprazolam) 1 Mg Tablet 0.5 Mg PO TID 05/27/13 Reported Impression . 1. Acute hypercapnic respiratory failure due to toxic encephalopathy(narcotic/ benzo) and possible sepsis 2. Cannot exclude sepsis. She has leukocytosis. X-ray shows only minimal volume loss of the right lower lobe. 3. Acute renal failure. Renal is consulted. 4. Leukocytosis. 5. No cerebrovascular accident. Plan . 1. Refused BiPAP./ ABG compensated now, avoid oversedation 2. nasal canula. 3. Follow neuro rec 4. Empiric antibiotics 5. Follow white cell count. 6. Follow ABGs as needed 7. Nebulizer treatments. 8. Discussed with RN and RT. HONG GARCIA MD June 16, 2016 14:04
[2016-06-16 14:50] VITALS: BP 117/56
[2016-06-16] MEDS: AZITHROMYCIN 250 MG in IV NORMAL SALINE 250ML 250 ML IV SCH (17:00)
[2016-06-16] MEDS: FLUTICASONE 50MCG/NASAL SPRAY 16GM BOTTLE. NS SCH ×2 (18:11→20:05)
[2016-06-16 19:05] VITALS: BP 129/68
[2016-06-16] MEDS: GABAPENTIN 400 MG CAPSULE. PO SCH (20:04)
[2016-06-16] MEDS: MONTELUKAST SODIUM 10 MG TABLET. PO SCH (20:05)
[2016-06-16 23:10] VITALS: BP 135/53
[2016-06-17 03:10] VITALS: BP 125/39
[2016-06-17 05:47] LABS: ALBUMIN 2.5 g/dL (3.4-5.0); CALCIUM 8.7 mg/dL (8.5-10.1); CREATININE 1.5 mg/dL (0.6-1.0); GFR 33.8; POTASSIUM 4.2 mmol/L (3.5-5.1)
[2016-06-17] MEDS: IPRATRPIUM/ALBUTEROL 0.5/2.5MG 3 ML NEBU. NEB SCH ×5 (06:00→19:13)
[2016-06-17 07:00] VITALS: BP 146/69
[2016-06-17] MEDS: SUCRALFATE 1 GM/10 ML ORAL.SUSP. PO SCH ×4 (07:30→21:17)
[2016-06-17] MEDS: ALPRAZolam 1 MG TABLET PO SCH ×3 (09:00→21:13)
[2016-06-17] MEDS: QUEtiapine 100 MG TABLET. PO SCH ×3 (09:00→21:17)
[2016-06-17] MEDS: BUDESONIDE 0.5 MG/2 ML NEBU. NEB SCH ×2 (09:13→19:13)
[2016-06-17] MEDS: ALBUTEROL SULFATE 2.5 MG/3 ML NEBU. NEB SCH ×2 (09:13→12:07)
[2016-06-17 09:20] LABS: BASO # 0.1 x10^3/uL (0.0-0.2); BASO % 1 % (0-3); EOS % 4 % (0-3); HEMATOCRIT 29.1 % (36.0-47.0); HEMOGLOBIN 9.8 g/dL (12.0-15.5); LYMPH # 3.5 x10^3/uL (1.0-4.8); LYMPH % 34 % (24-48); MEAN CORPUSCULAR HEMOGLOBIN 31 pg (25-35); MEAN CORPUSCULAR HGB CONC 34 g/dL (31-37); MEAN CORPUSCULAR VOLUME 91 fL (79-100); MONO % 6 % (0-9); NEUT % 55 % (31-73); PLATELET COUNT 248 x10^3/uL (140-400); RED CELL DISTRIBUTION WIDTH 16.4 % (11.5-14.5); WHITE BLOOD COUNT 10.2 x10^3/uL (4.0-11.0)
[2016-06-17] MEDS: PHENAZOPYRIDINE 200 MG TABLET. PO SCH ×3 (09:33→21:13)
[2016-06-17] MEDS: PANTOPRAZOLE 40 MG TABLET.DR. PO SCH (09:34)
[2016-06-17] MEDS: amLODIPine BESYLATE 5 MG TABLET PO SCH (09:35)
[2016-06-17] MEDS: METOPROLOL TART IMMED RELEASE 50 MG TABLET. PO SCH ×2 (09:35→21:13)
[2016-06-17] MEDS: FLUTICASONE 50MCG/NASAL SPRAY 16GM BOTTLE. NS SCH ×2 (09:37→21:00)
[2016-06-17] MEDS: AZITHROMYCIN 250 MG in IV NORMAL SALINE 250ML 250 ML IV SCH (10:20)
--- NOTE | 2016-06-17 10:46 | PDOC ---
PULMONARY PROGRESS NOTES Subjective alert, wants to go home, sob is better, no cough, has back pain, Vitals Vital Signs Date Time Temp Pulse Resp B/P (MAP) Pulse Ox O2 Delivery O2 Flow Rate FiO2 06/17/16 09:46 Nasal Cannula 2.0 06/17/16 09:35 105 146/69 06/17/16 09:18 93 06/17/16 07:00 98.1 18 98.1 ROS: No Nausea, No Chest Pain, No Abdominal Pain General: Alert, No acute distress HEENT: Other (nc at perr) Lungs: Clear Cardiovascular: S1, S2 Abdomen: Soft, Non-tender Neuro Exam: Alert Extremities: No Edema Skin: Warm Labs Laboratory Tests Test 06/16/16 02:45 06/17/16 04:43 Reticulocyte Count (auto) 1.2 % (0.5-2.5) Sodium Level 146 mmol/L (136-145) 144 mmol/L (136-145) Potassium Level 3.4 mmol/L (3.5-5.1) 4.2 mmol/L (3.5-5.1) Chloride Level 110 mmol/L (98-107) 108 mmol/L (98-107) Carbon Dioxide Level 28 mmol/L (21-32) 29 mmol/L (21-32) Anion Gap 8 (6-14) 7 (6-14) Blood Urea Nitrogen 39 mg/dL (7-20) 41 mg/dL (7-20) Creatinine 1.5 mg/dL (0.6-1.0) 1.5 mg/dL (0.6-1.0) Estimated GFR (Cockcroft-Gault) 33.8 33.8 Glucose Level 103 mg/dL (70-99) 93 mg/dL (70-99) Calcium Level 7.8 mg/dL (8.5-10.1) 8.7 mg/dL (8.5-10.1) Phosphorus Level 2.7 mg/dL (2.6-4.7) 3.0 mg/dL (2.6-4.7) Magnesium Level 1.7 mg/dL (1.8-2.4) 2.1 mg/dL (1.8-2.4) Iron Level 42 ug/dL (50-170) Total Iron Binding Capacity 228 ug/dL (250-450) Iron Saturation 18 % (15-34) Ferritin 50 ng/mL (8-252) Albumin 2.3 g/dL (3.4-5.0) 2.5 g/dL (3.4-5.0) White Blood Count 10.2 x10^3/uL (4.0-11.0) Red Blood Count 3.20 x10^6/uL (3.50-5.40) Hemoglobin 9.8 g/dL (12.0-15.5) Hematocrit 29.1 % (36.0-47.0) Mean Corpuscular Volume 91 fL (79-100) Mean Corpuscular Hemoglobin 31 pg (25-35) Mean Corpuscular Hemoglobin Concent 34 g/dL (31-37) Red Cell Distribution Width 16.4 % (11.5-14.5) Platelet Count 248 x10^3/uL (140-400) Neutrophils (%) (Auto) 55 % (31-73) Lymphocytes (%) (Auto) 34 % (24-48) Monocytes (%) (Auto) 6 % (0-9) Eosinophils (%) (Auto) 4 % (0-3) Basophils (%) (Auto) 1 % (0-3) Neutrophils # (Auto) 5.6 x10^3uL (1.8-7.7) Lymphocytes # (Auto) 3.5 x10^3/uL (1.0-4.8) Monocytes # (Auto) 0.6 x10^3/uL (0.0-1.1) Eosinophils # (Auto) 0.4 x10^3/uL (0.0-0.7) Basophils # (Auto) 0.1 x10^3/uL (0.0-0.2) Laboratory Tests Test 06/17/16 04:43 White Blood Count 10.2 x10^3/uL (4.0-11.0) Red Blood Count 3.20 x10^6/uL (3.50-5.40) Hemoglobin 9.8 g/dL (12.0-15.5) Hematocrit 29.1 % (36.0-47.0) Mean Corpuscular Volume 91 fL (79-100) Mean Corpuscular Hemoglobin 31 pg (25-35) Mean Corpuscular Hemoglobin Concent 34 g/dL (31-37) Red Cell Distribution Width 16.4 % (11.5-14.5) Platelet Count 248 x10^3/uL (140-400) Neutrophils (%) (Auto) 55 % (31-73) Lymphocytes (%) (Auto) 34 % (24-48) Monocytes (%) (Auto) 6 % (0-9) Eosinophils (%) (Auto) 4 % (0-3) Basophils (%) (Auto) 1 % (0-3) Neutrophils # (Auto) 5.6 x10^3uL (1.8-7.7) Lymphocytes # (Auto) 3.5 x10^3/uL (1.0-4.8) Monocytes # (Auto) 0.6 x10^3/uL (0.0-1.1) Eosinophils # (Auto) 0.4 x10^3/uL (0.0-0.7) Basophils # (Auto) 0.1 x10^3/uL (0.0-0.2) Sodium Level 144 mmol/L (136-145) Potassium Level 4.2 mmol/L (3.5-5.1) Chloride Level 108 mmol/L (98-107) Carbon Dioxide Level 29 mmol/L (21-32) Anion Gap 7 (6-14) Blood Urea Nitrogen 41 mg/dL (7-20) Creatinine 1.5 mg/dL (0.6-1.0) Estimated GFR (Cockcroft-Gault) 33.8 Glucose Level 93 mg/dL (70-99) Calcium Level 8.7 mg/dL (8.5-10.1) Phosphorus Level 3.0 mg/dL (2.6-4.7) Magnesium Level 2.1 mg/dL (1.8-2.4) Albumin 2.5 g/dL (3.4-5.0) Medications Active Scripts Medications Dose Route/Sig Max Daily Dose Days Date Category Transderm-Scop (Scopolamine) 1 Each Patch.td72 1 Patch TP Q3DAYS 06/14/16 Reported Norvasc (Amlodipine Besylate) 5 Mg Tablet 5 Mg PO DAILY 06/14/16 Reported Metoprolol Tartrate 50 Mg Tablet 50 Mg PO BID 06/14/16 Reported Proair Hfa Inhaler (Albuterol Sulfate) 8.5 Gm Hfa.aer.ad 2 Puff INH QID 06/14/16 Reported Phenazopyridine Hcl 200 Mg Tablet 1 Tab PO TID 06/14/16 Reported Simvastatin 40 Mg Tablet 1 Tab PO QHS 06/14/16 Reported Tylenol With Codeine #3 Tablet (Acetaminophen/Codeine Phosphate) 1 Each Tablet 1 Tab PO PRN Q6HRS PRN 06/14/16 Reported Gabapentin 800 Mg Tablet 800 Mg PO HS 06/14/16 Reported Carafate (Sucralfate) 1 Gm/10 Ml Oral.susp 10 Ml PO QIDACHS 11/04/15 Reported Quetiapine Fumarate 100 Mg Tablet 100 Mg PO TID 11/04/15 Reported Zofran Odt (Ondansetron) 4 Mg Tab.rapdis 4 Mg PO PRN Q4HRS PRN 11/04/15 Reported Acetaminophen 500 Mg Tablet 650 Mg PO PRN Q4HRS PRN 11/04/15 Reported Fluticasone Propionate Nasal [place] (Fluticasone Propionate) 16 Gm [place].susp 2 [place] NS BID 11/04/15 Reported Montelukast Sodium Tablet (Montelukast Sodium) 10 Mg Tablet 10 Mg PO HS 11/04/15 Reported Furosemide 20 Mg Tablet 40 Mg PO DAILY 11/04/15 Reported Multi Vitamin Daily (Multivitamin) 1 Each Tablet 1 Each PO 05/27/13 Reported Nexium Capsule (Esomeprazole Magnesium) 20 Mg Capsule.dr 40 Mg PO DAILY 05/27/13 Reported Diovan (Valsartan) 40 Mg Tablet 160 Mg PO DAILY 05/27/13 Reported Xanax (Alprazolam) 1 Mg Tablet 0.5 Mg PO TID 05/27/13 Reported Comments cxr reviewed, Impression . 1. Acute hypercapnic respiratory failure due to toxic encephalopathy(narcotic/ benzo) and possible sepsis 2. Cannot exclude sepsis. She has leukocytosis. X-ray shows only minimal volume loss of the right lower lobe. 3. Acute renal failure. Renal is consulted. 4. Leukocytosis, resolved. 5. No cerebrovascular accident. Plan . 1. alert now 2. titrate fio2 to keep sat 90% 3. Follow neuro rec 4. Empiric antibiotics 5. Follow white cell count, nl now. 6. increase activity, pt ot 7. Nebulizer treatments. 8. Discussed with pt HONG Tracy MD June 17, 2016 10:45
--- NOTE | 2016-06-17 10:55 | PDOC ---
Infectious Disease Note Subjective Subjective More communicative Denies pain ROS ROS GEN: Denies fevers, chills, sweats CV: Denies chest pain RESP: Denies shortness of air, cough GI: Denies n/v/d Vital Sign Vital Signs Vital Signs Date Time Temp Pulse Resp B/P (MAP) Pulse Ox O2 Delivery O2 Flow Rate FiO2 06/17/16 09:46 Nasal Cannula 2.0 06/17/16 09:35 105 146/69 06/17/16 09:18 93 06/17/16 07:00 98.1 18 98.1 Physical Exam PHYSICAL EXAM GENERAL: Propped up in bed, NAD HEENT: PERRL, OC/OP dry NECK: Supple, no JVD, no LN LUNGS: Clear HEART: S1S2, no gallop, no murmur ABD: Soft, NT, BS present : Castano EXT: No edema, no cyanosis LEAD QA ANALYST: Alert, oriented x 3, no focal neurologic deficit SKIN: No rash REJ. ok Labs Lab Laboratory Tests Test 06/17/16 04:43 White Blood Count 10.2 x10^3/uL (4.0-11.0) Red Blood Count 3.20 x10^6/uL (3.50-5.40) Hemoglobin 9.8 g/dL (12.0-15.5) Hematocrit 29.1 % (36.0-47.0) Mean Corpuscular Volume 91 fL (79-100) Mean Corpuscular Hemoglobin 31 pg (25-35) Mean Corpuscular Hemoglobin Concent 34 g/dL (31-37) Red Cell Distribution Width 16.4 % (11.5-14.5) Platelet Count 248 x10^3/uL (140-400) Neutrophils (%) (Auto) 55 % (31-73) Lymphocytes (%) (Auto) 34 % (24-48) Monocytes (%) (Auto) 6 % (0-9) Eosinophils (%) (Auto) 4 % (0-3) Basophils (%) (Auto) 1 % (0-3) Neutrophils # (Auto) 5.6 x10^3uL (1.8-7.7) Lymphocytes # (Auto) 3.5 x10^3/uL (1.0-4.8) Monocytes # (Auto) 0.6 x10^3/uL (0.0-1.1) Eosinophils # (Auto) 0.4 x10^3/uL (0.0-0.7) Basophils # (Auto) 0.1 x10^3/uL (0.0-0.2) Sodium Level 144 mmol/L (136-145) Potassium Level 4.2 mmol/L (3.5-5.1) Chloride Level 108 mmol/L (98-107) Carbon Dioxide Level 29 mmol/L (21-32) Anion Gap 7 (6-14) Blood Urea Nitrogen 41 mg/dL (7-20) Creatinine 1.5 mg/dL (0.6-1.0) Estimated GFR (Cockcroft-Gault) 33.8 Glucose Level 93 mg/dL (70-99) Calcium Level 8.7 mg/dL (8.5-10.1) Phosphorus Level 3.0 mg/dL (2.6-4.7) Magnesium Level 2.1 mg/dL (1.8-2.4) Albumin 2.5 g/dL (3.4-5.0) Objective Assessment GPC in clusters (1 bottle) present on transfer from [facility], 06/13 ? contamination RLL volume loss, ? pneumonia on cxr 06/14 Encephalopathy Leukocytosis Renal insufficiency Aphasia HTN Obesity Klebsiella pneumonia in urine ([facility]). UA unremarkable for infection Plan Plan of Care cont Rocephin and azithromycin taper soon One time dose [facility] [place], 06/15 Await GPC ID - clinically better supportive care Attending Co-Sign Attending Co-Sign The patient was seen and interviewed as well as examined at the bedside. The chart was reviewed. The case was discussed. Agree with the plan of care. BRAYAN STONER APRN June 17, 2016 10:55 BOY MONK MD June 17, 2016 13:10
--- NOTE | 2016-06-17 11:01 | PDOC ---
SUBJECTIVE ROS BARB/ CKD III asking abou5t when she can go home CVS: no Orthopnea, no CP RESP: no SOB, no PRINGLE GI: no Nausea, no Vomiting : no Dysuria, no Urgency OBJECTIVE Vital Signs Vital Signs Date Time Temp Pulse Resp B/P (MAP) Pulse Ox O2 Delivery O2 Flow Rate FiO2 06/17/16 09:46 Nasal Cannula 2.0 06/17/16 09:35 105 146/69 06/17/16 09:18 93 06/17/16 07:00 98.1 18 98.1 I & 0 Intake and Output 06/17/16 07:00 Intake Total 150 ml Output Total 2475 ml Balance -2325 ml Intake Oral 150 ml Output Urine Total 2475 ml # Bowel Movements 1 PHYSICAL EXAM Physical Exam General Appearance: Awake, more Alert Oriented x 1-2 , In no obvious Distress Eyes: VIsion Unchanged Conjunctiva Normal EN: No EN Drainage Mucous Memb. moist Neck: no JVD no JVP Supple no Thyromegaly CVS: S1 S2 ? Murmur No Gallop No Rub tr Edema Resp: no Rales no Rhonchi no Acc. Muscle use GI: BS +ve NO Bruit Min Tender Non Distended - obewse : no CVA tenderness; no Suprapubic Tenderness Assessment & Plan BARB - UO is good for now, creat is trending down - wathc off of IVF/PPN ? CKD IIi - This may be her new nearterm baseline Anemia: IV iron as ordered ? Vol depltion - IVF helping for now HTN - watch off of PO BP meds, IV BP meds prn Hypoalbuminemia - encourage PO intake. Low K -replaced COMMENT/RELEVANT DATA Meds Current Medications Medications (Trade) Dose Ordered Sig/Henry Start Time Stop Time Status Last Admin Dose Admin Acetaminophen (Tylenol) 650 mg PRN Q4HRS PRN 06/15/16 09:15 Albuterol Sulfate (Ventolin Neb Soln) 2.5 mg RTQID 06/15/16 12:00 06/17/16 09:13 2.5 MG Albuterol/ Ipratropium (Duoneb) 3 ml Q4HRS W/A 06/14/16 10:00 06/15/16 21:06 3 ML Alprazolam (Xanax) 0.5 mg TID 06/15/16 10:00 06/16/16 20:05 0.5 MG Amino Acids/ Glycerin/ Electrolytes 1,000 ml @ 80 mls/hr [id number] 06/16/16 11:00 06/16/16 12:35 80 MLS/HR Amlodipine Besylate (Norvasc) 5 mg DAILY 06/15/16 10:00 06/17/16 09:35 5 MG Azithromycin (Zithromax) 250 mg DAILY 06/14/16 09:00 06/14/16 09:00 DC Azithromycin 250 mg/Sodium Chloride 250 ml @ 250 mls/hr Q24H 06/14/16 10:00 06/17/16 10:20 250 MLS/HR Budesonide (Pulmicort) 0.5 mg 1X ONCE 06/14/16 09:30 06/14/16 09:31 DC 06/14/16 12:03 0.5 MG Ceftriaxone Sodium 1 gm/ Sodium Chloride 50 ml @ 100 mls/hr Q24H 06/14/16 21:00 06/16/16 22:02 100 MLS/HR Fluticasone Propionate (Flonase) 1 spray BID 06/15/16 10:00 06/17/16 09:37 1 SPRAY Furosemide (Lasix) 40 mg DAILY 06/15/16 10:00 06/16/16 10:48 DC 06/16/16 08:47 40 MG Gabapentin (Neurontin) 800 mg QHS 06/15/16 21:00 06/16/16 20:04 800 MG Haloperidol Lactate (Haldol) 2 mg 1X ONCE 06/15/16 06:15 06/15/16 06:16 DC 06/15/16 06:15 2 MG Hydralazine HCl (Apresoline) 10 mg PRN Q4HRS PRN 06/14/16 00:45 06/15/16 05:30 10 MG Lorazepam (Ativan) 2 mg STK-MED ONCE 06/15/16 06:30 06/15/16 08:07 DC Magnesium Sulfate/ Dextrose 100 ml @ 100 mls/hr 1X ONCE 06/16/16 11:00 06/16/16 11:59 DC 06/16/16 12:36 100 MLS/HR Metoprolol Tartrate (Lopressor) 25 mg BID 06/15/16 09:15 06/15/16 12:33 DC Montelukast Sodium (Singulair) 10 mg HS 06/15/16 21:00 06/16/16 20:05 10 MG Non-Formulary Medication 2 puff QID 06/15/16 13:00 06/15/16 13:00 DC Ondansetron HCl (Zofran Odt) 4 mg PRN Q4HRS PRN 06/15/16 09:15 Ondansetron HCl (Zofran) 4 mg PRN Q6HRS PRN 06/14/16 00:45 Pantoprazole Sodium (Protonix) 40 mg DAILYAC 06/15/16 11:30 06/17/16 09:34 40 MG Phenazopyridine HCl (Pyridium) 200 mg TID 06/15/16 10:00 06/17/16 09:33 200 MG Potassium Chloride 100 ml @ 100 mls/hr Q1H 06/16/16 11:30 06/16/16 15:29 DC 06/16/16 20:03 100 MLS/HR Quetiapine Fumarate (SEROquel) 100 mg TID 06/15/16 10:00 06/16/16 20:04 100 MG Saliva Substitute (Biotene Moisturizing Mouth) 2 spray PRN Q15MIN PRN 06/14/16 09:00 06/14/16 09:37 2 SPRAY Scopolamine (Transderm-Scop) 1 patch Q3DAYS 06/15/16 11:00 06/15/16 10:30 1 PATCH Sodium Chloride 1,000 ml @ 75 mls/hr [id number] 06/14/16 11:00 06/16/16 10:48 DC 06/16/16 06:15 75 MLS/HR Sucralfate (Carafate) 1 gm QIDACHS 06/15/16 11:30 06/16/16 20:03 1 GM Vancomycin HCl 1 gm/Sodium Chloride 250 ml @ 250 mls/hr 1X ONCE 06/15/16 10:45 06/15/16 11:44 DC 06/15/16 10:45 250 MLS/HR Lab Laboratory Tests Test 06/17/16 04:43 White Blood Count 10.2 x10^3/uL (4.0-11.0) Red Blood Count 3.20 x10^6/uL (3.50-5.40) Hemoglobin 9.8 g/dL (12.0-15.5) Hematocrit 29.1 % (36.0-47.0) Mean Corpuscular Volume 91 fL (79-100) Mean Corpuscular Hemoglobin 31 pg (25-35) Mean Corpuscular Hemoglobin Concent 34 g/dL (31-37) Red Cell Distribution Width 16.4 % (11.5-14.5) Platelet Count 248 x10^3/uL (140-400) Neutrophils (%) (Auto) 55 % (31-73) Lymphocytes (%) (Auto) 34 % (24-48) Monocytes (%) (Auto) 6 % (0-9) Eosinophils (%) (Auto) 4 % (0-3) Basophils (%) (Auto) 1 % (0-3) Neutrophils # (Auto) 5.6 x10^3uL (1.8-7.7) Lymphocytes # (Auto) 3.5 x10^3/uL (1.0-4.8) Monocytes # (Auto) 0.6 x10^3/uL (0.0-1.1) Eosinophils # (Auto) 0.4 x10^3/uL (0.0-0.7) Basophils # (Auto) 0.1 x10^3/uL (0.0-0.2) Sodium Level 144 mmol/L (136-145) Potassium Level 4.2 mmol/L (3.5-5.1) Chloride Level 108 mmol/L (98-107) Carbon Dioxide Level 29 mmol/L (21-32) Anion Gap 7 (6-14) Blood Urea Nitrogen 41 mg/dL (7-20) Creatinine 1.5 mg/dL (0.6-1.0) Estimated GFR (Cockcroft-Gault) 33.8 Glucose Level 93 mg/dL (70-99) Calcium Level 8.7 mg/dL (8.5-10.1) Phosphorus Level 3.0 mg/dL (2.6-4.7) Magnesium Level 2.1 mg/dL (1.8-2.4) Albumin 2.5 g/dL (3.4-5.0) KOBI ZIMMERMAN MD June 17, 2016 11:01
[2016-06-17 11:02] VITALS: BP 127/38
--- NOTE | 2016-06-17 11:15 | PDOC ---
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 On dysphagia diet EEG done sunday \COnfused but not in distress Resident of [place] NO evidence of CVA on work up CRea down to 1,.5 from 1.8 NA creeping up 146 - minimal PO - BETTER TODAY SUNDAY K 3,1 - minimal PO PLAn: Await EEG\ Cont dysphagia 1 diet Cont procalamine [place] upon dc COde status? dw RN Vitals Vitals Vital Signs Date Time Temp Pulse Resp B/P (MAP) Pulse Ox O2 Delivery O2 Flow Rate FiO2 06/17/16 11:02 97.7 67 17 127/38 (67) 91 Nasal Cannula 2.5 97.7 Physical Exam General: Cooperative, mild distress, Other (not oriented 0/3) Heart: Regular rate, No murmurs Lungs: Clear Abdomen: Normal bowel sounds, Soft Extremities: No cyanosis, Other (non pitting edema BLE) Skin: No rashes Labs LABS Laboratory Tests Test 06/17/16 04:43 White Blood Count 10.2 x10^3/uL (4.0-11.0) Red Blood Count 3.20 x10^6/uL (3.50-5.40) Hemoglobin 9.8 g/dL (12.0-15.5) Hematocrit 29.1 % (36.0-47.0) Mean Corpuscular Volume 91 fL (79-100) Mean Corpuscular Hemoglobin 31 pg (25-35) Mean Corpuscular Hemoglobin Concent 34 g/dL (31-37) Red Cell Distribution Width 16.4 % (11.5-14.5) Platelet Count 248 x10^3/uL (140-400) Neutrophils (%) (Auto) 55 % (31-73) Lymphocytes (%) (Auto) 34 % (24-48) Monocytes (%) (Auto) 6 % (0-9) Eosinophils (%) (Auto) 4 % (0-3) Basophils (%) (Auto) 1 % (0-3) Neutrophils # (Auto) 5.6 x10^3uL (1.8-7.7) Lymphocytes # (Auto) 3.5 x10^3/uL (1.0-4.8) Monocytes # (Auto) 0.6 x10^3/uL (0.0-1.1) Eosinophils # (Auto) 0.4 x10^3/uL (0.0-0.7) Basophils # (Auto) 0.1 x10^3/uL (0.0-0.2) Sodium Level 144 mmol/L (136-145) Potassium Level 4.2 mmol/L (3.5-5.1) Chloride Level 108 mmol/L (98-107) Carbon Dioxide Level 29 mmol/L (21-32) Anion Gap 7 (6-14) Blood Urea Nitrogen 41 mg/dL (7-20) Creatinine 1.5 mg/dL (0.6-1.0) Estimated GFR (Cockcroft-Gault) 33.8 Glucose Level 93 mg/dL (70-99) Calcium Level 8.7 mg/dL (8.5-10.1) Phosphorus Level 3.0 mg/dL (2.6-4.7) Magnesium Level 2.1 mg/dL (1.8-2.4) Albumin 2.5 g/dL (3.4-5.0) Review of Systems Review of Systems has dementia Comment Review of Relevant I have reviewed the following items darline (where applicable) has been applied. Labs Laboratory Tests Test 06/16/16 02:45 06/17/16 04:43 Reticulocyte Count (auto) 1.2 % (0.5-2.5) Sodium Level 146 mmol/L (136-145) 144 mmol/L (136-145) Potassium Level 3.4 mmol/L (3.5-5.1) 4.2 mmol/L (3.5-5.1) Chloride Level 110 mmol/L (98-107) 108 mmol/L (98-107) Carbon Dioxide Level 28 mmol/L (21-32) 29 mmol/L (21-32) Anion Gap 8 (6-14) 7 (6-14) Blood Urea Nitrogen 39 mg/dL (7-20) 41 mg/dL (7-20) Creatinine 1.5 mg/dL (0.6-1.0) 1.5 mg/dL (0.6-1.0) Estimated GFR (Cockcroft-Gault) 33.8 33.8 Glucose Level 103 mg/dL (70-99) 93 mg/dL (70-99) Calcium Level 7.8 mg/dL (8.5-10.1) 8.7 mg/dL (8.5-10.1) Phosphorus Level 2.7 mg/dL (2.6-4.7) 3.0 mg/dL (2.6-4.7) Magnesium Level 1.7 mg/dL (1.8-2.4) 2.1 mg/dL (1.8-2.4) Iron Level 42 ug/dL (50-170) Total Iron Binding Capacity 228 ug/dL (250-450) Iron Saturation 18 % (15-34) Ferritin 50 ng/mL (8-252) Albumin 2.3 g/dL (3.4-5.0) 2.5 g/dL (3.4-5.0) White Blood Count 10.2 x10^3/uL (4.0-11.0) Red Blood Count 3.20 x10^6/uL (3.50-5.40) Hemoglobin 9.8 g/dL (12.0-15.5) Hematocrit 29.1 % (36.0-47.0) Mean Corpuscular Volume 91 fL (79-100) Mean Corpuscular Hemoglobin 31 pg (25-35) Mean Corpuscular Hemoglobin Concent 34 g/dL (31-37) Red Cell Distribution Width 16.4 % (11.5-14.5) Platelet Count 248 x10^3/uL (140-400) Neutrophils (%) (Auto) 55 % (31-73) Lymphocytes (%) (Auto) 34 % (24-48) Monocytes (%) (Auto) 6 % (0-9) Eosinophils (%) (Auto) 4 % (0-3) Basophils (%) (Auto) 1 % (0-3) Neutrophils # (Auto) 5.6 x10^3uL (1.8-7.7) Lymphocytes # (Auto) 3.5 x10^3/uL (1.0-4.8) Monocytes # (Auto) 0.6 x10^3/uL (0.0-1.1) Eosinophils # (Auto) 0.4 x10^3/uL (0.0-0.7) Basophils # (Auto) 0.1 x10^3/uL (0.0-0.2) Laboratory Tests Test 06/17/16 04:43 White Blood Count 10.2 x10^3/uL (4.0-11.0) Red Blood Count 3.20 x10^6/uL (3.50-5.40) Hemoglobin 9.8 g/dL (12.0-15.5) Hematocrit 29.1 % (36.0-47.0) Mean Corpuscular Volume 91 fL (79-100) Mean Corpuscular Hemoglobin 31 pg (25-35) Mean Corpuscular Hemoglobin Concent 34 g/dL (31-37) Red Cell Distribution Width 16.4 % (11.5-14.5) Platelet Count 248 x10^3/uL (140-400) Neutrophils (%) (Auto) 55 % (31-73) Lymphocytes (%) (Auto) 34 % (24-48) Monocytes (%) (Auto) 6 % (0-9) Eosinophils (%) (Auto) 4 % (0-3) Basophils (%) (Auto) 1 % (0-3) Neutrophils # (Auto) 5.6 x10^3uL (1.8-7.7) Lymphocytes # (Auto) 3.5 x10^3/uL (1.0-4.8) Monocytes # (Auto) 0.6 x10^3/uL (0.0-1.1) Eosinophils # (Auto) 0.4 x10^3/uL (0.0-0.7) Basophils # (Auto) 0.1 x10^3/uL (0.0-0.2) Sodium Level 144 mmol/L (136-145) Potassium Level 4.2 mmol/L (3.5-5.1) Chloride Level 108 mmol/L (98-107) Carbon Dioxide Level 29 mmol/L (21-32) Anion Gap 7 (6-14) Blood Urea Nitrogen 41 mg/dL (7-20) Creatinine 1.5 mg/dL (0.6-1.0) Estimated GFR (Cockcroft-Gault) 33.8 Glucose Level 93 mg/dL (70-99) Calcium Level 8.7 mg/dL (8.5-10.1) Phosphorus Level 3.0 mg/dL (2.6-4.7) Magnesium Level 2.1 mg/dL (1.8-2.4) Albumin 2.5 g/dL (3.4-5.0) Microbiology 06/14/16 Urine Culture - Final, Complete 06/14/16 Urine Culture Result 1 (RAKAN) - Final, Complete Medications Current Medications Ceftriaxone Sodium 1 gm/ Sodium Chloride 50 ml @ 100 mls/hr Q24H IV Last administered on 06/16/16 22:02; Start 06/14/16 at 21:00 Azithromycin (Zithromax) 250 mg DAILY PO ; Start 06/14/16 at 09:00; Stop 06/14/16 at 09:00; Status DC Acetaminophen (Tylenol) 325 mg PRN Q4HRS PRN PO MILD PAIN / TEMP; Start at 00:45 Hydralazine HCl (Apresoline) 10 mg PRN Q4HRS PRN IVP ELEVATED BP, SEE COMMENTS Last administered on 06/15/16 05:30; Start 06/14/16 at 00:45 Ondansetron HCl (Zofran) 4 mg PRN Q6HRS PRN IV NAUSEA/VOMITING; Start 06/14/16 at 00:45 Saliva Substitute (Biotene Moisturizing Mouth) 2 spray PRN Q15MIN PRN PO DRY MOUTH Last administered on 06/14/16 09:37; Start 06/14/16 at 09:00 Azithromycin 250 mg/Sodium Chloride 250 ml @ 250 mls/hr Q24H IV Last administered on 06/17/16 10:20; Start 06/14/16 at 10:00 Albuterol/ Ipratropium (Duoneb) 3 ml Q4HRS W/A NEB Last administered on 21:06; Start 06/14/16 at 10:00 Budesonide (Pulmicort) 0.5 mg RTBID NEB Last administered on 06/17/16 09:13; Start 06/14/16 at 20:00 Budesonide (Pulmicort) 0.5 mg 1X ONCE NEB Last administered on 06/14/16 12:03 ; Start 06/14/16 at 09:30; Stop 06/14/16 at 09:31; Status DC Magnesium Sulfate/ Dextrose 50 ml @ 25 mls/hr PRN DAILY PRN IV for Mag < 1.7 on am labs; Start 06/14/16 at 10:45 Sodium Chloride 1,000 ml @ 75 mls/hr [id number] IV Last administered on 06/16/16 06:15; Start 06/14/16 at 11:00; Stop 06/16/16 at 10:48; Status DC Haloperidol Lactate (Haldol) 2 mg 1X ONCE IVP Last administered on 06/15/16 06 :15; Start 06/15/16 at 06:15; Stop 06/15/16 at 06:16; Status DC Lorazepam (Ativan) 0.5 mg PRN Q8HRS PRN IV ANXIETY Last administered on 01:50; Start 06/15/16 at 06:15 Lorazepam (Ativan) 2 mg STK-MED ONCE .ROUTE ; Start 06/15/16 at 06:24; Stop at 06:52; Status DC Lorazepam (Ativan) 2 mg STK-MED ONCE .ROUTE ; Start 06/15/16 at 06:30; Stop at 08:07; Status DC Acetaminophen (Tylenol) 650 mg PRN Q4HRS PRN PO PAIN; Start 06/15/16 at 09:15 Alprazolam (Xanax) 0.5 mg TID PO Last administered on 06/16/16 20:05; Start 06/15/16 at 10:00 Amlodipine Besylate (Norvasc) 5 mg DAILY PO Last administered on 06/17/16 09:35 ; Start 06/15/16 at 10:00 Fluticasone Propionate (Flonase) 1 spray BID NS Last administered on 06/17/16 09:37; Start 06/15/16 at 10:00 Furosemide (Lasix) 40 mg DAILY PO Last administered on 06/16/16 08:47; Start at 10:00; Stop 06/16/16 at 10:48; Status DC Metoprolol Tartrate (Lopressor) 50 mg BID PO Last administered on 06/17/16 09: 35; Start 06/15/16 at 10:00 Montelukast Sodium (Singulair) 10 mg HS PO Last administered on 06/16/16 20:05 ; Start 06/15/16 at 21:00 Ondansetron HCl (Zofran Odt) 4 mg PRN Q4HRS PRN PO NAUSEA/VOMITING; Start at 09:15 Phenazopyridine HCl (Pyridium) 200 mg TID PO Last administered on 06/17/16 09: 33; Start 06/15/16 at 10:00 Quetiapine Fumarate (SEROquel) 100 mg TID PO Last administered on 06/16/16 20: 04; Start 06/15/16 at 10:00 Scopolamine (Transderm-Scop) 1 patch Q3DAYS TD Last administered on 06/15/16 10 :30; Start 06/15/16 at 11:00 Sucralfate (Carafate) 1 gm QIDACHS PO Last administered on 06/16/16 20:03; Start 06/15/16 at 11:30 Non-Formulary Medication 2 puff QID INH ; Start 06/15/16 at 13:00; Stop 06/15/16 at 13:00; Status DC Pantoprazole Sodium (Protonix) 40 mg DAILYAC PO Last administered on 06/17/16 09:34; Start 06/15/16 at 11:30 Gabapentin (Neurontin) 800 mg QHS PO Last administered on 06/16/16 20:04; Start 06/15/16 at 21:00 Metoprolol Tartrate (Lopressor) 25 mg BID PO ; Start 06/15/16 at 09:15; Stop 06/15 at 12:33; Status DC Albuterol Sulfate (Ventolin Neb Soln) 2.5 mg RTQID NEB Last administered on 06/17 09:13; Start 06/15/16 at 12:00 Vancomycin HCl 1 gm/Sodium Chloride 250 ml @ 250 mls/hr 1X ONCE IV Last administered on 06/15/16 10:45; Start 06/15/16 at 10:45; Stop 06/15/16 at 11:44; Status DC Amino Acids/ Glycerin/ Electrolytes 1,000 ml @ 80 mls/hr [id number] IV Last administered on 06/16/16 12:35; Start 06/16/16 at 11:00; Stop 06/17/16 at 11:02; Status DC Magnesium Sulfate/ Dextrose 100 ml @ 100 mls/hr 1X ONCE IV Last administered on 06/16/16 12:36; Start 06/16/16 at 11:00; Stop 06/16/16 at 11:59; Status DC Potassium Chloride 50 ml @ 50 mls/hr Q1H IV ; Start 06/16/16 at 11:00; Stop at 14:59; Status UNV Potassium Chloride 100 ml @ 100 mls/hr Q1H IV Last administered on 06/16/16 20 :03; Start 06/16/16 at 11:30; Stop 06/16/16 at 15:29; Status DC Iron Sucrose 200 mg/Sodium Chloride 110 ml @ 55 mls/hr 3X/WEEK IV ; Start at 12:00; Stop 06/26/16 at 10:59 Active Scripts Active Reported Transderm-Scop (Scopolamine) 1 Each Patch.td72 1 Patch TP Q3DAYS Norvasc (Amlodipine Besylate) 5 Mg Tablet 5 Mg PO DAILY Metoprolol Tartrate 50 Mg Tablet 50 Mg PO BID Proair Hfa Inhaler (Albuterol Sulfate) 8.5 Gm Hfa.aer.ad 2 Puff INH QID Phenazopyridine Hcl 200 Mg Tablet 1 Tab PO TID Simvastatin 40 Mg Tablet 1 Tab PO QHS Tylenol With Codeine #3 Tablet (Acetaminophen/Codeine Phosphate) 1 Each Tablet 1 Tab PO PRN Q6HRS PRN Gabapentin 800 Mg Tablet 800 Mg PO HS Carafate (Sucralfate) 1 Gm/10 Ml Oral.susp 10 Ml PO QIDACHS Quetiapine Fumarate 100 Mg Tablet 100 Mg PO TID Zofran Odt (Ondansetron) 4 Mg Tab.rapdis 4 Mg PO PRN Q4HRS PRN Acetaminophen 500 Mg Tablet 650 Mg PO PRN Q4HRS PRN Fluticasone Propionate Nasal [place] (Fluticasone Propionate) 16 Gm [place].susp 2 [place] NS BID Montelukast Sodium Tablet (Montelukast Sodium) 10 Mg Tablet 10 Mg PO HS Furosemide 20 Mg Tablet 40 Mg PO DAILY Multi Vitamin Daily (Multivitamin) 1 Each Tablet 1 Each PO Nexium Capsule (Esomeprazole Magnesium) 20 Mg Capsule.dr 40 Mg PO DAILY Diovan (Valsartan) 40 Mg Tablet 160 Mg PO DAILY Xanax (Alprazolam) 1 Mg Tablet 0.5 Mg PO TID Vitals/I & O Vital Sign - Last 24 Hours 06/16/16 06/16/16 06/16/16 06/16/16 14:50 15:45 19:05 20:00 Temp 97.7 97.9 97.7 97.9 Pulse 73 75 Resp 16 20 B/P (MAP) 117/56 (76) 129/68 (88) Pulse Ox 91 94 O2 Delivery Nasal Cannula Nasal Cannula Nasal Cannula Nasal Cannula O2 Flow Rate 2.0 2.0 2.0 2.0 06/16/16 06/16/16 06/16/16 06/17/16 20:04 20:09 23:10 03:10 Temp 97.9 98.1 97.9 98.1 Pulse 73 67 71 Resp 16 18 B/P (MAP) 117/56 135/53 (80) 125/39 (67) Pulse Ox 90 91 90 O2 Delivery Nasal Cannula Nasal Cannula Nasal Cannula O2 Flow Rate 2.0 2.0 2.0 06/17/16 06/17/16 06/17/16 06/17/16 07:00 09:17 09:18 09:35 Temp 98.1 98.1 Pulse 105 105 Resp 18 B/P (MAP) 146/69 (94) 146/69 Pulse Ox 91 93 93 O2 Delivery Nasal Cannula Nasal Cannula Nasal Cannula O2 Flow Rate 2.0 2.0 2.0 06/17/16 06/17/16 06/17/16 09:35 09:46 11:02 Temp 97.7 97.7 Pulse 105 67 Resp 17 B/P (MAP) 146/69 127/38 (67) Pulse Ox 91 O2 Delivery Nasal Cannula Nasal Cannula O2 Flow Rate 2.0 2.5 Intake and Output 06/16/16 06/16/16 06/17/16 15:00 23:00 07:00 Intake Total 150 ml Output Total 1500 ml 975 ml Balance -1500 ml -825 ml DIANA ESPAÑA MD June 17, 2016 11:15
--- NOTE | 2016-06-17 11:46 | PDOC ---
PROGRESS NOTES Assessment Metabolic encephalopathy, with sepsis, renal failure on top of chronic kidney disease, pneumonia No evidence of a pontine stroke on bedside examination or MRI. History of possible seizures, was seeing Dr. Gonzalez--no records received from his office. EEG shows metabolic encephalopathy, no seizure activity Grasp reflexes could imply an underlying dementia Neighbor and DPOA/cousin state patient frequently overmedicates herself with sedatives, narcotics, and wine, sleeps a lot Plan Treat medical diseases Objective Vital Signs Date Time Temp Pulse Resp B/P (MAP) Pulse Ox O2 Delivery O2 Flow Rate FiO2 06/17/16 11:02 97.7 67 17 127/38 (67) 91 Nasal Cannula 2.5 97.7 Intake and Output 06/17/16 06:59 Intake Total 150 ml Output Total 2475 ml Balance -2325 ml Intake Oral 150 ml Output Urine Total 2475 ml # Bowel Movements 1 PHYSICAL EXAM Sleepy. Oriented to person, month, year, "hospital." PERRL. EOMI. CN: no focal findings. Muscle tone: normal. Muscle strength: 4/5 DTR: 1+, bilateral grasp reflexes Plantar reflex: flexor Gait: not examined in bed. Sensory exam: no abnormal findings. No cerebellar signs elicited. Review of Relevant I have reviewed the following items darline (where applicable) has been applied. Labs Laboratory Tests Test 06/16/16 02:45 06/17/16 04:43 Reticulocyte Count (auto) 1.2 % (0.5-2.5) Sodium Level 146 mmol/L (136-145) 144 mmol/L (136-145) Potassium Level 3.4 mmol/L (3.5-5.1) 4.2 mmol/L (3.5-5.1) Chloride Level 110 mmol/L (98-107) 108 mmol/L (98-107) Carbon Dioxide Level 28 mmol/L (21-32) 29 mmol/L (21-32) Anion Gap 8 (6-14) 7 (6-14) Blood Urea Nitrogen 39 mg/dL (7-20) 41 mg/dL (7-20) Creatinine 1.5 mg/dL (0.6-1.0) 1.5 mg/dL (0.6-1.0) Estimated GFR (Cockcroft-Gault) 33.8 33.8 Glucose Level 103 mg/dL (70-99) 93 mg/dL (70-99) Calcium Level 7.8 mg/dL (8.5-10.1) 8.7 mg/dL (8.5-10.1) Phosphorus Level 2.7 mg/dL (2.6-4.7) 3.0 mg/dL (2.6-4.7) Magnesium Level 1.7 mg/dL (1.8-2.4) 2.1 mg/dL (1.8-2.4) Iron Level 42 ug/dL (50-170) Total Iron Binding Capacity 228 ug/dL (250-450) Iron Saturation 18 % (15-34) Ferritin 50 ng/mL (8-252) Albumin 2.3 g/dL (3.4-5.0) 2.5 g/dL (3.4-5.0) White Blood Count 10.2 x10^3/uL (4.0-11.0) Red Blood Count 3.20 x10^6/uL (3.50-5.40) Hemoglobin 9.8 g/dL (12.0-15.5) Hematocrit 29.1 % (36.0-47.0) Mean Corpuscular Volume 91 fL (79-100) Mean Corpuscular Hemoglobin 31 pg (25-35) Mean Corpuscular Hemoglobin Concent 34 g/dL (31-37) Red Cell Distribution Width 16.4 % (11.5-14.5) Platelet Count 248 x10^3/uL (140-400) Neutrophils (%) (Auto) 55 % (31-73) Lymphocytes (%) (Auto) 34 % (24-48) Monocytes (%) (Auto) 6 % (0-9) Eosinophils (%) (Auto) 4 % (0-3) Basophils (%) (Auto) 1 % (0-3) Neutrophils # (Auto) 5.6 x10^3uL (1.8-7.7) Lymphocytes # (Auto) 3.5 x10^3/uL (1.0-4.8) Monocytes # (Auto) 0.6 x10^3/uL (0.0-1.1) Eosinophils # (Auto) 0.4 x10^3/uL (0.0-0.7) Basophils # (Auto) 0.1 x10^3/uL (0.0-0.2) Laboratory Tests Test 06/17/16 04:43 White Blood Count 10.2 x10^3/uL (4.0-11.0) Red Blood Count 3.20 x10^6/uL (3.50-5.40) Hemoglobin 9.8 g/dL (12.0-15.5) Hematocrit 29.1 % (36.0-47.0) Mean Corpuscular Volume 91 fL (79-100) Mean Corpuscular Hemoglobin 31 pg (25-35) Mean Corpuscular Hemoglobin Concent 34 g/dL (31-37) Red Cell Distribution Width 16.4 % (11.5-14.5) Platelet Count 248 x10^3/uL (140-400) Neutrophils (%) (Auto) 55 % (31-73) Lymphocytes (%) (Auto) 34 % (24-48) Monocytes (%) (Auto) 6 % (0-9) Eosinophils (%) (Auto) 4 % (0-3) Basophils (%) (Auto) 1 % (0-3) Neutrophils # (Auto) 5.6 x10^3uL (1.8-7.7) Lymphocytes # (Auto) 3.5 x10^3/uL (1.0-4.8) Monocytes # (Auto) 0.6 x10^3/uL (0.0-1.1) Eosinophils # (Auto) 0.4 x10^3/uL (0.0-0.7) Basophils # (Auto) 0.1 x10^3/uL (0.0-0.2) Sodium Level 144 mmol/L (136-145) Potassium Level 4.2 mmol/L (3.5-5.1) Chloride Level 108 mmol/L (98-107) Carbon Dioxide Level 29 mmol/L (21-32) Anion Gap 7 (6-14) Blood Urea Nitrogen 41 mg/dL (7-20) Creatinine 1.5 mg/dL (0.6-1.0) Estimated GFR (Cockcroft-Gault) 33.8 Glucose Level 93 mg/dL (70-99) Calcium Level 8.7 mg/dL (8.5-10.1) Phosphorus Level 3.0 mg/dL (2.6-4.7) Magnesium Level 2.1 mg/dL (1.8-2.4) Albumin 2.5 g/dL (3.4-5.0) Microbiology 06/14/16 Urine Culture - Final, Complete 06/14/16 Urine Culture Result 1 (RAKAN) - Final, Complete Medications Current Medications Ceftriaxone Sodium 1 gm/ Sodium Chloride 50 ml @ 100 mls/hr Q24H IV Last administered on 06/16/16 22:02; Start 06/14/16 at 21:00 Azithromycin (Zithromax) 250 mg DAILY PO ; Start 06/14/16 at 09:00; Stop 06/14/16 at 09:00; Status DC Acetaminophen (Tylenol) 325 mg PRN Q4HRS PRN PO MILD PAIN / TEMP; Start at 00:45 Hydralazine HCl (Apresoline) 10 mg PRN Q4HRS PRN IVP ELEVATED BP, SEE COMMENTS Last administered on 06/15/16 05:30; Start 06/14/16 at 00:45 Ondansetron HCl (Zofran) 4 mg PRN Q6HRS PRN IV NAUSEA/VOMITING; Start 06/14/16 at 00:45 Saliva Substitute (Biotene Moisturizing Mouth) 2 spray PRN Q15MIN PRN PO DRY MOUTH Last administered on 06/14/16 09:37; Start 06/14/16 at 09:00 Azithromycin 250 mg/Sodium Chloride 250 ml @ 250 mls/hr Q24H IV Last administered on 06/17/16 10:20; Start 06/14/16 at 10:00 Albuterol/ Ipratropium (Duoneb) 3 ml Q4HRS W/A NEB Last administered on 21:06; Start 06/14/16 at 10:00 Budesonide (Pulmicort) 0.5 mg RTBID NEB Last administered on 06/17/16 09:13; Start 06/14/16 at 20:00 Budesonide (Pulmicort) 0.5 mg 1X ONCE NEB Last administered on 06/14/16 12:03 ; Start 06/14/16 at 09:30; Stop 06/14/16 at 09:31; Status DC Magnesium Sulfate/ Dextrose 50 ml @ 25 mls/hr PRN DAILY PRN IV for Mag < 1.7 on am labs; Start 06/14/16 at 10:45 Sodium Chloride 1,000 ml @ 75 mls/hr [id number] IV Last administered on 06/16/16 06:15; Start 06/14/16 at 11:00; Stop 06/16/16 at 10:48; Status DC Haloperidol Lactate (Haldol) 2 mg 1X ONCE IVP Last administered on 06/15/16 06 :15; Start 06/15/16 at 06:15; Stop 06/15/16 at 06:16; Status DC Lorazepam (Ativan) 0.5 mg PRN Q8HRS PRN IV ANXIETY Last administered on 01:50; Start 06/15/16 at 06:15 Lorazepam (Ativan) 2 mg STK-MED ONCE .ROUTE ; Start 06/15/16 at 06:24; Stop at 06:52; Status DC Lorazepam (Ativan) 2 mg STK-MED ONCE .ROUTE ; Start 06/15/16 at 06:30; Stop at 08:07; Status DC Acetaminophen (Tylenol) 650 mg PRN Q4HRS PRN PO PAIN; Start 06/15/16 at 09:15 Alprazolam (Xanax) 0.5 mg TID PO Last administered on 06/16/16 20:05; Start 06/15/16 at 10:00 Amlodipine Besylate (Norvasc) 5 mg DAILY PO Last administered on 06/17/16 09:35 ; Start 06/15/16 at 10:00 Fluticasone Propionate (Flonase) 1 spray BID NS Last administered on 06/17/16 09:37; Start 06/15/16 at 10:00 Furosemide (Lasix) 40 mg DAILY PO Last administered on 06/16/16 08:47; Start at 10:00; Stop 06/16/16 at 10:48; Status DC Metoprolol Tartrate (Lopressor) 50 mg BID PO Last administered on 06/17/16 09: 35; Start 06/15/16 at 10:00 Montelukast Sodium (Singulair) 10 mg HS PO Last administered on 06/16/16 20:05 ; Start 06/15/16 at 21:00 Ondansetron HCl (Zofran Odt) 4 mg PRN Q4HRS PRN PO NAUSEA/VOMITING; Start at 09:15 Phenazopyridine HCl (Pyridium) 200 mg TID PO Last administered on 06/17/16 09: 33; Start 06/15/16 at 10:00 Quetiapine Fumarate (SEROquel) 100 mg TID PO Last administered on 06/16/16 20: 04; Start 06/15/16 at 10:00 Scopolamine (Transderm-Scop) 1 patch Q3DAYS TD Last administered on 06/15/16 10 :30; Start 06/15/16 at 11:00 Sucralfate (Carafate) 1 gm QIDACHS PO Last administered on 06/16/16 20:03; Start 06/15/16 at 11:30 Non-Formulary Medication 2 puff QID INH ; Start 06/15/16 at 13:00; Stop 06/15/16 at 13:00; Status DC Pantoprazole Sodium (Protonix) 40 mg DAILYAC PO Last administered on 06/17/16 09:34; Start 06/15/16 at 11:30 Gabapentin (Neurontin) 800 mg QHS PO Last administered on 06/16/16 20:04; Start 06/15/16 at 21:00 Metoprolol Tartrate (Lopressor) 25 mg BID PO ; Start 06/15/16 at 09:15; Stop 06/15 at 12:33; Status DC Albuterol Sulfate (Ventolin Neb Soln) 2.5 mg RTQID NEB Last administered on 06/17 09:13; Start 06/15/16 at 12:00 Vancomycin HCl 1 gm/Sodium Chloride 250 ml @ 250 mls/hr 1X ONCE IV Last administered on 06/15/16 10:45; Start 06/15/16 at 10:45; Stop 06/15/16 at 11:44; Status DC Amino Acids/ Glycerin/ Electrolytes 1,000 ml @ 80 mls/hr [id number] IV Last administered on 06/16/16 12:35; Start 06/16/16 at 11:00; Stop 06/17/16 at 11:02; Status DC Magnesium Sulfate/ Dextrose 100 ml @ 100 mls/hr 1X ONCE IV Last administered on 06/16/16 12:36; Start 06/16/16 at 11:00; Stop 06/16/16 at 11:59; Status DC Potassium Chloride 50 ml @ 50 mls/hr Q1H IV ; Start 06/16/16 at 11:00; Stop at 14:59; Status UNV Potassium Chloride 100 ml @ 100 mls/hr Q1H IV Last administered on 06/16/16 20 :03; Start 06/16/16 at 11:30; Stop 06/16/16 at 15:29; Status DC Iron Sucrose 200 mg/Sodium Chloride 110 ml @ 55 mls/hr 3X/WEEK IV ; Start at 12:00; Stop 06/26/16 at 10:59 Active Scripts Active Reported Transderm-Scop (Scopolamine) 1 Each Patch.td72 1 Patch TP Q3DAYS Norvasc (Amlodipine Besylate) 5 Mg Tablet 5 Mg PO DAILY Metoprolol Tartrate 50 Mg Tablet 50 Mg PO BID Proair Hfa Inhaler (Albuterol Sulfate) 8.5 Gm Hfa.aer.ad 2 Puff INH QID Phenazopyridine Hcl 200 Mg Tablet 1 Tab PO TID Simvastatin 40 Mg Tablet 1 Tab PO QHS Tylenol With Codeine #3 Tablet (Acetaminophen/Codeine Phosphate) 1 Each Tablet 1 Tab PO PRN Q6HRS PRN Gabapentin 800 Mg Tablet 800 Mg PO HS Carafate (Sucralfate) 1 Gm/10 Ml Oral.susp 10 Ml PO QIDACHS Quetiapine Fumarate 100 Mg Tablet 100 Mg PO TID Zofran Odt (Ondansetron) 4 Mg Tab.rapdis 4 Mg PO PRN Q4HRS PRN Acetaminophen 500 Mg Tablet 650 Mg PO PRN Q4HRS PRN Fluticasone Propionate Nasal [place] (Fluticasone Propionate) 16 Gm [place].susp 2 [place] NS BID Montelukast Sodium Tablet (Montelukast Sodium) 10 Mg Tablet 10 Mg PO HS Furosemide 20 Mg Tablet 40 Mg PO DAILY Multi Vitamin Daily (Multivitamin) 1 Each Tablet 1 Each PO Nexium Capsule (Esomeprazole Magnesium) 20 Mg Capsule.dr 40 Mg PO DAILY Diovan (Valsartan) 40 Mg Tablet 160 Mg PO DAILY Xanax (Alprazolam) 1 Mg Tablet 0.5 Mg PO TID Vitals/I & O Vital Sign - Last 24 Hours 06/16/16 06/16/16 06/16/16 06/16/16 14:50 15:45 19:05 20:00 Temp 97.7 97.9 97.7 97.9 Pulse 73 75 Resp 16 20 B/P (MAP) 117/56 (76) 129/68 (88) Pulse Ox 91 94 O2 Delivery Nasal Cannula Nasal Cannula Nasal Cannula Nasal Cannula O2 Flow Rate 2.0 2.0 2.0 2.0 06/16/16 06/16/16 06/16/16 06/17/16 20:04 20:09 23:10 03:10 Temp 97.9 98.1 97.9 98.1 Pulse 73 67 71 Resp 16 18 B/P (MAP) 117/56 135/53 (80) 125/39 (67) Pulse Ox 90 91 90 O2 Delivery Nasal Cannula Nasal Cannula Nasal Cannula O2 Flow Rate 2.0 2.0 2.0 06/17/16 06/17/16 06/17/16 06/17/16 07:00 09:17 09:18 09:35 Temp 98.1 98.1 Pulse 105 105 Resp 18 B/P (MAP) 146/69 (94) 146/69 Pulse Ox 91 93 93 O2 Delivery Nasal Cannula Nasal Cannula Nasal Cannula O2 Flow Rate 2.0 2.0 2.0 06/17/16 06/17/16 06/17/16 09:35 09:46 11:02 Temp 97.7 97.7 Pulse 105 67 Resp 17 B/P (MAP) 146/69 127/38 (67) Pulse Ox 91 O2 Delivery Nasal Cannula Nasal Cannula O2 Flow Rate 2.0 2.5 Intake and Output 06/16/16 06/16/16 06/17/16 14:59 22:59 06:59 Intake Total 150 ml Output Total 1500 ml 975 ml Balance -1500 ml -825 ml Images EEG: mild background slowing consistent with metabolic encephalopathy, no epileptic activity ABDELRAHMAN CAMPOS MD June 17, 2016 11:46
[2016-06-17] MEDS: IRON SUCROSE COMPLEX 200 MG in IV NORMAL SALINE 100ML 100 ML IV SCH (11:55)
[2016-06-17] MEDS ORDERED: ALBUTEROL SULFATE 2.5 MG/3 ML NEBU. NEB PRN (14:45)
[2016-06-17 15:00] VITALS: BP 111/47
[2016-06-17 19:15] VITALS: BP 147/72
[2016-06-17] MEDS: MONTELUKAST SODIUM 10 MG TABLET. PO SCH (21:13)
[2016-06-17] MEDS: GABAPENTIN 400 MG CAPSULE. PO SCH (21:13)
[2016-06-17 23:54] VITALS: BP 132/62
[2016-06-18 03:35] VITALS: BP 121/59
[2016-06-18 05:47] LABS: ALBUMIN 2.5 g/dL (3.4-5.0); CALCIUM 9.3 mg/dL (8.5-10.1); CREATININE 1.4 mg/dL (0.6-1.0); GFR 36.6; PHOSPHORUS 4.7 mg/dL (2.6-4.7)
[2016-06-18 07:00] VITALS: BP 119/87
[2016-06-18] MEDS: SUCRALFATE 1 GM/10 ML ORAL.SUSP. PO SCH ×4 (07:30→20:24)
[2016-06-18] MEDS: IPRATRPIUM/ALBUTEROL 0.5/2.5MG 3 ML NEBU. NEB SCH ×5 (07:55→22:43)
[2016-06-18] MEDS: BUDESONIDE 0.5 MG/2 ML NEBU. NEB SCH ×2 (07:55→18:06)
[2016-06-18] MEDS: ALPRAZolam 1 MG TABLET PO SCH ×3 (09:00→20:27)
[2016-06-18] MEDS: SCOPOLAMINE 1.5MG PATCH. TD SCH (09:08)
[2016-06-18] MEDS: FLUTICASONE 50MCG/NASAL SPRAY 16GM BOTTLE. NS SCH ×2 (09:10→20:24)
[2016-06-18] MEDS: PHENAZOPYRIDINE 200 MG TABLET. PO SCH ×3 (09:10→20:24)
[2016-06-18] MEDS: QUEtiapine 100 MG TABLET. PO SCH ×3 (09:11→20:27)
[2016-06-18] MEDS: PANTOPRAZOLE 40 MG TABLET.DR. PO SCH (09:11)
[2016-06-18] MEDS: METOPROLOL TART IMMED RELEASE 50 MG TABLET. PO SCH ×2 (09:12→20:27)
[2016-06-18] MEDS: amLODIPine BESYLATE 5 MG TABLET PO SCH (09:13)
--- NOTE | 2016-06-18 09:19 | PDOC ---
Infectious Disease Note Subjective Subjective Wants to go home but too weak to walk c/o right toe pain, 5th. stub in against a chair prior to admission ROS ROS GEN: Denies fevers, chills, sweats CV: Denies chest pain RESP: Denies shortness of air, cough GI: Denies n/v/d NEURO: Denies confusion, dizziness MSK: Denies swelling Vital Sign Vital Signs Vital Signs Date Time Temp Pulse Resp B/P (MAP) Pulse Ox O2 Delivery O2 Flow Rate FiO2 06/18/16 09:13 55 119/87 06/18/16 07:59 93 Nasal Cannula 2.0 06/18/16 07:00 97.7 20 97.7 Physical Exam PHYSICAL EXAM GENERAL: Propped up in bed, NAD HEENT: PERRL, OC/OP dry NECK: Supple, no JVD, no LN LUNGS: Clear HEART: S1S2, no gallop, no murmur ABD: Soft, NT, BS present : Castano-orange colored urine EXT: No edema, no cyanosis. right 5th toe slightly red, no swelling. scratch darline lateral foot-fading SCULLION CHIEF: Alert, oriented x 3, no focal neurologic deficit SKIN: No rash REJ. ok Labs Lab Laboratory Tests Test 06/18/16 04:05 Sodium Level 142 mmol/L (136-145) Potassium Level 4.0 mmol/L (3.5-5.1) Chloride Level 107 mmol/L (98-107) Carbon Dioxide Level 29 mmol/L (21-32) Anion Gap 6 (6-14) Blood Urea Nitrogen 35 mg/dL (7-20) Creatinine 1.4 mg/dL (0.6-1.0) Estimated GFR (Cockcroft-Gault) 36.6 Glucose Level 110 mg/dL (70-99) Calcium Level 9.3 mg/dL (8.5-10.1) Phosphorus Level 4.7 mg/dL (2.6-4.7) Magnesium Level 1.8 mg/dL (1.8-2.4) Albumin 2.5 g/dL (3.4-5.0) Objective Assessment GPC in clusters (1 bottle) present on transfer from [facility], 06/13. ID still pending RLL volume loss, ? pneumonia on cxr 06/14 Encephalopathy, improving Leukocytosis Renal insufficiency Aphasia HTN Obesity Klebsiella pneumonia in urine ([facility]). UA unremarkable for infection. repeat UC neg, 5 Plan Plan of Care cont Rocephin to po soon and d/c azithromycin One time dose vanc, 06/15 Await GPC ID - clinically better supportive care Attending Co-Sign Attending Co-Sign The patient was seen and interviewed as well as examined at the bedside. The chart was reviewed. The case was discussed. Agree with the plan of care. BRAYAN STONER APRN June 18, 2016 09:19 BOY MONK MD June 18, 2016 14:22
[2016-06-18] MEDS: AZITHROMYCIN 250 MG in IV NORMAL SALINE 250ML 250 ML IV SCH (10:00)
--- NOTE | 2016-06-18 10:40 | PDOC ---
PULMONARY PROGRESS NOTES Subjective sob is better, no cough, has back pain, Vitals Vital Signs Date Time Temp Pulse Resp B/P (MAP) Pulse Ox O2 Delivery O2 Flow Rate FiO2 06/18/16 09:13 55 119/87 06/18/16 07:59 93 Nasal Cannula 2.0 06/18/16 07:00 97.7 20 97.7 ROS: No Nausea, No Chest Pain, No Abdominal Pain General: Alert, No acute distress HEENT: Other Lungs: Clear Cardiovascular: S1, S2 Abdomen: Soft, Non-tender Neuro Exam: Alert Extremities: No Edema Skin: Warm Labs Laboratory Tests Test 06/17/16 04:43 06/18/16 04:05 White Blood Count 10.2 x10^3/uL (4.0-11.0) Red Blood Count 3.20 x10^6/uL (3.50-5.40) Hemoglobin 9.8 g/dL (12.0-15.5) Hematocrit 29.1 % (36.0-47.0) Mean Corpuscular Volume 91 fL (79-100) Mean Corpuscular Hemoglobin 31 pg (25-35) Mean Corpuscular Hemoglobin Concent 34 g/dL (31-37) Red Cell Distribution Width 16.4 % (11.5-14.5) Platelet Count 248 x10^3/uL (140-400) Neutrophils (%) (Auto) 55 % (31-73) Lymphocytes (%) (Auto) 34 % (24-48) Monocytes (%) (Auto) 6 % (0-9) Eosinophils (%) (Auto) 4 % (0-3) Basophils (%) (Auto) 1 % (0-3) Neutrophils # (Auto) 5.6 x10^3uL (1.8-7.7) Lymphocytes # (Auto) 3.5 x10^3/uL (1.0-4.8) Monocytes # (Auto) 0.6 x10^3/uL (0.0-1.1) Eosinophils # (Auto) 0.4 x10^3/uL (0.0-0.7) Basophils # (Auto) 0.1 x10^3/uL (0.0-0.2) Sodium Level 144 mmol/L (136-145) 142 mmol/L (136-145) Potassium Level 4.2 mmol/L (3.5-5.1) 4.0 mmol/L (3.5-5.1) Chloride Level 108 mmol/L (98-107) 107 mmol/L (98-107) Carbon Dioxide Level 29 mmol/L (21-32) 29 mmol/L (21-32) Anion Gap 7 (6-14) 6 (6-14) Blood Urea Nitrogen 41 mg/dL (7-20) 35 mg/dL (7-20) Creatinine 1.5 mg/dL (0.6-1.0) 1.4 mg/dL (0.6-1.0) Estimated GFR (Cockcroft-Gault) 33.8 36.6 Glucose Level 93 mg/dL (70-99) 110 mg/dL (70-99) Calcium Level 8.7 mg/dL (8.5-10.1) 9.3 mg/dL (8.5-10.1) Phosphorus Level 3.0 mg/dL (2.6-4.7) 4.7 mg/dL (2.6-4.7) Magnesium Level 2.1 mg/dL (1.8-2.4) 1.8 mg/dL (1.8-2.4) Albumin 2.5 g/dL (3.4-5.0) 2.5 g/dL (3.4-5.0) Laboratory Tests Test 06/18/16 04:05 Sodium Level 142 mmol/L (136-145) Potassium Level 4.0 mmol/L (3.5-5.1) Chloride Level 107 mmol/L (98-107) Carbon Dioxide Level 29 mmol/L (21-32) Anion Gap 6 (6-14) Blood Urea Nitrogen 35 mg/dL (7-20) Creatinine 1.4 mg/dL (0.6-1.0) Estimated GFR (Cockcroft-Gault) 36.6 Glucose Level 110 mg/dL (70-99) Calcium Level 9.3 mg/dL (8.5-10.1) Phosphorus Level 4.7 mg/dL (2.6-4.7) Magnesium Level 1.8 mg/dL (1.8-2.4) Albumin 2.5 g/dL (3.4-5.0) Medications Active Scripts Medications Dose Route/Sig Max Daily Dose Days Date Category Transderm-Scop (Scopolamine) 1 Each Patch.td72 1 Patch TP Q3DAYS 06/14/16 Reported Norvasc (Amlodipine Besylate) 5 Mg Tablet 5 Mg PO DAILY 06/14/16 Reported Metoprolol Tartrate 50 Mg Tablet 50 Mg PO BID 06/14/16 Reported Proair Hfa Inhaler (Albuterol Sulfate) 8.5 Gm Hfa.aer.ad 2 Puff INH QID 06/14/16 Reported Phenazopyridine Hcl 200 Mg Tablet 1 Tab PO TID 06/14/16 Reported Simvastatin 40 Mg Tablet 1 Tab PO QHS 06/14/16 Reported Tylenol With Codeine #3 Tablet (Acetaminophen/Codeine Phosphate) 1 Each Tablet 1 Tab PO PRN Q6HRS PRN 06/14/16 Reported Gabapentin 800 Mg Tablet 800 Mg PO HS 06/14/16 Reported Carafate (Sucralfate) 1 Gm/10 Ml Oral.susp 10 Ml PO QIDACHS 11/04/15 Reported Quetiapine Fumarate 100 Mg Tablet 100 Mg PO TID 11/04/15 Reported Zofran Odt (Ondansetron) 4 Mg Tab.rapdis 4 Mg PO PRN Q4HRS PRN 11/04/15 Reported Acetaminophen 500 Mg Tablet 650 Mg PO PRN Q4HRS PRN 11/04/15 Reported Fluticasone Propionate Nasal [place] (Fluticasone Propionate) 16 Gm [place].susp 2 [place] NS BID 11/04/15 Reported Montelukast Sodium Tablet (Montelukast Sodium) 10 Mg Tablet 10 Mg PO HS 11/04/15 Reported Furosemide 20 Mg Tablet 40 Mg PO DAILY 11/04/15 Reported Multi Vitamin Daily (Multivitamin) 1 Each Tablet 1 Each PO 05/27/13 Reported Nexium Capsule (Esomeprazole Magnesium) 20 Mg Capsule.dr 40 Mg PO DAILY 05/27/13 Reported Diovan (Valsartan) 40 Mg Tablet 160 Mg PO DAILY 05/27/13 Reported Xanax (Alprazolam) 1 Mg Tablet 0.5 Mg PO TID 05/27/13 Reported Comments cxr reviewed, Impression . 1. Acute hypercapnic respiratory failure due to toxic encephalopathy(narcotic/ benzo) and possible sepsis 2. ? sepsis. She has leukocytosis. X-ray shows only minimal volume loss of the right lower lobe. 3. Acute renal failure. Renal is consulted. 4. Leukocytosis, resolved. 5. No cerebrovascular accident. Plan . 1. elevate hob 2. titrate fio2 to keep sat 90% 3. Follow neuro rec 4. Empiric antibiotics 5. Follow white cell count, nl now. 6. increase activity, pt ot 7. Nebulizer treatments. 8. Discussed with pt HONG Tracy MD June 18, 2016 10:40
[2016-06-18 11:00] VITALS: BP 126/55
--- NOTE | 2016-06-18 13:31 | PDOC ---
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 Weakness and debility Acute vasomotor nephropathy on CKD obesity, BMI 40 htn HYpernatremai sec to poor PO HYpokalemia, mild History of Present Illness History of Present Illness TRansferred out of ICU Sunday Was oriented to self only earlier, now oriented to place [place] resident On dysphagia 1 diet and nectar thick CONFUSED TODAY SUNDAY NO code status on file EEG done sunday NO evidence of CVA on work up Looking at old records, was here oct for dysphagia probs too SUNDAY ENTRY: CRea down to 1,.5 from 1.8 NA creeping up 146 - minimal PO - BETTER TODAY SUNDAY K 3,1 - minimal PO PLAn: Await EEG\ Cont dysphagia 1 diet Cont procalamine T[place] oaks upon dc COde status? WILL INVOLVE PALLIATIVE FOR CODE STATUS AND GOALS OF CARE dw RN Vitals Vitals Vital Signs Date Time Temp Pulse Resp B/P (MAP) Pulse Ox O2 Delivery O2 Flow Rate FiO2 06/18/16 12:03 Nasal Cannula 2.0 06/18/16 11:00 97.9 75 20 126/55 (78) 90 97.9 Physical Exam General: Cooperative, mild distress, Other (not oriented 0/3) Heart: Regular rate, No murmurs Lungs: Clear Abdomen: Normal bowel sounds, Soft Extremities: No cyanosis, Other (non pitting edema BLE) Skin: No rashes Labs LABS Laboratory Tests Test 06/18/16 04:05 Sodium Level 142 mmol/L (136-145) Potassium Level 4.0 mmol/L (3.5-5.1) Chloride Level 107 mmol/L (98-107) Carbon Dioxide Level 29 mmol/L (21-32) Anion Gap 6 (6-14) Blood Urea Nitrogen 35 mg/dL (7-20) Creatinine 1.4 mg/dL (0.6-1.0) Estimated GFR (Cockcroft-Gault) 36.6 Glucose Level 110 mg/dL (70-99) Calcium Level 9.3 mg/dL (8.5-10.1) Phosphorus Level 4.7 mg/dL (2.6-4.7) Magnesium Level 1.8 mg/dL (1.8-2.4) Albumin 2.5 g/dL (3.4-5.0) Review of Systems Review of Systems cant obtain - confused Comment Review of Relevant I have reviewed the following items darline (where applicable) has been applied. Labs Laboratory Tests Test 06/17/16 04:43 06/18/16 04:05 White Blood Count 10.2 x10^3/uL (4.0-11.0) Red Blood Count 3.20 x10^6/uL (3.50-5.40) Hemoglobin 9.8 g/dL (12.0-15.5) Hematocrit 29.1 % (36.0-47.0) Mean Corpuscular Volume 91 fL (79-100) Mean Corpuscular Hemoglobin 31 pg (25-35) Mean Corpuscular Hemoglobin Concent 34 g/dL (31-37) Red Cell Distribution Width 16.4 % (11.5-14.5) Platelet Count 248 x10^3/uL (140-400) Neutrophils (%) (Auto) 55 % (31-73) Lymphocytes (%) (Auto) 34 % (24-48) Monocytes (%) (Auto) 6 % (0-9) Eosinophils (%) (Auto) 4 % (0-3) Basophils (%) (Auto) 1 % (0-3) Neutrophils # (Auto) 5.6 x10^3uL (1.8-7.7) Lymphocytes # (Auto) 3.5 x10^3/uL (1.0-4.8) Monocytes # (Auto) 0.6 x10^3/uL (0.0-1.1) Eosinophils # (Auto) 0.4 x10^3/uL (0.0-0.7) Basophils # (Auto) 0.1 x10^3/uL (0.0-0.2) Sodium Level 144 mmol/L (136-145) 142 mmol/L (136-145) Potassium Level 4.2 mmol/L (3.5-5.1) 4.0 mmol/L (3.5-5.1) Chloride Level 108 mmol/L (98-107) 107 mmol/L (98-107) Carbon Dioxide Level 29 mmol/L (21-32) 29 mmol/L (21-32) Anion Gap 7 (6-14) 6 (6-14) Blood Urea Nitrogen 41 mg/dL (7-20) 35 mg/dL (7-20) Creatinine 1.5 mg/dL (0.6-1.0) 1.4 mg/dL (0.6-1.0) Estimated GFR (Cockcroft-Gault) 33.8 36.6 Glucose Level 93 mg/dL (70-99) 110 mg/dL (70-99) Calcium Level 8.7 mg/dL (8.5-10.1) 9.3 mg/dL (8.5-10.1) Phosphorus Level 3.0 mg/dL (2.6-4.7) 4.7 mg/dL (2.6-4.7) Magnesium Level 2.1 mg/dL (1.8-2.4) 1.8 mg/dL (1.8-2.4) Albumin 2.5 g/dL (3.4-5.0) 2.5 g/dL (3.4-5.0) Laboratory Tests Test 06/18/16 04:05 Sodium Level 142 mmol/L (136-145) Potassium Level 4.0 mmol/L (3.5-5.1) Chloride Level 107 mmol/L (98-107) Carbon Dioxide Level 29 mmol/L (21-32) Anion Gap 6 (6-14) Blood Urea Nitrogen 35 mg/dL (7-20) Creatinine 1.4 mg/dL (0.6-1.0) Estimated GFR (Cockcroft-Gault) 36.6 Glucose Level 110 mg/dL (70-99) Calcium Level 9.3 mg/dL (8.5-10.1) Phosphorus Level 4.7 mg/dL (2.6-4.7) Magnesium Level 1.8 mg/dL (1.8-2.4) Albumin 2.5 g/dL (3.4-5.0) Microbiology 06/14/16 Urine Culture - Final, Complete 06/14/16 Urine Culture Result 1 (RAKAN) - Final, Complete Medications Current Medications Ceftriaxone Sodium 1 gm/ Sodium Chloride 50 ml @ 100 mls/hr Q24H IV Last administered on 06/17/16t 21:12; Start 06/14/16 at 21:00 Azithromycin (Zithromax) 250 mg DAILY PO ; Start 06/14/16 at 09:00; Stop 06/14/16 at 09:00; Status DC Acetaminophen (Tylenol) 325 mg PRN Q4HRS PRN PO MILD PAIN / TEMP; Start at 00:45 Hydralazine HCl (Apresoline) 10 mg PRN Q4HRS PRN IVP ELEVATED BP, SEE COMMENTS Last administered on 06/15/16 05:30; Start 06/14/16 at 00:45 Ondansetron HCl (Zofran) 4 mg PRN Q6HRS PRN IV NAUSEA/VOMITING; Start 06/14/16 at 00:45 Saliva Substitute (Biotene Moisturizing Mouth) 2 spray PRN Q15MIN PRN PO DRY MOUTH Last administered on 06/14/16 09:37; Start 06/14/16 at 09:00 Azithromycin 250 mg/Sodium Chloride 250 ml @ 250 mls/hr Q24H IV Last administered on 06/18/16 10:00; Start 06/14/16 at 10:00 Albuterol/ Ipratropium (Duoneb) 3 ml Q4HRS W/A NEB Last administered on 12:01; Start 06/14/16 at 10:00 Budesonide (Pulmicort) 0.5 mg RTBID NEB Last administered on 06/18/16 07:55; Start 06/14/16 at 20:00 Budesonide (Pulmicort) 0.5 mg 1X ONCE NEB Last administered on 06/14/16 12:03 ; Start 06/14/16 at 09:30; Stop 06/14/16 at 09:31; Status DC Magnesium Sulfate/ Dextrose 50 ml @ 25 mls/hr PRN DAILY PRN IV for Mag < 1.7 on am labs; Start 06/14/16 at 10:45 Sodium Chloride 1,000 ml @ 75 mls/hr [id number] IV Last administered on 06/16/16 06:15; Start 06/14/16 at 11:00; Stop 06/16/16 at 10:48; Status DC Haloperidol Lactate (Haldol) 2 mg 1X ONCE IVP Last administered on 06/15/16 06 :15; Start 06/15/16 at 06:15; Stop 06/15/16 at 06:16; Status DC Lorazepam (Ativan) 0.5 mg PRN Q8HRS PRN IV ANXIETY Last administered on 01:50; Start 06/15/16 at 06:15 Lorazepam (Ativan) 2 mg STK-MED ONCE .ROUTE ; Start 06/15/16 at 06:24; Stop at 06:52; Status DC Lorazepam (Ativan) 2 mg STK-MED ONCE .ROUTE ; Start 06/15/16 at 06:30; Stop at 08:07; Status DC Acetaminophen (Tylenol) 650 mg PRN Q4HRS PRN PO PAIN; Start 06/15/16 at 09:15 Alprazolam (Xanax) 0.5 mg TID PO Last administered on 06/17/16 21:13; Start 06/15/16 at 10:00 Amlodipine Besylate (Norvasc) 5 mg DAILY PO Last administered on 06/18/16 09:13 ; Start 06/15/16 at 10:00 Fluticasone Propionate (Flonase) 1 spray BID NS Last administered on 06/18/16 09:10; Start 06/15/16 at 10:00 Furosemide (Lasix) 40 mg DAILY PO Last administered on 06/16/16 08:47; Start at 10:00; Stop 06/16/16 at 10:48; Status DC Metoprolol Tartrate (Lopressor) 50 mg BID PO Last administered on 06/18/16 09: 12; Start 06/15/16 at 10:00 Montelukast Sodium (Singulair) 10 mg HS PO Last administered on 06/17/16 21:13 ; Start 06/15/16 at 21:00 Ondansetron HCl (Zofran Odt) 4 mg PRN Q4HRS PRN PO NAUSEA/VOMITING; Start at 09:15 Phenazopyridine HCl (Pyridium) 200 mg TID PO Last administered on 06/18/16 09: 10; Start 06/15/16 at 10:00 Quetiapine Fumarate (SEROquel) 100 mg TID PO Last administered on 06/18/16 09: 11; Start 06/15/16 at 10:00 Scopolamine (Transderm-Scop) 1 patch Q3DAYS TD Last administered on 06/18/16 09 :08; Start 06/15/16 at 11:00 Sucralfate (Carafate) 1 gm QIDACHS PO Last administered on 06/17/16 21:17; Start 06/15/16 at 11:30 Non-Formulary Medication 2 puff QID INH ; Start 06/15/16 at 13:00; Stop 06/15/16 at 13:00; Status DC Pantoprazole Sodium (Protonix) 40 mg DAILYAC PO Last administered on 06/18/16 09:11; Start 06/15/16 at 11:30 Gabapentin (Neurontin) 800 mg QHS PO Last administered on 06/17/16 21:13; Start 06/15/16 at 21:00 Metoprolol Tartrate (Lopressor) 25 mg BID PO ; Start 06/15/16 at 09:15; Stop 06/15 at 12:33; Status DC Albuterol Sulfate (Ventolin Neb Soln) 2.5 mg RTQID NEB Last administered on 06/17 12:07; Start 06/15/16 at 12:00; Stop 06/17/16 at 14:30; Status DC Vancomycin HCl 1 gm/Sodium Chloride 250 ml @ 250 mls/hr 1X ONCE IV Last administered on 06/15/16 10:45; Start 06/15/16 at 10:45; Stop 06/15/16 at 11:44; Status DC Amino Acids/ Glycerin/ Electrolytes 1,000 ml @ 80 mls/hr [id number] IV Last administered on 06/16/16 12:35; Start 06/16/16 at 11:00; Stop 06/17/16 at 11:02; Status DC Magnesium Sulfate/ Dextrose 100 ml @ 100 mls/hr 1X ONCE IV Last administered on 06/16/16 12:36; Start 06/16/16 at 11:00; Stop 06/16/16 at 11:59; Status DC Potassium Chloride 50 ml @ 50 mls/hr Q1H IV ; Start 06/16/16 at 11:00; Stop at 14:59; Status UNV Potassium Chloride 100 ml @ 100 mls/hr Q1H IV Last administered on 06/16/16 20 :03; Start 06/16/16 at 11:30; Stop 06/16/16 at 15:29; Status DC Iron Sucrose 200 mg/Sodium Chloride 110 ml @ 55 mls/hr 3X/WEEK IV Last administered on 06/17/16t 11:55; Start 06/17/16 at 12:00; Stop 06/26/16 at 10:59 Albuterol Sulfate (Ventolin Neb Soln) 2.5 mg PRN QID PRN NEB SHORTNESS OF BREATH; Start 06/17/16 at 14:45 Active Scripts Active Reported Transderm-Scop (Scopolamine) 1 Each Patch.td72 1 Patch TP Q3DAYS Norvasc (Amlodipine Besylate) 5 Mg Tablet 5 Mg PO DAILY Metoprolol Tartrate 50 Mg Tablet 50 Mg PO BID Proair Hfa Inhaler (Albuterol Sulfate) 8.5 Gm Hfa.aer.ad 2 Puff INH QID Phenazopyridine Hcl 200 Mg Tablet 1 Tab PO TID Simvastatin 40 Mg Tablet 1 Tab PO QHS Tylenol With Codeine #3 Tablet (Acetaminophen/Codeine Phosphate) 1 Each Tablet 1 Tab PO PRN Q6HRS PRN Gabapentin 800 Mg Tablet 800 Mg PO HS Carafate (Sucralfate) 1 Gm/10 Ml Oral.susp 10 Ml PO QIDACHS Quetiapine Fumarate 100 Mg Tablet 100 Mg PO TID Zofran Odt (Ondansetron) 4 Mg Tab.rapdis 4 Mg PO PRN Q4HRS PRN Acetaminophen 500 Mg Tablet 650 Mg PO PRN Q4HRS PRN Fluticasone Propionate Nasal [place] (Fluticasone Propionate) 16 Gm [place].susp 2 [place] NS BID Montelukast Sodium Tablet (Montelukast Sodium) 10 Mg Tablet 10 Mg PO HS Furosemide 20 Mg Tablet 40 Mg PO DAILY Multi Vitamin Daily (Multivitamin) 1 Each Tablet 1 Each PO Nexium Capsule (Esomeprazole Magnesium) 20 Mg Capsule.dr 40 Mg PO DAILY Diovan (Valsartan) 40 Mg Tablet 160 Mg PO DAILY Xanax (Alprazolam) 1 Mg Tablet 0.5 Mg PO TID Vitals/I & O Vital Sign - Last 24 Hours 06/17/16 06/17/16 06/17/16 06/17/16 15:00 19:14 19:15 19:15 Temp 98.1 97.9 98.1 97.9 Pulse 68 69 Resp 17 B/P (MAP) 111/47 (68) 147/72 (97) Pulse Ox 93 93 93 93 O2 Delivery Nasal Cannula Nasal Cannula Nasal Cannula Nasal Cannula O2 Flow Rate 2.5 2.0 2.0 2.5 06/17/16 06/17/16 06/17/16 06/18/16 20:00 21:13 23:54 03:35 Temp 98.6 97.7 98.6 97.7 Pulse 69 75 71 Resp 16 16 B/P (MAP) 147/72 132/62 (85) 121/59 (79) Pulse Ox 92 92 O2 Delivery Nasal Cannula Nasal Cannula Nasal Cannula O2 Flow Rate 2.0 2.5 2.5 06/18/16 06/18/16 06/18/16 06/18/16 07:00 07:59 07:59 08:00 Temp 97.7 97.7 Pulse 55 Resp 20 B/P (MAP) 119/87 (98) Pulse Ox 94 93 93 O2 Delivery Nasal Cannula Nasal Cannula Nasal Cannula Nasal Cannula O2 Flow Rate 2.5 2.0 2.0 2.0 06/18/16 06/18/16 06/18/16 06/18/16 09:12 09:13 11:00 12:03 Temp 97.9 97.9 Pulse 55 55 75 Resp 20 B/P (MAP) 119/87 119/87 126/55 (78) Pulse Ox 90 O2 Delivery Nasal Cannula Nasal Cannula O2 Flow Rate 2.5 2.0 Intake and Output 06/17/16 06/17/16 06/18/16 15:00 23:00 07:00 Intake Total 380 ml 480 ml Output Total 1752 ml 1525 ml Balance -1372 ml -1045 ml DIANA ESPAÑA MD June 18, 2016 13:31
[2016-06-18 15:00] VITALS: BP 133/55
--- NOTE | 2016-06-18 16:01 | PDOC ---
PROGRESS NOTES Assessment Metabolic encephalopathy, with sepsis, renal failure on top of chronic kidney disease, pneumonia. Much better. No evidence of a pontine stroke on bedside examination or MRI. History of possible seizures, was seeing Dr. Gonzalez--no records received from his office. EEG shows metabolic encephalopathy, no seizure activity Grasp reflexes could imply an underlying dementia Neighbor and DPOA/cousin state patient frequently overmedicates herself with sedatives, narcotics, and wine, sleeps a lot Plan Continue to treat medical diseases Additional labs Subjective She feels better, but complains of leg pain Objective Vital Signs Date Time Temp Pulse Resp B/P (MAP) Pulse Ox O2 Delivery O2 Flow Rate FiO2 06/18/16 15:47 Nasal Cannula 2.0 06/18/16 15:00 97.9 73 20 133/55 (81) 92 97.9 Intake and Output 06/18/16 07:00 Intake Total 860 ml Output Total 3277 ml Balance -2417 ml Intake Oral 860 ml Output Urine Total 3275 ml Stool Total 2 ml PHYSICAL EXAM Sleepy. Oriented to person, date, location PERRL. EOMI. CN: no focal findings. Muscle tone: normal. Muscle strength: 4/5 DTR: 1+, bilateral grasp reflexes Plantar reflex: flexor Gait: not examined in bed. Sensory exam: no abnormal findings. No cerebellar signs elicited. Review of Relevant I have reviewed the following items darline (where applicable) has been applied. Labs Laboratory Tests Test 06/17/16 04:43 06/18/16 04:05 White Blood Count 10.2 x10^3/uL (4.0-11.0) Red Blood Count 3.20 x10^6/uL (3.50-5.40) Hemoglobin 9.8 g/dL (12.0-15.5) Hematocrit 29.1 % (36.0-47.0) Mean Corpuscular Volume 91 fL (79-100) Mean Corpuscular Hemoglobin 31 pg (25-35) Mean Corpuscular Hemoglobin Concent 34 g/dL (31-37) Red Cell Distribution Width 16.4 % (11.5-14.5) Platelet Count 248 x10^3/uL (140-400) Neutrophils (%) (Auto) 55 % (31-73) Lymphocytes (%) (Auto) 34 % (24-48) Monocytes (%) (Auto) 6 % (0-9) Eosinophils (%) (Auto) 4 % (0-3) Basophils (%) (Auto) 1 % (0-3) Neutrophils # (Auto) 5.6 x10^3uL (1.8-7.7) Lymphocytes # (Auto) 3.5 x10^3/uL (1.0-4.8) Monocytes # (Auto) 0.6 x10^3/uL (0.0-1.1) Eosinophils # (Auto) 0.4 x10^3/uL (0.0-0.7) Basophils # (Auto) 0.1 x10^3/uL (0.0-0.2) Sodium Level 144 mmol/L (136-145) 142 mmol/L (136-145) Potassium Level 4.2 mmol/L (3.5-5.1) 4.0 mmol/L (3.5-5.1) Chloride Level 108 mmol/L (98-107) 107 mmol/L (98-107) Carbon Dioxide Level 29 mmol/L (21-32) 29 mmol/L (21-32) Anion Gap 7 (6-14) 6 (6-14) Blood Urea Nitrogen 41 mg/dL (7-20) 35 mg/dL (7-20) Creatinine 1.5 mg/dL (0.6-1.0) 1.4 mg/dL (0.6-1.0) Estimated GFR (Cockcroft-Gault) 33.8 36.6 Glucose Level 93 mg/dL (70-99) 110 mg/dL (70-99) Calcium Level 8.7 mg/dL (8.5-10.1) 9.3 mg/dL (8.5-10.1) Phosphorus Level 3.0 mg/dL (2.6-4.7) 4.7 mg/dL (2.6-4.7) Magnesium Level 2.1 mg/dL (1.8-2.4) 1.8 mg/dL (1.8-2.4) Albumin 2.5 g/dL (3.4-5.0) 2.5 g/dL (3.4-5.0) Laboratory Tests Test 06/18/16 04:05 Sodium Level 142 mmol/L (136-145) Potassium Level 4.0 mmol/L (3.5-5.1) Chloride Level 107 mmol/L (98-107) Carbon Dioxide Level 29 mmol/L (21-32) Anion Gap 6 (6-14) Blood Urea Nitrogen 35 mg/dL (7-20) Creatinine 1.4 mg/dL (0.6-1.0) Estimated GFR (Cockcroft-Gault) 36.6 Glucose Level 110 mg/dL (70-99) Calcium Level 9.3 mg/dL (8.5-10.1) Phosphorus Level 4.7 mg/dL (2.6-4.7) Magnesium Level 1.8 mg/dL (1.8-2.4) Albumin 2.5 g/dL (3.4-5.0) Microbiology 06/14/16 Urine Culture - Final, Complete 06/14/16 Urine Culture Result 1 (RAKAN) - Final, Complete Medications Current Medications Ceftriaxone Sodium 1 gm/ Sodium Chloride 50 ml @ 100 mls/hr Q24H IV Last administered on 06/17/16 21:12; Start 06/14/16 at 21:00 Azithromycin (Zithromax) 250 mg DAILY PO ; Start 06/14/16 at 09:00; Stop 06/14/16 at 09:00; Status DC Acetaminophen (Tylenol) 325 mg PRN Q4HRS PRN PO MILD PAIN / TEMP; Start at 00:45 Hydralazine HCl (Apresoline) 10 mg PRN Q4HRS PRN IVP ELEVATED BP, SEE COMMENTS Last administered on 06/15/16 05:30; Start 06/14/16 at 00:45 Ondansetron HCl (Zofran) 4 mg PRN Q6HRS PRN IV NAUSEA/VOMITING; Start 06/14/16 at 00:45 Saliva Substitute (Biotene Moisturizing Mouth) 2 spray PRN Q15MIN PRN PO DRY MOUTH Last administered on 06/14/16 09:37; Start 06/14/16 at 09:00 Azithromycin 250 mg/Sodium Chloride 250 ml @ 250 mls/hr Q24H IV Last administered on 06/18/16 10:00; Start 06/14/16 at 10:00; Stop 06/18/16 at 14:22; Status DC Albuterol/ Ipratropium (Duoneb) 3 ml Q4HRS W/A NEB Last administered on 14:00; Start 06/14/16 at 10:00 Budesonide (Pulmicort) 0.5 mg RTBID NEB Last administered on 06/18/16 07:55; Start 06/14/16 at 20:00 Budesonide (Pulmicort) 0.5 mg 1X ONCE NEB Last administered on 06/14/16 12:03 ; Start 06/14/16 at 09:30; Stop 06/14/16 at 09:31; Status DC Magnesium Sulfate/ Dextrose 50 ml @ 25 mls/hr PRN DAILY PRN IV for Mag < 1.7 on am labs; Start 06/14/16 at 10:45 Sodium Chloride 1,000 ml @ 75 mls/hr [id number] IV Last administered on 06/16/16 06:15; Start 06/14/16 at 11:00; Stop 06/16/16 at 10:48; Status DC Haloperidol Lactate (Haldol) 2 mg 1X ONCE IVP Last administered on 06/15/16 06 :15; Start 06/15/16 at 06:15; Stop 06/15/16 at 06:16; Status DC Lorazepam (Ativan) 0.5 mg PRN Q8HRS PRN IV ANXIETY Last administered on 01:50; Start 06/15/16 at 06:15 Lorazepam (Ativan) 2 mg STK-MED ONCE .ROUTE ; Start 06/15/16 at 06:24; Stop at 06:52; Status DC Lorazepam (Ativan) 2 mg STK-MED ONCE .ROUTE ; Start 06/15/16 at 06:30; Stop at 08:07; Status DC Acetaminophen (Tylenol) 650 mg PRN Q4HRS PRN PO PAIN; Start 06/15/16 at 09:15 Alprazolam (Xanax) 0.5 mg TID PO Last administered on 06/17/16 21:13; Start 06/15/16 at 10:00 Amlodipine Besylate (Norvasc) 5 mg DAILY PO Last administered on 06/18/16 09:13 ; Start 06/15/16 at 10:00 Fluticasone Propionate (Flonase) 1 spray BID NS Last administered on 06/18/16 09:10; Start 06/15/16 at 10:00 Furosemide (Lasix) 40 mg DAILY PO Last administered on 06/16/16 08:47; Start at 10:00; Stop 06/16/16 at 10:48; Status DC Metoprolol Tartrate (Lopressor) 50 mg BID PO Last administered on 06/18/16 09: 12; Start 06/15/16 at 10:00 Montelukast Sodium (Singulair) 10 mg HS PO Last administered on 06/17/16 21:13 ; Start 06/15/16 at 21:00 Ondansetron HCl (Zofran Odt) 4 mg PRN Q4HRS PRN PO NAUSEA/VOMITING; Start at 09:15 Phenazopyridine HCl (Pyridium) 200 mg TID PO Last administered on 06/18/16 09: 10; Start 06/15/16 at 10:00 Quetiapine Fumarate (SEROquel) 100 mg TID PO Last administered on 06/18/16 09: 11; Start 06/15/16 at 10:00 Scopolamine (Transderm-Scop) 1 patch Q3DAYS TD Last administered on 06/18/16 09 :08; Start 06/15/16 at 11:00 Sucralfate (Carafate) 1 gm QIDACHS PO Last administered on 06/17/16 21:17; Start 06/15/16 at 11:30 Non-Formulary Medication 2 puff QID INH ; Start 06/15/16 at 13:00; Stop 06/15/16 at 13:00; Status DC Pantoprazole Sodium (Protonix) 40 mg DAILYAC PO Last administered on 06/18/16 09:11; Start 06/15/16 at 11:30 Gabapentin (Neurontin) 800 mg QHS PO Last administered on 06/17/16 21:13; Start 06/15/16 at 21:00 Metoprolol Tartrate (Lopressor) 25 mg BID PO ; Start 06/15/16 at 09:15; Stop 06/15 at 12:33; Status DC Albuterol Sulfate (Ventolin Neb Soln) 2.5 mg RTQID NEB Last administered on 06/17 12:07; Start 06/15/16 at 12:00; Stop 06/17/16 at 14:30; Status DC Vancomycin HCl 1 gm/Sodium Chloride 250 ml @ 250 mls/hr 1X ONCE IV Last administered on 06/15/16 10:45; Start 06/15/16 at 10:45; Stop 06/15/16 at 11:44; Status DC Amino Acids/ Glycerin/ Electrolytes 1,000 ml @ 80 mls/hr [id number] IV Last administered on 06/16/16 12:35; Start 06/16/16 at 11:00; Stop 06/17/16 at 11:02; Status DC Magnesium Sulfate/ Dextrose 100 ml @ 100 mls/hr 1X ONCE IV Last administered on 06/16/16 12:36; Start 06/16/16 at 11:00; Stop 06/16/16 at 11:59; Status DC Potassium Chloride 50 ml @ 50 mls/hr Q1H IV ; Start 06/16/16 at 11:00; Stop at 14:59; Status UNV Potassium Chloride 100 ml @ 100 mls/hr Q1H IV Last administered on 06/16/16 20 :03; Start 06/16/16 at 11:30; Stop 06/16/16 at 15:29; Status DC Iron Sucrose 200 mg/Sodium Chloride 110 ml @ 55 mls/hr 3X/WEEK IV Last administered on 06/17/16 11:55; Start 06/17/16 at 12:00; Stop 06/26/16 at 10:59 Albuterol Sulfate (Ventolin Neb Soln) 2.5 mg PRN QID PRN NEB SHORTNESS OF BREATH; Start 06/17/16 at 14:45 Active Scripts Active Reported Transderm-Scop (Scopolamine) 1 Each Patch.td72 1 Patch TP Q3DAYS Norvasc (Amlodipine Besylate) 5 Mg Tablet 5 Mg PO DAILY Metoprolol Tartrate 50 Mg Tablet 50 Mg PO BID Proair Hfa Inhaler (Albuterol Sulfate) 8.5 Gm Hfa.aer.ad 2 Puff INH QID Phenazopyridine Hcl 200 Mg Tablet 1 Tab PO TID Simvastatin 40 Mg Tablet 1 Tab PO QHS Tylenol With Codeine #3 Tablet (Acetaminophen/Codeine Phosphate) 1 Each Tablet 1 Tab PO PRN Q6HRS PRN Gabapentin 800 Mg Tablet 800 Mg PO HS Carafate (Sucralfate) 1 Gm/10 Ml Oral.susp 10 Ml PO QIDACHS Quetiapine Fumarate 100 Mg Tablet 100 Mg PO TID Zofran Odt (Ondansetron) 4 Mg Tab.rapdis 4 Mg PO PRN Q4HRS PRN Acetaminophen 500 Mg Tablet 650 Mg PO PRN Q4HRS PRN Fluticasone Propionate Nasal [place] (Fluticasone Propionate) 16 Gm [place].susp 2 [place] NS BID Montelukast Sodium Tablet (Montelukast Sodium) 10 Mg Tablet 10 Mg PO HS Furosemide 20 Mg Tablet 40 Mg PO DAILY Multi Vitamin Daily (Multivitamin) 1 Each Tablet 1 Each PO Nexium Capsule (Esomeprazole Magnesium) 20 Mg Capsule.dr 40 Mg PO DAILY Diovan (Valsartan) 40 Mg Tablet 160 Mg PO DAILY Xanax (Alprazolam) 1 Mg Tablet 0.5 Mg PO TID Vitals/I & O Vital Sign - Last 24 Hours 06/17/16 06/17/16 06/17/16 06/17/16 19:14 19:15 19:15 20:00 Temp 97.9 97.9 Pulse 69 Resp 17 B/P (MAP) 147/72 (97) Pulse Ox 93 93 93 O2 Delivery Nasal Cannula Nasal Cannula Nasal Cannula Nasal Cannula O2 Flow Rate 2.0 2.0 2.5 2.0 06/17/16 06/17/16 06/18/16 06/18/16 21:13 23:54 03:35 07:00 Temp 98.6 97.7 97.7 98.6 97.7 97.7 Pulse 69 75 71 55 Resp 16 16 20 B/P (MAP) 147/72 132/62 (85) 121/59 (79) 119/87 (98) Pulse Ox 92 92 94 O2 Delivery Nasal Cannula Nasal Cannula Nasal Cannula O2 Flow Rate 2.5 2.5 2.5 06/18/16 06/18/16 06/18/16 06/18/16 07:59 07:59 08:00 09:12 Pulse 55 B/P (MAP) 119/87 Pulse Ox 93 93 O2 Delivery Nasal Cannula Nasal Cannula Nasal Cannula O2 Flow Rate 2.0 2.0 2.0 06/18/16 06/18/16 06/18/16 06/18/16 09:13 11:00 12:03 15:00 Temp 97.9 97.9 97.9 97.9 Pulse 55 75 73 Resp 20 20 B/P (MAP) 119/87 126/55 (78) 133/55 (81) Pulse Ox 90 92 O2 Delivery Nasal Cannula Nasal Cannula Nasal Cannula O2 Flow Rate 2.5 2.0 2.5 06/18/16 15:47 O2 Delivery Nasal Cannula O2 Flow Rate 2.0 Intake and Output 06/17/16 06/17/16 06/18/16 15:00 23:00 07:00 Intake Total 380 ml 480 ml Output Total 1752 ml 1525 ml Balance -1372 ml -1045 ml ABDELRAHMAN CAMPOS MD June 18, 2016 16:01
[2016-06-18 19:53] VITALS: BP 122/53
[2016-06-18] MEDS: GABAPENTIN 400 MG CAPSULE. PO SCH (20:25)
[2016-06-18] MEDS: MONTELUKAST SODIUM 10 MG TABLET. PO SCH (20:27)
--- NOTE | 2016-06-18 23:56 | PDOC ---
Provider Note Provider Note RENAL F/U : AGNES S : Doing fair O : VSS Afebrile. Neck : Supple Lungs : Non labored. CVS : RRR Abd : Bengin appearance with no obvious distention Ext : No edema/trace Slightly confused. No distress. Labs reviewed. ARF : Better. Cr 1.5 HTN w CKD CKD II HYPERNATREMIA Sugars high Other labs better. CPM. CLEM ALARCON MD June 18, 2016 23:56
[2016-06-19 03:13] VITALS: BP 113/53
[2016-06-19 05:40] LABS: ALBUMIN 2.5 g/dL (3.4-5.0); CALCIUM 9.1 mg/dL (8.5-10.1); CREATININE 1.4 mg/dL (0.6-1.0); GFR 36.6; POTASSIUM 4.2 mmol/L (3.5-5.1)
[2016-06-19] MEDS: IPRATRPIUM/ALBUTEROL 0.5/2.5MG 3 ML NEBU. NEB SCH ×5 (05:54→19:13)
[2016-06-19 07:23] VITALS: BP 120/44
[2016-06-19] MEDS: BUDESONIDE 0.5 MG/2 ML NEBU. NEB SCH ×2 (08:09→19:13)
--- NOTE | 2016-06-19 08:55 | PDOC ---
Infectious Disease Note Subjective Subjective Wants to go home but too weak to walk c/o right toe pain, 5th. stub in against a chair prior to admission ROS ROS GEN: Denies fevers, chills, sweats HEENT: Denies blurred vision, sore throat CV: Denies chest pain RESP: Denies shortness of air, cough GI: Denies n/v/d NEURO: Denies confusion, dizziness MSK: Denies weakness, joint pain/swelling Vital Sign Vital Signs Vital Signs Date Time Temp Pulse Resp B/P (MAP) Pulse Ox O2 Delivery O2 Flow Rate FiO2 06/19/16 08:10 93 Nasal Cannula 2.0 06/19/16 07:23 97.9 69 18 120/44 (69) 97.9 Physical Exam PHYSICAL EXAM GENERAL: Propped up in chair, NAD, eating HEENT: PERRL, OC/OP dry NECK: Supple, no JVD, no LN LUNGS: Clear HEART: S1S2, no gallop, no murmur ABD: Soft, NT, BS present : Castano-orange colored urine EXT: No edema, no cyanosis. right 5th toe improved, no swelling. scratch darline lateral foot- healed [employer]: Alert, oriented, no focal neurologic deficit SKIN: No rash REJ. ok Labs Lab Laboratory Tests Test 06/19/16 04:20 Erythrocyte Sedimentation Rate 68 (0-25) Sodium Level 143 mmol/L (136-145) Potassium Level 4.2 mmol/L (3.5-5.1) Chloride Level 105 mmol/L (98-107) Carbon Dioxide Level 32 mmol/L (21-32) Anion Gap 6 (6-14) Blood Urea Nitrogen 33 mg/dL (7-20) Creatinine 1.4 mg/dL (0.6-1.0) Estimated GFR (Cockcroft-Gault) 36.6 Glucose Level 118 mg/dL (70-99) Calcium Level 9.1 mg/dL (8.5-10.1) Phosphorus Level 5.0 mg/dL (2.6-4.7) Magnesium Level 2.0 mg/dL (1.8-2.4) Albumin 2.5 g/dL (3.4-5.0) Thyroid Stimulating Hormone (TSH) 1.621 uIU/mL (0.358-3.74) Objective Assessment GPC in clusters (1 bottle) present on transfer from [facility], 06/13 ? contamination improving without therapy RLL volume loss, ? pneumonia on cxr 06/14 better Encephalopathy - better Leukocytosis Renal insufficiency Aphasia HTN Obesity Klebsiella pneumonia in urine ([facility]). UA unremarkable for infection Plan Plan of Care Discont Rocephin today Change to Cefpodoxime for 5 days One time dose vanc, 06/15 Ok to transfer BOY MONK MD June 19, 2016 08:55
[2016-06-19] MEDS: SUCRALFATE 1 GM/10 ML ORAL.SUSP. PO SCH ×4 (09:00→20:46)
[2016-06-19] MEDS: QUEtiapine 100 MG TABLET. PO SCH ×4 (09:00→20:47)
[2016-06-19] MEDS: PHENAZOPYRIDINE 200 MG TABLET. PO SCH ×3 (09:01→20:47)
[2016-06-19] MEDS: FLUTICASONE 50MCG/NASAL SPRAY 16GM BOTTLE. NS SCH ×2 (09:01→20:46)
[2016-06-19] MEDS: PANTOPRAZOLE 40 MG TABLET.DR. PO SCH (09:01)
[2016-06-19] MEDS: ALPRAZolam 1 MG TABLET PO SCH (09:02)
[2016-06-19] MEDS: METOPROLOL TART IMMED RELEASE 50 MG TABLET. PO SCH ×2 (09:02→20:48)
[2016-06-19] MEDS: amLODIPine BESYLATE 5 MG TABLET PO SCH (09:02)
[2016-06-19] MEDS: CEFPODOXIME PROXETIL 100 MG TABLET. PO SCH ×2 (09:06→20:47)
[2016-06-19] MEDS: IRON SUCROSE COMPLEX 200 MG in IV NORMAL SALINE 100ML 100 ML IV SCH (09:06)
--- NOTE | 2016-06-19 09:31 | PDOC ---
PULMONARY PROGRESS NOTES Subjective sob is better, no cough, has back pain, Vitals Vital Signs Date Time Temp Pulse Resp B/P (MAP) Pulse Ox O2 Delivery O2 Flow Rate FiO2 06/19/16 09:02 69 120/44 06/19/16 08:10 93 Nasal Cannula 2.0 06/19/16 07:23 97.9 18 97.9 ROS: No Nausea, No Chest Pain, No Abdominal Pain General: Alert, No acute distress HEENT: Other Lungs: Clear Cardiovascular: S1, S2 Abdomen: Soft, Non-tender Neuro Exam: Alert Extremities: No Edema Skin: Warm Labs Laboratory Tests Test 06/18/16 04:05 06/19/16 04:20 Sodium Level 142 mmol/L (136-145) 143 mmol/L (136-145) Potassium Level 4.0 mmol/L (3.5-5.1) 4.2 mmol/L (3.5-5.1) Chloride Level 107 mmol/L (98-107) 105 mmol/L (98-107) Carbon Dioxide Level 29 mmol/L (21-32) 32 mmol/L (21-32) Anion Gap 6 (6-14) 6 (6-14) Blood Urea Nitrogen 35 mg/dL (7-20) 33 mg/dL (7-20) Creatinine 1.4 mg/dL (0.6-1.0) 1.4 mg/dL (0.6-1.0) Estimated GFR (Cockcroft-Gault) 36.6 36.6 Glucose Level 110 mg/dL (70-99) 118 mg/dL (70-99) Calcium Level 9.3 mg/dL (8.5-10.1) 9.1 mg/dL (8.5-10.1) Phosphorus Level 4.7 mg/dL (2.6-4.7) 5.0 mg/dL (2.6-4.7) Magnesium Level 1.8 mg/dL (1.8-2.4) 2.0 mg/dL (1.8-2.4) Albumin 2.5 g/dL (3.4-5.0) 2.5 g/dL (3.4-5.0) Erythrocyte Sedimentation Rate 68 (0-25) Thyroid Stimulating Hormone (TSH) 1.621 uIU/mL (0.358-3.74) Laboratory Tests Test 06/19/16 04:20 Erythrocyte Sedimentation Rate 68 (0-25) Sodium Level 143 mmol/L (136-145) Potassium Level 4.2 mmol/L (3.5-5.1) Chloride Level 105 mmol/L (98-107) Carbon Dioxide Level 32 mmol/L (21-32) Anion Gap 6 (6-14) Blood Urea Nitrogen 33 mg/dL (7-20) Creatinine 1.4 mg/dL (0.6-1.0) Estimated GFR (Cockcroft-Gault) 36.6 Glucose Level 118 mg/dL (70-99) Calcium Level 9.1 mg/dL (8.5-10.1) Phosphorus Level 5.0 mg/dL (2.6-4.7) Magnesium Level 2.0 mg/dL (1.8-2.4) Albumin 2.5 g/dL (3.4-5.0) Thyroid Stimulating Hormone (TSH) 1.621 uIU/mL (0.358-3.74) Medications Active Scripts Medications Dose Route/Sig Max Daily Dose Days Date Category Transderm-Scop (Scopolamine) 1 Each Patch.td72 1 Patch TP Q3DAYS 06/14/16 Reported Norvasc (Amlodipine Besylate) 5 Mg Tablet 5 Mg PO DAILY 06/14/16 Reported Metoprolol Tartrate 50 Mg Tablet 50 Mg PO BID 06/14/16 Reported Proair Hfa Inhaler (Albuterol Sulfate) 8.5 Gm Hfa.aer.ad 2 Puff INH QID 06/14/16 Reported Phenazopyridine Hcl 200 Mg Tablet 1 Tab PO TID 06/14/16 Reported Simvastatin 40 Mg Tablet 1 Tab PO QHS 06/14/16 Reported Tylenol With Codeine #3 Tablet (Acetaminophen/Codeine Phosphate) 1 Each Tablet 1 Tab PO PRN Q6HRS PRN 06/14/16 Reported Gabapentin 800 Mg Tablet 800 Mg PO HS 06/14/16 Reported Carafate (Sucralfate) 1 Gm/10 Ml Oral.susp 10 Ml PO QIDACHS 11/04/15 Reported Quetiapine Fumarate 100 Mg Tablet 100 Mg PO TID 11/04/15 Reported Zofran Odt (Ondansetron) 4 Mg Tab.rapdis 4 Mg PO PRN Q4HRS PRN 11/04/15 Reported Acetaminophen 500 Mg Tablet 650 Mg PO PRN Q4HRS PRN 11/04/15 Reported Fluticasone Propionate Nasal [place] (Fluticasone Propionate) 16 Gm [place].susp 2 [place] NS BID 11/04/15 Reported Montelukast Sodium Tablet (Montelukast Sodium) 10 Mg Tablet 10 Mg PO HS 11/04/15 Reported Furosemide 20 Mg Tablet 40 Mg PO DAILY 11/04/15 Reported Multi Vitamin Daily (Multivitamin) 1 Each Tablet 1 Each PO 05/27/13 Reported Nexium Capsule (Esomeprazole Magnesium) 20 Mg Capsule.dr 40 Mg PO DAILY 05/27/13 Reported Diovan (Valsartan) 40 Mg Tablet 160 Mg PO DAILY 05/27/13 Reported Xanax (Alprazolam) 1 Mg Tablet 0.5 Mg PO TID 05/27/13 Reported Comments cxr reviewed, Impression . 1. Acute hypercapnic respiratory failure due to toxic encephalopathy(narcotic/ benzo) and possible sepsis 2. ? sepsis. She has leukocytosis. X-ray shows only minimal volume loss of the right lower lobe. wbc normalized 3. Acute renal failure. improved. 4. Leukocytosis, resolved. 5. No cerebrovascular accident. Plan . 1. elevate hob 2. titrate fio2 to keep sat 90% 3. Follow neuro rec 4. Empiric antibiotics 5. Follow white cell count, nl now. 6. increase activity, pt ot 7. Nebulizer treatments. 8. Discussed with pt payal faulkner with dc home BRYNN GONZALES MD June 19, 2016 09:31
[2016-06-19 09:51] LABS: FOLATE 11.07 ng/ml (3.2-20.0)
--- NOTE | 2016-06-19 10:53 | EEG ---
DATE OF SERVICE: ADDENDUM ____ include hyperventilation and intermittent photic stimulation. INTERPRETATION: The waking background consists of 6-7 Hz, 50-100 microvolt activity, symmetrically distributed over parietooccipital regions and reactive to eye opening. Hyperventilation and intermittent photic stimulation are noncontributory, as the patient is unable cooperate with hyperventilation. Stage I sleep is achieved. IMPRESSION: This electroencephalogram with the patient awake and asleep is abnormal because of a mild, diffuse disturbance of cerebral activity consistent with any of a variety of toxic and metabolic encephalopathies. There is no focal, paroxysmal, or epileptiform activity. Thank you for letting us help with the patient's care. ABDELRAHMAN CAMPOS MD DR: Kassie JOB#: [id number] / [id number]
[2016-06-19 10:55] VITALS: BP 95/51
--- NOTE | 2016-06-19 11:27 | PDOC ---
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 She was oriented to person, place, and time. Nurse reported pt's IV line has come out - discussed possibility of PICC replacement Pt has no acute complaints Vitals Vitals Vital Signs Date Time Temp Pulse Resp B/P (MAP) Pulse Ox O2 Delivery O2 Flow Rate FiO2 06/19/16 10:55 97.9 68 18 95/51 (66) 91 Nasal Cannula 2.5 97.9 Physical Exam General: Alert, Oriented X3, No acute distress, Other Heart: Regular rate, No murmurs Lungs: Clear, Other (no wheezing) Abdomen: Normal bowel sounds, Soft, No tenderness Extremities: No cyanosis, Other (non pitting edema BLE) Skin: No rashes, No significant lesion, Other (Conjunctival/generalized pallor) Labs LABS Laboratory Tests Test 06/19/16 04:20 Erythrocyte Sedimentation Rate 68 (0-25) Sodium Level 143 mmol/L (136-145) Potassium Level 4.2 mmol/L (3.5-5.1) Chloride Level 105 mmol/L (98-107) Carbon Dioxide Level 32 mmol/L (21-32) Anion Gap 6 (6-14) Blood Urea Nitrogen 33 mg/dL (7-20) Creatinine 1.4 mg/dL (0.6-1.0) Estimated GFR (Cockcroft-Gault) 36.6 Glucose Level 118 mg/dL (70-99) Calcium Level 9.1 mg/dL (8.5-10.1) Phosphorus Level 5.0 mg/dL (2.6-4.7) Magnesium Level 2.0 mg/dL (1.8-2.4) Albumin 2.5 g/dL (3.4-5.0) Vitamin B12 Level 394 pg/mL (247-911) Serum Folate 11.07 ng/ml (3.2-20.0) Thyroid Stimulating Hormone (TSH) 1.621 uIU/mL (0.358-3.74) Review of Systems Review of Systems Denies chest pain Denies SOA Assessment and Plan Assessmemt and Plan Assessment: Acute hypercapnic respiratory failure due to toxic encephalopathy(narcotic/benzo ) and possible sepsis Possible sepsis - + blood culture could be d/t contamination and leukocytosis has resolved Acute renal failure - improved, Cr trending down Renal Cysts Anemia - Hgb at 9.8 and trending down Plan: Continue treatment per pulmonary Continue Vantin x 5 days per ID Continue IV iron Consult heme/onc for anemia Consult PT/OT DVT prophylaxis Recheck labs in am Possible D/C to [facility] tomorrow or next day pending anemia status Appreciate subspecialists input Problems: Comment Review of Relevant I have reviewed the following items darline (where applicable) has been applied. Labs Laboratory Tests Test 06/18/16 04:05 06/19/16 04:20 Sodium Level 142 mmol/L (136-145) 143 mmol/L (136-145) Potassium Level 4.0 mmol/L (3.5-5.1) 4.2 mmol/L (3.5-5.1) Chloride Level 107 mmol/L (98-107) 105 mmol/L (98-107) Carbon Dioxide Level 29 mmol/L (21-32) 32 mmol/L (21-32) Anion Gap 6 (6-14) 6 (6-14) Blood Urea Nitrogen 35 mg/dL (7-20) 33 mg/dL (7-20) Creatinine 1.4 mg/dL (0.6-1.0) 1.4 mg/dL (0.6-1.0) Estimated GFR (Cockcroft-Gault) 36.6 36.6 Glucose Level 110 mg/dL (70-99) 118 mg/dL (70-99) Calcium Level 9.3 mg/dL (8.5-10.1) 9.1 mg/dL (8.5-10.1) Phosphorus Level 4.7 mg/dL (2.6-4.7) 5.0 mg/dL (2.6-4.7) Magnesium Level 1.8 mg/dL (1.8-2.4) 2.0 mg/dL (1.8-2.4) Albumin 2.5 g/dL (3.4-5.0) 2.5 g/dL (3.4-5.0) Erythrocyte Sedimentation Rate 68 (0-25) Vitamin B12 Level 394 pg/mL (247-911) Serum Folate 11.07 ng/ml (3.2-20.0) Thyroid Stimulating Hormone (TSH) 1.621 uIU/mL (0.358-3.74) Laboratory Tests Test 06/19/16 04:20 Erythrocyte Sedimentation Rate 68 (0-25) Sodium Level 143 mmol/L (136-145) Potassium Level 4.2 mmol/L (3.5-5.1) Chloride Level 105 mmol/L (98-107) Carbon Dioxide Level 32 mmol/L (21-32) Anion Gap 6 (6-14) Blood Urea Nitrogen 33 mg/dL (7-20) Creatinine 1.4 mg/dL (0.6-1.0) Estimated GFR (Cockcroft-Gault) 36.6 Glucose Level 118 mg/dL (70-99) Calcium Level 9.1 mg/dL (8.5-10.1) Phosphorus Level 5.0 mg/dL (2.6-4.7) Magnesium Level 2.0 mg/dL (1.8-2.4) Albumin 2.5 g/dL (3.4-5.0) Vitamin B12 Level 394 pg/mL (247-911) Serum Folate 11.07 ng/ml (3.2-20.0) Thyroid Stimulating Hormone (TSH) 1.621 uIU/mL (0.358-3.74) Microbiology 06/14/16 Urine Culture - Final, Complete 06/14/16 Urine Culture Result 1 (RAKAN) - Final, Complete Medications Current Medications Ceftriaxone Sodium 1 gm/ Sodium Chloride 50 ml @ 100 mls/hr Q24H IV Last administered on 06/18/16 20:24; Start 06/14/16 at 21:00; Stop 06/19/16 at 08:54; Status DC Azithromycin (Zithromax) 250 mg DAILY PO ; Start 06/14/16 at 09:00; Stop 06/14/16 at 09:00; Status DC Acetaminophen (Tylenol) 325 mg PRN Q4HRS PRN PO MILD PAIN / TEMP; Start at 00:45 Hydralazine HCl (Apresoline) 10 mg PRN Q4HRS PRN IVP ELEVATED BP, SEE COMMENTS Last administered on 06/15/16 05:30; Start 06/14/16 at 00:45 Ondansetron HCl (Zofran) 4 mg PRN Q6HRS PRN IV NAUSEA/VOMITING; Start 06/14/16 at 00:45 Saliva Substitute (Biotene Moisturizing Mouth) 2 spray PRN Q15MIN PRN PO DRY MOUTH Last administered on 06/14/16 09:37; Start 06/14/16 at 09:00 Azithromycin 250 mg/Sodium Chloride 250 ml @ 250 mls/hr Q24H IV Last administered on 06/18/16 10:00; Start 06/14/16 at 10:00; Stop 06/18/16 at 14:22; Status DC Albuterol/ Ipratropium (Duoneb) 3 ml Q4HRS W/A NEB Last administered on 08:09; Start 06/14/16 at 10:00 Budesonide (Pulmicort) 0.5 mg RTBID NEB Last administered on 06/19/16 08:09; Start 06/14/16 at 20:00 Budesonide (Pulmicort) 0.5 mg 1X ONCE NEB Last administered on 06/14/16 12:03 ; Start 06/14/16 at 09:30; Stop 06/14/16 at 09:31; Status DC Magnesium Sulfate/ Dextrose 50 ml @ 25 mls/hr PRN DAILY PRN IV for Mag < 1.7 on am labs; Start 06/14/16 at 10:45 Sodium Chloride 1,000 ml @ 75 mls/hr [id number] IV Last administered on 06/16/16 06:15; Start 06/14/16 at 11:00; Stop 06/16/16 at 10:48; Status DC Haloperidol Lactate (Haldol) 2 mg 1X ONCE IVP Last administered on 06/15/16 06 :15; Start 06/15/16 at 06:15; Stop 06/15/16 at 06:16; Status DC Lorazepam (Ativan) 0.5 mg PRN Q8HRS PRN IV ANXIETY Last administered on 01:50; Start 06/15/16 at 06:15 Lorazepam (Ativan) 2 mg STK-MED ONCE .ROUTE ; Start 06/15/16 at 06:24; Stop at 06:52; Status DC Lorazepam (Ativan) 2 mg STK-MED ONCE .ROUTE ; Start 06/15/16 at 06:30; Stop at 08:07; Status DC Acetaminophen (Tylenol) 650 mg PRN Q4HRS PRN PO PAIN; Start 06/15/16 at 09:15 Alprazolam (Xanax) 0.5 mg TID PO Last administered on 06/19/16 09:02; Start 06/15/16 at 10:00; Stop 06/19/16 at 09:13; Status DC Amlodipine Besylate (Norvasc) 5 mg DAILY PO Last administered on 06/19/16 09:02 ; Start 06/15/16 at 10:00 Fluticasone Propionate (Flonase) 1 spray BID NS Last administered on 06/19/16 09:01; Start 06/15/16 at 10:00 Furosemide (Lasix) 40 mg DAILY PO Last administered on 06/16/16 08:47; Start at 10:00; Stop 06/16/16 at 10:48; Status DC Metoprolol Tartrate (Lopressor) 50 mg BID PO Last administered on 06/19/16 09: 02; Start 06/15/16 at 10:00 Montelukast Sodium (Singulair) 10 mg HS PO Last administered on 06/18/16 20:27 ; Start 06/15/16 at 21:00 Ondansetron HCl (Zofran Odt) 4 mg PRN Q4HRS PRN PO NAUSEA/VOMITING; Start at 09:15 Phenazopyridine HCl (Pyridium) 200 mg TID PO Last administered on 06/19/16 09: 01; Start 06/15/16 at 10:00 Quetiapine Fumarate (SEROquel) 100 mg TID PO Last administered on 06/18/16 20: 27; Start 06/15/16 at 10:00 Scopolamine (Transderm-Scop) 1 patch Q3DAYS TD Last administered on 06/18/16 09 :08; Start 06/15/16 at 11:00 Sucralfate (Carafate) 1 gm QIDACHS PO Last administered on 06/19/16 09:00; Start 06/15/16 at 11:30 Non-Formulary Medication 2 puff QID INH ; Start 06/15/16 at 13:00; Stop 06/15/16 at 13:00; Status DC Pantoprazole Sodium (Protonix) 40 mg DAILYAC PO Last administered on 06/19/16 09:01; Start 06/15/16 at 11:30 Gabapentin (Neurontin) 800 mg QHS PO Last administered on 06/18/16 20:25; Start 06/15/16 at 21:00 Metoprolol Tartrate (Lopressor) 25 mg BID PO ; Start 06/15/16 at 09:15; Stop 06/15 at 12:33; Status DC Albuterol Sulfate (Ventolin Neb Soln) 2.5 mg RTQID NEB Last administered on 06/17 12:07; Start 06/15/16 at 12:00; Stop 06/17/16 at 14:30; Status DC Vancomycin HCl 1 gm/Sodium Chloride 250 ml @ 250 mls/hr 1X ONCE IV Last administered on 06/15/16 10:45; Start 06/15/16 at 10:45; Stop 06/15/16 at 11:44; Status DC Amino Acids/ Glycerin/ Electrolytes 1,000 ml @ 80 mls/hr [id number] IV Last administered on 06/16/16 12:35; Start 06/16/16 at 11:00; Stop 06/17/16 at 11:02; Status DC Magnesium Sulfate/ Dextrose 100 ml @ 100 mls/hr 1X ONCE IV Last administered on 06/16/16 12:36; Start 06/16/16 at 11:00; Stop 06/16/16 at 11:59; Status DC Potassium Chloride 50 ml @ 50 mls/hr Q1H IV ; Start 06/16/16 at 11:00; Stop at 14:59; Status UNV Potassium Chloride 100 ml @ 100 mls/hr Q1H IV Last administered on 06/16/16 20 :03; Start 06/16/16 at 11:30; Stop 06/16/16 at 15:29; Status DC Iron Sucrose 200 mg/Sodium Chloride 110 ml @ 55 mls/hr 3X/WEEK IV Last administered on 06/19/16 09:06; Start 06/17/16 at 12:00; Stop 06/26/16 at 10:59 Albuterol Sulfate (Ventolin Neb Soln) 2.5 mg PRN QID PRN NEB SHORTNESS OF BREATH; Start 06/17/16 at 14:45 Cefpodoxime Proxetil (Vantin) 200 mg BID PO Last administered on 06/19/16t 09:06 ; Start 06/19/16 at 09:00 Alprazolam (Xanax) 0.5 mg TID PO ; Start 06/19/16 at 14:00 Active Scripts Active Reported Transderm-Scop (Scopolamine) 1 Each Patch.td72 1 Patch TP Q3DAYS Norvasc (Amlodipine Besylate) 5 Mg Tablet 5 Mg PO DAILY Metoprolol Tartrate 50 Mg Tablet 50 Mg PO BID Proair Hfa Inhaler (Albuterol Sulfate) 8.5 Gm Hfa.aer.ad 2 Puff INH QID Phenazopyridine Hcl 200 Mg Tablet 1 Tab PO TID Simvastatin 40 Mg Tablet 1 Tab PO QHS Tylenol With Codeine #3 Tablet (Acetaminophen/Codeine Phosphate) 1 Each Tablet 1 Tab PO PRN Q6HRS PRN Gabapentin 800 Mg Tablet 800 Mg PO HS Carafate (Sucralfate) 1 Gm/10 Ml Oral.susp 10 Ml PO QIDACHS Quetiapine Fumarate 100 Mg Tablet 100 Mg PO TID Zofran Odt (Ondansetron) 4 Mg Tab.rapdis 4 Mg PO PRN Q4HRS PRN Acetaminophen 500 Mg Tablet 650 Mg PO PRN Q4HRS PRN Fluticasone Propionate Nasal [place] (Fluticasone Propionate) 16 Gm [place].susp 2 [place] NS BID Montelukast Sodium Tablet (Montelukast Sodium) 10 Mg Tablet 10 Mg PO HS Furosemide 20 Mg Tablet 40 Mg PO DAILY Multi Vitamin Daily (Multivitamin) 1 Each Tablet 1 Each PO Nexium Capsule (Esomeprazole Magnesium) 20 Mg Capsule.dr 40 Mg PO DAILY Diovan (Valsartan) 40 Mg Tablet 160 Mg PO DAILY Xanax (Alprazolam) 1 Mg Tablet 0.5 Mg PO TID Vitals/I & O Vital Sign - Last 24 Hours 06/18/16 06/18/16 06/18/16 06/18/16 12:03 15:00 15:47 18:07 Temp 97.9 97.9 Pulse 73 Resp 20 B/P (MAP) 133/55 (81) Pulse Ox 92 O2 Delivery Nasal Cannula Nasal Cannula Nasal Cannula Nasal Cannula O2 Flow Rate 2.0 2.5 2.0 2.0 06/18/16 06/18/16 06/18/16 06/18/16 18:20 19:53 20:00 20:27 Temp 99.1 99.1 Pulse 80 80 Resp 18 B/P (MAP) 122/53 (76) 122/53 Pulse Ox 91 O2 Delivery Nasal Cannula Nasal Cannula Nasal Cannula O2 Flow Rate 2.0 2.5 2.0 06/18/16 06/19/16 06/19/16 06/19/16 23:05 03:13 07:23 08:00 Temp 97.7 97.9 97.7 97.9 Pulse 72 69 Resp 20 18 B/P (MAP) 113/53 (73) 120/44 (69) Pulse Ox 90 90 O2 Delivery Nasal Cannula Nasal Cannula Nasal Cannula Nasal Cannula O2 Flow Rate 2.5 2.5 2.5 2.0 06/19/16 06/19/16 06/19/16 06/19/16 08:10 09:02 09:02 10:55 Temp 97.9 97.9 Pulse 69 69 68 Resp 18 B/P (MAP) 120/44 120/44 95/51 (66) Pulse Ox 93 91 O2 Delivery Nasal Cannula Nasal Cannula O2 Flow Rate 2.0 2.5 Intake and Output 06/18/16 06/18/16 06/19/16 15:00 23:00 07:00 Intake Total 720 ml Output Total 1300 ml 875 ml Balance -1300 ml -155 ml TRENT PECK III DO June 19, 2016 11:27
--- NOTE | 2016-06-19 12:50 | PDOC ---
Provider Note Provider Note Hem-Onc consult: 1. Anemia due to CKD. Plan supportive care and outpatient monitoring with PCP See dictation [id number] RAMIREZ ACEVEDO MD June 19, 2016 12:50
[2016-06-19] MEDS: ALPRAZolam 0.5 MG TABLET PO SCH ×2 (14:00→20:47)
[2016-06-19 14:50] VITALS: BP 112/81
--- NOTE | 2016-06-19 15:59 | PDOC ---
PROGRESS NOTES Assessment Assessment IMPRESSION: Metabolic encephalopathy. Sepsis Leukocytosis. Pneumonia. Renal failure. UTI Anemia. Overmedicated with pain meds. No evidence of acute CVA this time. RECOMMENDATIONS/PLAN: Treat medical diseases. ID on team. OT/PT. Neurology will follow. SUBJECTIVE: Improving. OBJECTIVE: No focalized acute motor or sensory deficits. Past Medical History Cardiovascular: HTN Pulmonary: Asthma, COPD CENTRAL NERVOUS SYSTEM: Seizure (Listed in nursing history, but patient denies) GI: GERD, Other ( esophageal stricture) Psych: Anxiety, Depression Musculoskeletal: Other ( fractures) Renal/: Chronic renal insuff Past Surgical History Hysterectomy, Other ( esophageal stricture dilatations, right leg) Family History No pertinent hx Social History Single, no tobacco or alcohol ALLERGY: Reviewed. MEDICATIONS: Refer to MAR REVIEW OF SYSTEMS: Constitutional: No cachexia. Head: No traumatic brain or head injury. Skin: No edema, or rash. Ear: No infection, tinnitus. Eyes: No vision loss, or diplopia. Nose: No bleeding or purulent discharges. Hearing: Hearing loss. Neck: No injury. Breast: No history of cancer, masses, or discharges. Cardiac: No AL Pulmonary: Pneumonia. GI: No GI Ulcer, GI bleeding, Urinary/genital: UTI. Endocrine: No cousin face, craniofacial dysmorphism, polydactyly, Diabetes Mellitus, [id number], obesity, morbid obesity. Skeletomuscular: No muscular atrophy, deformity. Neurological: see HP. Psychiatric: Denies drug use/abuse. Otherwise, not [id number] review of systems. PHYSICAL EXAMINATION: General appearance in subacute distress. HEENT: Normocephalic and nontraumatic. Eyes, nose, ears, and throat are unremarkable. Hearing decrease. Neck is supple. No lymphadenopathy. No bruits are heard over the carotid artery. No Crepitus. Cardiovascular: S1, S2, regular rate and rhythm. Pulmonary: mildly decreased to auscultation bilaterally. Abdomen: Bowel sounds are positive. Abdomen is soft, nontender, and nondistended. Extremities: No rash, lesions, or edema. No restriction of range of motion NEUROLOGICAL EXAMINATION: Sleepiness but arousable. Not fully oriented to time, but knows place and person. PERRL. EOMI. CN: no focal findings. Muscle tone: within normal. Muscle strength: 4+ DTR: 2- Plantar reflex: Flexor response bilaterally Gait: not examined in bed. Sensory exam: no abnormal findings. No obvious cerebellar signs elicited. F-T-N test fine. Objective Objective Vital Signs Date Time Temp Pulse Resp B/P (MAP) Pulse Ox O2 Delivery O2 Flow Rate FiO2 06/19/16 15:48 Nasal Cannula 2.0 06/19/16 14:50 97.9 70 16 112/81 (91) 90 97.9 Intake and Output 06/19/16 07:00 Intake Total 720 ml Output Total 2175 ml Balance -1455 ml Intake Oral 720 ml Output Urine Total 2175 ml Vitals Signs Vitals VS - Last 72 Hours, by Label Date Time Temp Pulse Resp B/P (MAP) Pulse Ox O2 Delivery O2 Flow Rate FiO2 06/19/16 15:48 Nasal Cannula 2.0 06/19/16 14:50 97.9 70 16 112/81 (91) 90 Nasal Cannula 2.5 97.9 06/19/16 11:46 Nasal Cannula 2.0 06/19/16 10:55 97.9 68 18 95/51 (66) 91 Nasal Cannula 2.5 97.9 06/19/16 09:02 69 120/44 06/19/16 09:02 69 120/44 06/19/16 08:10 93 Nasal Cannula 2.0 06/19/16 08:00 Nasal Cannula 2.0 06/19/16 07:23 97.9 69 18 120/44 (69) 90 Nasal Cannula 2.5 97.9 06/19/16 03:13 97.7 72 20 113/53 (73) 90 Nasal Cannula 2.5 97.7 06/18/16 23:05 Nasal Cannula 2.5 06/18/16 20:27 80 122/53 06/18/16 20:00 Nasal Cannula 2.0 06/18/16 19:53 99.1 80 18 122/53 (76) 91 Nasal Cannula 2.5 99.1 06/18/16 18:20 Nasal Cannula 2.0 06/18/16 18:07 Nasal Cannula 2.0 06/18/16 15:47 Nasal Cannula 2.0 06/18/16 15:00 97.9 73 20 133/55 (81) 92 Nasal Cannula 2.5 97.9 06/18/16 12:03 Nasal Cannula 2.0 06/18/16 11:00 97.9 75 20 126/55 (78) 90 Nasal Cannula 2.5 97.9 06/18/16 09:13 55 119/87 06/18/16 09:12 55 119/87 06/18/16 08:00 Nasal Cannula 2.0 06/18/16 07:59 93 Nasal Cannula 2.0 06/18/16 07:59 93 Nasal Cannula 2.0 06/18/16 07:00 97.7 55 20 119/87 (98) 94 Nasal Cannula 2.5 97.7 Laboratory Laboratory Laboratory Tests Test 06/19/16 04:20 Erythrocyte Sedimentation Rate 68 (0-25) Sodium Level 143 mmol/L (136-145) Potassium Level 4.2 mmol/L (3.5-5.1) Chloride Level 105 mmol/L (98-107) Carbon Dioxide Level 32 mmol/L (21-32) Anion Gap 6 (6-14) Blood Urea Nitrogen 33 mg/dL (7-20) Creatinine 1.4 mg/dL (0.6-1.0) Estimated GFR (Cockcroft-Gault) 36.6 Glucose Level 118 mg/dL (70-99) Calcium Level 9.1 mg/dL (8.5-10.1) Phosphorus Level 5.0 mg/dL (2.6-4.7) Magnesium Level 2.0 mg/dL (1.8-2.4) Albumin 2.5 g/dL (3.4-5.0) Vitamin B12 Level 394 pg/mL (247-911) Serum Folate 11.07 ng/ml (3.2-20.0) Thyroid Stimulating Hormone (TSH) 1.621 uIU/mL (0.358-3.74) Microbiology 06/14/16 Urine Culture - Final, Complete 06/14/16 Urine Culture Result 1 (RAKAN) - Final, Complete Medication Medications Current Medications Alprazolam (Xanax) 0.5 mg TID PO ; Start 06/19/16 at 14:00 Cefpodoxime Proxetil (Vantin) 200 mg BID PO Last administered on 06/19/16t 09:06 ; Start 06/19/16 at 09:00 Cyanocobalamin (Vitamin B-12) 1,000 mcg DAILY PO ; Start 06/20/16 at 09:00 Comment Review of Relevant I have reviewed the following items darline (where applicable) has been applied. HARDIK FRAZIER MD June 19, 2016 15:59
--- NOTE | 2016-06-19 16:10 | PDOC2 ---
PALLIATIVE CARE Palliative Care Note Palliative Care Consult requested by Dr. Story to address code status/ goals of care Diagnosis; Acute hypercapnic respiratory failure; possible sepsis--+BC however could be contamination.ARF--improved with fluids; renal cysts; anemia. Attempted to reach John Wu--cousin. Patient states he is assists her in making decisions. Message left to return call. Patient was alert and oriented. Discussed her current medical condition as above. Prior to admission she states she was able to complete her own ADL's. Lives in her own home. Driving She would like to return to her own home. Understands she will need to get stronger. Has been at [facility] before. Is willing to return to that facility for strengthening but does not want to stay more that 20 days,. Discussed Code Status: She requests DNR/DNI. She prefers natural rather than prolonging her dying. Will attempt to reach John again to discuss goals and patient preferences. Plan: Patient requests DNR/DNI [facility] for strengthening. Will attempt to discuss with John when call returned. AMEE CELAYA June 19, 2016 16:10
--- NOTE | 2016-06-19 16:45 | PDOC ---
Renal-Progress Notes Subjective Notes Notes NONE History of Present Illness Hx of present illness NO CHANGE Vitals Vitals Vital Signs Date Time Temp Pulse Resp B/P (MAP) Pulse Ox O2 Delivery O2 Flow Rate FiO2 06/19/16 15:48 Nasal Cannula 2.0 06/19/16 14:50 97.9 70 16 112/81 (91) 90 97.9 Weight Weight [ ] I.O. Intake and Output Intake and Output 06/19/16 07:00 Intake Total 720 ml Output Total 2175 ml Balance -1455 ml Intake Oral 720 ml Output Urine Total 2175 ml Labs Labs Laboratory Tests Test 06/19/16 04:20 Erythrocyte Sedimentation Rate 68 (0-25) Sodium Level 143 mmol/L (136-145) Potassium Level 4.2 mmol/L (3.5-5.1) Chloride Level 105 mmol/L (98-107) Carbon Dioxide Level 32 mmol/L (21-32) Anion Gap 6 (6-14) Blood Urea Nitrogen 33 mg/dL (7-20) Creatinine 1.4 mg/dL (0.6-1.0) Estimated GFR (Cockcroft-Gault) 36.6 Glucose Level 118 mg/dL (70-99) Calcium Level 9.1 mg/dL (8.5-10.1) Phosphorus Level 5.0 mg/dL (2.6-4.7) Magnesium Level 2.0 mg/dL (1.8-2.4) Albumin 2.5 g/dL (3.4-5.0) Vitamin B12 Level 394 pg/mL (247-911) Serum Folate 11.07 ng/ml (3.2-20.0) Thyroid Stimulating Hormone (TSH) 1.621 uIU/mL (0.358-3.74) Micro Micro Microbiology 06/14/16 Urine Culture - Final, Complete 06/14/16 Urine Culture Result 1 (RAKAN) - Final, Complete Review of Systems Constitutional: yes: no symptom reported Physical Exam General Appearance: no apparent distress Skin: warm Respiratory: decreased breath sounds Abdomen: soft, bowel sounds present Genitourinary: bladder flat Extremities: pulses present Neurology: alert Musculoskeletal: Other ( fractures) Assessment Assessment IMP HYPERCARBIC RESP FAILURE CKD STAGE 3 WITH CR OF 1.4 BARB - RESOLVED PLAN SUPPORTIVE CARE ANTIBIOTICS YADI VELASCO MD June 19, 2016 16:45
[2016-06-19 19:15] VITALS: BP 141/58
[2016-06-19] MEDS: GABAPENTIN 400 MG CAPSULE. PO SCH (20:47)
[2016-06-19] MEDS: MONTELUKAST SODIUM 10 MG TABLET. PO SCH (20:48)
[2016-06-19 23:15] VITALS: BP 157/69
--- NOTE | 2016-06-20 02:07 | CONS ---
DATE OF CONSULTATION: 06/19/2016 REQUESTING PHYSICIAN: Dr. Trent Gutierrez. REASON FOR CONSULTATION: Anemia. HISTORY OF PRESENT ILLNESS: The patient is a 75-year-old female who has a history of chronic kidney disease and she was admitted to [facility] with complaints of confusion and slurred speech. She was diagnosed with sepsis. During this admission, she was also noted to have anemia, hemoglobin on 06/14/2016, was 11.0. She had leukocytosis with a WBC of 22.7 and 12% bands. Hemoglobin dropped to 9.8 on 06/17/2016, and hence I was consulted for further evaluation. Review of the prior records indicates that she has had chronic anemia. Her hemoglobin on 11/03/2015, was 11.1. In addition, she has chronic kidney disease, her creatinine on 11/03/2015, was 1.4. She denies hematemesis, melena, hematochezia, no hemoptysis or hematuria. No nosebleeds or gum bleeding. No loss of weight or loss of appetite. No fevers, chills or night sweats. She had generalized weakness. Infectious Disease has been managing on antibiotics. PAST MEDICAL HISTORY: Hypertension, gastroesophageal reflux disease, asthma, peptic ulcer disease, chronic kidney disease, hyperlipidemia, and obesity. SOCIAL HISTORY: She has history of tobacco in the past. FAMILY HISTORY: Negative for primary hematologic disorders. REVIEW OF SYSTEMS: A 12-point review of system was performed. Pertinent positives are mentioned in the history of present illness. Rest of the system review is negative. PHYSICAL EXAMINATION: GENERAL APPEARANCE: The Patient is a 75-year-old female who is in no acute cardiorespiratory distress. VITAL SIGNS: Blood pressure 95/51, temperature 97.6. HEENT: Atraumatic, normocephalic. Eyes: No icterus. NECK: Supple. CHEST: Bilaterally symmetrical. No crepitations or rhonchi heard. HEART: S1, S2 normal. ABDOMEN: Soft, nontender. CENTRAL NERVOUS SYSTEM: No focal deficits. LYMPHATICS: No lymphadenopathy. SKIN: No rashes. PSYCHOLOGIC: Mood and affect are appropriate. MUSCULOSKELETAL: No joint effusions. LABORATORY DATA: WBC 10.2, hemoglobin 9.8, platelet count 248. Creatinine 2.6. Follow up creatinine is 1.4, B12 394. Folic acid 11.07. TSH 1.621, iron is 42, TIBC 228, iron saturation 18, ferritin 50. IMPRESSION AND PLAN: 1. Anemia due to chronic kidney disease. Her hemoglobin is worse on 06/17/2016, at 9.8 due to concomitant comorbidities including sepsis/infection. Iron studies are consistent with anemia of chronic disease. B12 is only mildly decreased at 394 on 06/19/2016. WBC and platelets are normal and hence it is likely that she has a primary hematologic disorder. I have recommended continued followup with her primary care physician for followup CBC. If she has significant worsening of her hemoglobin, then erythropoietin stimulating agents such as Aranesp can be considered. However, since her hemoglobin at the time of admission was 11.0, I suspect that her hemoglobin may improve over time to return to her baseline level. Hence, I will not initiate Aranesp at this time. There is no evidence of fragmented red cells and there is no evidence of hemolysis. 2. B12 deficiency. B12 is in the low normal range of 394. I would recommend vitamin B12 1000 mcg p.o. daily. 3. Chronic kidney disease. Appreciate Nephrology management. 4. Leukocytosis due to possible sepsis. Appreciate ID management. WBC is now normalized. RAMIREZ ACEVEDO MD DR: NHUNG/dali JOB#: [id number] / [id number] TRENT Wilson DO MTDD
[2016-06-20 03:54] LABS: BASO % 0 % (0-3); EOS % 6 % (0-3); HEMATOCRIT 26.2 % (36.0-47.0); HEMOGLOBIN 8.9 g/dL (12.0-15.5); LYMPH # 2.4 x10^3/uL (1.0-4.8); LYMPH % 25 % (24-48); MEAN CORPUSCULAR HEMOGLOBIN 31 pg (25-35); MEAN CORPUSCULAR HGB CONC 34 g/dL (31-37); MEAN CORPUSCULAR VOLUME 91 fL (79-100); MONO % 9 % (0-9); NEUT % 60 % (31-73); PLATELET COUNT 225 x10^3/uL (140-400); RED BLOOD COUNT 2.89 x10^6/uL (3.50-5.40); RED CELL DISTRIBUTION WIDTH 16.1 % (11.5-14.5); WHITE BLOOD COUNT 9.5 x10^3/uL (4.0-11.0)
[2016-06-20 04:13] LABS: ALBUMIN 2.4 g/dL (3.4-5.0); CALCIUM 9.2 mg/dL (8.5-10.1); CREATININE 1.5 mg/dL (0.6-1.0); GFR 33.8; PHOSPHORUS 4.9 mg/dL (2.6-4.7); POTASSIUM 4.6 mmol/L (3.5-5.1)
[2016-06-20] MEDS: IPRATRPIUM/ALBUTEROL 0.5/2.5MG 3 ML NEBU. NEB SCH ×3 (06:07→12:15)
[2016-06-20 06:47] LABS: UR PROTEIN RD 19.3 mg/dL
[2016-06-20 06:49] LABS: TOTAL PROTEIN CREATININE RATIO 772 mg/g creat
[2016-06-20 07:00] VITALS: BP 139/55
[2016-06-20] MEDS: BUDESONIDE 0.5 MG/2 ML NEBU. NEB SCH (08:15)
--- NOTE | 2016-06-20 08:31 | PDOC ---
Infectious Disease Note Subjective Subjective S/p Ativan ROS ROS Unobtainable Vital Sign Vital Signs Vital Signs Date Time Temp Pulse Resp B/P (MAP) Pulse Ox O2 Delivery O2 Flow Rate FiO2 06/20/16 08:20 Nasal Cannula 2.0 06/20/16 07:00 98.4 70 16 139/55 (83) 93 98.4 Physical Exam PHYSICAL EXAM GENERAL: in bed NAD, s/p Ativan HEENT: PERRL, OC/OP dry NECK: Supple, no JVD, no LN LUNGS: Clear HEART: S1S2, no gallop, no murmur ABD: Soft, NT, BS present : Cast[place]-orange colored urine EXT: No edema, no cyanosis. right 5th toe improved, no swelling. scratch darline lateral foot- healed QM NURSE: Alert, oriented, no focal neurologic deficit SKIN: No rash PICC RUE ok Labs Lab Laboratory Tests Test 06/20/16 03:20 06/20/16 03:30 Sodium Level 142 mmol/L (136-145) Potassium Level 4.6 mmol/L (3.5-5.1) Chloride Level 104 mmol/L (98-107) Carbon Dioxide Level 32 mmol/L (21-32) Anion Gap 6 (6-14) Blood Urea Nitrogen 31 mg/dL (7-20) Creatinine 1.5 mg/dL (0.6-1.0) Estimated GFR (Cockcroft-Gault) 33.8 Glucose Level 162 mg/dL (70-99) Calcium Level 9.2 mg/dL (8.5-10.1) Phosphorus Level 4.9 mg/dL (2.6-4.7) Albumin 2.4 g/dL (3.4-5.0) White Blood Count 9.5 x10^3/uL (4.0-11.0) Red Blood Count 2.89 x10^6/uL (3.50-5.40) Hemoglobin 8.9 g/dL (12.0-15.5) Hematocrit 26.2 % (36.0-47.0) Mean Corpuscular Volume 91 fL (79-100) Mean Corpuscular Hemoglobin 31 pg (25-35) Mean Corpuscular Hemoglobin Concent 34 g/dL (31-37) Red Cell Distribution Width 16.1 % (11.5-14.5) Platelet Count 225 x10^3/uL (140-400) Neutrophils (%) (Auto) 60 % (31-73) Lymphocytes (%) (Auto) 25 % (24-48) Monocytes (%) (Auto) 9 % (0-9) Eosinophils (%) (Auto) 6 % (0-3) Basophils (%) (Auto) 0 % (0-3) Neutrophils # (Auto) 5.8 x10^3uL (1.8-7.7) Lymphocytes # (Auto) 2.4 x10^3/uL (1.0-4.8) Monocytes # (Auto) 0.8 x10^3/uL (0.0-1.1) Eosinophils # (Auto) 0.5 x10^3/uL (0.0-0.7) Basophils # (Auto) 0.0 x10^3/uL (0.0-0.2) Objective Assessment GPC in clusters (1 bottle) present on transfer from [facility], 06/13 ? contamination improving without therapy RLL volume loss, ? pneumonia on cxr 06/14 better Encephalopathy - better Leukocytosis Renal insufficiency Aphasia HTN Obesity Klebsiella pneumonia in urine ([facility]). UA unremarkable for infection Plan Plan of Care Cont Cefpodoxime for 4 days One time dose vanc, 06/15 BOY MONK MD June 20, 2016 08:30
[2016-06-20] MEDS: QUEtiapine 100 MG TABLET. PO SCH ×2 (09:00→14:00)
[2016-06-20] MEDS ORDERED: CYANOCOBALAMIN (VITAMIN B-12) 1,000 MCG TABLET. PO SCH (09:00)
[2016-06-20] MEDS: ALPRAZolam 0.5 MG TABLET PO SCH ×2 (09:00→14:00)
--- NOTE | 2016-06-20 09:30 | PDOC ---
PULMONARY PROGRESS NOTES Subjective sleepy DNR/DNI Vitals Vital Signs Date Time Temp Pulse Resp B/P (MAP) Pulse Ox O2 Delivery O2 Flow Rate FiO2 06/20/16 08:20 Nasal Cannula 2.0 06/20/16 07:00 98.4 70 16 139/55 (83) 93 98.4 ROS: No Nausea, No Chest Pain, No Abdominal Pain General: Lethargic HEENT: Other Lungs: Other (no wheezing) Cardiovascular: S1, S2 Abdomen: Soft, Non-tender Extremities: No Edema Skin: Warm Labs Laboratory Tests Test 06/19/16 04:20 06/20/16 03:20 06/20/16 03:30 Erythrocyte Sedimentation Rate 68 (0-25) Sodium Level 143 mmol/L (136-145) 142 mmol/L (136-145) Potassium Level 4.2 mmol/L (3.5-5.1) 4.6 mmol/L (3.5-5.1) Chloride Level 105 mmol/L (98-107) 104 mmol/L (98-107) Carbon Dioxide Level 32 mmol/L (21-32) 32 mmol/L (21-32) Anion Gap 6 (6-14) 6 (6-14) Blood Urea Nitrogen 33 mg/dL (7-20) 31 mg/dL (7-20) Creatinine 1.4 mg/dL (0.6-1.0) 1.5 mg/dL (0.6-1.0) Estimated GFR (Cockcroft-Gault) 36.6 33.8 Glucose Level 118 mg/dL (70-99) 162 mg/dL (70-99) Calcium Level 9.1 mg/dL (8.5-10.1) 9.2 mg/dL (8.5-10.1) Phosphorus Level 5.0 mg/dL (2.6-4.7) 4.9 mg/dL (2.6-4.7) Magnesium Level 2.0 mg/dL (1.8-2.4) Albumin 2.5 g/dL (3.4-5.0) 2.4 g/dL (3.4-5.0) Vitamin B12 Level 394 pg/mL (247-911) Serum Folate 11.07 ng/ml (3.2-20.0) Thyroid Stimulating Hormone (TSH) 1.621 uIU/mL (0.358-3.74) White Blood Count 9.5 x10^3/uL (4.0-11.0) Red Blood Count 2.89 x10^6/uL (3.50-5.40) Hemoglobin 8.9 g/dL (12.0-15.5) Hematocrit 26.2 % (36.0-47.0) Mean Corpuscular Volume 91 fL (79-100) Mean Corpuscular Hemoglobin 31 pg (25-35) Mean Corpuscular Hemoglobin Concent 34 g/dL (31-37) Red Cell Distribution Width 16.1 % (11.5-14.5) Platelet Count 225 x10^3/uL (140-400) Neutrophils (%) (Auto) 60 % (31-73) Lymphocytes (%) (Auto) 25 % (24-48) Monocytes (%) (Auto) 9 % (0-9) Eosinophils (%) (Auto) 6 % (0-3) Basophils (%) (Auto) 0 % (0-3) Neutrophils # (Auto) 5.8 x10^3uL (1.8-7.7) Lymphocytes # (Auto) 2.4 x10^3/uL (1.0-4.8) Monocytes # (Auto) 0.8 x10^3/uL (0.0-1.1) Eosinophils # (Auto) 0.5 x10^3/uL (0.0-0.7) Basophils # (Auto) 0.0 x10^3/uL (0.0-0.2) Laboratory Tests Test 06/20/16 03:20 06/20/16 03:30 Sodium Level 142 mmol/L (136-145) Potassium Level 4.6 mmol/L (3.5-5.1) Chloride Level 104 mmol/L (98-107) Carbon Dioxide Level 32 mmol/L (21-32) Anion Gap 6 (6-14) Blood Urea Nitrogen 31 mg/dL (7-20) Creatinine 1.5 mg/dL (0.6-1.0) Estimated GFR (Cockcroft-Gault) 33.8 Glucose Level 162 mg/dL (70-99) Calcium Level 9.2 mg/dL (8.5-10.1) Phosphorus Level 4.9 mg/dL (2.6-4.7) Albumin 2.4 g/dL (3.4-5.0) White Blood Count 9.5 x10^3/uL (4.0-11.0) Red Blood Count 2.89 x10^6/uL (3.50-5.40) Hemoglobin 8.9 g/dL (12.0-15.5) Hematocrit 26.2 % (36.0-47.0) Mean Corpuscular Volume 91 fL (79-100) Mean Corpuscular Hemoglobin 31 pg (25-35) Mean Corpuscular Hemoglobin Concent 34 g/dL (31-37) Red Cell Distribution Width 16.1 % (11.5-14.5) Platelet Count 225 x10^3/uL (140-400) Neutrophils (%) (Auto) 60 % (31-73) Lymphocytes (%) (Auto) 25 % (24-48) Monocytes (%) (Auto) 9 % (0-9) Eosinophils (%) (Auto) 6 % (0-3) Basophils (%) (Auto) 0 % (0-3) Neutrophils # (Auto) 5.8 x10^3uL (1.8-7.7) Lymphocytes # (Auto) 2.4 x10^3/uL (1.0-4.8) Monocytes # (Auto) 0.8 x10^3/uL (0.0-1.1) Eosinophils # (Auto) 0.5 x10^3/uL (0.0-0.7) Basophils # (Auto) 0.0 x10^3/uL (0.0-0.2) Medications Active Scripts Medications Dose Route/Sig Max Daily Dose Days Date Category Transderm-Scop (Scopolamine) 1 Each Patch.td72 1 Patch TP Q3DAYS 06/14/16 Reported Norvasc (Amlodipine Besylate) 5 Mg Tablet 5 Mg PO DAILY 06/14/16 Reported Metoprolol Tartrate 50 Mg Tablet 50 Mg PO BID 06/14/16 Reported Proair Hfa Inhaler (Albuterol Sulfate) 8.5 Gm Hfa.aer.ad 2 Puff INH QID 06/14/16 Reported Phenazopyridine Hcl 200 Mg Tablet 1 Tab PO TID 06/14/16 Reported Simvastatin 40 Mg Tablet 1 Tab PO QHS 06/14/16 Reported Tylenol With Codeine #3 Tablet (Acetaminophen/Codeine Phosphate) 1 Each Tablet 1 Tab PO PRN Q6HRS PRN 06/14/16 Reported Gabapentin 800 Mg Tablet 800 Mg PO HS 06/14/16 Reported Carafate (Sucralfate) 1 Gm/10 Ml Oral.susp 10 Ml PO QIDACHS 11/04/15 Reported Quetiapine Fumarate 100 Mg Tablet 100 Mg PO TID 11/04/15 Reported Zofran Odt (Ondansetron) 4 Mg Tab.rapdis 4 Mg PO PRN Q4HRS PRN 11/04/15 Reported Acetaminophen 500 Mg Tablet 650 Mg PO PRN Q4HRS PRN 11/04/15 Reported Fluticasone Propionate Nasal [place] (Fluticasone Propionate) 16 Gm [place].susp 2 [place] NS BID 11/04/15 Reported Montelukast Sodium Tablet (Montelukast Sodium) 10 Mg Tablet 10 Mg PO HS 11/04/15 Reported Furosemide 20 Mg Tablet 40 Mg PO DAILY 11/04/15 Reported Multi Vitamin Daily (Multivitamin) 1 Each Tablet 1 Each PO 05/27/13 Reported Nexium Capsule (Esomeprazole Magnesium) 20 Mg Capsule.dr 40 Mg PO DAILY 05/27/13 Reported Diovan (Valsartan) 40 Mg Tablet 160 Mg PO DAILY 05/27/13 Reported Xanax (Alprazolam) 1 Mg Tablet 0.5 Mg PO TID 05/27/13 Reported Comments cxr reviewed, Impression . 1. Acute hypercapnic respiratory failure due to toxic encephalopathy(narcotic/ benzo) and possible sepsis 2. ? sepsis. She has leukocytosis. X-ray shows only minimal volume loss of the right lower lobe. wbc normalized 3. Acute renal failure. improved. 4. Leukocytosis, resolved. 5. No cerebrovascular accident. Plan . 1. elevate hob 2. titrate fio2 to keep sat 90% 3. Follow neuro rec 4. Empiric antibiotics 5. Follow white cell count, nl now. 6. increase activity, pt ot 7. Nebulizer treatments. 8. Discussed with pt [facility] internship note reviewed. DNR/DNI Agree with transfer to BRYNN Evans MD June 20, 2016 09:30
[2016-06-20] MEDS: PANTOPRAZOLE 40 MG TABLET.DR. PO SCH (10:13)
[2016-06-20] MEDS: CEFPODOXIME PROXETIL 100 MG TABLET. PO SCH (10:13)
[2016-06-20] MEDS: PHENAZOPYRIDINE 200 MG TABLET. PO SCH ×2 (10:13→15:14)
[2016-06-20] MEDS: SUCRALFATE 1 GM/10 ML ORAL.SUSP. PO SCH ×2 (10:13→12:05)
[2016-06-20] MEDS: METOPROLOL TART IMMED RELEASE 50 MG TABLET. PO SCH (10:14)
[2016-06-20] MEDS: amLODIPine BESYLATE 5 MG TABLET PO SCH (10:14)
[2016-06-20] MEDS: FLUTICASONE 50MCG/NASAL SPRAY 16GM BOTTLE. NS SCH (10:17)
[2016-06-20 11:00] VITALS: BP 138/57
--- NOTE | 2016-06-20 11:44 | PDOC ---
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 She was oriented to person, place, and time. Discussed w/ pt and nurse about d/c today to SNF Pt has no acute complaints Vitals Vitals Vital Signs Date Time Temp Pulse Resp B/P (MAP) Pulse Ox O2 Delivery O2 Flow Rate FiO2 06/20/16 11:00 98.5 67 18 138/57 (84) 88 Nasal Cannula 2.0 98.5 Physical Exam General: Alert, Oriented X3, No acute distress Heart: Regular rate, No murmurs Lungs: Clear, Other (no wheezing) Abdomen: Normal bowel sounds, Soft, No tenderness Extremities: No cyanosis, Other (non pitting edema BLE) Skin: No rashes, No significant lesion, Other (Conjunctival/generalized pallor) Labs LABS Laboratory Tests Test 06/20/16 03:20 06/20/16 03:30 Sodium Level 142 mmol/L (136-145) Potassium Level 4.6 mmol/L (3.5-5.1) Chloride Level 104 mmol/L (98-107) Carbon Dioxide Level 32 mmol/L (21-32) Anion Gap 6 (6-14) Blood Urea Nitrogen 31 mg/dL (7-20) Creatinine 1.5 mg/dL (0.6-1.0) Estimated GFR (Cockcroft-Gault) 33.8 Glucose Level 162 mg/dL (70-99) Calcium Level 9.2 mg/dL (8.5-10.1) Phosphorus Level 4.9 mg/dL (2.6-4.7) Albumin 2.4 g/dL (3.4-5.0) White Blood Count 9.5 x10^3/uL (4.0-11.0) Red Blood Count 2.89 x10^6/uL (3.50-5.40) Hemoglobin 8.9 g/dL (12.0-15.5) Hematocrit 26.2 % (36.0-47.0) Mean Corpuscular Volume 91 fL (79-100) Mean Corpuscular Hemoglobin 31 pg (25-35) Mean Corpuscular Hemoglobin Concent 34 g/dL (31-37) Red Cell Distribution Width 16.1 % (11.5-14.5) Platelet Count 225 x10^3/uL (140-400) Neutrophils (%) (Auto) 60 % (31-73) Lymphocytes (%) (Auto) 25 % (24-48) Monocytes (%) (Auto) 9 % (0-9) Eosinophils (%) (Auto) 6 % (0-3) Basophils (%) (Auto) 0 % (0-3) Neutrophils # (Auto) 5.8 x10^3uL (1.8-7.7) Lymphocytes # (Auto) 2.4 x10^3/uL (1.0-4.8) Monocytes # (Auto) 0.8 x10^3/uL (0.0-1.1) Eosinophils # (Auto) 0.5 x10^3/uL (0.0-0.7) Basophils # (Auto) 0.0 x10^3/uL (0.0-0.2) Review of Systems Review of Systems Denies Chest pain Denies SOA Assessment and Plan Assessmemt and Plan Assessment: Acute hypercapnic respiratory failure due to toxic encephalopathy(narcotic/benzo ) and possible sepsis Possible sepsis - + blood culture could be d/t contamination and leukocytosis has resolved Acute renal failure - improved, Cr trending down Renal Cysts Anemia of chronic disease - Hgb at 8.9 Plan: Continue treatment per pulmonary Continue Vantin x 4 days per ID Appreciate heme/onc consult - Continue IV iron and B12, possible EPO in future Consult PT/OT DVT prophylaxis Probable d/c today to SNF Appreciate subspecialists input Problems: Comment Review of Relevant I have reviewed the following items darline (where applicable) has been applied. Labs Laboratory Tests Test 06/19/16 04:20 06/20/16 03:20 06/20/16 03:30 Erythrocyte Sedimentation Rate 68 (0-25) Sodium Level 143 mmol/L (136-145) 142 mmol/L (136-145) Potassium Level 4.2 mmol/L (3.5-5.1) 4.6 mmol/L (3.5-5.1) Chloride Level 105 mmol/L (98-107) 104 mmol/L (98-107) Carbon Dioxide Level 32 mmol/L (21-32) 32 mmol/L (21-32) Anion Gap 6 (6-14) 6 (6-14) Blood Urea Nitrogen 33 mg/dL (7-20) 31 mg/dL (7-20) Creatinine 1.4 mg/dL (0.6-1.0) 1.5 mg/dL (0.6-1.0) Estimated GFR (Cockcroft-Gault) 36.6 33.8 Glucose Level 118 mg/dL (70-99) 162 mg/dL (70-99) Calcium Level 9.1 mg/dL (8.5-10.1) 9.2 mg/dL (8.5-10.1) Phosphorus Level 5.0 mg/dL (2.6-4.7) 4.9 mg/dL (2.6-4.7) Magnesium Level 2.0 mg/dL (1.8-2.4) Albumin 2.5 g/dL (3.4-5.0) 2.4 g/dL (3.4-5.0) Vitamin B12 Level 394 pg/mL (247-911) Serum Folate 11.07 ng/ml (3.2-20.0) Thyroid Stimulating Hormone (TSH) 1.621 uIU/mL (0.358-3.74) White Blood Count 9.5 x10^3/uL (4.0-11.0) Red Blood Count 2.89 x10^6/uL (3.50-5.40) Hemoglobin 8.9 g/dL (12.0-15.5) Hematocrit 26.2 % (36.0-47.0) Mean Corpuscular Volume 91 fL (79-100) Mean Corpuscular Hemoglobin 31 pg (25-35) Mean Corpuscular Hemoglobin Concent 34 g/dL (31-37) Red Cell Distribution Width 16.1 % (11.5-14.5) Platelet Count 225 x10^3/uL (140-400) Neutrophils (%) (Auto) 60 % (31-73) Lymphocytes (%) (Auto) 25 % (24-48) Monocytes (%) (Auto) 9 % (0-9) Eosinophils (%) (Auto) 6 % (0-3) Basophils (%) (Auto) 0 % (0-3) Neutrophils # (Auto) 5.8 x10^3uL (1.8-7.7) Lymphocytes # (Auto) 2.4 x10^3/uL (1.0-4.8) Monocytes # (Auto) 0.8 x10^3/uL (0.0-1.1) Eosinophils # (Auto) 0.5 x10^3/uL (0.0-0.7) Basophils # (Auto) 0.0 x10^3/uL (0.0-0.2) Laboratory Tests Test 06/20/16 03:20 06/20/16 03:30 Sodium Level 142 mmol/L (136-145) Potassium Level 4.6 mmol/L (3.5-5.1) Chloride Level 104 mmol/L (98-107) Carbon Dioxide Level 32 mmol/L (21-32) Anion Gap 6 (6-14) Blood Urea Nitrogen 31 mg/dL (7-20) Creatinine 1.5 mg/dL (0.6-1.0) Estimated GFR (Cockcroft-Gault) 33.8 Glucose Level 162 mg/dL (70-99) Calcium Level 9.2 mg/dL (8.5-10.1) Phosphorus Level 4.9 mg/dL (2.6-4.7) Albumin 2.4 g/dL (3.4-5.0) White Blood Count 9.5 x10^3/uL (4.0-11.0) Red Blood Count 2.89 x10^6/uL (3.50-5.40) Hemoglobin 8.9 g/dL (12.0-15.5) Hematocrit 26.2 % (36.0-47.0) Mean Corpuscular Volume 91 fL (79-100) Mean Corpuscular Hemoglobin 31 pg (25-35) Mean Corpuscular Hemoglobin Concent 34 g/dL (31-37) Red Cell Distribution Width 16.1 % (11.5-14.5) Platelet Count 225 x10^3/uL (140-400) Neutrophils (%) (Auto) 60 % (31-73) Lymphocytes (%) (Auto) 25 % (24-48) Monocytes (%) (Auto) 9 % (0-9) Eosinophils (%) (Auto) 6 % (0-3) Basophils (%) (Auto) 0 % (0-3) Neutrophils # (Auto) 5.8 x10^3uL (1.8-7.7) Lymphocytes # (Auto) 2.4 x10^3/uL (1.0-4.8) Monocytes # (Auto) 0.8 x10^3/uL (0.0-1.1) Eosinophils # (Auto) 0.5 x10^3/uL (0.0-0.7) Basophils # (Auto) 0.0 x10^3/uL (0.0-0.2) Microbiology 06/14/16 Urine Culture - Final, Complete 06/14/16 Urine Culture Result 1 (RAKAN) - Final, Complete Medications Current Medications Ceftriaxone Sodium 1 gm/ Sodium Chloride 50 ml @ 100 mls/hr Q24H IV Last administered on 06/18/16 20:24; Start 06/14/16 at 21:00; Stop 06/19/16 at 08:54; Status DC Azithromycin (Zithromax) 250 mg DAILY PO ; Start 06/14/16 at 09:00; Stop 06/14/16 at 09:00; Status DC Acetaminophen (Tylenol) 325 mg PRN Q4HRS PRN PO MILD PAIN / TEMP; Start at 00:45 Hydralazine HCl (Apresoline) 10 mg PRN Q4HRS PRN IVP ELEVATED BP, SEE COMMENTS Last administered on 06/15/16 05:30; Start 06/14/16 at 00:45 Ondansetron HCl (Zofran) 4 mg PRN Q6HRS PRN IV NAUSEA/VOMITING; Start 06/14/16 at 00:45 Saliva Substitute (Biotene Moisturizing Mouth) 2 spray PRN Q15MIN PRN PO DRY MOUTH Last administered on 06/14/16 09:37; Start 06/14/16 at 09:00 Azithromycin 250 mg/Sodium Chloride 250 ml @ 250 mls/hr Q24H IV Last administered on 06/18/16 10:00; Start 06/14/16 at 10:00; Stop 06/18/16 at 14:22; Status DC Albuterol/ Ipratropium (Duoneb) 3 ml Q4HRS W/A NEB Last administered on 08:15; Start 06/14/16 at 10:00 Budesonide (Pulmicort) 0.5 mg RTBID NEB Last administered on 06/20/16 08:15; Start 06/14/16 at 20:00 Budesonide (Pulmicort) 0.5 mg 1X ONCE NEB Last administered on 06/14/16 12:03 ; Start 06/14/16 at 09:30; Stop 06/14/16 at 09:31; Status DC Magnesium Sulfate/ Dextrose 50 ml @ 25 mls/hr PRN DAILY PRN IV for Mag < 1.7 on am labs; Start 06/14/16 at 10:45 Sodium Chloride 1,000 ml @ 75 mls/hr [id number] IV Last administered on 06/16/16 06:15; Start 06/14/16 at 11:00; Stop 06/16/16 at 10:48; Status DC Haloperidol Lactate (Haldol) 2 mg 1X ONCE IVP Last administered on 06/15/16 06 :15; Start 06/15/16 at 06:15; Stop 06/15/16 at 06:16; Status DC Lorazepam (Ativan) 0.5 mg PRN Q8HRS PRN IV ANXIETY Last administered on 20:16; Start 06/15/16 at 06:15 Lorazepam (Ativan) 2 mg STK-MED ONCE .ROUTE ; Start 06/15/16 at 06:24; Stop at 06:52; Status DC Lorazepam (Ativan) 2 mg STK-MED ONCE .ROUTE ; Start 06/15/16 at 06:30; Stop at 08:07; Status DC Acetaminophen (Tylenol) 650 mg PRN Q4HRS PRN PO PAIN Last administered on 20:48; Start 06/15/16 at 09:15 Alprazolam (Xanax) 0.5 mg TID PO Last administered on 06/19/16 09:02; Start 06/15/16 at 10:00; Stop 06/19/16 at 09:13; Status DC Amlodipine Besylate (Norvasc) 5 mg DAILY PO Last administered on 06/20/16 10:14 ; Start 06/15/16 at 10:00 Fluticasone Propionate (Flonase) 1 spray BID NS Last administered on 06/20/16 10:17; Start 06/15/16 at 10:00 Furosemide (Lasix) 40 mg DAILY PO Last administered on 06/16/16 08:47; Start at 10:00; Stop 06/16/16 at 10:48; Status DC Metoprolol Tartrate (Lopressor) 50 mg BID PO Last administered on 06/20/16 10: 14; Start 06/15/16 at 10:00 Montelukast Sodium (Singulair) 10 mg HS PO Last administered on 06/19/16 20:48 ; Start 06/15/16 at 21:00 Ondansetron HCl (Zofran Odt) 4 mg PRN Q4HRS PRN PO NAUSEA/VOMITING; Start at 09:15 Phenazopyridine HCl (Pyridium) 200 mg TID PO Last administered on 06/20/16 10: 13; Start 06/15/16 at 10:00 Quetiapine Fumarate (SEROquel) 100 mg TID PO Last administered on 06/19/16 20: 47; Start 06/15/16 at 10:00 Scopolamine (Transderm-Scop) 1 patch Q3DAYS TD Last administered on 06/18/16 09 :08; Start 06/15/16 at 11:00 Sucralfate (Carafate) 1 gm QIDACHS PO Last administered on 06/20/16 10:13; Start 06/15/16 at 11:30 Non-Formulary Medication 2 puff QID INH ; Start 06/15/16 at 13:00; Stop 06/15/16 at 13:00; Status DC Pantoprazole Sodium (Protonix) 40 mg DAILYAC PO Last administered on 06/20/16 10:13; Start 06/15/16 at 11:30 Gabapentin (Neurontin) 800 mg QHS PO Last administered on 06/19/16 20:47; Start 06/15/16 at 21:00 Metoprolol Tartrate (Lopressor) 25 mg BID PO ; Start 06/15/16 at 09:15; Stop 06/15 at 12:33; Status DC Albuterol Sulfate (Ventolin Neb Soln) 2.5 mg RTQID NEB Last administered on 06/17 12:07; Start 06/15/16 at 12:00; Stop 06/17/16 at 14:30; Status DC Vancomycin HCl 1 gm/Sodium Chloride 250 ml @ 250 mls/hr 1X ONCE IV Last administered on 06/15/16 10:45; Start 06/15/16 at 10:45; Stop 06/15/16 at 11:44; Status DC Amino Acids/ Glycerin/ Electrolytes 1,000 ml @ 80 mls/hr [id number] IV Last administered on 06/16/16 12:35; Start 06/16/16 at 11:00; Stop 06/17/16 at 11:02; Status DC Magnesium Sulfate/ Dextrose 100 ml @ 100 mls/hr 1X ONCE IV Last administered on 06/16/16 12:36; Start 06/16/16 at 11:00; Stop 06/16/16 at 11:59; Status DC Potassium Chloride 50 ml @ 50 mls/hr Q1H IV ; Start 06/16/16 at 11:00; Stop at 14:59; Status UNV Potassium Chloride 100 ml @ 100 mls/hr Q1H IV Last administered on 06/16/16 20 :03; Start 06/16/16 at 11:30; Stop 06/16/16 at 15:29; Status DC Iron Sucrose 200 mg/Sodium Chloride 110 ml @ 55 mls/hr 3X/WEEK IV Last administered on 06/19/16 09:06; Start 06/17/16 at 12:00; Stop 06/26/16 at 10:59 Albuterol Sulfate (Ventolin Neb Soln) 2.5 mg PRN QID PRN NEB SHORTNESS OF BREATH; Start 06/17/16 at 14:45 Cefpodoxime Proxetil (Vantin) 200 mg BID PO Last administered on 06/20/16 10:13 ; Start 06/19/16 at 09:00 Alprazolam (Xanax) 0.5 mg TID PO Last administered on 06/19/16 20:47; Start 06/19/16 at 14:00 Cyanocobalamin (Vitamin B-12) 1,000 mcg DAILY PO Last administered on 5/9/17at 10:17; Start 06/20/16 at 09:00 Active Scripts Active Reported Transderm-Scop (Scopolamine) 1 Each Patch.td72 1 Patch TP Q3DAYS Norvasc (Amlodipine Besylate) 5 Mg Tablet 5 Mg PO DAILY Metoprolol Tartrate 50 Mg Tablet 50 Mg PO BID Proair Hfa Inhaler (Albuterol Sulfate) 8.5 Gm Hfa.aer.ad 2 Puff INH QID Phenazopyridine Hcl 200 Mg Tablet 1 Tab PO TID Simvastatin 40 Mg Tablet 1 Tab PO QHS Tylenol With Codeine #3 Tablet (Acetaminophen/Codeine Phosphate) 1 Each Tablet 1 Tab PO PRN Q6HRS PRN Gabapentin 800 Mg Tablet 800 Mg PO HS Carafate (Sucralfate) 1 Gm/10 Ml Oral.susp 10 Ml PO QIDACHS Quetiapine Fumarate 100 Mg Tablet 100 Mg PO TID Zofran Odt (Ondansetron) 4 Mg Tab.rapdis 4 Mg PO PRN Q4HRS PRN Acetaminophen 500 Mg Tablet 650 Mg PO PRN Q4HRS PRN Fluticasone Propionate Nasal [place] (Fluticasone Propionate) 16 Gm [place].susp 2 [place] NS BID Montelukast Sodium Tablet (Montelukast Sodium) 10 Mg Tablet 10 Mg PO HS Furosemide 20 Mg Tablet 40 Mg PO DAILY Multi Vitamin Daily (Multivitamin) 1 Each Tablet 1 Each PO Nexium Capsule (Esomeprazole Magnesium) 20 Mg Capsule.dr 40 Mg PO DAILY Diovan (Valsartan) 40 Mg Tablet 160 Mg PO DAILY Xanax (Alprazolam) 1 Mg Tablet 0.5 Mg PO TID Vitals/I & O Vital Sign - Last 24 Hours 06/19/16 06/19/16 06/19/16 06/19/16 11:46 14:50 15:48 19:15 Temp 97.9 97.9 Pulse 70 Resp 16 B/P (MAP) 112/81 (91) Pulse Ox 90 93 O2 Delivery Nasal Cannula Nasal Cannula Nasal Cannula Nasal Cannula O2 Flow Rate 2.0 2.5 2.0 2.0 06/19/16 06/19/16 06/19/16 06/19/16 19:15 19:16 20:00 20:48 Temp 97.9 97.9 Pulse 85 85 Resp 20 B/P (MAP) 141/58 (85) 141/58 Pulse Ox 91 93 O2 Delivery Nasal Cannula Nasal Cannula Nasal Cannula O2 Flow Rate 2.0 2.0 2.0 06/19/16 06/20/16 06/20/16 06/20/16 23:15 07:00 07:56 08:20 Temp 97.9 98.4 97.9 98.4 Pulse 89 70 Resp 18 16 B/P (MAP) 157/69 (98) 139/55 (83) Pulse Ox 93 93 O2 Delivery Nasal Cannula Nasal Cannula Nasal Cannula Nasal Cannula O2 Flow Rate 2.0 2.0 2.0 2.0 06/20/16 06/20/16 06/20/16 10:14 10:14 11:00 Temp 98.5 98.5 Pulse 70 70 67 Resp 18 B/P (MAP) 139/55 139/55 138/57 (84) Pulse Ox 88 O2 Delivery Nasal Cannula O2 Flow Rate 2.0 Intake and Output 06/19/16 06/19/16 06/20/16 15:00 23:00 07:00 Intake Total 600 ml 300 ml Output Total 650 ml 650 ml 1400 ml Balance -650 ml -50 ml -1100 ml TRENT PECK K III DO June 20, 2016 11:44
--- NOTE | 2016-06-20 12:11 | PDOC ---
Renal-Progress Notes Subjective Notes Notes NONE History of Present Illness Hx of present illness BETTER Vitals Vitals Vital Signs Date Time Temp Pulse Resp B/P (MAP) Pulse Ox O2 Delivery O2 Flow Rate FiO2 06/20/16 11:00 98.5 67 18 138/57 (84) 88 Nasal Cannula 2.0 98.5 Weight Weight [ ] I.O. Intake and Output Intake and Output 06/20/16 06:59 Intake Total 900 ml Output Total 2700 ml Balance -1800 ml Intake Oral 900 ml Output Urine Total 2700 ml Labs Labs Laboratory Tests Test 06/20/16 03:20 06/20/16 03:30 Sodium Level 142 mmol/L (136-145) Potassium Level 4.6 mmol/L (3.5-5.1) Chloride Level 104 mmol/L (98-107) Carbon Dioxide Level 32 mmol/L (21-32) Anion Gap 6 (6-14) Blood Urea Nitrogen 31 mg/dL (7-20) Creatinine 1.5 mg/dL (0.6-1.0) Estimated GFR (Cockcroft-Gault) 33.8 Glucose Level 162 mg/dL (70-99) Calcium Level 9.2 mg/dL (8.5-10.1) Phosphorus Level 4.9 mg/dL (2.6-4.7) Albumin 2.4 g/dL (3.4-5.0) White Blood Count 9.5 x10^3/uL (4.0-11.0) Red Blood Count 2.89 x10^6/uL (3.50-5.40) Hemoglobin 8.9 g/dL (12.0-15.5) Hematocrit 26.2 % (36.0-47.0) Mean Corpuscular Volume 91 fL (79-100) Mean Corpuscular Hemoglobin 31 pg (25-35) Mean Corpuscular Hemoglobin Concent 34 g/dL (31-37) Red Cell Distribution Width 16.1 % (11.5-14.5) Platelet Count 225 x10^3/uL (140-400) Neutrophils (%) (Auto) 60 % (31-73) Lymphocytes (%) (Auto) 25 % (24-48) Monocytes (%) (Auto) 9 % (0-9) Eosinophils (%) (Auto) 6 % (0-3) Basophils (%) (Auto) 0 % (0-3) Neutrophils # (Auto) 5.8 x10^3uL (1.8-7.7) Lymphocytes # (Auto) 2.4 x10^3/uL (1.0-4.8) Monocytes # (Auto) 0.8 x10^3/uL (0.0-1.1) Eosinophils # (Auto) 0.5 x10^3/uL (0.0-0.7) Basophils # (Auto) 0.0 x10^3/uL (0.0-0.2) Micro Micro Microbiology 06/14/16 Urine Culture - Final, Complete 06/14/16 Urine Culture Result 1 (RAKAN) - Final, Complete Review of Systems Constitutional: yes: no symptom reported Physical Exam General Appearance: no apparent distress Skin: warm Respiratory: decreased breath sounds Abdomen: soft, bowel sounds present Genitourinary: bladder flat Extremities: pulses present Neurology: alert Musculoskeletal: Other ( fractures) Assessment Assessment IMP HYPERCARBIC RESP FAILURE CKD STAGE 3 WITH CR OF 1.5 BARB - RESOLVED PLAN SUPPORTIVE CARE ANTIBIOTICS YADI VELASCO MD June 20, 2016 12:11
--- NOTE | 2016-06-20 13:17 | PDOC ---
PROGRESS NOTES Assessment Assessment Metabolic encephalopathy. Sepsis Leukocytosis. Pneumonia. Renal failure. UTI Anemia. Reeder self-medicated with her pain meds. No evidence of acute CVA this time. RECOMMENDATIONS/PLAN: Treat medical diseases. ID on team. OT/PT. Neurology will follow. SUBJECTIVE: Improving. OBJECTIVE: No focalized acute motor or sensory deficits. Past Medical History Cardiovascular: HTN Pulmonary: Asthma, COPD CENTRAL NERVOUS SYSTEM: Seizure (Listed in nursing history, but patient denies) GI: GERD, Other ( esophageal stricture) Psych: Anxiety, Depression Musculoskeletal: Other ( fractures) Renal/: Chronic renal insuff Past Surgical History Hysterectomy, Other ( esophageal stricture dilatations, right leg) Family History No pertinent hx Social History Single, no tobacco or alcohol ALLERGY: Reviewed. MEDICATIONS: Refer to MAR REVIEW OF SYSTEMS: Constitutional: No cachexia. Head: No traumatic brain or head injury. Skin: No edema, or rash. Ear: No infection, tinnitus. Eyes: No vision loss, or diplopia. Nose: No bleeding or purulent discharges. Hearing: Hearing loss. Neck: No injury. Breast: No history of cancer, masses, or discharges. Cardiac: No MA Pulmonary: Pneumonia. GI: No GI Ulcer, GI bleeding, Urinary/genital: UTI. Endocrine: No cousin face, craniofacial dysmorphism, polydactyly, Diabetes Mellitus, [id number], obesity, morbid obesity. Skeletomuscular: No muscular atrophy, deformity. Neurological: see HP. Psychiatric: Denies drug use/abuse. Otherwise, not [id number] review of systems. PHYSICAL EXAMINATION: General appearance in subacute distress. HEENT: Normocephalic and nontraumatic. Eyes, nose, ears, and throat are unremarkable. Hearing decrease. Neck is supple. No lymphadenopathy. No bruits are heard over the carotid artery. No Crepitus. Cardiovascular: S1, S2, regular rate and rhythm. Pulmonary: mildly decreased to auscultation bilaterally. Abdomen: Bowel sounds are positive. Abdomen is soft, nontender, and nondistended. Extremities: No rash, lesions, or edema. No restriction of range of motion NEUROLOGICAL EXAMINATION: Awake. Reaction was slow. Not fully oriented to time, but knows place and person. PERRL. EOMI. CN: no focal findings. Muscle tone: within normal. Muscle strength: 4+ DTR: 2- Plantar reflex: Flexor response bilaterally Gait: not examined in bed. Sensory exam: no abnormal findings. No obvious cerebellar signs elicited. F-T-N test fine. Objective Objective Vital Signs Date Time Temp Pulse Resp B/P (MAP) Pulse Ox O2 Delivery O2 Flow Rate FiO2 06/20/16 12:13 Nasal Cannula 2.0 06/20/16 11:00 98.5 67 18 138/57 (84) 88 98.5 Intake and Output 06/20/16 07:00 Intake Total 900 ml Output Total 2700 ml Balance -1800 ml Intake Oral 900 ml Output Urine Total 2700 ml Vitals Signs Vitals VS - Last 72 Hours, by Label Date Time Temp Pulse Resp B/P (MAP) Pulse Ox O2 Delivery O2 Flow Rate FiO2 06/20/16 12:13 Nasal Cannula 2.0 06/20/16 11:00 98.5 67 18 138/57 (84) 88 Nasal Cannula 2.0 98.5 06/20/16 10:14 70 139/55 06/20/16 10:14 70 139/55 06/20/16 08:20 Nasal Cannula 2.0 06/20/16 07:56 Nasal Cannula 2.0 06/20/16 07:00 98.4 70 16 139/55 (83) 93 Nasal Cannula 2.0 98.4 06/19/16 23:15 97.9 89 18 157/69 (98) 93 Nasal Cannula 2.0 97.9 06/19/16 20:48 85 141/58 06/19/16 20:00 Nasal Cannula 2.0 06/19/16 19:16 93 Nasal Cannula 2.0 06/19/16 19:15 97.9 85 20 141/58 (85) 91 Nasal Cannula 2.0 97.9 06/19/16 19:15 93 Nasal Cannula 2.0 06/19/16 15:48 Nasal Cannula 2.0 06/19/16 14:50 97.9 70 16 112/81 (91) 90 Nasal Cannula 2.5 97.9 06/19/16 11:46 Nasal Cannula 2.0 06/19/16 10:55 97.9 68 18 95/51 (66) 91 Nasal Cannula 2.5 97.9 06/19/16 09:02 69 120/44 06/19/16 09:02 69 120/44 06/19/16 08:10 93 Nasal Cannula 2.0 06/19/16 08:00 Nasal Cannula 2.0 06/19/16 07:23 97.9 69 18 120/44 (69) 90 Nasal Cannula 2.5 97.9 Laboratory Laboratory Laboratory Tests Test 06/20/16 03:20 06/20/16 03:30 Sodium Level 142 mmol/L (136-145) Potassium Level 4.6 mmol/L (3.5-5.1) Chloride Level 104 mmol/L (98-107) Carbon Dioxide Level 32 mmol/L (21-32) Anion Gap 6 (6-14) Blood Urea Nitrogen 31 mg/dL (7-20) Creatinine 1.5 mg/dL (0.6-1.0) Estimated GFR (Cockcroft-Gault) 33.8 Glucose Level 162 mg/dL (70-99) Calcium Level 9.2 mg/dL (8.5-10.1) Phosphorus Level 4.9 mg/dL (2.6-4.7) Albumin 2.4 g/dL (3.4-5.0) White Blood Count 9.5 x10^3/uL (4.0-11.0) Red Blood Count 2.89 x10^6/uL (3.50-5.40) Hemoglobin 8.9 g/dL (12.0-15.5) Hematocrit 26.2 % (36.0-47.0) Mean Corpuscular Volume 91 fL (79-100) Mean Corpuscular Hemoglobin 31 pg (25-35) Mean Corpuscular Hemoglobin Concent 34 g/dL (31-37) Red Cell Distribution Width 16.1 % (11.5-14.5) Platelet Count 225 x10^3/uL (140-400) Neutrophils (%) (Auto) 60 % (31-73) Lymphocytes (%) (Auto) 25 % (24-48) Monocytes (%) (Auto) 9 % (0-9) Eosinophils (%) (Auto) 6 % (0-3) Basophils (%) (Auto) 0 % (0-3) Neutrophils # (Auto) 5.8 x10^3uL (1.8-7.7) Lymphocytes # (Auto) 2.4 x10^3/uL (1.0-4.8) Monocytes # (Auto) 0.8 x10^3/uL (0.0-1.1) Eosinophils # (Auto) 0.5 x10^3/uL (0.0-0.7) Basophils # (Auto) 0.0 x10^3/uL (0.0-0.2) Microbiology 06/14/16 Urine Culture - Final, Complete 06/14/16 Urine Culture Result 1 (RAKAN) - Final, Complete Medication Medications Current Medications Alprazolam (Xanax) 0.5 mg TID PO Last administered on 06/19/16 20:47; Start 06/19/16 at 14:00 Cyanocobalamin (Vitamin B-12) 1,000 mcg DAILY PO Last administered on 06/20/16 10:17; Start 06/20/16 at 09:00 Comment Review of Relevant I have reviewed the following items darline (where applicable) has been applied. HARDIK FRAZIER MD June 20, 2016 13:17
--- NOTE | 2016-06-20 13:30 | PDOC2 ---
PALLIATIVE CARE Palliative Care Note Palliative Care Patient sitting up in chair. Appetite poor, Denies pain or SOB Confirmed her goal of wanting to get stronger. She is in agreement of plans to go to [facility] Spoke with Maco--cousin/DPOA.. Unable to attend family meeting. Reviewed patient wishes of DNR with patient and John. Outside the Hospital DNR/DNI signed by patient. Patient understands that without this attempt she likely would . Plan: [facility] for strengthening when discharged Patient requests DNR/DNI AMEE CELAYA June 20, 2016 13:30
[2016-06-20 15:00] VITALS: BP 130/52
== END 2016-06-20 16:00 | DRG 871 ==
LOC: 1 WEST ICU 06-14 00:30 → 6 SOUTH 06-15 18:32
PROVIDERS: ADMIT Internal Medicine; ATTEND Internal Medicine
DX: A41.9 Sepsis, unspecified organism (principal); J96.01 Acute respiratory failure with hypoxia; N17.0 Acute kidney failure with tubular necrosis; J96.02 Acute respiratory failure with hypercapnia; G92 Toxic encephalopathy; J18.9 Pneumonia, unspecified organism; J44.0 Chronic obstructive pulmonary disease with (acute) lower respiratory infection; R47.01 Aphasia; E87.0 Hyperosmolality and hypernatremia; N39.0 Urinary tract infection, site not specified; Z68.41 Body mass index [BMI] 40.0-44.9, adult; E66.9 Obesity, unspecified; I25.10 Atherosclerotic heart disease of native coronary artery without angina pectoris; J44.9 Chronic obstructive pulmonary disease, unspecified; I12.9 Hypertensive chronic kidney disease with stage 1 through stage 4 chronic kidney disease, or unspecified chronic kidney disease; N18.3 Chronic kidney disease, stage 3 (moderate); D64.9 Anemia, unspecified; K21.9 Gastro-esophageal reflux disease without esophagitis; F32.9 Major depressive disorder, single episode, unspecified; F41.9 Anxiety disorder, unspecified; D63.1 Anemia in chronic kidney disease; E53.8 Deficiency of other specified B group vitamins; E78.5 Hyperlipidemia, unspecified; Z66 Do not resuscitate; Z51.5 Encounter for palliative care; G47.00 Insomnia, unspecified; E87.6 Hypokalemia; G40.909 Epilepsy, unspecified, not intractable, without status epilepticus; M43.10 Spondylolisthesis, site unspecified; N28.1 Cyst of kidney, acquired; Z86.73 Personal history of transient ischemic attack (TIA), and cerebral infarction without residual deficits; Z87.11 Personal history of peptic ulcer disease; Z99.81 Dependence on supplemental oxygen; Z87.891 Personal history of nicotine dependence; Z90.710 Acquired absence of both cervix and uterus; Z53.29 Procedure and treatment not carried out because of patient's decision for other reasons
CPT/HCPCS: 36415; 36600; 70551; 71010; 76770; 80048; 80053; 80069; 80076; 81001; 82040; 82550; 82570; 82607; 82728; 82746; 82805; 83540; 83550; 83735; 84100; 84134; 84156; 84300; 84443; 84484; 84550; 85007; 85027; 85045; 85651; 87086; 87641; 93306; 93970; 94250; 94640; 94660; 94760; 95816; J0360; J0456; J0696; J1630; J1756; J2060; J3370; J3475; J3480; J7030; J7050; J7620; 92526; 92610; 97110; 97116; 97530; 97535

== ENCOUNTER 2016-06-24 15:57 | Inpatient (IN) | payer MEDICARE, OTHER ==
[~2016-06-24] VITALS: Ht 154.9 cm; Wt 94.5 kg
[2016-06-24] VITALS (8 sets, daily range): BP systolic 66–135; BP diastolic 42–83
[~2016-06-24 15:57] MED LIST changes: +ACET-704 PO; +AMLO5TAB4 PO; +GABA800T2 PO; +METO50TA2 PO; +PHEN-373 PO; +PROAIR HFA8.5 GM INH; +SCOP1PAT TP; +SIMV40TA3 PO
[2016-06-24] MEDS ORDERED: MAG HYDROX/ALUMINUM HYD/SIMETH 30 ML ORAL.SUSP PO PRN (18:30)
[2016-06-24] MEDS ORDERED: 0.9 % SODIUM CHLORIDE 10 ML DISP.SYRIN. IV PRN (18:30)
[2016-06-24] MEDS ORDERED: PROCHLORPERAZINE 10 MG/2 ML VIAL. IV PRN (18:30)
[2016-06-24] MEDS ORDERED: ONDANSETRON ODT 4 MG TAB.RAPDIS. PO PRN (18:30)
[2016-06-24] MEDS ORDERED: ACETAMINOPHEN 500 MG TABLET PO PRN (18:30)
[2016-06-24] MEDS: ALBUTEROL SULFATE 2.5 MG/3 ML NEBU. NEB SCH (19:23)
[2016-06-24] MEDS ORDERED: IV NORMAL SALINE 1000ML BAG 1,000 ML IV ONE (19:30)
[2016-06-24] MEDS ORDERED: FAMOTIDINE 20 MG TABLET. PO SCH (21:00)
[2016-06-24] MEDS: METOPROLOL TART IMMED RELEASE 50 MG TABLET. PO SCH (21:00)
[2016-06-24] MEDS: QUEtiapine 100 MG TABLET. PO SCH (21:01)
[2016-06-24] MEDS: MONTELUKAST SODIUM 10 MG TABLET. PO SCH (21:01)
[2016-06-24] MEDS: SUCRALFATE 1 GM/10 ML ORAL.SUSP. PO SCH (21:01)
[2016-06-24] MEDS: ATORVASTATIN CALCIUM 20 MG TABLET PO SCH (21:01)
[2016-06-24] MEDS: SENNOSIDES/DOCUSATE 8.6/50MG TABLET. PO SCH (21:01)
[2016-06-24] MEDS: GABAPENTIN 400 MG CAPSULE. PO SCH (21:01)
[2016-06-24] MEDS: HEPARIN PF for SUB-Q USE 5,000 UNIT/0.5 ML VIAL. SQ SCH (21:02)
[2016-06-24] MEDS: FLUTICASONE 50MCG/NASAL SPRAY 16GM BOTTLE. NS SCH (21:34)
[2016-06-24] MEDS: ALPRAZolam 0.5 MG TABLET PO SCH (21:34)
--- NOTE | 2016-06-24 21:34 | HP ---
ADMIT DATE: 06/24/2016 CHIEF COMPLAINT: Hypoxia, hypotension. HISTORY OF PRESENT ILLNESS: This patient is a 75-year-old snf patient with O2-dependent COPD, who was found at the snf with increased lethargy and hypotension. She was transferred to [facility] Emergency Room, where she received intravenous fluid resuscitation without significant improvement in her blood pressure and was therefore transferred to [facility] for further management and care. From the snf and [facility], she was afebrile, denied any focal aches or pains. Vital signs at EMS had been noted to be 71/46 with a pulse of 82, pulse ox at 92 on 4 liters (her home rate). Of note, the patient actually had been seen in the Emergency Room on 06/13/2016, with similar symptoms, had been found with multilobar pneumonia and had been transferred to [facility] for further management. PAST MEDICAL HISTORY: COPD, O2 dependent; recent history of pneumonia, multilobar; hypertension; hyperlipidemia; GERD; rheumatoid arthritis; neuropathy and anxiety/depression. FAMILY HISTORY: Unknown. SOCIAL HISTORY: Currently living in a nursing facility. No toxic habits. ALLERGIES: PRAMIPEXOLE AND TRAMADOL. MEDICATIONS: MAR reconciled with home medications. REVIEW OF SYSTEMS: The patient currently sleeping, arousable to sternal rub. Appears very comfortable. PHYSICAL EXAMINATION: VITAL SIGNS: From today show a blood pressure of 120/58, heart rate of 74, respiratory rate at 19, satting 93 on 4 liters. GENERAL: This is a 75-year-old obese, woman, very pale appearing, somnolent, in no icterus. NECK: Supple, without any lymphadenopathy. Oral mucosa very dry. LUNGS: Clear to auscultation bilaterally. HEART: Regular rate and rhythm. ABDOMEN: Massively obese, positive bowel sounds. EXTREMITIES: Show 1-2+ pitting edema. SKIN: Warm, soft and dry without any rash. LABORATORY DATA: CBC with a WBC of 12.6, hemoglobin 9.3, platelets of 309, neutrophils at 71. PT/INR within normal limits. Chemistries with a BUN and creatinine of 50 and 2.9. Of note, this is significantly above her baseline of 31 and 1.5 during her recent admission. Electrolytes show essentially within normal limits, LFTs, albumin only at 2.8. ProBNP at 736. ABGs with a pH of 7.33, pCO2 of 54, pO2 of 75 and base excess of 2. IMAGING: Chest x-ray completely clear without any signs of residual pneumonia. ASSESSMENT AND PLAN: The patient is a 75-year-old woman admitted with hypotension. Apparently at least partially responsive to intravenous fluids. Suspicion for infection. UA has been ordered, not obtained yet. We will await these results. She has not received any antibiotic by ER in [place]. She is currently afebrile, await UA. This may be hypovolemia given her significant uremic acute kidney injury. Continue IV fluids for the time being monitored closely. We will continue all her home medications. Only medication to be stopped. There is scopolamine as she has an extremely dry mouth, which can certainly interfere with her comfort in oral intake. LOGAN GAMBOA MD DR: MARIANNA/nts JOB#: [id number] / [id number] JEFFREY Serna MD
[2016-06-25] VITALS (16 sets, daily range): BP systolic 82–133; BP diastolic 40–64
[2016-06-25] MEDS: HEPARIN PF for SUB-Q USE 5,000 UNIT/0.5 ML VIAL. SQ SCH ×3 (05:56→21:25)
[2016-06-25] MEDS: ALBUTEROL SULFATE 2.5 MG/3 ML NEBU. NEB SCH ×4 (07:15→19:09)
[2016-06-25] MEDS: FLUTICASONE 50MCG/NASAL SPRAY 16GM BOTTLE. NS SCH ×2 (08:18→21:00)
[2016-06-25] MEDS: ALPRAZolam 0.5 MG TABLET PO SCH ×3 (08:18→21:16)
[2016-06-25] MEDS: QUEtiapine 100 MG TABLET. PO SCH ×3 (08:18→21:16)
[2016-06-25] MEDS: FUROSEMIDE 40 MG TABLET. PO SCH (08:18)
[2016-06-25] MEDS: PANTOPRAZOLE 40 MG TABLET.DR. PO SCH (08:18)
[2016-06-25] MEDS: SUCRALFATE 1 GM/10 ML ORAL.SUSP. PO SCH ×4 (08:18→21:17)
[2016-06-25] MEDS: SENNOSIDES/DOCUSATE 8.6/50MG TABLET. PO SCH ×2 (08:18→21:16)
[2016-06-25 08:34] LABS: BASO % 0 % (0-3); EOS % 0 % (0-3); HEMOGLOBIN 8.9 g/dL (12.0-15.5); LYMPH # 1.1 x10^3/uL (1.0-4.8); LYMPH % 9 % (24-48); MEAN CORPUSCULAR HEMOGLOBIN 29 pg (25-35); MEAN CORPUSCULAR HGB CONC 32 g/dL (31-37); MEAN CORPUSCULAR VOLUME 93 fL (79-100); MONO % 1 % (0-9); NEUT % 90 % (31-73); PLATELET COUNT 295 x10^3/uL (140-400); RED BLOOD COUNT 3.01 x10^6/uL (3.50-5.40); RED CELL DISTRIBUTION WIDTH 15.9 % (11.5-14.5); WHITE BLOOD COUNT 12.1 x10^3/uL (4.0-11.0)
[2016-06-25 08:53] LABS: ALBUMIN 2.7 g/dL (3.4-5.0); ALBUMIN/GLOBULIN RATIO 0.6 (1.0-1.7); CALCIUM 7.9 mg/dL (8.5-10.1); CREATININE 2.7 mg/dL (0.6-1.0); GFR 17.1; POTASSIUM 4.3 mmol/L (3.5-5.1); TOTAL BILIRUBIN 0.4 mg/dL (0.2-1.0); TOTAL PROTEIN 7.2 g/dL (6.4-8.2)
[2016-06-25] MEDS: amLODIPine BESYLATE 5 MG TABLET PO SCH (09:00)
[2016-06-25] MEDS: LOSARTAN POTASSIUM 50 MG TABLET. PO SCH (09:00)
[2016-06-25] MEDS: METOPROLOL TART IMMED RELEASE 50 MG TABLET. PO SCH ×2 (09:00→21:17)
[2016-06-25 09:56] LABS: PLT ESTIMATE ADEQUATE (ADEQUATE)
--- NOTE | 2016-06-25 10:31 | PDOC ---
PROGRESS NOTES Chief Complaint Chief Complaint Hypotension ASSESSMENT AND PLAN: 1. Hypotension: responding to IVF, now stable. infectious vs dehydration. blood cult pending 2. BARB: 2/2 dehydration/hypovolemia. unchanged despite several bolusus in ER and here. cont IVF. renal consult 3. ? UTI: has been on pyridium at [facility] since 06/21, but no apparent Abx.. will await cult. from [facility] (NOTE: she was her last week, neg cult on 06/14) 4. CHF: recent echo with normal systolic and diastolic fxn 5. hx hypercarbia: currently no respir issues. 6. Dementia: ?baseline 7. Dispo: [facility] History of Present Illness History of Present Illness awake, wondering "what's the plan. no pain, quite confused Vitals Vitals Vital Signs Date Time Temp Pulse Resp B/P (MAP) Pulse Ox O2 Delivery O2 Flow Rate FiO2 06/25/16 09:00 92 27 108/51 (70) 93 Nasal Cannula 4.0 06/25/16 08:00 97.3 97.3 Physical Exam General: Alert, Cooperative, No acute distress, Other (confused, rambling) Heart: Regular rate Lungs: Clear, Other Abdomen: Normal bowel sounds, No tenderness Extremities: No edema Skin: No rashes Labs LABS Laboratory Tests Test 06/25/16 08:15 White Blood Count 12.1 x10^3/uL (4.0-11.0) Red Blood Count 3.01 x10^6/uL (3.50-5.40) Hemoglobin 8.9 g/dL (12.0-15.5) Hematocrit 28.0 % (36.0-47.0) Mean Corpuscular Volume 93 fL (79-100) Mean Corpuscular Hemoglobin 29 pg (25-35) Mean Corpuscular Hemoglobin Concent 32 g/dL (31-37) Red Cell Distribution Width 15.9 % (11.5-14.5) Platelet Count 295 x10^3/uL (140-400) Neutrophils (%) (Auto) 90 % (31-73) Lymphocytes (%) (Auto) 9 % (24-48) Monocytes (%) (Auto) 1 % (0-9) Eosinophils (%) (Auto) 0 % (0-3) Basophils (%) (Auto) 0 % (0-3) Neutrophils # (Auto) 11.0 x10^3uL (1.8-7.7) Lymphocytes # (Auto) 1.1 x10^3/uL (1.0-4.8) Monocytes # (Auto) 0.1 x10^3/uL (0.0-1.1) Eosinophils # (Auto) 0.0 x10^3/uL (0.0-0.7) Basophils # (Auto) 0.0 x10^3/uL (0.0-0.2) Sodium Level 135 mmol/L (136-145) Potassium Level 4.3 mmol/L (3.5-5.1) Chloride Level 100 mmol/L (98-107) Carbon Dioxide Level 24 mmol/L (21-32) Anion Gap 11 (6-14) Blood Urea Nitrogen 54 mg/dL (7-20) Creatinine 2.7 mg/dL (0.6-1.0) Estimated GFR (Cockcroft-Gault) 17.1 BUN/Creatinine Ratio 20 (6-20) Glucose Level 192 mg/dL (70-99) Calcium Level 7.9 mg/dL (8.5-10.1) Total Bilirubin 0.4 mg/dL (0.2-1.0) Aspartate Amino Transf (AST/SGOT) 11 U/L (15-37) Alanine Aminotransferase (ALT/SGPT) 13 U/L (14-59) Alkaline Phosphatase 86 U/L (46-116) Total Protein 7.2 g/dL (6.4-8.2) Albumin 2.7 g/dL (3.4-5.0) Albumin/Globulin Ratio 0.6 (1.0-1.7) Comment Review of Relevant I have reviewed the following items darline (where applicable) has been applied. Labs Laboratory Tests Test 06/25/16 08:15 White Blood Count 12.1 x10^3/uL (4.0-11.0) Red Blood Count 3.01 x10^6/uL (3.50-5.40) Hemoglobin 8.9 g/dL (12.0-15.5) Hematocrit 28.0 % (36.0-47.0) Mean Corpuscular Volume 93 fL (79-100) Mean Corpuscular Hemoglobin 29 pg (25-35) Mean Corpuscular Hemoglobin Concent 32 g/dL (31-37) Red Cell Distribution Width 15.9 % (11.5-14.5) Platelet Count 295 x10^3/uL (140-400) Neutrophils (%) (Auto) 90 % (31-73) Lymphocytes (%) (Auto) 9 % (24-48) Monocytes (%) (Auto) 1 % (0-9) Eosinophils (%) (Auto) 0 % (0-3) Basophils (%) (Auto) 0 % (0-3) Neutrophils # (Auto) 11.0 x10^3uL (1.8-7.7) Lymphocytes # (Auto) 1.1 x10^3/uL (1.0-4.8) Monocytes # (Auto) 0.1 x10^3/uL (0.0-1.1) Eosinophils # (Auto) 0.0 x10^3/uL (0.0-0.7) Basophils # (Auto) 0.0 x10^3/uL (0.0-0.2) Sodium Level 135 mmol/L (136-145) Potassium Level 4.3 mmol/L (3.5-5.1) Chloride Level 100 mmol/L (98-107) Carbon Dioxide Level 24 mmol/L (21-32) Anion Gap 11 (6-14) Blood Urea Nitrogen 54 mg/dL (7-20) Creatinine 2.7 mg/dL (0.6-1.0) Estimated GFR (Cockcroft-Gault) 17.1 BUN/Creatinine Ratio 20 (6-20) Glucose Level 192 mg/dL (70-99) Calcium Level 7.9 mg/dL (8.5-10.1) Total Bilirubin 0.4 mg/dL (0.2-1.0) Aspartate Amino Transf (AST/SGOT) 11 U/L (15-37) Alanine Aminotransferase (ALT/SGPT) 13 U/L (14-59) Alkaline Phosphatase 86 U/L (46-116) Total Protein 7.2 g/dL (6.4-8.2) Albumin 2.7 g/dL (3.4-5.0) Albumin/Globulin Ratio 0.6 (1.0-1.7) Laboratory Tests Test 06/25/16 08:15 White Blood Count 12.1 x10^3/uL (4.0-11.0) Red Blood Count 3.01 x10^6/uL (3.50-5.40) Hemoglobin 8.9 g/dL (12.0-15.5) Hematocrit 28.0 % (36.0-47.0) Mean Corpuscular Volume 93 fL (79-100) Mean Corpuscular Hemoglobin 29 pg (25-35) Mean Corpuscular Hemoglobin Concent 32 g/dL (31-37) Red Cell Distribution Width 15.9 % (11.5-14.5) Platelet Count 295 x10^3/uL (140-400) Neutrophils (%) (Auto) 90 % (31-73) Lymphocytes (%) (Auto) 9 % (24-48) Monocytes (%) (Auto) 1 % (0-9) Eosinophils (%) (Auto) 0 % (0-3) Basophils (%) (Auto) 0 % (0-3) Neutrophils # (Auto) 11.0 x10^3uL (1.8-7.7) Lymphocytes # (Auto) 1.1 x10^3/uL (1.0-4.8) Monocytes # (Auto) 0.1 x10^3/uL (0.0-1.1) Eosinophils # (Auto) 0.0 x10^3/uL (0.0-0.7) Basophils # (Auto) 0.0 x10^3/uL (0.0-0.2) Sodium Level 135 mmol/L (136-145) Potassium Level 4.3 mmol/L (3.5-5.1) Chloride Level 100 mmol/L (98-107) Carbon Dioxide Level 24 mmol/L (21-32) Anion Gap 11 (6-14) Blood Urea Nitrogen 54 mg/dL (7-20) Creatinine 2.7 mg/dL (0.6-1.0) Estimated GFR (Cockcroft-Gault) 17.1 BUN/Creatinine Ratio 20 (6-20) Glucose Level 192 mg/dL (70-99) Calcium Level 7.9 mg/dL (8.5-10.1) Total Bilirubin 0.4 mg/dL (0.2-1.0) Aspartate Amino Transf (AST/SGOT) 11 U/L (15-37) Alanine Aminotransferase (ALT/SGPT) 13 U/L (14-59) Alkaline Phosphatase 86 U/L (46-116) Total Protein 7.2 g/dL (6.4-8.2) Albumin 2.7 g/dL (3.4-5.0) Albumin/Globulin Ratio 0.6 (1.0-1.7) Medications Current Medications Prochlorperazine Edisylate (Compazine) 5 mg PRN Q6HRS PRN IV NAUSEA/VOMITING; Start 06/24/16 at 18:30 Al Hydroxide/Mg Hydroxide (Mylanta Plus Xs) 30 ml PRN Q3HRS PRN PO HEARTBURN / GAS; Start 06/24/16 at 18:30 Famotidine (Pepcid) 20 mg QHS PO ; Start 06/24/16 at 21:00; Status Cancel Heparin Sodium (Porcine) 5,000 unit Q8HRS SQ Last administered on 06/25/16 05: 56; Start 06/24/16 at 22:00 Sodium Chloride (Normal Saline Flush) 3 ml QSHIFT PRN IV AFTER MEDS AND BLOOD DRAWS; Start 06/24/16 at 18:30 Potassium Chloride/Sodium Chloride 1,000 ml @ 50 mls/hr Q20H IV Last administered on 06/24/16 19:12; Start 06/24/16 at 18:20 Senna/Docusate Sodium (Senna Plus) 1 tab BID PO Last administered on 06/25/16 08:18; Start 06/24/16 at 21:00 Acetaminophen (Tylenol) 650 mg PRN Q4HRS PRN PO PAIN; Start 06/24/16 at 18:30 Alprazolam (Xanax) 0.5 mg TID PO Last administered on 06/25/16 08:18; Start at 21:00 Amlodipine Besylate (Norvasc) 5 mg DAILY PO ; Start 06/25/16 at 09:00 Fluticasone Propionate (Flonase) 2 spray BID NS Last administered on 06/25/16 08:18; Start 06/24/16 at 21:00 Furosemide (Lasix) 40 mg DAILY PO Last administered on 06/25/16 08:18; Start 06/25/16 at 09:00 Metoprolol Tartrate (Lopressor) 50 mg BID PO ; Start 06/24/16 at 21:00 Montelukast Sodium (Singulair) 10 mg HS PO Last administered on 06/24/16 21:01 ; Start 06/24/16 at 21:00 Ondansetron HCl (Zofran Odt) 4 mg PRN Q4HRS PRN PO NAUSEA/VOMITING; Start 06/24 at 18:30 Quetiapine Fumarate (SEROquel) 100 mg TID PO Last administered on 06/25/16 08: 18; Start 06/24/16 at 21:00 Atorvastatin Calcium (Lipitor) 20 mg QHS PO Last administered on 06/24/16 21: 01; Start 06/24/16 at 21:00 Sucralfate (Carafate) 1 gm QIDACHS PO Last administered on 06/25/16 08:18; Start 06/24/16 at 21:00 Albuterol Sulfate (Ventolin Neb Soln) 2.5 mg RTQID NEB Last administered on 07:15; Start 06/24/16 at 20:00 Pantoprazole Sodium (Protonix) 40 mg DAILYAC PO Last administered on 06/25/16 08:18; Start 06/25/16 at 07:30 Gabapentin (Neurontin) 800 mg QHS PO Last administered on 06/24/16 21:01; Start 06/24/16 at 21:00 Losartan Potassium (Cozaar) 100 mg DAILY PO ; Start 06/25/16 at 09:00 Sodium Chloride 1,000 ml @ 0 mls/hr 1X ONCE IV Last administered on 19:30; Start 06/24/16 at 19:30; Stop 06/24/16 at 19:31; Status DC Active Scripts Active Reported Transderm-Scop (Scopolamine) 1 Each Patch.td72 1 Patch TP Q3DAYS Norvasc (Amlodipine Besylate) 5 Mg Tablet 5 Mg PO DAILY Metoprolol Tartrate 50 Mg Tablet 50 Mg PO BID Proair Hfa Inhaler (Albuterol Sulfate) 8.5 Gm Hfa.aer.ad 2 Puff INH QID Phenazopyridine Hcl 200 Mg Tablet 1 Tab PO TID Simvastatin 40 Mg Tablet 1 Tab PO QHS Tylenol With Codeine #3 Tablet (Acetaminophen/Codeine Phosphate) 1 Each Tablet 1 Tab PO PRN Q6HRS PRN Gabapentin 800 Mg Tablet 800 Mg PO HS Carafate (Sucralfate) 1 Gm/10 Ml Oral.susp 10 Ml PO QIDACHS Quetiapine Fumarate 100 Mg Tablet 100 Mg PO TID Zofran Odt (Ondansetron) 4 Mg Tab.rapdis 4 Mg PO PRN Q4HRS PRN Acetaminophen 500 Mg Tablet 650 Mg PO PRN Q4HRS PRN Fluticasone Propionate Nasal [place] (Fluticasone Propionate) 16 Gm [place].susp 2 [place] NS BID Montelukast Sodium Tablet (Montelukast Sodium) 10 Mg Tablet 10 Mg PO HS Furosemide 20 Mg Tablet 40 Mg PO DAILY Multi Vitamin Daily (Multivitamin) 1 Each Tablet 1 Each PO Nexium Capsule (Esomeprazole Magnesium) 20 Mg Capsule.dr 40 Mg PO DAILY Diovan (Valsartan) 40 Mg Tablet 160 Mg PO DAILY Xanax (Alprazolam) 1 Mg Tablet 0.5 Mg PO TID Vitals/I & O Vital Sign - Last 24 Hours 06/24/16 06/24/16 06/24/16 06/24/16 17:05 17:30 18:00 19:00 Temp 98.5 98.5 Pulse 72 74 62 Resp B/P (MAP) 117/83 (94) 120/58 (78) 66/42 (50) Pulse Ox 92 93 93 O2 Delivery Nasal Cannula Nasal Cannula Nasal Cannula Nasal Cannula O2 Flow Rate 4.0 2.0 4.0 4.0 06/24/16 06/24/16 06/24/16 06/24/16 19:15 19:26 19:30 19:49 Temp 97.6 97.6 Pulse 70 74 Resp B/P (MAP) 82/54 (63) 133/72 (92) Pulse Ox 93 97 93 O2 Delivery Nasal Cannula Nasal Cannula Nasal Cannula Nasal Cannula O2 Flow Rate 4.0 3.0 4.0 4.0 06/24/16 06/24/16 06/24/16 06/24/16 20:05 21:00 22:11 23:00 Pulse 74 74 78 68 Resp 19 B/P (MAP) 135/53 (80) 74/48 106/54 (71) 74/47 (56) Pulse Ox 93 92 92 O2 Delivery Nasal Cannula Nasal Cannula Nasal Cannula O2 Flow Rate 4.0 4.0 4.0 06/24/16 06/25/16 06/25/16 06/25/16 23:57 00:00 01:00 02:00 Temp 97.6 97.6 Pulse 68 68 68 Resp 19 19 19 B/P (MAP) 87/46 (60) 97/55 (69) 105/62 (76) Pulse Ox 91 93 91 O2 Delivery Nasal Cannula Nasal Cannula Nasal Cannula Nasal Cannula O2 Flow Rate 4.0 4.0 4.0 4.0 06/25/16 06/25/16 06/25/16 06/25/16 03:00 04:00 04:01 05:00 Temp 98.1 98.1 Pulse 74 74 74 Resp 19 B/P (MAP) 93/50 (64) 97/47 (64) 99/52 (68) Pulse Ox 91 91 91 O2 Delivery Nasal Cannula Simple Mask Nasal Cannula Simple Mask O2 Flow Rate 4.0 4.0 4.0 4.0 06/25/16 06/25/16 06/25/16 06/25/16 06:00 07:00 07:18 08:00 Temp 97.3 97.3 Pulse 68 83 90 Resp 19 19 26 B/P (MAP) 82/43 (56) 98/48 (65) 133/64 (87) Pulse Ox 91 90 94 90 O2 Delivery Simple Mask Nasal Cannula Nasal Cannula O2 Flow Rate 4.0 3.0 3.0 4.0 06/25/16 06/25/16 06/25/16 06/25/16 08:00 09:00 09:00 09:00 Pulse 92 92 92 B/P (MAP) 108/51 108/51 108/51 O2 Delivery Nasal Cannula O2 Flow Rate 3.0 06/25/16 09:00 Pulse 92 Resp 27 B/P (MAP) 108/51 (70) Pulse Ox 93 O2 Delivery Nasal Cannula O2 Flow Rate 4.0 Intake and Output 06/24/16 06/24/16 06/25/16 15:00 23:00 07:00 Intake Total 1000 ml 674 ml Output Total 1550 ml 570 ml Balance -550 ml 104 ml LOGAN GAMBOA MD June 25, 2016 10:31
[2016-06-25] MEDS ORDERED: IV NORMAL SALINE 1000ML BAG 1,000 ML IV ONE (11:00)
[2016-06-25] MEDS ORDERED: ALBUTEROL SULFATE 2.5 MG/3 ML NEBU. NEB PRN (13:30)
[2016-06-25] MEDS: ATORVASTATIN CALCIUM 20 MG TABLET PO SCH (21:16)
[2016-06-25] MEDS: GABAPENTIN 400 MG CAPSULE. PO SCH (21:16)
[2016-06-25] MEDS: MONTELUKAST SODIUM 10 MG TABLET. PO SCH (21:17)
[2016-06-26 03:00] VITALS: BP 135/59
--- NOTE | 2016-06-26 03:27 | CONS ---
DATE OF CONSULTATION: REQUESTING PHYSICIAN: Hospitalist. REASON FOR CONSULTATION: Renal failure. HISTORY OF PRESENT ILLNESS: A 75-year-old female who is supplemental oxygen dependent, COPD, as well as hypertension and chronic kidney disease. The patient is currently admitted with having been found with increased lethargy and hypotension at her nursing facility. She was at [facility] Emergency Department and subsequently brought to this facility. PAST MEDICAL HISTORY: Hypertension, supplemental oxygen dependent, COPD, recent infectious pneumonitis which is multilobar, hypertension, hyperlipidemia, GE reflux disease, peripheral neuropathy, rheumatoid arthritis, anxiety and depression. ALLERGIES: PRAMIPEXOLE, TRAMADOL. MEDICATIONS: Reviewed. FAMILY HISTORY: Noncontributory. SOCIAL HISTORY: The patient resides at nursing facility. REVIEW OF SYSTEMS: The patient is somnolent, unable to provide information. She does arouse to sternal rub. PHYSICAL EXAMINATION: GENERAL: The patient is lethargic, arouses to sternal rub. HEENT: Sallow complexion, otherwise clear. NECK: No increased JVD. No thyromegaly, masses, or adenopathy. LUNGS: Clear. CARDIAC: Without S3 or rub. ABDOMEN: Obese, nontender. EXTREMITIES: 1+ pretibial edema. NEUROLOGIC: Somnolent, awakens with sternal rub. PSYCHIATRIC: Untestable. LABORATORY DATA: Sodium 135, potassium 4.3, chloride 100, CO2 of 24, BUN ____, creatinine 2.7, glucose 192, calcium 7.9, GFR is 17, albumin 2.7, white count 12, hemoglobin 8.9, hematocrit 28%. IMPRESSION: 1. Chronic kidney disease stage 4, likely secondary to hypertension/ischemic renal disease. 2. Mental status decline and hypotension - concern for infectious etiology. RECOMMENDATIONS: 1. IV fluid administration. Follow response of hemodynamics and renal function. 2. Antibiotics pending culture results. CRISTIAN ARRIAZA MD DR: GONZALO/dali JOB#: [id number] / [id number]
[2016-06-26 04:19] LABS: BASO % 0 % (0-3); EOS % 0 % (0-3); HEMOGLOBIN 7.7 g/dL (12.0-15.5); LYMPH # 1.1 x10^3/uL (1.0-4.8); LYMPH % 8 % (24-48); MEAN CORPUSCULAR HEMOGLOBIN 31 pg (25-35); MEAN CORPUSCULAR HGB CONC 34 g/dL (31-37); MEAN CORPUSCULAR VOLUME 91 fL (79-100); MONO % 5 % (0-9); NEUT % 87 % (31-73); PLATELET COUNT 295 x10^3/uL (140-400); RED BLOOD COUNT 2.53 x10^6/uL (3.50-5.40); RED CELL DISTRIBUTION WIDTH 15.8 % (11.5-14.5); WHITE BLOOD COUNT 14.9 x10^3/uL (4.0-11.0)
[2016-06-26 04:27] LABS: PROTHROMBIN TIME PATIENT 12.7 SEC (11.7-14.0)
[2016-06-26 04:33] LABS: CALCIUM 7.3 mg/dL (8.5-10.1); CREATININE 2.4 mg/dL (0.6-1.0); GFR 19.6; POTASSIUM 4.6 mmol/L (3.5-5.1)
[2016-06-26] MEDS: HEPARIN PF for SUB-Q USE 5,000 UNIT/0.5 ML VIAL. SQ SCH ×3 (05:31→22:02)
[2016-06-26 07:00] VITALS: BP 139/69
[2016-06-26] MEDS: ALBUTEROL SULFATE 2.5 MG/3 ML NEBU. NEB SCH ×4 (07:28→19:58)
[2016-06-26] MEDS: SUCRALFATE 1 GM/10 ML ORAL.SUSP. PO SCH ×4 (08:43→21:51)
[2016-06-26] MEDS: PANTOPRAZOLE 40 MG TABLET.DR. PO SCH (08:44)
[2016-06-26] MEDS: LOSARTAN POTASSIUM 50 MG TABLET. PO SCH (08:44)
[2016-06-26] MEDS: FUROSEMIDE 40 MG TABLET. PO SCH (08:44)
[2016-06-26] MEDS: QUEtiapine 100 MG TABLET. PO SCH ×3 (08:45→21:50)
[2016-06-26] MEDS: METOPROLOL TART IMMED RELEASE 50 MG TABLET. PO SCH ×2 (08:45→21:51)
[2016-06-26] MEDS: ALPRAZolam 0.5 MG TABLET PO SCH ×3 (08:45→21:49)
[2016-06-26] MEDS: SENNOSIDES/DOCUSATE 8.6/50MG TABLET. PO SCH ×2 (08:45→21:50)
[2016-06-26] MEDS: amLODIPine BESYLATE 5 MG TABLET PO SCH (08:45)
[2016-06-26] MEDS: FLUTICASONE 50MCG/NASAL SPRAY 16GM BOTTLE. NS SCH ×2 (09:00→22:05)
--- NOTE | 2016-06-26 10:26 | PDOC ---
PROGRESS NOTES Chief Complaint Chief Complaint Hypotension ASSESSMENT AND PLAN: 1. Hypotension: fluid responsive 2. BARB: 2/2 dehydration/hypovolemia. 3. ? UTI: 4. CHF: recent echo with normal systolic and diastolic fxn 5. hx hypercarbia: currently no respi issues. 6. Dementia: ?baseline 7. gen weakness History of Present Illness History of Present Illness BP better Was on at least 3 diff antihypertensives at home Resident of [facility]- but she tells me she came from home CLearly confused Weak Recinos in with good UO HAving a sponge bath PLAN: COnt to hold BP meds Dc recinos DNR CERatinien seems at baseline 2.4-2.7 NO matt toxic agents Order pT/OT MIght be SNU ready ruth Vitals Vitals Vital Signs Date Time Temp Pulse Resp B/P (MAP) Pulse Ox O2 Delivery O2 Flow Rate FiO2 06/26/16 08:45 71 139/69 06/26/16 07:31 93 Nasal Cannula 3.0 06/26/16 07:00 97.6 17 97.6 Physical Exam General: Alert, Cooperative, No acute distress, Other (confused, rambling) Heart: Regular rate Lungs: Clear, Other Abdomen: Normal bowel sounds, No tenderness Extremities: No edema Skin: No rashes Labs LABS Laboratory Tests Test 06/25/16 16:11 06/25/16 21:31 06/26/16 03:18 06/26/16 07:15 Glucose (Fingerstick) 230 mg/dL (70-99) 237 mg/dL (70-99) 105 mg/dL (70-99) White Blood Count 14.9 x10^3/uL (4.0-11.0) Red Blood Count 2.53 x10^6/uL (3.50-5.40) Hemoglobin 7.7 g/dL (12.0-15.5) Hematocrit 23.0 % (36.0-47.0) Mean Corpuscular Volume 91 fL (79-100) Mean Corpuscular Hemoglobin 31 pg (25-35) Mean Corpuscular Hemoglobin Concent 34 g/dL (31-37) Red Cell Distribution Width 15.8 % (11.5-14.5) Platelet Count 295 x10^3/uL (140-400) Neutrophils (%) (Auto) 87 % (31-73) Lymphocytes (%) (Auto) 8 % (24-48) Monocytes (%) (Auto) 5 % (0-9) Eosinophils (%) (Auto) 0 % (0-3) Basophils (%) (Auto) 0 % (0-3) Neutrophils # (Auto) 13.0 x10^3uL (1.8-7.7) Lymphocytes # (Auto) 1.1 x10^3/uL (1.0-4.8) Monocytes # (Auto) 0.7 x10^3/uL (0.0-1.1) Eosinophils # (Auto) 0.0 x10^3/uL (0.0-0.7) Basophils # (Auto) 0.0 x10^3/uL (0.0-0.2) Prothrombin Time 12.7 SEC (11.7-14.0) Prothromb Time International Ratio 1.0 (0.8-1.1) Sodium Level 136 mmol/L (136-145) Potassium Level 4.6 mmol/L (3.5-5.1) Chloride Level 102 mmol/L (98-107) Carbon Dioxide Level 26 mmol/L (21-32) Anion Gap 8 (6-14) Blood Urea Nitrogen 52 mg/dL (7-20) Creatinine 2.4 mg/dL (0.6-1.0) Estimated GFR (Cockcroft-Gault) 19.6 Glucose Level 155 mg/dL (70-99) Calcium Level 7.3 mg/dL (8.5-10.1) Review of Systems Review of Systems limited has dementia Comment Review of Relevant I have reviewed the following items darline (where applicable) has been applied. Labs Laboratory Tests Test 06/24/16 18:00 06/25/16 08:15 06/25/16 16:11 06/25/16 21:31 Nasal Screen MRSA (PCR) Negative (Negative) White Blood Count 12.1 x10^3/uL (4.0-11.0) Red Blood Count 3.01 x10^6/uL (3.50-5.40) Hemoglobin 8.9 g/dL (12.0-15.5) Hematocrit 28.0 % (36.0-47.0) Mean Corpuscular Volume 93 fL (79-100) Mean Corpuscular Hemoglobin 29 pg (25-35) Mean Corpuscular Hemoglobin Concent 32 g/dL (31-37) Red Cell Distribution Width 15.9 % (11.5-14.5) Platelet Count 295 x10^3/uL (140-400) Neutrophils (%) (Auto) 90 % (31-73) Lymphocytes (%) (Auto) 9 % (24-48) Monocytes (%) (Auto) 1 % (0-9) Eosinophils (%) (Auto) 0 % (0-3) Basophils (%) (Auto) 0 % (0-3) Neutrophils # (Auto) 11.0 x10^3uL (1.8-7.7) Lymphocytes # (Auto) 1.1 x10^3/uL (1.0-4.8) Monocytes # (Auto) 0.1 x10^3/uL (0.0-1.1) Eosinophils # (Auto) 0.0 x10^3/uL (0.0-0.7) Basophils # (Auto) 0.0 x10^3/uL (0.0-0.2) Segmented Neutrophils % 89 % (35-66) Lymphocytes % 10 % (24-48) Monocytes % 1 % (0-10) Platelet Estimate Adequate (ADEQUATE) Sodium Level 135 mmol/L (136-145) Potassium Level 4.3 mmol/L (3.5-5.1) Chloride Level 100 mmol/L (98-107) Carbon Dioxide Level 24 mmol/L (21-32) Anion Gap 11 (6-14) Blood Urea Nitrogen 54 mg/dL (7-20) Creatinine 2.7 mg/dL (0.6-1.0) Estimated GFR (Cockcroft-Gault) 17.1 BUN/Creatinine Ratio 20 (6-20) Glucose Level 192 mg/dL (70-99) Calcium Level 7.9 mg/dL (8.5-10.1) Total Bilirubin 0.4 mg/dL (0.2-1.0) Aspartate Amino Transf (AST/SGOT) 11 U/L (15-37) Alanine Aminotransferase (ALT/SGPT) 13 U/L (14-59) Alkaline Phosphatase 86 U/L (46-116) Total Protein 7.2 g/dL (6.4-8.2) Albumin 2.7 g/dL (3.4-5.0) Albumin/Globulin Ratio 0.6 (1.0-1.7) Glucose (Fingerstick) 230 mg/dL (70-99) 237 mg/dL (70-99) Test 06/26/16 03:18 06/26/16 07:15 White Blood Count 14.9 x10^3/uL (4.0-11.0) Red Blood Count 2.53 x10^6/uL (3.50-5.40) Hemoglobin 7.7 g/dL (12.0-15.5) Hematocrit 23.0 % (36.0-47.0) Mean Corpuscular Volume 91 fL (79-100) Mean Corpuscular Hemoglobin 31 pg (25-35) Mean Corpuscular Hemoglobin Concent 34 g/dL (31-37) Red Cell Distribution Width 15.8 % (11.5-14.5) Platelet Count 295 x10^3/uL (140-400) Neutrophils (%) (Auto) 87 % (31-73) Lymphocytes (%) (Auto) 8 % (24-48) Monocytes (%) (Auto) 5 % (0-9) Eosinophils (%) (Auto) 0 % (0-3) Basophils (%) (Auto) 0 % (0-3) Neutrophils # (Auto) 13.0 x10^3uL (1.8-7.7) Lymphocytes # (Auto) 1.1 x10^3/uL (1.0-4.8) Monocytes # (Auto) 0.7 x10^3/uL (0.0-1.1) Eosinophils # (Auto) 0.0 x10^3/uL (0.0-0.7) Basophils # (Auto) 0.0 x10^3/uL (0.0-0.2) Prothrombin Time 12.7 SEC (11.7-14.0) Prothromb Time International Ratio 1.0 (0.8-1.1) Sodium Level 136 mmol/L (136-145) Potassium Level 4.6 mmol/L (3.5-5.1) Chloride Level 102 mmol/L (98-107) Carbon Dioxide Level 26 mmol/L (21-32) Anion Gap 8 (6-14) Blood Urea Nitrogen 52 mg/dL (7-20) Creatinine 2.4 mg/dL (0.6-1.0) Estimated GFR (Cockcroft-Gault) 19.6 Glucose Level 155 mg/dL (70-99) Calcium Level 7.3 mg/dL (8.5-10.1) Glucose (Fingerstick) 105 mg/dL (70-99) Laboratory Tests Test 06/25/16 16:11 06/25/16 21:31 06/26/16 03:18 06/26/16 07:15 Glucose (Fingerstick) 230 mg/dL (70-99) 237 mg/dL (70-99) 105 mg/dL (70-99) White Blood Count 14.9 x10^3/uL (4.0-11.0) Red Blood Count 2.53 x10^6/uL (3.50-5.40) Hemoglobin 7.7 g/dL (12.0-15.5) Hematocrit 23.0 % (36.0-47.0) Mean Corpuscular Volume 91 fL (79-100) Mean Corpuscular Hemoglobin 31 pg (25-35) Mean Corpuscular Hemoglobin Concent 34 g/dL (31-37) Red Cell Distribution Width 15.8 % (11.5-14.5) Platelet Count 295 x10^3/uL (140-400) Neutrophils (%) (Auto) 87 % (31-73) Lymphocytes (%) (Auto) 8 % (24-48) Monocytes (%) (Auto) 5 % (0-9) Eosinophils (%) (Auto) 0 % (0-3) Basophils (%) (Auto) 0 % (0-3) Neutrophils # (Auto) 13.0 x10^3uL (1.8-7.7) Lymphocytes # (Auto) 1.1 x10^3/uL (1.0-4.8) Monocytes # (Auto) 0.7 x10^3/uL (0.0-1.1) Eosinophils # (Auto) 0.0 x10^3/uL (0.0-0.7) Basophils # (Auto) 0.0 x10^3/uL (0.0-0.2) Prothrombin Time 12.7 SEC (11.7-14.0) Prothromb Time International Ratio 1.0 (0.8-1.1) Sodium Level 136 mmol/L (136-145) Potassium Level 4.6 mmol/L (3.5-5.1) Chloride Level 102 mmol/L (98-107) Carbon Dioxide Level 26 mmol/L (21-32) Anion Gap 8 (6-14) Blood Urea Nitrogen 52 mg/dL (7-20) Creatinine 2.4 mg/dL (0.6-1.0) Estimated GFR (Cockcroft-Gault) 19.6 Glucose Level 155 mg/dL (70-99) Calcium Level 7.3 mg/dL (8.5-10.1) Medications Current Medications Prochlorperazine Edisylate (Compazine) 5 mg PRN Q6HRS PRN IV NAUSEA/VOMITING; Start 06/24/16 at 18:30 Al Hydroxide/Mg Hydroxide (Mylanta Plus Xs) 30 ml PRN Q3HRS PRN PO HEARTBURN / GAS; Start 06/24/16 at 18:30 Famotidine (Pepcid) 20 mg QHS PO ; Start 06/24/16 at 21:00; Status Cancel Heparin Sodium (Porcine) 5,000 unit Q8HRS SQ Last administered on 06/25/16 21: 25; Start 06/24/16 at 22:00 Sodium Chloride (Normal Saline Flush) 3 ml QSHIFT PRN IV AFTER MEDS AND BLOOD DRAWS; Start 06/24/16 at 18:30 Potassium Chloride/Sodium Chloride 1,000 ml @ 50 mls/hr Q20H IV Last administered on 06/25/16 14:15; Start 06/24/16 at 18:20 Senna/Docusate Sodium (Senna Plus) 1 tab BID PO Last administered on 06/26/16 08:45; Start 06/24/16 at 21:00 Acetaminophen (Tylenol) 650 mg PRN Q4HRS PRN PO PAIN Last administered on 22:39; Start 06/24/16 at 18:30 Alprazolam (Xanax) 0.5 mg TID PO Last administered on 06/26/16 08:45; Start at 21:00 Amlodipine Besylate (Norvasc) 5 mg DAILY PO Last administered on 06/26/16 08: 45; Start 06/25/16 at 09:00 Fluticasone Propionate (Flonase) 2 spray BID NS Last administered on 06/25/16 08:18; Start 06/24/16 at 21:00 Furosemide (Lasix) 40 mg DAILY PO Last administered on 06/26/16 08:44; Start 06/25/16 at 09:00 Metoprolol Tartrate (Lopressor) 50 mg BID PO Last administered on 06/26/16 08: 45; Start 06/24/16 at 21:00 Montelukast Sodium (Singulair) 10 mg HS PO Last administered on 06/25/16 21:17 ; Start 06/24/16 at 21:00 Ondansetron HCl (Zofran Odt) 4 mg PRN Q4HRS PRN PO NAUSEA/VOMITING; Start 06/24 at 18:30 Quetiapine Fumarate (SEROquel) 100 mg TID PO Last administered on 06/26/16 08: 45; Start 06/24/16 at 21:00 Atorvastatin Calcium (Lipitor) 20 mg QHS PO Last administered on 06/25/16 21: 16; Start 06/24/16 at 21:00 Sucralfate (Carafate) 1 gm QIDACHS PO Last administered on 06/26/16 08:43; Start 06/24/16 at 21:00 Albuterol Sulfate (Ventolin Neb Soln) 2.5 mg RTQID NEB Last administered on 07:28; Start 06/24/16 at 20:00 Pantoprazole Sodium (Protonix) 40 mg DAILYAC PO Last administered on 06/26/16 08:44; Start 06/25/16 at 07:30 Gabapentin (Neurontin) 800 mg QHS PO Last administered on 06/25/16 21:16; Start 06/24/16 at 21:00 Losartan Potassium (Cozaar) 100 mg DAILY PO Last administered on 06/26/16 08: 44; Start 06/25/16 at 09:00 Sodium Chloride 1,000 ml @ 0 mls/hr 1X ONCE IV Last administered on 19:30; Start 06/24/16 at 19:30; Stop 06/24/16 at 19:31; Status DC Sodium Chloride 1,000 ml @ 1,000 mls/hr 1X ONCE IV Last administered on t 11:09; Start 06/25/16 at 11:00; Stop 06/25/16 at 11:59; Status DC Albuterol Sulfate (Ventolin Neb Soln) 2.5 mg PRN Q4HRS PRN NEB SHORTNESS OF BREATH; Start 06/25/16 at 13:30; Status Cancel Active Scripts Active Reported Transderm-Scop (Scopolamine) 1 Each Patch.td72 1 Patch TP Q3DAYS Norvasc (Amlodipine Besylate) 5 Mg Tablet 5 Mg PO DAILY Metoprolol Tartrate 50 Mg Tablet 50 Mg PO BID Proair Hfa Inhaler (Albuterol Sulfate) 8.5 Gm Hfa.aer.ad 2 Puff INH QID Phenazopyridine Hcl 200 Mg Tablet 1 Tab PO TID Simvastatin 40 Mg Tablet 1 Tab PO QHS Tylenol With Codeine #3 Tablet (Acetaminophen/Codeine Phosphate) 1 Each Tablet 1 Tab PO PRN Q6HRS PRN Gabapentin 800 Mg Tablet 800 Mg PO HS Carafate (Sucralfate) 1 Gm/10 Ml Oral.susp 10 Ml PO QIDACHS Quetiapine Fumarate 100 Mg Tablet 100 Mg PO TID Zofran Odt (Ondansetron) 4 Mg Tab.rapdis 4 Mg PO PRN Q4HRS PRN Acetaminophen 500 Mg Tablet 650 Mg PO PRN Q4HRS PRN Fluticasone Propionate Nasal Rebuck (Fluticasone Propionate) 16 Gm Rebuck.susp 2 Rebuck NS BID Montelukast Sodium Tablet (Montelukast Sodium) 10 Mg Tablet 10 Mg PO HS Furosemide 20 Mg Tablet 40 Mg PO DAILY Multi Vitamin Daily (Multivitamin) 1 Each Tablet 1 Each PO Nexium Capsule (Esomeprazole Magnesium) 20 Mg Capsule.dr 40 Mg PO DAILY Diovan (Valsartan) 40 Mg Tablet 160 Mg PO DAILY Xanax (Alprazolam) 1 Mg Tablet 0.5 Mg PO TID Vitals/I & O Vital Sign - Last 24 Hours 06/25/16 06/25/16 06/25/16 06/25/16 11:00 11:12 12:00 14:55 Temp 97.9 99.7 97.9 99.7 Pulse 85 84 89 Resp 14 22 22 B/P (MAP) 126/56 (79) 93/55 (68) 119/40 (66) Pulse Ox 98 94 96 94 O2 Delivery Nasal Cannula Nasal Cannula Nasal Cannula O2 Flow Rate 4.0 3.0 4.0 4.0 06/25/16 06/25/16 06/25/16 06/25/16 14:57 19:00 19:09 20:10 Temp 97.5 97.5 Pulse 88 Resp 20 B/P (MAP) 122/55 (77) Pulse Ox 94 96 95 O2 Delivery Nasal Cannula Nasal Cannula Nasal Cannula O2 Flow Rate 3.0 3.0 3.0 3.0 06/25/16 06/25/16 06/26/16 06/26/16 21:17 23:00 03:00 07:00 Temp 98.0 97.8 97.6 98.0 97.8 97.6 Pulse 88 81 68 71 Resp 20 20 17 B/P (MAP) 122/55 107/50 (69) 135/59 (84) 139/69 (92) Pulse Ox 91 97 94 O2 Delivery Nasal Cannula Nasal Cannula Room Air O2 Flow Rate 3.0 3.0 06/26/16 06/26/16 06/26/16 06/26/16 07:31 08:44 08:45 08:45 Pulse 71 71 71 B/P (MAP) 139/69 139/69 139/69 Pulse Ox 93 O2 Delivery Nasal Cannula O2 Flow Rate 3.0 Intake and Output 06/25/16 06/25/16 06/26/16 15:00 23:00 07:00 Intake Total 1640 ml 1620 ml 500 ml Output Total 600 ml 1250 ml Balance 1040 ml 1620 ml -750 ml DIANA ESPAÑA MD June 26, 2016 10:26
[2016-06-26 11:00] VITALS: BP 105/56
[2016-06-26 11:10] LABS: BILIRUBIN,URINE NEGATIVE (NEG); GLUCOSE,URINE NEGATIVE (NEG); NITRITE,URINE NEGATIVE (NEG); PH,URINE 5.5; PROTEIN,URINE NEGATIVE (NEG-TRACE); UROBILINOGEN,URINE 0.2 mg/dL (0.2 mg/dL)
[2016-06-26 11:19] LABS: BACTERIA,URINE FEW /HPF (0-FEW)
--- NOTE | 2016-06-26 13:07 | PDOC ---
SUBJECTIVE ROS BARB/ CKD III She thinks she is doing better CVS: no Orthopnea, no CP RESP: no SOB, no PRINGLE GI: no Nausea, no Vomiting : no Dysuria, no Urgency OBJECTIVE Vital Signs Vital Signs Date Time Temp Pulse Resp B/P (MAP) Pulse Ox O2 Delivery O2 Flow Rate FiO2 06/26/16 11:23 Nasal Cannula 3.0 06/26/16 11:00 98.1 65 16 105/56 (72) 93 98.1 I & 0 Intake and Output 06/26/16 06:59 Intake Total 3760 ml Output Total 1910 ml Balance 1850 ml Intake Oral 1910 ml IV Total 1850 ml Output Urine Total 1910 ml PHYSICAL EXAM Physical Exam GEN: Awake, Oriented x 1-2 , In no distress; some underlying memory deficiets EYES: Vision Unchanged, Conjunctiva Normal EN: No EN Drainage, Mucous Membranes moist NECK: no JVD, no JVP, Supple, no Thyromegaly; short neck CVS: S1S2, ? Murmur, No Gallop, No Rub,no Edema RESP: no Rales, no Rhonchi,no Acc. Muscle Use GI: BS + ve, NO Bruit, Non Tender, Non Distended : no CVA tenderness, no Suprapubic Tenderness DIAGNOSIS/ASSESSMENT Assessment & Plan BARB - supsect due to recent Hypotension and ? ATN - Current fluid and E- lyte status does not necessitate emergent need for dialysis. Will re-evaluate for dialysis in the am ; will chekc Ck due to discrepancy of Blood and RBCs on UA CKD III - Baseline creat ~ 1.5 ANEMIA; Check Iron; may need Aranap ordered, Transfuse if < 7.0 HTN: Current BP meds as reviewed. See orders for changes. HypoAlbuminemia with Protein gap - check PEPS Problems: COMMENT/RELEVANT DATA Meds Current Medications Medications (Trade) Dose Ordered Sig/Henry Start Time Stop Time Status Last Admin Dose Admin Acetaminophen (Tylenol) 650 mg PRN Q4HRS PRN 06/24/16 18:30 06/25/16 22:39 650 MG Al Hydroxide/Mg Hydroxide (Mylanta Plus Xs) 30 ml PRN Q3HRS PRN 06/24/16 18:30 Albuterol Sulfate (Ventolin Neb Soln) 2.5 mg PRN Q4HRS PRN 06/25/16 13:30 Cancel Alprazolam (Xanax) 0.5 mg TID 06/24/16 21:00 06/26/16 08:45 0.5 MG Amlodipine Besylate (Norvasc) 5 mg DAILY 06/25/16 09:00 06/26/16 08:45 5 MG Atorvastatin Calcium (Lipitor) 20 mg QHS 06/24/16 21:00 06/25/16 21:16 20 MG Famotidine (Pepcid) 20 mg QHS 06/24/16 21:00 Cancel Fluticasone Propionate (Flonase) 2 spray BID 06/24/16 21:00 06/25/16 08:18 2 SPRAY Furosemide (Lasix) 40 mg DAILY 06/25/16 09:00 06/26/16 08:44 40 MG Gabapentin (Neurontin) 800 mg QHS 06/24/16 21:00 06/25/16 21:16 800 MG Heparin Sodium (Porcine) 5,000 unit Q8HRS 06/24/16 22:00 06/25/16 21:25 5,000 UNIT Losartan Potassium (Cozaar) 100 mg DAILY 06/25/16 09:00 06/26/16 08:44 100 MG Metoprolol Tartrate (Lopressor) 50 mg BID 06/24/16 21:00 06/26/16 08:45 50 MG Montelukast Sodium (Singulair) 10 mg HS 06/24/16 21:00 06/25/16 21:17 10 MG Ondansetron HCl (Zofran Odt) 4 mg PRN Q4HRS PRN 06/24/16 18:30 Pantoprazole Sodium (Protonix) 40 mg DAILYAC 06/25/16 07:30 06/26/16 08:44 40 MG Potassium Chloride/Sodium Chloride 1,000 ml @ 50 mls/hr Q20H 06/24/16 18:20 06/25/16 14:15 50 MLS/HR Prochlorperazine Edisylate (Compazine) 5 mg PRN Q6HRS PRN 06/24/16 18:30 Quetiapine Fumarate (SEROquel) 100 mg TID 06/24/16 21:00 06/26/16 08:45 100 MG Senna/Docusate Sodium (Senna Plus) 1 tab BID 06/24/16 21:00 06/26/16 08:45 1 TAB Sodium Chloride 1,000 ml @ 1,000 mls/hr 1X ONCE 06/25/16 11:00 06/25/16 11:59 DC 06/25/16 11:09 1,000 MLS/HR Sodium Chloride (Normal Saline Flush) 3 ml QSHIFT PRN 06/24/16 18:30 Sucralfate (Carafate) 1 gm QIDACHS 06/24/16 21:00 06/26/16 12:07 1 GM Lab Laboratory Tests Test 06/25/16 16:11 06/25/16 21:31 06/26/16 03:18 06/26/16 07:15 Glucose (Fingerstick) 230 mg/dL (70-99) 237 mg/dL (70-99) 105 mg/dL (70-99) White Blood Count 14.9 x10^3/uL (4.0-11.0) Red Blood Count 2.53 x10^6/uL (3.50-5.40) Hemoglobin 7.7 g/dL (12.0-15.5) Hematocrit 23.0 % (36.0-47.0) Mean Corpuscular Volume 91 fL (79-100) Mean Corpuscular Hemoglobin 31 pg (25-35) Mean Corpuscular Hemoglobin Concent 34 g/dL (31-37) Red Cell Distribution Width 15.8 % (11.5-14.5) Platelet Count 295 x10^3/uL (140-400) Neutrophils (%) (Auto) 87 % (31-73) Lymphocytes (%) (Auto) 8 % (24-48) Monocytes (%) (Auto) 5 % (0-9) Eosinophils (%) (Auto) 0 % (0-3) Basophils (%) (Auto) 0 % (0-3) Neutrophils # (Auto) 13.0 x10^3uL (1.8-7.7) Lymphocytes # (Auto) 1.1 x10^3/uL (1.0-4.8) Monocytes # (Auto) 0.7 x10^3/uL (0.0-1.1) Eosinophils # (Auto) 0.0 x10^3/uL (0.0-0.7) Basophils # (Auto) 0.0 x10^3/uL (0.0-0.2) Prothrombin Time 12.7 SEC (11.7-14.0) Prothromb Time International Ratio 1.0 (0.8-1.1) Sodium Level 136 mmol/L (136-145) Potassium Level 4.6 mmol/L (3.5-5.1) Chloride Level 102 mmol/L (98-107) Carbon Dioxide Level 26 mmol/L (21-32) Anion Gap 8 (6-14) Blood Urea Nitrogen 52 mg/dL (7-20) Creatinine 2.4 mg/dL (0.6-1.0) Estimated GFR (Cockcroft-Gault) 19.6 Glucose Level 155 mg/dL (70-99) Calcium Level 7.3 mg/dL (8.5-10.1) Test 06/26/16 10:55 06/26/16 11:10 Urine Collection Type U cath Urine Color Yellow Urine Clarity Clear Urine pH 5.5 Urine Specific Willow <=1.005 Urine Protein Negative mg/dL (NEG-TRACE) Urine Glucose (UA) Negative mg/dL (NEG) Urine Ketones (Stick) Negative mg/dL (NEG) Urine Blood Large (NEG) Urine Nitrite Negative (NEG) Urine Bilirubin Negative (NEG) Urine Urobilinogen Dipstick 0.2 mg/dL (0.2 mg/dL) Urine Leukocyte Esterase Small (NEG) Urine RBC 3-5 /HPF (0-2) Urine WBC 5-10 /HPF (0-4) Urine Transitional Epithelial Cells Occ /LPF Urine Bacteria Few /HPF (0-FEW) Glucose (Fingerstick) 137 mg/dL (70-99) Other Renal US eartly this month: Indication acute renal failure superimposed on chronic renal disease. Grayscale imaging targeted to the kidneys was performed. The right kidney measures 9.8 x 5.1 x 4.4 cm. No hydronephrosis or solid mass is seen. There is a 2.5 cm hypoechoic mass associated with the right kidney compatible with a cyst. The left kidney measures 9.2 x 4.8 x 4.3 cm. No hydronephrosis or mass is seen. The patient has a Castano catheter in the urinary bladder. The bladder, as result, is collapsed and poorly evaluated with ultrasound. IMPRESSION: Right renal cyst ZIMMERMAN,ACHAL K MD June 26, 2016 13:07
[2016-06-26 15:09] VITALS: BP 114/51
[2016-06-26 19:00] VITALS: BP 95/45
[2016-06-26] MEDS: ATORVASTATIN CALCIUM 20 MG TABLET PO SCH (21:49)
[2016-06-26] MEDS: MONTELUKAST SODIUM 10 MG TABLET. PO SCH (21:49)
[2016-06-26] MEDS: GABAPENTIN 400 MG CAPSULE. PO SCH (21:50)
[2016-06-26 23:00] VITALS: BP 126/64
[2016-06-27] MEDS: HEPARIN PF for SUB-Q USE 5,000 UNIT/0.5 ML VIAL. SQ SCH (05:34)
[2016-06-27 05:39] LABS: BASO # 0.1 x10^3/uL (0.0-0.2); BASO % 1 % (0-3); EOS % 2 % (0-3); HEMATOCRIT 25.4 % (36.0-47.0); HEMOGLOBIN 8.5 g/dL (12.0-15.5); LYMPH # 4.2 x10^3/uL (1.0-4.8); LYMPH % 37 % (24-48); MEAN CORPUSCULAR HEMOGLOBIN 31 pg (25-35); MEAN CORPUSCULAR HGB CONC 33 g/dL (31-37); MEAN CORPUSCULAR VOLUME 92 fL (79-100); MONO % 7 % (0-9); NEUT % 54 % (31-73); PLATELET COUNT 336 x10^3/uL (140-400); RED BLOOD COUNT 2.76 x10^6/uL (3.50-5.40); RED CELL DISTRIBUTION WIDTH 16.6 % (11.5-14.5); WHITE BLOOD COUNT 11.4 x10^3/uL (4.0-11.0)
[2016-06-27 05:54] LABS: CALCIUM 8.2 mg/dL (8.5-10.1); GFR 24.2; POTASSIUM 4.6 mmol/L (3.5-5.1)
[2016-06-27 07:00] VITALS: BP 142/58
[2016-06-27] MEDS: ALBUTEROL SULFATE 2.5 MG/3 ML NEBU. NEB SCH ×2 (07:26→11:31)
[2016-06-27] MEDS: SENNOSIDES/DOCUSATE 8.6/50MG TABLET. PO SCH (09:28)
[2016-06-27] MEDS: SUCRALFATE 1 GM/10 ML ORAL.SUSP. PO SCH (09:28)
[2016-06-27] MEDS: FLUTICASONE 50MCG/NASAL SPRAY 16GM BOTTLE. NS SCH (09:28)
[2016-06-27] MEDS: QUEtiapine 100 MG TABLET. PO SCH (09:29)
[2016-06-27] MEDS: amLODIPine BESYLATE 5 MG TABLET PO SCH (09:29)
[2016-06-27] MEDS: FUROSEMIDE 40 MG TABLET. PO SCH (09:30)
[2016-06-27] MEDS: METOPROLOL TART IMMED RELEASE 50 MG TABLET. PO SCH (09:30)
[2016-06-27] MEDS: ALPRAZolam 0.5 MG TABLET PO SCH (09:30)
[2016-06-27] MEDS: PANTOPRAZOLE 40 MG TABLET.DR. PO SCH (09:31)
[2016-06-27] MEDS: LOSARTAN POTASSIUM 50 MG TABLET. PO SCH (09:36)
--- NOTE | 2016-06-27 10:04 | PDOC ---
SUBJECTIVE ROS BARB/ CK DIIi doing OK, asking about going home CVS: no Orthopnea, no CP RESP: no SOB, no PRINGLE GI: no Nausea, no Vomiting : no Dysuria, no Urgency OBJECTIVE Vital Signs Vital Signs Date Time Temp Pulse Resp B/P (MAP) Pulse Ox O2 Delivery O2 Flow Rate FiO2 06/27/16 09:36 76 142/58 06/27/16 07:28 92 Nasal Cannula 2.0 06/27/16 07:00 97.9 97.9 06/26/16 23:00 18 I & 0 Intake and Output 06/27/16 07:00 Intake Total 560 ml Output Total 3100 ml Balance -2540 ml Intake Oral 560 ml Output Urine Total 3100 ml PHYSICAL EXAM Physical Exam GEN: Awake, Oriented x 1-2 , In no distress; ? some underlying memory deficiets EYES: Vision Unchanged, Conjunctiva Normal EN: No EN Drainage, Mucous Membranes moist NECK: no JVD, no JVP, Supple, no Thyromegaly; short neck CVS: S1S2, ? Murmur, No Gallop, No Rub,no Edema RESP: no Rales, no Rhonchi,no Acc. Muscle Use GI: BS + ve, NO Bruit, Non Tender, Non Distended : no CVA tenderness, no Suprapubic Tenderness DIAGNOSIS/ASSESSMENT Assessment & Plan BARB - supsect due to recent Hypotension and ? ATN - Current fluid and E- lyte status does not necessitate emergent need for dialysis. Will re-evaluate for dialysis in the am ; Ck WNL despite discrepancy of Blood and RBCs on UA ? Vol despeltion - now improving CKD III - Baseline creat ~ 1.5 ANEMIA; improving. Check Iron as OP; may need Aranesp as OP HTN: Current BP meds as reviewed. See orders for changes. HypoAlbuminemia with Protein gap - checking 24-hr urine for PEPS - ongoing COMMENT/RELEVANT DATA Meds Current Medications Medications (Trade) Dose Ordered Sig/Henry Start Time Stop Time Status Last Admin Dose Admin Acetaminophen (Tylenol) 650 mg PRN Q4HRS PRN 06/24/16 18:30 06/25/16 22:39 650 MG Al Hydroxide/Mg Hydroxide (Mylanta Plus Xs) 30 ml PRN Q3HRS PRN 06/24/16 18:30 Albuterol Sulfate (Ventolin Neb Soln) 2.5 mg PRN Q4HRS PRN 06/25/16 13:30 Cancel Alprazolam (Xanax) 0.5 mg TID 06/24/16 21:00 06/27/16 09:30 0.5 MG Amlodipine Besylate (Norvasc) 5 mg DAILY 06/25/16 09:00 06/27/16 09:29 5 MG Atorvastatin Calcium (Lipitor) 20 mg QHS 06/24/16 21:00 06/26/16 21:49 20 MG Famotidine (Pepcid) 20 mg QHS 06/24/16 21:00 Cancel Fluticasone Propionate (Flonase) 2 spray BID 06/24/16 21:00 06/27/16 09:28 2 SPRAY Furosemide (Lasix) 40 mg DAILY 06/25/16 09:00 06/27/16 09:30 40 MG Gabapentin (Neurontin) 800 mg QHS 06/24/16 21:00 06/26/16 21:50 800 MG Heparin Sodium (Porcine) 5,000 unit Q8HRS 06/24/16 22:00 06/26/16 22:02 5,000 UNIT Losartan Potassium (Cozaar) 100 mg DAILY 06/25/16 09:00 06/27/16 09:36 100 MG Metoprolol Tartrate (Lopressor) 50 mg BID 06/24/16 21:00 06/27/16 09:30 50 MG Montelukast Sodium (Singulair) 10 mg HS 06/24/16 21:00 06/26/16 21:49 10 MG Ondansetron HCl (Zofran Odt) 4 mg PRN Q4HRS PRN 06/24/16 18:30 Pantoprazole Sodium (Protonix) 40 mg DAILYAC 06/25/16 07:30 06/27/16 09:31 40 MG Potassium Chloride/Sodium Chloride 1,000 ml @ 50 mls/hr Q20H 06/24/16 18:20 06/25/16 14:15 50 MLS/HR Prochlorperazine Edisylate (Compazine) 5 mg PRN Q6HRS PRN 06/24/16 18:30 Quetiapine Fumarate (SEROquel) 100 mg TID 06/24/16 21:00 06/27/16 09:29 100 MG Senna/Docusate Sodium (Senna Plus) 1 tab BID 06/24/16 21:00 06/27/16 09:28 1 TAB Sodium Chloride 1,000 ml @ 1,000 mls/hr 1X ONCE 06/25/16 11:00 06/25/16 11:59 DC 06/25/16 11:09 1,000 MLS/HR Sodium Chloride (Normal Saline Flush) 3 ml QSHIFT PRN 06/24/16 18:30 Sucralfate (Carafate) 1 gm QIDACHS 06/24/16 21:00 06/27/16 09:28 1 GM Lab Laboratory Tests Test 06/26/16 10:55 06/26/16 11:10 06/26/16 16:22 06/26/16 19:49 Urine Collection Type U cath Urine Color Yellow Urine Clarity Clear Urine pH 5.5 Urine Specific Gibson <=1.005 Urine Protein Negative mg/dL (NEG-TRACE) Urine Glucose (UA) Negative mg/dL (NEG) Urine Ketones (Stick) Negative mg/dL (NEG) Urine Blood Large (NEG) Urine Nitrite Negative (NEG) Urine Bilirubin Negative (NEG) Urine Urobilinogen Dipstick 0.2 mg/dL (0.2 mg/dL) Urine Leukocyte Esterase Small (NEG) Urine RBC 3-5 /HPF (0-2) Urine WBC 5-10 /HPF (0-4) Urine Transitional Epithelial Cells Occ /LPF Urine Bacteria Few /HPF (0-FEW) Glucose (Fingerstick) 137 mg/dL (70-99) 125 mg/dL (70-99) 125 mg/dL (70-99) Test 06/27/16 05:00 06/27/16 05:10 Sodium Level 141 mmol/L (136-145) Potassium Level 4.6 mmol/L (3.5-5.1) Chloride Level 106 mmol/L (98-107) Carbon Dioxide Level 29 mmol/L (21-32) Anion Gap 6 (6-14) Blood Urea Nitrogen 53 mg/dL (7-20) Creatinine 2.0 mg/dL (0.6-1.0) Estimated GFR (Cockcroft-Gault) 24.2 Glucose Level 91 mg/dL (70-99) Calcium Level 8.2 mg/dL (8.5-10.1) White Blood Count 11.4 x10^3/uL (4.0-11.0) Red Blood Count 2.76 x10^6/uL (3.50-5.40) Hemoglobin 8.5 g/dL (12.0-15.5) Hematocrit 25.4 % (36.0-47.0) Mean Corpuscular Volume 92 fL (79-100) Mean Corpuscular Hemoglobin 31 pg (25-35) Mean Corpuscular Hemoglobin Concent 33 g/dL (31-37) Red Cell Distribution Width 16.6 % (11.5-14.5) Platelet Count 336 x10^3/uL (140-400) Neutrophils (%) (Auto) 54 % (31-73) Lymphocytes (%) (Auto) 37 % (24-48) Monocytes (%) (Auto) 7 % (0-9) Eosinophils (%) (Auto) 2 % (0-3) Basophils (%) (Auto) 1 % (0-3) Neutrophils # (Auto) 6.1 x10^3uL (1.8-7.7) Lymphocytes # (Auto) 4.2 x10^3/uL (1.0-4.8) Monocytes # (Auto) 0.8 x10^3/uL (0.0-1.1) Eosinophils # (Auto) 0.2 x10^3/uL (0.0-0.7) Basophils # (Auto) 0.1 x10^3/uL (0.0-0.2) Creatine Kinase 17 U/L (26-192) KOBI ZIMMERMAN MD June 27, 2016 10:04
--- NOTE | 2016-06-27 10:08 | PDOC3 ---
Discharge Summary Visit Information Date of Admission: June 24, 2016 Date of Discharge: June 27, 2016 Admitting Diagnosis Comment: 1. Hypotension: fluid responsive 2. BARB: 2/2 dehydration/hypovolemia. 3. ? UTI: 4. CHF: recent echo with normal systolic and diastolic fxn 5. hx hypercarbia: currently no respi issues. 6. Dementia: ?baseline 7. gen weakness Brief Hospital Course Allergies Allergies Coded Allergies Type Severity Reaction Last Updated Verified pramipexole Allergy Intermediate 06/25/16 Yes tramadol Allergy Intermediate 06/25/16 Yes Vital Signs Vital Signs Date Time Temp Pulse Resp B/P (MAP) Pulse Ox O2 Delivery O2 Flow Rate FiO2 06/27/16 09:36 76 142/58 06/27/16 07:28 92 Nasal Cannula 2.0 06/27/16 07:00 97.9 97.9 06/26/16 23:00 18 Lab Results Laboratory Tests Test 06/25/16 16:11 06/25/16 21:31 06/26/16 03:18 06/26/16 07:15 Glucose (Fingerstick) 230 mg/dL (70-99) 237 mg/dL (70-99) 105 mg/dL (70-99) White Blood Count 14.9 x10^3/uL (4.0-11.0) Red Blood Count 2.53 x10^6/uL (3.50-5.40) Hemoglobin 7.7 g/dL (12.0-15.5) Hematocrit 23.0 % (36.0-47.0) Mean Corpuscular Volume 91 fL (79-100) Mean Corpuscular Hemoglobin 31 pg (25-35) Mean Corpuscular Hemoglobin Concent 34 g/dL (31-37) Red Cell Distribution Width 15.8 % (11.5-14.5) Platelet Count 295 x10^3/uL (140-400) Neutrophils (%) (Auto) 87 % (31-73) Lymphocytes (%) (Auto) 8 % (24-48) Monocytes (%) (Auto) 5 % (0-9) Eosinophils (%) (Auto) 0 % (0-3) Basophils (%) (Auto) 0 % (0-3) Neutrophils # (Auto) 13.0 x10^3uL (1.8-7.7) Lymphocytes # (Auto) 1.1 x10^3/uL (1.0-4.8) Monocytes # (Auto) 0.7 x10^3/uL (0.0-1.1) Eosinophils # (Auto) 0.0 x10^3/uL (0.0-0.7) Basophils # (Auto) 0.0 x10^3/uL (0.0-0.2) Prothrombin Time 12.7 SEC (11.7-14.0) Prothromb Time International Ratio 1.0 (0.8-1.1) Sodium Level 136 mmol/L (136-145) Potassium Level 4.6 mmol/L (3.5-5.1) Chloride Level 102 mmol/L (98-107) Carbon Dioxide Level 26 mmol/L (21-32) Anion Gap 8 (6-14) Blood Urea Nitrogen 52 mg/dL (7-20) Creatinine 2.4 mg/dL (0.6-1.0) Estimated GFR (Cockcroft-Gault) 19.6 Glucose Level 155 mg/dL (70-99) Calcium Level 7.3 mg/dL (8.5-10.1) Test 06/26/16 10:55 06/26/16 11:10 06/26/16 16:22 06/26/16 19:49 Urine Collection Type U cath Urine Color Yellow Urine Clarity Clear Urine pH 5.5 Urine Specific [place] <=1.005 Urine Protein Negative mg/dL (NEG-TRACE) Urine Glucose (UA) Negative mg/dL (NEG) Urine Ketones (Stick) Negative mg/dL (NEG) Urine Blood Large (NEG) Urine Nitrite Negative (NEG) Urine Bilirubin Negative (NEG) Urine Urobilinogen Dipstick 0.2 mg/dL (0.2 mg/dL) Urine Leukocyte Esterase Small (NEG) Urine RBC 3-5 /HPF (0-2) Urine WBC 5-10 /HPF (0-4) Urine Transitional Epithelial Cells Occ /LPF Urine Bacteria Few /HPF (0-FEW) Glucose (Fingerstick) 137 mg/dL (70-99) 125 mg/dL (70-99) 125 mg/dL (70-99) Test 06/27/16 05:00 06/27/16 05:10 Sodium Level 141 mmol/L (136-145) Potassium Level 4.6 mmol/L (3.5-5.1) Chloride Level 106 mmol/L (98-107) Carbon Dioxide Level 29 mmol/L (21-32) Anion Gap 6 (6-14) Blood Urea Nitrogen 53 mg/dL (7-20) Creatinine 2.0 mg/dL (0.6-1.0) Estimated GFR (Cockcroft-Gault) 24.2 Glucose Level 91 mg/dL (70-99) Calcium Level 8.2 mg/dL (8.5-10.1) White Blood Count 11.4 x10^3/uL (4.0-11.0) Red Blood Count 2.76 x10^6/uL (3.50-5.40) Hemoglobin 8.5 g/dL (12.0-15.5) Hematocrit 25.4 % (36.0-47.0) Mean Corpuscular Volume 92 fL (79-100) Mean Corpuscular Hemoglobin 31 pg (25-35) Mean Corpuscular Hemoglobin Concent 33 g/dL (31-37) Red Cell Distribution Width 16.6 % (11.5-14.5) Platelet Count 336 x10^3/uL (140-400) Neutrophils (%) (Auto) 54 % (31-73) Lymphocytes (%) (Auto) 37 % (24-48) Monocytes (%) (Auto) 7 % (0-9) Eosinophils (%) (Auto) 2 % (0-3) Basophils (%) (Auto) 1 % (0-3) Neutrophils # (Auto) 6.1 x10^3uL (1.8-7.7) Lymphocytes # (Auto) 4.2 x10^3/uL (1.0-4.8) Monocytes # (Auto) 0.8 x10^3/uL (0.0-1.1) Eosinophils # (Auto) 0.2 x10^3/uL (0.0-0.7) Basophils # (Auto) 0.1 x10^3/uL (0.0-0.2) Creatine Kinase 17 U/L (26-192) Laboratory Tests Test 06/26/16 10:55 06/26/16 11:10 06/26/16 16:22 06/26/16 19:49 Urine Collection Type U cath Urine Color Yellow Urine Clarity Clear Urine pH 5.5 Urine Specific [place] <=1.005 Urine Protein Negative mg/dL (NEG-TRACE) Urine Glucose (UA) Negative mg/dL (NEG) Urine Ketones (Stick) Negative mg/dL (NEG) Urine Blood Large (NEG) Urine Nitrite Negative (NEG) Urine Bilirubin Negative (NEG) Urine Urobilinogen Dipstick 0.2 mg/dL (0.2 mg/dL) Urine Leukocyte Esterase Small (NEG) Urine RBC 3-5 /HPF (0-2) Urine WBC 5-10 /HPF (0-4) Urine Transitional Epithelial Cells Occ /LPF Urine Bacteria Few /HPF (0-FEW) Glucose (Fingerstick) 137 mg/dL (70-99) 125 mg/dL (70-99) 125 mg/dL (70-99) Test 06/27/16 05:00 06/27/16 05:10 Sodium Level 141 mmol/L (136-145) Potassium Level 4.6 mmol/L (3.5-5.1) Chloride Level 106 mmol/L (98-107) Carbon Dioxide Level 29 mmol/L (21-32) Anion Gap 6 (6-14) Blood Urea Nitrogen 53 mg/dL (7-20) Creatinine 2.0 mg/dL (0.6-1.0) Estimated GFR (Cockcroft-Gault) 24.2 Glucose Level 91 mg/dL (70-99) Calcium Level 8.2 mg/dL (8.5-10.1) White Blood Count 11.4 x10^3/uL (4.0-11.0) Red Blood Count 2.76 x10^6/uL (3.50-5.40) Hemoglobin 8.5 g/dL (12.0-15.5) Hematocrit 25.4 % (36.0-47.0) Mean Corpuscular Volume 92 fL (79-100) Mean Corpuscular Hemoglobin 31 pg (25-35) Mean Corpuscular Hemoglobin Concent 33 g/dL (31-37) Red Cell Distribution Width 16.6 % (11.5-14.5) Platelet Count 336 x10^3/uL (140-400) Neutrophils (%) (Auto) 54 % (31-73) Lymphocytes (%) (Auto) 37 % (24-48) Monocytes (%) (Auto) 7 % (0-9) Eosinophils (%) (Auto) 2 % (0-3) Basophils (%) (Auto) 1 % (0-3) Neutrophils # (Auto) 6.1 x10^3uL (1.8-7.7) Lymphocytes # (Auto) 4.2 x10^3/uL (1.0-4.8) Monocytes # (Auto) 0.8 x10^3/uL (0.0-1.1) Eosinophils # (Auto) 0.2 x10^3/uL (0.0-0.7) Basophils # (Auto) 0.1 x10^3/uL (0.0-0.2) Creatine Kinase 17 U/L (26-192) Brief Hospital Course Ms. Moreno is a 75 old female [facility] resident admitted for confusion, BARB, was on lasix 80 mgs, treated with IVF by renal Numbers better, baseline crea 1,5, dcd with crea 2,0, Hypotension was fluid responsive, Ok to cont losartan and lower dose lasix 40 PO qdaily, Can ff up renal 1 month rpt BMP 1-2 weeks, Needed to restart home norvasc and Metoprolol as BP creeping up. Dw renal and RN and SW,. Dc recinos prior to dc Pt seen and examined, dc 32 mins Consults: renal Proc 24 hr urine Discharge Information Condition at Discharge: Improved, Stable Disposition/Orders: Other (snf) Scheduled Albuterol Sulfate (Proair Hfa Inhaler), 2 PUFF INH QID, (Reported) Alprazolam (Xanax), 0.5 MG PO TID, (Reported) Amlodipine Besylate (Norvasc), 5 MG PO DAILY, (Reported) Esomeprazole Magnesium (Nexium Capsule), 40 MG PO DAILY, (Reported) Fluticasone Propionate (Fluticasone Propionate Nasal [place]), 2 SPRAY NS BID, ( Reported) Furosemide (Furosemide), 40 MG PO DAILY, (Reported) Gabapentin (Gabapentin), 800 MG PO HS, (Reported) Metoprolol Tartrate (Metoprolol Tartrate), 50 MG PO BID, (Reported) Montelukast Sodium (Montelukast Sodium Tablet), 10 MG PO HS, (Reported) Phenazopyridine Hcl (Phenazopyridine Hcl), 1 TAB PO TID, (Reported) Quetiapine Fumarate (Quetiapine Fumarate), 100 MG PO TID, (Reported) Scopolamine (Transderm-Scop), 1 PATCH TP Q3DAYS, (Reported) Simvastatin (Simvastatin), 1 TAB PO QHS, (Reported) Sucralfate (Carafate), 10 ML PO QIDACHS, (Reported) Valsartan (Diovan), 160 MG PO DAILY, (Reported) Scheduled PRN Acetaminophen (Acetaminophen), 650 MG PO PRN Q4HRS PRN for PAIN, (Reported) Acetaminophen With Codeine (Tylenol With Codeine #3 Tablet), 1 TAB PO PRN Q6HRS PRN for PAIN, (Reported) Ondansetron (Zofran Odt), 4 MG PO PRN Q4HRS PRN for NAUSEA/VOMITING, (Reported) Miscellaneous Medications Multivitamin (Multi Vitamin Daily), 1 EACH PO, (Reported) DIANA ESPAÑA MD June 27, 2016 10:08
[2016-06-27 11:00] VITALS: BP 133/65
[2016-06-27 15:27] LABS: KAPPA LAMBDA RATIO 2.06 (0.26-1.65)
[2016-06-29 10:26] LABS: ALPHA 1 0.2 g/dL (0.0-0.4); ALPHA 2 0.7 g/dL (0.4-1.0); BETA 1.3 g/dL (0.7-1.3); GAMMA 0.7 g/dL (0.4-1.8); M-SPIKE Not Observed g/dL (Not Observed); PROTEIN TOTAL 5.6 g/dL (6.0-8.5)
[2016-07-02] MEDS ORDERED: SUCR1TAB PO (18:17)
[2016-07-03 10:14] LABS: GAMMA UR 17.6 % (.); M-SPIKE, % Not Observed % (Not Observed); PROTEIN 24 UR <161 mg/24 hr (30-150); PROTEIN UR <4.0 mg/dL (Not Estab.)
[2016-07-04 13:21] LABS: IMMUNOGLOBULIN A 371 mg/dL (64-422); IMMUNOGLOBULIN G 950 mg/dL (700-1600); IMMUNOGLOBULIN M 47 mg/dL (26-217)
== END 2016-06-27 14:30 | DRG 682 ==
LOC: 1 WEST ICU 17:17 → 5 SOUTH 06-25 13:53
PROVIDERS: ADMIT Internal Medicine Hematology & Oncology; ATTEND Internal Medicine Hematology & Oncology
DX: N17.9 Acute kidney failure, unspecified (principal); E43 Unspecified severe protein-calorie malnutrition; J96.00 Acute respiratory failure, unspecified whether with hypoxia or hypercapnia; I13.0 Hypertensive heart and chronic kidney disease with heart failure and stage 1 through stage 4 chronic kidney disease, or unspecified chronic kidney disease; N39.0 Urinary tract infection, site not specified; N18.4 Chronic kidney disease, stage 4 (severe); I95.9 Hypotension, unspecified; F03.90 Unspecified dementia, unspecified severity, without behavioral disturbance, psychotic disturbance, mood disturbance, and anxiety; E86.1 Hypovolemia; E86.0 Dehydration; I50.9 Heart failure, unspecified; E78.5 Hyperlipidemia, unspecified; J44.9 Chronic obstructive pulmonary disease, unspecified; K21.9 Gastro-esophageal reflux disease without esophagitis; F32.9 Major depressive disorder, single episode, unspecified; F41.9 Anxiety disorder, unspecified; D64.9 Anemia, unspecified; G62.9 Polyneuropathy, unspecified; M06.9 Rheumatoid arthritis, unspecified; R09.02 Hypoxemia; Z87.01 Personal history of pneumonia (recurrent); Z99.81 Dependence on supplemental oxygen; Z88.8 Allergy status to other drugs, medicaments and biological substances; Z88.5 Allergy status to narcotic agent
CPT/HCPCS: 36415; 80048; 80053; 81001; 82550; 82947; 83520; 84165; 84166; 85007; 85027; 85610; 86334; 87641; 94250; 94640; 94760; J7030